=== PATIENT | female | born 1940 | race Caucasian/White ===

== ENCOUNTER 2019-11-18 10:41 | Outpatient (REF) | payer MEDICARE, OTHER, SELFPAY ==
[2019-11-18 11:53] LABS: Imm Gran Abs Auto 0.03 X10*3/uL (0.00-0.03); Imm Gran Pct Auto 0.4 % (0.0-0.4); MANUAL DIFF FLAG SCAN; PLT CLUMP 1; SCAN SMEAR FLAG 1
[2019-11-18 11:55] LABS: Basophils Percent Auto 0.5 % (0-2); Eosinophils Absolute Auto 0.1 X10*3/uL (0.0-0.4); Eosinophils Percent Auto 1.8 % (0-4); Hematocrit 43.6 % (37-47); Hemoglobin 14.7 g/dl (12.0-16.0); Lymphocytes Absolute Auto 1.2 X10*3/uL (1.2-4.9); Lymphocytes Percent Auto 14.8 % (20-40); Mean Corpuscular HGB Conc 33.7 g/dl (31.0-35.0); Mean Corpuscular Hemoglobin 31.8 pg (27.0-33.0); Mean Corpuscular Volume 94.4 fL (80-98); Mean Platelet Volume 11.5 fL (9.4-12.3); Monocytes Absolute Auto 0.5 X10*3/uL (0.1-1.2); Monocytes Percent Auto 6.5 % (2-11); Red Blood Count 4.62 X10*6/uL (4.20-5.50); Red Cell Distribution Width 12.3 % (11.0-16.0); White Blood Count 7.9 X10*3/uL (4.8-10.8)
[2019-11-18 12:03] LABS: INTERNATIONAL NORM RATIO 1.1 (0.9-1.1); Prothrombin Time 12.5 SEC (10.8-13.0)
[2019-11-18 12:26] LABS: SLIDE REVIEW VERIFIED
[2019-11-18 12:28] LABS: Alanine Aminotransferase 34 U/L (0-31); Albumin Level 4.1 g/dL (3.5-5.0); Alkaline Phosphatase 101 U/L (39-117); Anion Gap 10 (12-20); Aspartate Amino Transferase 23 U/L (5-31); Bilirubin Total 0.7 mg/dL (0.0-1.0); Blood Urea Nitrogen 16 mg/dL (9-16); Calcium 9.2 mg/dL (8.4-10.2); Carbon Dioxide 31 mmol/L (22-29); Chloride 100 mmol/L (96-108); Estimated Glomerular Filt Rate > 60; Glucose Random 113 mg/dL (60-115); Potassium 3.9 mmol/l (3.3-5.1); Sodium 137 mmol/L (135-145); Total Protein 6.5 g/dL (6.5-8.0)
[2019-11-18 12:37] LABS: Vitamin D 25-OH Total 27.3 ng/mL (>30)
== END 2019-11-18 10:42 | disposition home or self-care (01) ==
LOC: HO.LAB 10:41
PROVIDERS: PCP Internal Medicine; Visit Provider Internal Medicine Gastroenterology
DX: K74.60 Unspecified cirrhosis of liver (principal)
CPT/HCPCS: 36415; 80053; 82306; 85025; 85610

== ENCOUNTER 2019-11-19 08:10 | Outpatient (REF) | payer MEDICARE, OTHER, SELFPAY ==
--- NOTE | 2019-11-19 08:17 | CT_ITS ---
EXAMINATION: CT ABDOMEN WITHOUT AND WITH CONTRAST CLINICAL INFORMATION: Abdominal pain. Clinical history of cirrhosis. COMPARISON: Ultrasound 10/25/2018. CT abdomen on 09/01/2016. TECHNIQUE: Contiguous axial thin section helical images of the abdomen were performed before and after the administration of 100 mL of Omnipaque 350 intravenous contrast. The data set was reformatted in the coronal and sagittal planes and reviewed on an independent workstation. This CT examination was performed using dose optimization techniques as appropriate, variously including the following: *Automated exposure control *Adjustment of mA and/or kV according to patient size (this includes techniques or standardized protocols for targeted exams where dose is matched to indication/reason for exam; i.e. extremities or head) *Use of iterative reconstruction technique DLP: 666 mGy-cm. FINDINGS: LUNG BASES: Linear subpleural reticular opacities from chronic interstitial disease. Calcification of the mitral valve annulus. LIVER, GALLBLADDER, AND BILIARY TREE: Imaging was obtained in the noncontrast, arterial and portal venous phases. Right lobe of the liver spans 16.9 cm craniocaudal. There is nodular contour. No focal lesion is identified. No intrahepatic biliary duct dilatation. Gallbladder appears unremarkable. No gallstones. The CBD is of normal caliber. PANCREAS: Homogeneous enhancement. Pancreatic duct measures 4-5 mm, similar to previous. No focal mass. No acute inflammatory changes seen. SPLEEN: Measures 8.5 cm craniocaudal. No focal lesions. ADRENAL GLANDS AND KIDNEYS: Adrenal glands unremarkable. Stable 1 cm cyst in the lower pole of the left kidney. No suspicious renal lesions identified. No hydronephrosis. BOWEL LOOPS: Normal caliber of the visualized bowel loops without acute findings. The stomach is nondistended. LYMPH NODES: No pathologically enlarged lymph nodes are seen. VASCULAR: Normal caliber aorta. Moderate atherosclerotic vascular disease. BONES: Scoliotic curvature to the spine, with multilevel degenerative changes. IMPRESSION: 1. Hepatic cirrhosis. No liver lesions identified. 2. Chronic interstitial lung disease in the lung bases. 3. Stable 1 cm cyst in the lower pole left kidney.
== END 2019-11-19 08:11 | disposition home or self-care (01) ==
LOC: HO.CT 08:10
PROVIDERS: Visit Provider Internal Medicine Gastroenterology
DX: K74.60 Unspecified cirrhosis of liver (principal)
CPT/HCPCS: 74170

== ENCOUNTER → 2019-11-27 10:31 | Outpatient (BNVA) | payer MEDICARE, OTHER, SELFPAY | PROVIDERS: PCP Internal Medicine; Referring Provider Internal Medicine; Visit Provider Internal Medicine Gastroenterology | DX: K59.01 Slow transit constipation (principal); K74.60 Unspecified cirrhosis of liver; E55.9 Vitamin D deficiency, unspecified; F41.9 Anxiety disorder, unspecified; Z85.038 Personal history of other malignant neoplasm of large intestine | CPT/HCPCS: 99214; Q3014 ==

== ENCOUNTER 2019-12-23 08:13 | Outpatient (REF) | payer MEDICARE, OTHER, SELFPAY ==
--- NOTE | 2019-12-23 08:16 | MM_ITS ---
EXAMINATION: MM SCREENING DIGITAL BREAST TOMOSYNTHESIS, BILATERAL CLINICAL INFORMATION: Screening. Asymptomatic. Prior right lumpectomy for breast cancer 1992. Prior reduction mammoplasty. Due for yearly. COMPARISON: Mammography: 10/09/2018, 07/13/2017, 06/01/2016 TECHNIQUE: Digital breast tomosynthesis is performed in both the craniocaudal and mediolateral oblique views along with computer-aided detection (CAD). Synthesized 2D images are generated from the tomosynthesis. Additional left MLO view is provided. FINDINGS: There are scattered areas of fibroglandular density (ACR BI-RADS breast composition Category b). There are no significant masses, abnormal calcifications, or other abnormalities. There is some minor scarring similar to prior studies. Scattered round and vascular calcifications are again noted. A group of punctate round calcifications possibly vascular mid upper outer right breast are stable from prior studies. No significant changes. MM/MM tomosynthesis screening BI IMPRESSION: No significant changes from prior exams. ASSESSMENT: BI-RADS 2: Benign RECOMMENDATION: Routine annual mammography screening. This patient's information was entered into a reminder system with a target due date for their next mammogram.
== END 2019-12-23 08:14 | disposition home or self-care (01) ==
LOC: HO.MAMMO 08:13
PROVIDERS: PCP Internal Medicine; Visit Provider Internal Medicine
DX: Z12.31 Encounter for screening mammogram for malignant neoplasm of breast (principal)
CPT/HCPCS: 77063; 77067

== ENCOUNTER 2020-04-28 | Outpatient (REF) | payer MEDICARE, OTHER, SELFPAY ==
[2020-05-01 11:34] LABS: FIT Int Ctl YES; FIT1 NEGATIVE (NEGATIVE); FIT2 NEGATIVE (NEGATIVE)
== END 2020-04-28 00:01 | disposition home or self-care (01) ==
LOC: HO.LNP
PROVIDERS: Visit Provider Internal Medicine Gastroenterology
DX: Z12.11 Encounter for screening for malignant neoplasm of colon (principal); K59.01 Slow transit constipation
CPT/HCPCS: 82274

== ENCOUNTER 2020-05-06 11:22 | Outpatient (REF) | payer MEDICARE, OTHER, SELFPAY ==
[2020-05-06 12:14] LABS: Basophils Percent Auto 0.4 % (0-2); Eosinophils Absolute Auto 0.1 X10*3/uL (0.0-0.4); Hematocrit 43.5 % (37-47); Hemoglobin 14.6 g/dl (12.0-16.0); Imm Gran Abs Auto 0.03 X10*3/uL (0.00-0.03); Imm Gran Pct Auto 0.4 % (0.0-0.4); Lymphocytes Absolute Auto 1.4 X10*3/uL (1.2-4.9); Lymphocytes Percent Auto 19.7 % (20-40); MANUAL DIFF FLAG SCAN; Mean Corpuscular HGB Conc 33.6 g/dl (31.0-35.0); Mean Corpuscular Hemoglobin 31.9 pg (27.0-33.0); Monocytes Absolute Auto 0.4 X10*3/uL (0.1-1.2); Monocytes Percent Auto 5.8 % (2-11); Neutrophils Absolute Auto 4.9 X10*3/uL (2.0-8.3); Neutrophils Percent Auto 71.7 % (45-73); PLT CLUMP 1; Red Blood Count 4.58 X10*6/uL (4.20-5.50); Red Cell Distribution Width 12.7 % (11.0-16.0); SCAN SMEAR FLAG 1
[2020-05-06 12:18] LABS: INTERNATIONAL NORM RATIO 1.1 (0.9-1.1); Prothrombin Time 12.6 SEC (10.8-13.0)
[2020-05-06 12:35] LABS: SLIDE REVIEW VERIFIED; White Blood Count 6.9 X10*3/uL (4.8-10.8)
[2020-05-06 12:42] LABS: Alanine Aminotransferase 38 U/L (0-31); Albumin Level 4.1 g/dL (3.5-5.0); Alkaline Phosphatase 102 U/L (39-117); Anion Gap 14 (12-20); Aspartate Amino Transferase 40 U/L (5-31); Bilirubin Total 1.1 mg/dL (0.0-1.0); Blood Urea Nitrogen 24 mg/dL (9-16); C Reactive Protein 0.32 mg/dL (< or = 0.50); Carbon Dioxide 28 mmol/L (22-29); Chloride 102 mmol/L (96-108); Estimated Glomerular Filt Rate > 60; Gamma Glutamyl Transpeptidase 191 U/L (7-33); Glucose Random 106 mg/dL (60-115); Sodium 140 mmol/L (135-145); Total Protein 6.9 g/dL (6.5-8.0)
[2020-05-06 12:58] LABS: Ferritin 273 ng/mL (10-250)
[2020-05-07 11:47] LABS: Alpha Fetoprotein 4.1 ng/mL
[2020-05-10 22:47] LABS: Chenodeoxycholic Acid 2.2 umol/L (< OR = 3.1); Cholic Acid 0.8 umol/L (< OR = 1.8); Deoxycholic Acid 0.6 umol/L (< OR = 2.4); Total Bile Acids 3.6 umol/L (< OR = 6.8)
== END 2020-05-06 11:23 | disposition home or self-care (01) ==
LOC: HO.LAB 11:22
PROVIDERS: Absent Provider Internal Medicine Medical Oncology; PCP Internal Medicine; Visit Provider Internal Medicine Gastroenterology
DX: K74.60 Unspecified cirrhosis of liver (principal)
CPT/HCPCS: 36415; 80053; 82105; 82542; 82728; 82977; 85025; 85610; 86140

== ENCOUNTER → 2020-05-19 15:02 | Outpatient (BNVA) | payer MEDICARE, OTHER, SELFPAY | PROVIDERS: PCP Internal Medicine; Visit Provider Internal Medicine Gastroenterology | DX: R79.89 Other specified abnormal findings of blood chemistry (principal); K74.60 Unspecified cirrhosis of liver; D12.6 Benign neoplasm of colon, unspecified; L29.8 Other pruritus | CPT/HCPCS: 99212 ==

== ENCOUNTER 2020-10-20 10:50 | Outpatient (REF) | payer MEDICARE, OTHER, SELFPAY ==
[2020-10-20 12:09] LABS: Basophils Percent Auto 0.3 % (0-2); Eosinophils Percent Auto 0.5 % (0-4); Hematocrit 45.2 % (37-47); Hemoglobin 15.2 g/dl (12.0-16.0); Imm Gran Abs Auto 0.04 X10*3/uL (0.00-0.03); Imm Gran Pct Auto 0.5 % (0.0-0.4); Lymphocytes Absolute Auto 1.4 X10*3/uL (1.2-4.9); Lymphocytes Percent Auto 15.9 % (20-40); MANUAL DIFF FLAG SCAN; Mean Corpuscular HGB Conc 33.6 g/dl (31.0-35.0); Mean Corpuscular Hemoglobin 32.5 pg (27.0-33.0); Mean Corpuscular Volume 96.6 fL (80-98); Monocytes Absolute Auto 0.6 X10*3/uL (0.1-1.2); Monocytes Percent Auto 7.1 % (2-11); Neutrophils Absolute Auto 6.6 X10*3/uL (2.0-8.3); Neutrophils Percent Auto 75.7 % (45-73); PLT CLUMP 1; Red Blood Count 4.68 X10*6/uL (4.20-5.50); Red Cell Distribution Width 12.4 % (11.0-16.0); SCAN SMEAR FLAG 1
[2020-10-20 12:10] LABS: White Blood Count 8.6 X10*3/uL (4.8-10.8)
[2020-10-20 12:16] LABS: Prothrombin Time 11.9 SEC (9.9-13.0)
[2020-10-20 12:48] LABS: TSH reflex Free T4 1.32 uIU/mL (0.32-4.0)
[2020-10-20 13:09] LABS: Alanine Aminotransferase 21 U/L (0-31); Albumin Level 4.1 g/dL (3.5-5.0); Alkaline Phosphatase 75 U/L (39-117); Anion Gap 14 (12-20); Aspartate Amino Transferase 19 U/L (5-31); Bilirubin Total 0.7 mg/dL (0.0-1.0); Blood Urea Nitrogen 16 mg/dL (9-16); Calcium 9.7 mg/dL (8.4-10.2); Carbon Dioxide 26 mmol/L (22-29); Chloride 103 mmol/L (96-108); Estimated Glomerular Filt Rate > 60; Glucose Random 89 mg/dL (60-115); Potassium 4.6 mmol/L (3.3-5.1); Sodium 138 mmol/L (135-145); Total Protein 6.5 g/dL (6.5-8.0)
[2020-10-20 13:35] LABS: Gamma Glutamyl Transpeptidase 144 U/L (7-33)
[2020-10-20 13:36] LABS: Platelet Count 133 X10*3/uL (160-400)
[2020-10-20 13:37] LABS: SLIDE REVIEW VERIFIED
== END 2020-10-20 10:51 | disposition home or self-care (01) ==
LOC: HO.LAB 10:50
PROVIDERS: PCP Internal Medicine; Visit Provider Internal Medicine Gastroenterology
DX: K74.60 Unspecified cirrhosis of liver (principal); L29.8 Other pruritus; R79.89 Other specified abnormal findings of blood chemistry
CPT/HCPCS: 36415; 80053; 82306; 82977; 84443; 85025; 85610

== ENCOUNTER 2020-10-26 12:04 | Outpatient (REF) | payer MEDICARE, OTHER, SELFPAY ==
--- NOTE | ~2020-10-26 | CT_ITS ---
EXAMINATION: CT ABDOMEN AND PELVIS WITHOUT AND WITH CONTRAST CLINICAL INFORMATION: Cirrhosis COMPARISON: Previous CT of the abdomen and pelvis November 2019 and abdominal ultrasound October 2018. TECHNIQUE: Multidetector volumetric imaging was performed of the abdomen and pelvis before and after the IV administration of 85 mL of Omnipaque 350 intravenous contrast. Sagittal and coronal reformatted images were obtained on the technologist's workstation. This CT examination was performed using dose optimization techniques as appropriate, variously including the following: *Automated exposure control *Adjustment of mA and/or kV according to patient size (this includes techniques or standardized protocols for targeted exams where dose is matched to indication/reason for exam; i.e. extremities or head) *Use of iterative reconstruction technique DLP: 766 mGy-cm FINDINGS: LUNG BASES: There are increased peripheral interstitial markings questionable for mild interstitial lung disease. There is a small left posterior diaphragmatic hernia containing fat. There is mitral annular calcification. LIVER, GALLBLADDER, AND BILIARY TREE: The liver is cirrhotic. On early arterial phase imaging, there is a small area of early arterial phase enhancement high in the dome of the right lobe of the liver. This area measures approximately 4 mm axial image 21 series 4. This is not appreciated precontrast or on portal phase images. There is a small low-attenuation lesion in the lateral segment of the left lobe of the liver measuring 3 x 10 mm. This does not demonstrate enhancement and is suggestive of a cyst. This is best appreciated axial image 32 series 5. No other focal liver lesion is seen. There is increased attenuation in the gallbladder questionable for a sludge or polyp. No definite gallstone is seen. The gallbladder is otherwise normal. There is no intrahepatic biliary duct dilatation. The hepatic veins and portal veins are patent. There is no ascites. PANCREAS: There is mild dilatation of the main pancreatic duct measuring 5 mm. No focal lesion is seen. SPLEEN: Unremarkable. ADRENAL GLANDS: Unremarkable. KIDNEYS AND URETERS: There are small bilateral renal cysts. The kidneys are otherwise unremarkable. BLADDER: Unremarkable. GASTROINTESTINAL TRACT: There is severe diverticulosis of the colon. There are postsurgical changes to the right colon. The appendix is not seen. The stomach is not optimally distended. ABDOMINAL WALL: There is a small umbilical hernia containing fat. LYMPH NODES: Normal. VASCULAR: There is evidence of atherosclerotic disease. There is mild ectasia of the lower abdominal aorta. No aneurysm is seen. PELVIC VISCERA: There is low-attenuation seen centrally in the uterus suggestive of fluid or thickening of the endometrial cavity. This measures 5 mm in AP dimension. This does not appear appreciably changed from prior exams. Adnexa are unremarkable. OSSEOUS STRUCTURES: There is scoliosis and degenerative changes of the spine. There are degenerative changes at the hip joints. CT/CT abdomen pelvis wo/w con IMPRESSION: Cirrhotic-appearing liver. New 4 mm area of early arterial phase enhancement high in the dome of the right lobe of the liver. Probable small cyst in the left lobe of the liver. Stable mild dilatation of the main pancreatic duct. Bilateral renal cysts. Severe diverticulosis of the colon.
[2020-10-26] MEDS: iohexoL 350 MG/ML 100 ML INFUS..BTL IV (14:29)
== END 2020-10-26 12:05 | disposition home or self-care (01) ==
LOC: HO.CT 12:04
PROVIDERS: PCP Internal Medicine; Visit Provider Internal Medicine Gastroenterology
DX: K74.60 Unspecified cirrhosis of liver (principal)
CPT/HCPCS: 74178; Q9967

== ENCOUNTER → 2020-12-03 09:26 | Outpatient (BNVA) | payer MEDICARE, OTHER, SELFPAY | PROVIDERS: PCP Internal Medicine; Referring Provider Internal Medicine; Visit Provider Internal Medicine Gastroenterology | DX: D12.6 Benign neoplasm of colon, unspecified (principal); K74.60 Unspecified cirrhosis of liver | CPT/HCPCS: 99212 ==

== ENCOUNTER 2020-12-31 10:39 | Outpatient (REF) | payer MEDICARE, OTHER, SELFPAY ==
--- NOTE | ~2020-12-31 | MM_ITS ---
EXAMINATION: MM SCREENING DIGITAL BREAST TOMOSYNTHESIS, BILATERAL CLINICAL INFORMATION: Screening. Asymptomatic. Right lumpectomy for breast cancer, 1993. Prior reduction mammoplasty. COMPARISON: Mammography: 12/23/2019, 10/09/2018, 07/13/2017 TECHNIQUE: Digital breast tomosynthesis is performed in both the craniocaudal and mediolateral oblique views along with computer-aided detection (CAD). Synthesized 2D images are generated from the tomosynthesis. FINDINGS: There are scattered areas of fibroglandular density (ACR BI-RADS breast composition Category b). There are no significant masses, abnormal calcifications, or other abnormalities. Parenchymal pattern is similar to prior exams. No developing density. No significant changes. MM/MM tomosynthesis screening BI IMPRESSION: No mammographic evidence of malignancy. ASSESSMENT: BI-RADS 1: Negative RECOMMENDATION: Routine annual mammography screening. This patient's information was entered into a reminder system with a target due date for their next mammogram.
--- NOTE | ~2020-12-31 | MM_ITS ---
EXAMINATION: BONE DENSITOMETRY CLINICAL INDICATION: Encounter for other screening for malignant neoplasm. COMPARISON: Previous BD dated 10/28/2010 and baseline BD dated 10/10/2006. TECHNIQUE: Using a [employer] DXA System (software version: 13.1) manufactured by [employer], dual-energy x-ray absorptiometry was performed of the lumbar spine and left hip. The images are of good technical quality. Summary results are attached. FINDINGS: AP SPINE L1-L2 (excluding L3 and L4): The data of L1-L4 has been changed to exclude the L3 and L4 vertebral bodies, because degenerative changes at these levels may cause overestimation of lumbar spine density. Current: BMD 1.238 g/cm2, Z-score 2.3, T-score 0.6, normal, 9.4% decrease from previous, 6.4% decrease from baseline (<5% change is not significant). Prior: BMD 1.366 g/cm2. Baseline: BMD 1.322 g/cm2. LEFT FEMUR, NECK: Current: BMD 0.839 g/cm2, Z-score 0.6, T-score -1.4, osteopenia. Prior: BMD 0.830 g/cm2. Baseline: BMD 0.815 g/cm2. LEFT FEMUR, TOTAL: Current: BMD 0.852 g/cm2, Z-score 0.6, T-score -1.2, osteopenia, 7.1% decrease from previous, 4.7% decrease from baseline (<5% change is not significant). Prior: BMD 0.917 g/cm2. Baseline: BMD 0.894 g/cm2. IDENTIFIED RISK FACTORS: Secondary osteoporosis, menopause. HISTORY OF FRACTURE: None listed. MEDICATIONS: Calcium supplements or multivitamin, vitamin D. MM/XR DEXA axial skeleton IMPRESSION: 1. DIAGNOSIS: Osteopenia based on the lowest T-score value of -1.4 in the femoral neck applying World Health Organization criteria. 2. 10-YEAR FRACTURE RISK PREDICTION, FRAX: Major osteoporotic fracture (clinical spine, forearm, hip or shoulder) 13.0%. Hip fracture 3.0%. 3. Treatment Recommendations: NOF guidelines recommend consideration for treatment in postmenopausal women and men age 50 and older presenting with the following: -A hip or vertebral (clinical or morphometric) fracture. -T-score less than or equal to -2.5 at the femoral neck or spine after appropriate evaluation to exclude secondary causes. -Low bone mass at the hip or spine and a 10-year fracture probability by FRAX of greater than or equal to 3% for hip fracture or greater than or equal to 20% for major osteoporotic fracture based on the [place] adapted WHO algorithm. 4. Other Recommendations: All treatment decisions require clinical judgment and consideration of individual patient factors, including patient preferences, comorbidities, previous drug use, risk factors not captured in the FRAX model (e.g. frailty, falls, vitamin D deficiency, increased bone turnover, interval significant decline in bone density) and possible under or overestimation of fracture risk by FRAX. Additional medical evaluation for secondary cause of low bone mineral density may be appropriate. FUTURE SCAN RECOMMENDATION: People with diagnosed cases of osteoporosis or at high risk for fracture should have regular bone mineral density tests. For patients eligible for Medicare, routine testing is allowed once every 2 years. The testing frequency can be increased to one year for patients who have rapidly progressing disease, those who are receiving or discontinuing medical therapy to restore bone mass, or have additional risk factors.
== END 2020-12-31 10:40 | disposition home or self-care (01) ==
LOC: HO.MAMMO 10:39
PROVIDERS: PCP Internal Medicine; Visit Provider Internal Medicine
DX: Z12.31 Encounter for screening mammogram for malignant neoplasm of breast (principal); Z13.820 Encounter for screening for osteoporosis; M85.80 Other specified disorders of bone density and structure, unspecified site; Z78.0 Asymptomatic menopausal state; Z79.899 Other long term (current) drug therapy
CPT/HCPCS: 77063; 77067; 77080

== ENCOUNTER 2021-01-20 12:35 | Outpatient (REF) | payer MEDICARE, OTHER, SELFPAY ==
--- NOTE | ~2021-01-20 | MR_ITS ---
EXAMINATION: MR ABDOMEN WITHOUT AND WITH CONTRAST CLINICAL INFORMATION: Cirrhosis of the liver COMPARISON: CT 10/26/2020 TECHNIQUE: MR abdomen was performed without and with use of 7 mL intravenous Gadavist gadolinium contrast. Postcontrast images are performed in multiphase dynamic sequences. Imaging was performed in 3 planes. FINDINGS: LUNG BASES: The visualized lung bases are unremarkable. LIVER, GALLBLADDER, AND BILIARY TREE: Liver has a nodular contour consistent with history of cirrhosis. No abnormal arterial phase enhancement or portal venous phase washout to suggest hepatocellular carcinoma. There is T2 bright lesion enhancing fibrosis superiorly in the right lobe of the liver with associated retraction and fibrotic changes. A few dependent gallstones are likely present, for example series 3 image . The hepatic and portal veins enhance normally. PANCREAS: Unremarkable. SPLEEN: Normal. ADRENAL GLANDS: Normal. KIDNEYS AND URETERS: Symmetric bilateral renal enhancement. 1 1 cm simple nonenhancing cyst in the lower pole the left kidney; no imaging follow-up recommended. No hydronephrosis or solid mass. GASTROINTESTINAL TRACT: Visualized stomach, small bowel, and colon are unremarkable. ABDOMINAL WALL: No significant hernia is appreciated. LYMPH NODES: No lymphadenopathy. VASCULAR: Unremarkable. OSSEOUS STRUCTURES: Marrow signal normal. MR/MR abdomen wo/w con IMPRESSION: Morphologic appearance of hepatic cirrhosis but no abnormal arterial phase enhancement to suggest hepatocellular carcinoma. Specifically, no correlate to the 3-4 mm focus of hyper enhancement in segment 7 at the dome. Recommend continued attention on follow-up.
[2021-01-20 12:05] LABS: Blood Urea Nitrogen 18 mg/dL (9-16); Estimated Glomerular Filt Rate > 60
== END 2021-01-20 12:36 | disposition home or self-care (01) ==
LOC: HO.MRI 12:35
PROVIDERS: PCP Internal Medicine; Visit Provider Internal Medicine Gastroenterology
DX: K57.90 Diverticulosis of intestine, part unspecified, without perforation or abscess without bleeding (principal); K74.60 Unspecified cirrhosis of liver; R93.2 Abnormal findings on diagnostic imaging of liver and biliary tract
CPT/HCPCS: 36415; 74183; 82565; 84520; A9585

== ENCOUNTER → 2021-04-08 11:23 | Outpatient (BNVA) | payer MEDICARE, OTHER, SELFPAY | PROVIDERS: PCP Internal Medicine; Referring Provider Internal Medicine; Visit Provider Internal Medicine Gastroenterology | DX: K74.60 Unspecified cirrhosis of liver (principal); K59.01 Slow transit constipation; K57.90 Diverticulosis of intestine, part unspecified, without perforation or abscess without bleeding; R93.2 Abnormal findings on diagnostic imaging of liver and biliary tract; Z86.010 Personal history of colon polyps | CPT/HCPCS: 99212 ==

== ENCOUNTER 2021-04-14 09:01 | Outpatient (REF) | payer MEDICARE, OTHER, SELFPAY ==
--- NOTE | ~2021-04-14 | MR_ITS ---
EXAMINATION: MR ABDOMEN WITHOUT AND WITH CONTRAST CLINICAL INFORMATION: Cirrhosis. COMPARISON: 01/20/2021 and 10/26/2020 TECHNIQUE: MR abdomen was performed without and with use of 7 mL intravenous Gadavist gadolinium contrast. Postcontrast images are performed in multiphase dynamic sequences. Imaging was performed in 3 planes. FINDINGS: LUNG BASES: The visualized lung bases are unremarkable. LIVER, GALLBLADDER, AND BILIARY TREE: Nodular surface contour of the liver consistent with history of cirrhosis. Tiny 4 mm focus of arterial phase enhancement in the posterior right lobe on image 29 of series 100 does not demonstrate washout on the portal venous phase. A nonspecific finding however attention should be paid on follow-up imaging. There is T2 bright lesion enhancing fibrosis superiorly in the right lobe of the liver with associated retraction and fibrotic changes. A few dependent gallstones are likely present. The hepatic and portal veins enhance normally. PANCREAS: No ductal dilatation. SPLEEN: Not enlarged. ADRENAL GLANDS: No adrenal masses. KIDNEYS AND URETERS: Symmetric in size and enhancement. No hydronephrosis or perinephric stranding. There is a stable 1.2 cm lower pole left renal cyst. GASTROINTESTINAL TRACT: Imaged loops of small and large bowel are not obstructed. No ascites. ABDOMINAL WALL: No significant hernia is appreciated. LYMPH NODES: No bulky abdominal lymphadenopathy. VASCULAR: Normal caliber abdominal aorta. MR/MR abdomen wo/w con IMPRESSION: Morphologic appearance of hepatic cirrhosis. Tiny 4 mm focus of arterial phase enhancement without washout characteristics is nonspecific. This corresponds to the CT performed on 10/26/2020. Continued attention on follow-up imaging is advised.
[2021-04-14 09:13] LABS: MANUAL DIFF FLAG NO
[2021-04-14 09:17] LABS: Basophils Percent Auto 0.6 % (0-2); Eosinophils Absolute Auto 0.1 X10*3/uL (0.0-0.4); Eosinophils Percent Auto 1.7 % (0-4); Hematocrit 43.3 % (37.0-47.0); Hemoglobin 14.6 g/dl (12.0-16.0); Imm Gran Abs Auto 0.03 X10*3/uL (0.00-0.03); Imm Gran Pct Auto 0.5 % (0.0-0.4); Lymphocytes Absolute Auto 1.4 X10*3/uL (1.2-4.9); Lymphocytes Percent Auto 21.4 % (20-40); Mean Corpuscular HGB Conc 33.7 g/dl (31.0-35.0); Mean Corpuscular Hemoglobin 31.8 pg (27.0-33.0); Mean Corpuscular Volume 94.3 fL (80.0-98.0); Mean Platelet Volume 10.8 fL (9.4-12.3); Monocytes Absolute Auto 0.4 X10*3/uL (0.1-1.2); Monocytes Percent Auto 6.4 % (2-11); Neutrophils Absolute Auto 4.5 x10*3/uL (2.0-8.3); Neutrophils Percent Auto 69.4 % (45-73); Platelet Count 146 X10*3/uL (160-400); Red Blood Count 4.59 X10*6/uL (4.20-5.50); Red Cell Distribution Width 12.5 % (11.0-16.0); White Blood Count 6.5 X10*3/uL (4.8-10.8)
[2021-04-14 09:36] LABS: Alanine Aminotransferase 20 U/L (0-31); Albumin Level 4.1 g/dL (3.5-5.0); Alkaline Phosphatase 87 U/L (39-117); Anion Gap 11 (12-20); Aspartate Amino Transferase 21 U/L (5-31); Bilirubin Total 0.7 mg/dL (0.0-1.0); Blood Urea Nitrogen 23 mg/dL (9-16); Calcium 9.5 mg/dL (8.4-10.2); Carbon Dioxide 30 mmol/L (22-29); Chloride 103 mmol/L (96-108); Estimated Glomerular Filt Rate > 60; Glucose Random 159 mg/dL (60-115); Potassium 4.2 mmol/L (3.3-5.1); Sodium 140 mmol/L (135-145); Total Protein 6.9 g/dL (6.5-8.0)
[2021-04-14 09:40] LABS: INTERNATIONAL NORM RATIO 1.1 (0.9-1.1); Prothrombin Time 12.5 SEC (9.9-13.0)
== END 2021-04-14 09:02 | disposition home or self-care (01) ==
LOC: HO.MRI 09:01
PROVIDERS: PCP Internal Medicine; Visit Provider Internal Medicine Gastroenterology
DX: K74.60 Unspecified cirrhosis of liver (principal); R93.2 Abnormal findings on diagnostic imaging of liver and biliary tract
CPT/HCPCS: 36415; 74183; 80053; 85025; 85610; A9585

== ENCOUNTER 2021-08-06 10:48 | Day surgery (SDC) | payer MEDICARE, OTHER, SELFPAY ==
[2021-07-30 11:28] VITALS: BMI 28.5
--- NOTE | 2021-08-05 13:44 | P.CONAN_ITS ---
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 (Acute) Breast screening (Acute) Osteopenia (Acute) Medicare annual wellness visit, initial (Acute) Diverticulosis (Acute) Abnormal CT of liver (Acute) Difficulty hearing (Acute) Rhinitis due to pollen (Acute) Travel advice encounter (Acute) Difficulty sleeping (Acute) Past Medical History Medical History (Updated 07/30/21 @ 11:31 by Irene Shah RN) Colon cancer COVID-19 vaccine series completed Diverticulosis HX: breast cancer Osteopenia Post-operative nausea and vomiting Pulmonary fibrosis Family History Family History Father Non-Hodgkin lymphoma HTN (hypertension) Mother Breast cancer Pancreatic cancer Surgical History Surgical History (Updated 07/30/21 @ 11:14 by Irene Shah RN) H/O colonoscopy H/O lumpectomy History of right hemicolectomy Hx of cataract extraction Social History Social History Household Members: Spouse Housing: House Are you a primary cardiac care unit nurse to a significant other at home: No Do you presently have visiting nurse or other home services: No Alcohol intake: current Patient Tobacco Use Status: Former Tobacco user Quit Date: age 69 Tobacco use type: Cigarette Use of substances other than those prescribed or required for medical reasons: No Have you been hit, kicked, punched, or otherwise hurt by someone within the past year? If so, by whom?: No Are you DNR?: No Advance Directives: Yes Advance Directives Information Provided: Yes Advance Directives on File: Yes Advance Directives Date on File: 02/24/15 Recently lost weight without trying: Yes How much weight loss: 2-13 pounds Eating poorly because of decreased appetite: Yes Nutrition screen score: 4 Nutrition Risks: Surgical patient >75years Poor oral hygiene: No service: No Current occupational status: retired Cognitive needs: No Hearing needs: No Vision needs: Yes Meds Allergies Allergy/AdvReac Type Severity Reaction Status Date / Time azithromycin [AZITHROMYCIN] Allergy Unknown JAUNDICE Verified 07/16/21 12:25 Home Medications Medication Instructions Recorded Confirmed Last Taken Type dupilumab 300 mg/2 mL subcutaneous 300 mg subcut Q2W 12/03/20 07/30/21 Unknown History syringe (Dupixent) Exam Exam Date and Time: August 05, 2021 1344 Height,Weight and Vital Signs: Height 5 ft 2 in Weight 70.76 kg Pertinent Lab Results Pertinent Lab Results: Laboratory Tests 04/14/21 04/14/21 09:10 09:10 WBC 6.5 Hgb 14.6 Hct 43.3 Plt Count 146 L Sodium 140 Potassium 4.2 Chloride 103 Carbon Dioxide 30 H BUN 23 H Creatinine 0.79 Assessment and Plan Assessment Anesthesia Assessment: Chart Reviewed Documented by User: Laura Whitlock MD 08/06/21 11:16 [facility] Past Medical History Medical History (Updated 07/30/21 @ 11:31 by Irene Shah, [place]) Colon cancer COVID-19 vaccine series completed Diverticulosis HX: breast cancer Osteopenia Post-operative nausea and vomiting Pulmonary fibrosis Family History Family History Father Non-Hodgkin lymphoma HTN (hypertension) Mother Breast cancer Pancreatic cancer Family history of problems with anesthesia: No Surgical History Surgical History (Updated 07/30/21 @ 11:14 by Irene Shah RN) H/O colonoscopy H/O lumpectomy History of right hemicolectomy Hx of cataract extraction History of Problems with Anesthesia: No Social History Social History Household Members: Spouse Housing: House Are you a primary cardiac care unit nurse to a significant other at home: No Do you presently have visiting nurse or other home services: No Alcohol intake: current Patient Tobacco Use Status: Former Tobacco user Quit Date: age 69 Tobacco use type: Cigarette Use of substances other than those prescribed or required for medical reasons: No Have you been hit, kicked, punched, or otherwise hurt by someone within the past year? If so, by whom?: No Are you DNR?: No Advance Directives: Yes Advance Directives Information Provided: Yes Advance Directives on File: Yes Advance Directives Date on File: 02/24/15 Recently lost weight without trying: Yes How much weight loss: 2-13 pounds Eating poorly because of decreased appetite: Yes Nutrition screen score: 4 Nutrition Risks: Surgical patient >75years Poor oral hygiene: No service: No Current occupational status: retired Cognitive needs: No Hearing needs: No Vision needs: Yes Meds Allergies Allergy/AdvReac Type Severity Reaction Status Date / Time azithromycin [AZITHROMYCIN] Allergy Unknown JAUNDICE Verified 07/16/21 12:25 Home Medications Medication Instructions Recorded Confirmed Last Taken Type dupilumab 300 mg/2 mL subcutaneous 300 mg subcut Q2W 12/03/20 07/30/21 Unknown History syringe (Dupixent) Exam Airway Mallampati Class: II (Caps laterally) TM Dist: >3cm Neck ROM: Full Heart: rrr Lungs: cta Assessment and Plan Assessment Anesthesia Assessment: Anesthesia Plan Discussed and Chart Reviewed Final Anesthetic Review Family History of Problems with Anesthesia: No History of Problems with Anesthesia: No NPO: Yes ASA Class: II Final Preanesthetic Review: No Changes in Pt Med Stat, Meds/Allgs Chart Reviewed and Consent Obtained/Reviewed Patient Risk: Intermediate Procedure Risk: Intermediate Anesthetic Plan Anesthetic Plan: MAC: Disposition: Standard PACU
[2021-08-06 10:57] VITALS: BP 155/93; PULSE 84; RESP 18; TEMP 36.6; O2SAT 97
[2021-08-06] MEDS: Lactated Ringers 1,000 ML 100 ML IVCONT (11:29)
--- NOTE | 2021-08-06 11:32 | MHC.SHP ---
Pre-Procedural Eval Section A Date of Service: 08/09/21 The patient is an INPATIENT: No The History & Physical has been completed within 30 days and I have reviewed it.: No Section B Chief Complaint: screening, cirrhosis screen for varices Details of Present Illness: Colon cancer screening, status post right hemicolectomy for colon cancer, cirrhosis screen for varices Relevant Family History (Specify if Yes): Yes Relevant Social History: None Present Medications: see Short Stay Collaborative assessment Medical History: Significant History (Anxiety Chronic pruritic rash in adult Cirrhosis of liver Colon cancer Constipation by delayed colonic transit HX: breast cancer Low vitamin D level Pulmonary fibrosis Tubular adenoma of colon) History of Previous Operations: Relevant previous surgery/procedure and date(s) (H/O colonoscopy H/O lumpectomy History of right hemicolectomy) Allergies: Allergies Allergy/AdvReac Type Severity Reaction Status Date / Time azithromycin [AZITHROMYCIN] Allergy Unknown JAUNDICE Verified 07/16/21 12:25 Review of Systems Sugical H&P ROS: Negative: Constitution, Cardiovascular, Respiratory and Gastrointestinal Exam Surgical H&P Exam: Normal: Heart, Normal: Lungs, Normal: Extremities and Normal: Abdomen Plan Diagnosis/Plan: Unchanged I have reviewed the history and physical and performed a pertinent physical examination on my patient. No changes have occurred unless specified.
--- NOTE | 2021-08-06 12:39 | P.BOP_ITS ---
Brief Operative Note Date of Service: 08/06/21 Pre-op diagnosis: Colon cancer screening, status post right hemicolectomy for colon cancer, cirrhosis screen for varices Post-op diagnosis: other (Portal hypertensive gastropathy, colon polyp, diverticulosis, hemorrhoids) Procedure: FLEXIBLE TRANSORAL UPPER GASTROINTESTINAL ENDOSCOPY AND COLONOSCOPY TILL CECUM WITH SNARE POLYPECTOMY UPPER ENDOSCOPY Consent: Indications for the procedure and potential complications of bleeding, perforation, reaction to medications and missed diagnosis were discussed with the patient and informed consent was obtained. Instrument: Olympus GIF H 190 mid size upper endoscope Monitoring: Vital signs and clinical assessment, continuous EKG monitoring, Pulse oximetry, Carbon Dioxide monitoring and blood pressure monitoring were done throughout the procedure. Procedure: The patient was placed in the left lateral decubitis position and pre-procedure medications were administered and a bite block was placed. The endoscope was inserted into the mouth and advanced under direct vision to the third part of duodenum. A careful inspection was made as the upper endoscope was withdrawn including a retroflexed examination of the proximal stomach; Findings and interventions are described below. Findings: Larynx: Normal Esophagus: GE junction at 35 cms. No esophagitis or Stevenson's or esophageal varices noted. Stomach: Mild portal gastropathy. Grade 2 flap valve and no gastric varices on retroflexed examination of the cardia. Duodenum: Normal bulb and descending duodenum Intervention: None COLONOSCOPY PROCEDURE NOTE Consent: Indications for the procedure and potential complications of bleeding, perforation, reaction to medications and missed diagnosis were discussed with the patient and informed consent was obtained. Instrument: Olympus PCF H 190 L variable stiffness pediatric colonoscope Monitoring: Vital signs and clinical assessment, intermittent blood pressure monitoring, continuous EKG monitoring, Pulse oximetry and Carbon Dioxide monitoring were done throughout the procedure. Colon withdrawl time was 18 minutes. Procedure: The patient was placed in the left lateral decubitis position and pre-procedure medications were administered. After a digital rectal examination of the ano-rectum, the video colonoscope was inserted into the rectum and advanced through the colon to the cecum. The colonoscope was slowly withdrawn in a retrograde panoramic fashion and the colon mucosa was carefully examined including a retroflexed view of the rectum. Findings and interventions are described below. Procedure Difficulty: : There was narrowing with a sharp turn in the sigmoid colon at 25 cms which was navigated with some difficulty. Findings: Transverse Colon: Normal appearing Ileo-colic anastomosis. A 7-8 mm sessile polyp removed with a cold snare and polyp was not retrieved Descending Colon: Moderate diverticulosis throughout the colon. Sigmoid Colon: Severe diverticulosis with luminal narrowing Rectum: Normal Ano-rectum: Small internal hemorrhoids Colon preparation: Good Impression and Post Procedure Diagnosis: Endoscopy Findings: ESOPHAGUS: GE junction at 35 cms. No esophagitis or Stevenson's or esophageal varices noted STOMACH: Mild portal gastropathy Colonoscopy Findings: One small polyp removed - polyp was not retrieved Moderate to severe diverticulosis seen in the entire colon Small hemorrhoids on retroflexed exam. Plan: Await pathology results Patient has an appointment on 09/09/21 in the [facility] with Kylee Osei M.D.. Repeat Colonoscopy 5 years due to personal hx of colon cancer (If pt remains in stable health). Above findings were reviewed with the patient and colon polyps and diverticulosis handouts were given in the discharge area Surgeon: Kylee Osei MD Anesthesia: MAC (Dr Cerda) Was an Blending Tank Tender Helper used for this Procedure?: Yes Blending Tank Tender Helper: Maxime Souza Estimated blood loss (mL): 0 Pathology: none sent Condition: stable Disposition: PACU
[2021-08-06 13:07] VITALS: BP 120/68; PULSE 77; RESP 16; TEMP 36.1; O2SAT 98
[2021-08-06 13:22] VITALS: BP 142/79; PULSE 73; RESP 16; TEMP 36.1; O2SAT 98
--- NOTE | 2021-08-09 18:02 | P.OP_ITS ---
Operative Note Operative Note Date of Service: 08/06/21 Narrative: Pre-op diagnosis: Colon cancer screening, status post right hemicolectomy for colon cancer, cirrhosis screen for varices Post-op diagnosis:?other (Portal hypertensive gastropathy, colon polyp, diverticulosis, hemorrhoids) Procedure: FLEXIBLE TRANSORAL UPPER GASTROINTESTINAL ENDOSCOPY AND COLONOSCOPY TILL CECUM WITH SNARE POLYPECTOMY UPPER ENDOSCOPY Consent:?Indications for the procedure and potential complications of bleeding, perforation, reaction to medications and missed diagnosis were discussed with the patient and informed consent was obtained. Instrument:?Olympus GIF H 190 mid size upper endoscope Monitoring: Vital signs and clinical assessment, continuous EKG monitoring, Pulse oximetry, Carbon Dioxide monitoring and blood pressure monitoring were done throughout the procedure. Procedure:?The patient was placed in the left lateral decubitis position and pre-procedure medications were administered and a bite block was placed. The endoscope was inserted into the mouth and advanced under direct vision to the third part of duodenum. A careful inspection was made as the upper endoscope was withdrawn including a retroflexed examination of the proximal stomach; Findings and interventions are described below. Findings: Larynx:? Normal Esophagus:?GE junction at 35 cms. No esophagitis or Stevenson's or esophageal varices noted. Stomach:?Mild portal gastropathy. Grade 2 flap valve and no gastric varices on retroflexed examination of the cardia. Duodenum:?Normal bulb and descending duodenum Intervention:?None COLONOSCOPY PROCEDURE NOTE Consent:?Indications for the procedure and potential complications of bleeding, perforation, reaction to medications and missed diagnosis were discussed with the patient and informed consent was obtained. Instrument:?Olympus PCF H 190 L variable stiffness pediatric colonoscope Monitoring:?Vital signs and clinical assessment, intermittent blood pressure monitoring, continuous EKG monitoring, Pulse oximetry and Carbon Dioxide monitoring were done throughout the procedure. Colon withdrawl time was 18 minutes. Procedure:?The patient was placed in the left lateral decubitis position and pre-procedure medications were administered. After a digital rectal examination of the ano-rectum, the video colonoscope was inserted into the rectum and advanced through the colon to the cecum. The colonoscope was slowly withdrawn in a retrograde panoramic fashion and the colon mucosa was carefully examined including a retroflexed view of the rectum. Findings and interventions are described below. Procedure Difficulty:?: There was narrowing with a sharp turn in the sigmoid colon at 25 cms which was navigated with some difficulty. Findings: Transverse Colon:??Normal appearing Ileo-colic anastomosis. A 7-8 mm sessile polyp removed with a cold snare and polyp was not retrieved Descending Colon:? Moderate diverticulosis throughout the colon. Sigmoid Colon:?Severe diverticulosis with luminal narrowing Rectum:??Normal Ano-rectum:??Small internal hemorrhoids Colon preparation:? Good Impression and Post Procedure Diagnosis: Endoscopy Findings: ESOPHAGUS: GE junction at 35 cms. No esophagitis or Stevenson's or esophageal varices noted STOMACH:? Mild portal gastropathy Colonoscopy Findings: One small polyp removed - polyp was not retrieved Moderate to severe diverticulosis seen in the entire colon Small hemorrhoids on retroflexed exam. Plan: Await pathology results Patient has an appointment on 09/09/21 in the GI Clinic with Kylee Osei M.D.. Repeat Colonoscopy 5 years due to personal hx of colon cancer (If pt remains in stable health). Above findings were reviewed with the patient and colon polyps and diverticulosis handouts were given in the discharge area Surgeon: Kylee Osei MD Anesthesia:?MAC (Dr Cerda) Was an Field Operations Supervisor used for this Procedure?:?Yes Field Operations Supervisor:?Maxime Souza Estimated blood loss (mL):?0 Pathology:?none sent Condition:?stable Disposition:?PACU
== END 2021-08-06 13:40 | disposition home or self-care (01) ==
PROVIDERS: PCP Internal Medicine; Visit Provider Internal Medicine Gastroenterology
PROC: (CPT 45385; principal; 2021-08-06 12:00)
DX: Z12.11 Encounter for screening for malignant neoplasm of colon (principal); K63.5 Polyp of colon; Z85.038 Personal history of other malignant neoplasm of large intestine; Z90.49 Acquired absence of other specified parts of digestive tract; K57.30 Diverticulosis of large intestine without perforation or abscess without bleeding; K64.8 Other hemorrhoids; K59.01 Slow transit constipation; Z98.0 Intestinal bypass and anastomosis status; K74.60 Unspecified cirrhosis of liver; K76.6 Portal hypertension; K31.89 Other diseases of stomach and duodenum; Z79.899 Other long term (current) drug therapy; Z88.1 Allergy status to other antibiotic agents; Z85.3 Personal history of malignant neoplasm of breast
CPT/HCPCS: 45385; 43235

== ENCOUNTER → 2021-09-23 08:45 | Outpatient (BNVA) | payer MEDICARE, OTHER, SELFPAY | PROVIDERS: PCP Internal Medicine; Visit Provider Internal Medicine Gastroenterology | DX: K59.01 Slow transit constipation (principal); R93.2 Abnormal findings on diagnostic imaging of liver and biliary tract; K74.60 Unspecified cirrhosis of liver; K57.90 Diverticulosis of intestine, part unspecified, without perforation or abscess without bleeding; C18.9 Malignant neoplasm of colon, unspecified | CPT/HCPCS: 99212 ==

== ENCOUNTER 2021-11-25 09:22 | Outpatient (REF) | payer MEDICARE, OTHER, SELFPAY ==
--- NOTE | ~2021-11-25 | MR_ITS ---
EXAMINATION: MRI ABDOMEN WITH AND WITHOUT CONTRAST CLINICAL INFORMATION: Abnormal findings on diagnostic imaging of the liver and biliary tract COMPARISON: MRI 04/14/2021 and earlier TECHNIQUE: Multiple routine MRI sequences through the abdomen were obtained on a high-field 1.5 Lisa MRI before and after the uneventful administration of 7 mL of Gadavist gadolinium-based IV contrast. Dynamic post-contrast images were obtained. FINDINGS: LUNG BASES: Lung bases are clear. LIVER: No loss of signal on opposed phase gradient echo T1 weighted images to suggest hepatic steatosis. Liver is again noted to have a lobular contour suggesting underlying cirrhosis. There are a few punctate foci of arterial phase hyperenhancement. A 4 mm focus of arterial phase hyperenhancement along the posterior aspect of the right lobe of liver, image 33/96, was present previously and is unchanged. There is also 2-3 mm focus of arterial phase enhancement in the right lobe of liver at the dome, image 21/96 present in retrospect on the prior study. Neither demonstrates washout or peripherally enhancing pseudocapsule. T2 bright enhancing fibrosis centrally in the right lobe of the liver was more conspicuous on prior studies. No intrahepatic ductal dilatation. GALLBLADDER AND BILIARY TREE: Gallbladder normal. No intrahepatic or extrahepatic biliary ductal dilation. SPLEEN: Normal. Normal size. No focal lesion. PANCREAS: Normal. ADRENAL GLANDS: Normal. No adrenal mass. KIDNEYS AND URETERS: Normal symmetric renal enhancement. Tiny bilateral simple renal cysts, the largest measuring 1.1 cm in the lower pole the left kidney; no imaging follow-up recommended No hydronephrosis or solid mass. LYMPHOVASCULAR STRUCTURES: Normal caliber aorta. IVC patent. No pathologically enlarged abdominal or retroperitoneal lymphadenopathy by short axis size criteria. OSSEOUS STRUCTURES: No acute or suspicious osseous abnormalities. MR/MR abdomen wo/w con IMPRESSION: 2 tiny arterially enhancing observations in the right lobe of the liver, at most 4 mm. No washout or peripherally enhancing pseudocapsule. Given the background of cirrhosis, continued attention on follow-up is recommended.
== END 2021-11-25 09:23 | disposition home or self-care (01) ==
LOC: HO.MRI 09:22
PROVIDERS: Visit Provider Internal Medicine Gastroenterology
DX: K74.60 Unspecified cirrhosis of liver (principal); R93.2 Abnormal findings on diagnostic imaging of liver and biliary tract
CPT/HCPCS: 74183; A9585

== ENCOUNTER 2022-01-13 10:38 | Outpatient (REF) | payer MEDICARE, OTHER, SELFPAY ==
--- NOTE | ~2022-01-13 | MM_ITS ---
EXAMINATION: MM SCREENING DIGITAL BREAST TOMOSYNTHESIS, BILATERAL CLINICAL INFORMATION: Screening. Asymptomatic. History of right breast lumpectomy and left reduction mammoplasty COMPARISON: Mammography: December 31, 2020 and studies dating back to December 30, 2014 TECHNIQUE: Digital breast tomosynthesis is performed in both the craniocaudal and mediolateral oblique views along with computer-aided detection (CAD). Synthesized 2D images are generated from the tomosynthesis. FINDINGS: There are scattered areas of fibroglandular density (ACR BI-RADS breast composition Category b). There are no significant masses, abnormal calcifications, or other abnormalities. MM/MM tomosynthesis screening BI IMPRESSION: No significant changes from prior exam. ASSESSMENT: BI-RADS 1: Negative RECOMMENDATION: Routine annual mammography screening. This patient's information was entered into a reminder system with a target due date for their next mammogram.
== END 2022-01-13 10:39 | disposition home or self-care (01) ==
LOC: HO.MAMMO 10:38
PROVIDERS: PCP Internal Medicine; Visit Provider Internal Medicine
DX: Z12.31 Encounter for screening mammogram for malignant neoplasm of breast (principal)
CPT/HCPCS: 77063; 77067

== ENCOUNTER 2022-03-03 12:10 | Outpatient (REF) | payer MEDICARE, OTHER, SELFPAY ==
--- NOTE | ~2022-03-03 | XR_ITS ---
EXAMINATION: XR CHEST CLINICAL INFORMATION: Acute bronchitis COMPARISON: 03/20/2019 TECHNIQUE: 2 views of the chest were obtained. FINDINGS: Heart size normal with no evidence of CHF. Peribronchial thickening is present. Some upper lobe changes on the right may represent bronchiectasis. No infiltrates, effusions or lung masses are seen. Biconvex thoracolumbar scoliosis again seen. XR/XR chest 2V IMPRESSION: No acute intrathoracic disease.
[2022-03-03 14:53] LABS: Influenza A PCR NEGATIVE (Negative); Influenza B PCR NEGATIVE (Negative); Resp Syncy Virus RNA Qual PCR NEGATIVE (Negative); SARS COV2 PCR INHOUSE NEGATIVE (Negative)
== END 2022-03-03 12:11 | disposition home or self-care (01) ==
LOC: HO.HMGCX 12:10
PROVIDERS: PCP Internal Medicine; Visit Provider Internal Medicine
DX: J20.9 Acute bronchitis, unspecified (principal); Z20.822 Contact with and (suspected) exposure to COVID-19
CPT/HCPCS: 0241U; 71046; U0003; U0005

== ENCOUNTER → 2022-04-07 11:34 | Outpatient (BNVA) | payer MEDICARE, OTHER, SELFPAY | PROVIDERS: PCP Internal Medicine; Visit Provider Internal Medicine Gastroenterology | DX: K74.60 Unspecified cirrhosis of liver (principal); K59.01 Slow transit constipation; R93.2 Abnormal findings on diagnostic imaging of liver and biliary tract; Z85.038 Personal history of other malignant neoplasm of large intestine | CPT/HCPCS: 99212 ==

== ENCOUNTER 2022-05-11 10:20 | Outpatient (REF) | payer MEDICARE, OTHER, SELFPAY ==
--- NOTE | ~2022-05-11 | MR_ITS ---
EXAMINATION: MR ABDOMEN WITHOUT AND WITH CONTRAST CLINICAL INFORMATION: Cirrhosis. Follow-up liver findings. COMPARISON: Previous MRI of the abdomen most recent November [address] of the abdomen and pelvis October 2020 and abdominal ultrasound most recent October 2018 TECHNIQUE: MR abdomen was performed without and with use of 7 mL intravenous Gadavist gadolinium contrast. Postcontrast images are performed in multiphase dynamic sequences. Imaging was performed in 3 planes. FINDINGS: LUNG BASES: The visualized lung bases are unremarkable. LIVER, GALLBLADDER, AND BILIARY TREE: The liver is cirrhotic. There is a small 3 to 4 mm area of early arterial phase enhancement in the posterior high right lobe of the liver axial image 40 series 100 that is stable. The second 2 to 3 mm area of early arterial phase enhancement in the dome of the right lobe of the liver is not definitely appreciated, possibly identified axial image 27 series 100. No suspicious liver lesion. No signal loss on out of phase sequences/evidence of fatty infiltration. Normal gallbladder. No biliary duct dilatation. PANCREAS: Unremarkable. SPLEEN: Normal. ADRENAL GLANDS: Normal. KIDNEYS AND URETERS: The kidneys are normal in size, shape, and enhance symmetrically. No hydronephrosis. No perinephric stranding. Small bilateral renal cysts. No imaging follow-up. GASTROINTESTINAL TRACT: Diverticulosis of the colon. Probable constipation. No bowel obstruction. No ascites or fluid collection. ABDOMINAL WALL: No significant hernia is appreciated. LYMPH NODES: No lymphadenopathy. VASCULAR: Unremarkable. Portal and hepatic veins are patent. OSSEOUS STRUCTURES: Scoliosis and degenerative changes. Dural ectasia or Tarlov cysts in the sacrum. MR/MR abdomen wo/w con IMPRESSION: Cirrhotic-appearing liver. No suspicious liver lesion. Stable 3 to 4 mm focus of early arterial phase enhancement in the posterior right lobe of the liver. A second smaller 2 to 3 mm area of early arterial phase enhancement high in the dome not definitely appreciated.
== END 2022-05-11 10:21 | disposition home or self-care (01) ==
LOC: HO.MRI 10:20
PROVIDERS: PCP Internal Medicine; Visit Provider Internal Medicine Gastroenterology
DX: K74.60 Unspecified cirrhosis of liver (principal)
CPT/HCPCS: 74183; A9585

== ENCOUNTER 2022-05-18 13:18 | Outpatient (REF) | payer MEDICARE, OTHER, SELFPAY ==
--- NOTE | ~2022-05-18 | XR_ITS ---
EXAMINATION: XR cervical spine 2V CLINICAL INFORMATION: Pain COMPARISON: None TECHNIQUE: 3 views of the cervical spine were obtained. FINDINGS: The cervical spine is visualized to the level of C7-T1 on the lateral view. Minimal anterolisthesis of C7 on T1. Vertebral body heights are maintained. Moderate degenerative disc disease at multiple levels, manifested by loss of disc space height, facet arthropathy and anterior disc osteophyte complexes. Lateral masses of C1 are well aligned on C2. Visualized portion of the dens is intact. No prevertebral soft tissue swelling. Calcifications in the soft tissue of the right neck may reflect carotid calcifications. XR/XR cervical spine 2V IMPRESSION: * Moderate spondylosis of the cervical spine, as above detailed. Spondylolisthesis, as above detailed.
== END 2022-05-18 13:19 | disposition home or self-care (01) ==
LOC: HO.HMGCX 13:18
PROVIDERS: PCP Internal Medicine; Visit Provider Internal Medicine
DX: M54.2 Cervicalgia (principal)
CPT/HCPCS: 72040

== ENCOUNTER → 2022-08-17 09:45 | Outpatient (BNVA) | payer MEDICARE, OTHER, SELFPAY | PROVIDERS: PCP Internal Medicine; Visit Provider Nurse Practitioner Family | DX: M54.2 Cervicalgia (principal); R51.9 Headache, unspecified; G47.9 Sleep disorder, unspecified | CPT/HCPCS: 99202 ==

== ENCOUNTER 2022-10-06 11:11 | Outpatient (AMB) | payer MEDICARE, OTHER, SELFPAY ==
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
[2022-10-06 11:33] VITALS: BP 163/96; PULSE 75; BMI 28.3
== END 2022-10-06 13:09 | disposition home or self-care (01) ==
PROVIDERS: PCP Internal Medicine; Visit Provider Internal Medicine Gastroenterology
DX: C18.9 Malignant neoplasm of colon, unspecified (principal); K74.60 Unspecified cirrhosis of liver; K59.01 Slow transit constipation; K57.90 Diverticulosis of intestine, part unspecified, without perforation or abscess without bleeding; R93.2 Abnormal findings on diagnostic imaging of liver and biliary tract
CPT/HCPCS: 99214

== ENCOUNTER → 2022-10-06 11:11 | Outpatient (BNVA) | payer MEDICARE, OTHER, SELFPAY | PROVIDERS: PCP Internal Medicine; Visit Provider Internal Medicine Gastroenterology | DX: R93.2 Abnormal findings on diagnostic imaging of liver and biliary tract (principal); K74.60 Unspecified cirrhosis of liver; K59.01 Slow transit constipation; K57.90 Diverticulosis of intestine, part unspecified, without perforation or abscess without bleeding; C18.9 Malignant neoplasm of colon, unspecified | CPT/HCPCS: 99212 ==

== ENCOUNTER 2022-12-07 11:02 | Outpatient (REF) | payer MEDICARE, OTHER, SELFPAY ==
--- NOTE | ~2022-12-07 | MR_ITS ---
EXAMINATION: MR ABDOMEN WITHOUT AND WITH CONTRAST CLINICAL INFORMATION: Cirrhosis. Follow-up prior abnormal imaging. COMPARISON: 05/11/2022 and 11/25/2021 TECHNIQUE: MR abdomen was performed without and with use of 7 mL intravenous Gadavist gadolinium contrast. Postcontrast images are performed in multiphase dynamic sequences. Imaging was performed in 3 planes. FINDINGS: LUNG BASES: The visualized lung bases are unremarkable. LIVER, GALLBLADDER, AND BILIARY TREE: Cirrhotic morphology. There are stable punctate foci of arterial phase hyperenhancement compared with 11/25/2021. A 3 mm focus of arterial phase hyperenhancement along the posterior aspect of the right lobe of liver, image 30/104, was present previously and is unchanged. A 3 mm focus of arterial phase hyperenhancement in the right lobe of liver at the dome, image 17/104, was present previously and is unchanged. Neither demonstrates washout or peripherally enhancing pseudocapsule. No suspicious liver lesion. No signal loss on out of phase sequences to suggest hepatic steatosis. The gallbladder is unremarkable. No biliary duct dilatation. PANCREAS: Unremarkable. SPLEEN: Not enlarged. ADRENAL GLANDS: No adrenal mass. KIDNEYS AND URETERS: The kidneys are normal in size, shape, and enhance symmetrically. No hydronephrosis. No perinephric stranding. 1.1 cm left renal cyst. No imaging follow-up is required. GASTROINTESTINAL TRACT: Diverticulosis of the colon. No bowel obstruction. No significant ascites or fluid collection. ABDOMINAL WALL: No significant hernia is appreciated. LYMPH NODES: No bulky abdominal lymphadenopathy. VASCULAR: Hepatic vasculature is patent. Normal caliber abdominal aorta. MR/MR abdomen wo/w con IMPRESSION: Cirrhotic-appearing liver. No suspicious liver lesion. Stable 3 mm arterially enhancing observations in the right hepatic lobe. Given the background of cirrhosis, continued imaging follow-up is recommended.
[2022-12-07] MEDS: gadobutroL 7.5 ML VIAL IVPUSH (12:13)
== END 2022-12-07 11:03 | disposition home or self-care (01) ==
LOC: HO.MRI 11:02
PROVIDERS: PCP Internal Medicine; Visit Provider Internal Medicine Gastroenterology
DX: R93.2 Abnormal findings on diagnostic imaging of liver and biliary tract (principal)
CPT/HCPCS: 74183; A9585

== ENCOUNTER 2023-01-16 10:36 | Outpatient (REF) | payer MEDICARE, OTHER, SELFPAY ==
--- NOTE | ~2023-01-16 | MM_ITS ---
EXAMINATION: MM SCREENING DIGITAL BREAST TOMOSYNTHESIS, BILATERAL CLINICAL INFORMATION: Screening. Asymptomatic. The patient has a history of left breast cancer from 1993. Patient also has a history of bilateral breast reduction. COMPARISON: Mammography: This study is compared with prior exams dating back to 2017. TECHNIQUE: Digital breast tomosynthesis is performed in both the craniocaudal and mediolateral oblique views along with computer-aided detection (CAD). Synthesized 2D images are generated from the tomosynthesis. FINDINGS: There are scattered areas of fibroglandular density (ACR BI-RADS breast composition Category b). There are no significant masses, abnormal calcifications, or other abnormalities. Post reduction changes are present in each breast. Postsurgical changes in the deep third of the superior aspect of the right breast present from prior cancer surgery. MM/MM tomosynthesis screening BI IMPRESSION: No mammographic evidence of malignancy. ASSESSMENT: BI-RADS BI-RADS 2 - Benign Findings RECOMMENDATION: Routine annual mammography screening. 1 year F/U This examination should not preclude the clinical evaluation of a suspicious palpable abnormality. This patient's information was entered into a reminder system with a target due date for their next mammogram.
== END 2023-01-16 10:37 | disposition home or self-care (01) ==
LOC: HO.MAMMO 10:36
PROVIDERS: PCP Internal Medicine; Visit Provider Internal Medicine
DX: Z12.31 Encounter for screening mammogram for malignant neoplasm of breast (principal)
CPT/HCPCS: 77063; 77067

== ENCOUNTER → 2023-01-16 10:45 | Outpatient (BNV) | payer MEDICARE, OTHER, SELFPAY | PROVIDERS: PCP Internal Medicine; Visit Provider Radiology Diagnostic Radiology | DX: Z12.31 Encounter for screening mammogram for malignant neoplasm of breast (principal) | CPT/HCPCS: 77063; 77067 ==

== ENCOUNTER 2023-01-31 10:55 | Outpatient (AMB) | payer MEDICARE, OTHER, SELFPAY ==
[2023-01-31 11:05] VITALS: BP 142/76; PULSE 73; O2SAT 97; BMI 29.3
--- NOTE | 2023-01-31 11:05 | A.OFFVIS_ITS ---
Intake Vital Signs 01/31/23 11:05 Height 5 ft 2 in Weight 160 lb 2 oz BMI 29.3 BP 142/76 H Blood Pressure Location Lt brachial Position Sitting Pulse 73 Pulse Source Pulse Oximeter Pulse Oximetry (%) 97 Oxygen Delivery Method Room Air Intake Visit Reasons: AWV Allergies azithromycin [AZITHROMYCIN] Allergy (Unknown, Verified 01/31/23 11:06) JAUNDICE pollen Allergy (Unknown, Uncoded 08/17/22 10:13) Unknown Medication List - Last Reconciled 01/31/23 by Rose Mary Collins MD baclofen 5 - 10 mg (1 - 2 x 5 mg) PO BEDTIME PRN 30 days dupilumab (Dupixent) mg subcut Q2W [Liver Supplment PO DAILY] mirtazapine 15 mg PO BEDTIME sennosides-docusate sodium 8.6-50 mg (Senexon-S) 1 tab PO BEDTIME [Vitamin D PO DAILY] vitamins A,C,J-tlih-zwolqw 4,296 mcg-226 mg-90 mg (ICaps AREDS) 2 caps PO DAILY HPI AWV HPI Details Patient is 82-year-old female came in today for Medicare wellness visit and follow-up Patient had difficulty sleeping, she is doing very well with mirtazapine 15 mg and is requesting refill She also need a referral for hearing aid, referral placed. I see that she has not had any labs done in a while She has appointment with gastroenterology coming up in February, patient says that she will have labs done through them. Blood pressure is slightly 142/76 which is fine for and elderly. HPI Comments History of Present Illness Details AWV Medical/social history reviewed Past medical history reviewed [place] of care / care team list updated Surgical/ hospitalization history reviewed Current medications including OTC and supplements reviewed Family history reviewed Tobacco controlled form updated Alcohol use form updated Illicit drug use in social history reviewed Current diagnosis of depression ?screening updated Appropriate PHQ 2/PHQ-9 completed . Vital signs reviewed Alcohol tobacco drug use reviewed and discussed . MMSE completed . ? Fall risk: ?Assessed Fall history: ?None Have you had any falls with injury in the past year?? No Have you had 2 or more falls in the past year?? No Fall risk assessment completed Home safety discussed with the patient Functional ability assessed and discussed and documented Activities of daily living reviewed and appropriate actions taken . HRA filled out by the patient and reviewed by provider and scanned . Appropriate written screening schedule established . Any health advise needed provided . Advance care planning discussed with the patient , necessary paperwork filled Examination IPPE/AWE: Balance intact Romberg intact Tandem walk intact walk-in turn intact rise from sit to stand intact . ?Hearing ?whisper test pass . Medication list reviewed, patient is stable on medications All other providers patient is seeing discussed and noted . PFSH Medical History Post-operative nausea and vomiting COVID-19 vaccine series completed Diverticulosis Osteopenia HX: breast cancer Chronic pruritic rash in adult Tubular adenoma of colon Low vitamin D level Constipation by delayed colonic transit Anxiety Pulmonary fibrosis Colon cancer Cirrhosis of liver Surgical History Hx of endoscopy Hx of cataract extraction History of right hemicolectomy H/O colonoscopy H/O lumpectomy Family History Father Non-Hodgkin lymphoma HTN (hypertension) Mother Breast cancer Pancreatic cancer Social History Household Members: Spouse Housing: House Are you a primary healthcare management consultant to a significant other at home: No Do you presently have visiting nurse or other home services: No Alcohol intake: current Alcohol type: wine Patient Tobacco Use Status: Former Tobacco user Quit Date: age 69 Tobacco use type: Cigarette Advance Directives Date on File: 02/24/15 service: No Current occupational status: retired Cognitive needs: No Hearing needs: No Vision needs: Yes Questionnaire Medicare Wellness Checkup What is your age?: 80 or older What gender do you identify with?: female During the past 4 weeks, how much have you been bothered by emotional problems such as feeling anxious, depressed, irritable, sad or downhearted, and blue?: not at all During the past 4 weeks, has your physical & emotional health limited your social activities with family, friends, neighbors, or groups?: not at all During the past 4 weeks, how much bodily pain have you generally had?: very mild pain During the past 4 weeks, was someone available to help you if you needed & wanted help?: yes, as much as I wanted During the past 4 weeks, what was the hardest physical activity you could do for at least 2 minutes?: heavy Can you get to places out of walking distance without help? (For eg., can you travel alone on buses, taxis or drive your car?): Yes Can you go shopping for groceries or clothes without someone's help?: Yes Can you prepare your own meals?: Yes Can you do your housework without help?: Yes Because of any health problems, do you need the help of another person with your personal care needs such as eating, bathing, dressing or getting around the house?: No Can you handle your own money without help?: Yes During the past 4 weeks, how would you rate your health in general?: very good During the past 4 weeks how have things been going for you?: very well; could hardly better Are you having difficulties driving your car?: no Do you always fasten your seat belt when you are in a car?: yes, usually During past 4 weeks, have you been bothered by the following: never: Sexual problems?, Trouble eating well?, Teeth or denture problems? and Problems using the telephone? and seldom: Falling or dizzy when standing up and Tiredness or fatigue? Have you fallen 2 or more times in the past year?: No Are you afraid of falling?: Yes Are you a smoker?: no During the past 4 weeks, how many drinks of wine, beer, or other alcoholic beverages did you have?: 2-5 drinks per week Do you exercise for about 20 minutes 3 or more times a week?: yes, most of the time Have you been given information to help with the following?: yes: Hazards in your house that might hurt you? and no: Keeping track of your medications? How often do you have trouble taking medicines the way you have been told to take them?: I always take medicine as prescribed How confident are you that you can control & manage most of your health problems?: very confident What is your race?: White Mini Mental State Exam (MMSE) Orientation What is the (year) (season) (date) (day) (month)?: year, season, date, day and month Where are we (state) (county) (town or city) (hospital) (floor)?: state, county, town or city, hospital/clinic and floor Score Score: 10 Activity of Daily Living Bathing - sponge bath, tub bath or shower: receives no assistance (gets in/out by self, if usual bathing means Dressing - getting clothes from closets & drawers, including inner/outer ga rments & fasteners.: gets clothes & gets completely dressed without help Toileting - going to the 'toilet room' for urine/bowel elimination & cleaning self/arranging clothes: goes to toilet room, cleans self, arranges clothes without help Transfer: moves in & out of bed and chair without help (may use support object) Continence: controls urination/bowel movements completely by self Feeding: feeds self without help Total Score: 0 Information obtained from: patient Using telephone: independent Traveling: independent Shopping: independent Preparing meals: independent Housework: independent Taking medicine: independent Managing money: independent PHQ-9 Over the last 2 weeks, how often have you been bothered by any of the following problems? 1. Little interest or pleasure in doing things: not at all 2. Feeling down, depressed, or hopeless: not at all 3. Trouble falling or staying asleep, or sleeping too much: several days 4. Feeling tired or having little energy: not at all 5. Poor appetite or overeating: not at all 6. Feeling bad about yourself - or that you are a failure or have let yourself or your family down: not at all 7. Trouble concentrating on things, such as reading the newspaper or watching television: not at all 8. Moving or speaking so slowly that other people could have noticed. Or the opposite - being so fidgety or restless that you have been moving around a lot more than usual: not at all 9. Thoughts that you would be better off or of hurting yourself in some way: not at all Total score: 1 Depression Screening Interpretation: Negative Depression Screening Done: Yes 52342 - PHQ-9 Billing: Yes Source: Developed by Drs. Herminio Berman, Arelis Ralph, Philip George and colleagues, with an educational davida from [employer]. Review of Systems Const All systems reviewed & are unremarkable except as noted in HPI and below Physical Exam Vital Signs: Last Vital Signs Pulse 73 01/31/23 11:05 BP 142/76 H 01/31/23 11:05 Pulse Ox 97 01/31/23 11:05 Oxygen Delivery Method Room Air 01/31/23 11:05 BMI result Body Mass Index 29.3 Const General: no acute distress Orientation/consciousness: patient oriented x3 Eyes General: appearance normal, both eyes and all related structures Resp Effort & Inspection: normal respiratory effort and able to speak in complete sentences Auscultation: clear to auscultation bilaterally Neuro General: patient oriented x3 Psych Mental Status: mental status grossly normal Assessment & Plan Assessment & Plan (1) Medicare annual wellness visit, subsequent: Code(s): Z00.00 - Encounter for general adult medical examination without abnormal findin gs (2) Difficulty hearing: Code(s): H91.90 - Unspecified hearing loss, unspecified ear Qualifiers: Laterality: bilateral Qualified Code(s): H91.93 - Unspecified hearing loss, bilateral (3) Difficulty sleeping: Code(s): G47.9 - Sleep disorder, unspecified Plan Patient is 82-year-old female came in today for Medicare wellness visit and follow-up Patient had difficulty sleeping, she is doing very well with mirtazapine 15 mg and is requesting refill She also need a referral for hearing aid, referral placed. I see that she has not had any labs done in a while She has appointment with gastroenterology coming up in February, patient says that she will have labs done through them. Blood pressure is slightly 142/76 which is fine for and elderly. Orders: Referrals Audiology Referral H91.90 - Unspecified hearing loss, unspecified ear Medications: New mirtazapine 15 mg PO BEDTIME 90 tabs 1RF Quality Reporting (2019) Depression/Bipolar (159/160/161/177) PHQ-9: Total score: 1 Coding Level of Care Code Medicare Subsequent (G0439) Est Pt Level 3 (61265) Diagnoses Medicare annual wellness visit, subsequent Z00.00 Hearing difficulty of both ears H91.93 Laterality: bilateral Difficulty sleeping G47.9 CPT Codes Advance Care Planning - Advance Care Planning discussion: On file, no changes ([id number]) Advance Care Planning Advance Care Planning discussion: On file, no changes
== END 2023-01-31 12:08 | disposition home or self-care (01) ==
PROVIDERS: Visit Provider Internal Medicine
DX: Z00.00 Encounter for general adult medical examination without abnormal findings (principal); H91.93 Unspecified hearing loss, bilateral; G47.9 Sleep disorder, unspecified
CPT/HCPCS: 1123F; G0439

== ENCOUNTER 2023-04-13 11:05 | Outpatient (AMB) | payer MEDICARE, OTHER, SELFPAY ==
--- NOTE | 2023-04-13 11:11 | A.OFFVIS_ITS ---
Intake Vital Signs 04/13/23 11:17 Height 5 ft 2 in Weight 157 lb 2 oz BMI 28.7 BP 184/88 H Blood Pressure Location Lt brachial Position Sitting Pulse 77 Intake Visit Reasons: 6 months follow up Intake Note: Patien 6 month follow up for constipation. Patient cc: RLQ pain due her constipation on and off. 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 Patient has been followed by Dr. Whitehead since 2014 when she presented with jaundice after a 5 day course of azithromycin in april,. She was never a big drinker even when she was young. She would have some wine? from time to time IMAGING STUDIES:? 12/07/22 ABD MRI SHOWED: Cirrhotic-appearing liver. No suspicious liver lesion. Stable 3 mm arterially enhancing observations in the right hepatic lobe. Given the background of cirrhosis, continued imaging follow-up is recommended. 05/11/22 HEPATIC MRI SHOWED: Cirrhotic-appearing liver. No suspicious liver lesion. Stable 3 to 4 mm focus of early arterial phase enhancement in the posterior right lobe of the liver. A second smaller 2 to 3 mm area of early arterial phase enhancement high in the dome not definitely appreciated.? 11/2021 HEPATIC MRI SHOWED: 2 tiny arterially enhancing observations in the right lobe of the liver, at most 4 mm. No washout or peripherally enhancing pseudocapsule. Given the background of cirrhosis, continued attention on follow- up is recommended. 04/2020 HEPATIC MRI SHOWED: Tiny 4 mm focus of arterial phase enhancement without washout characteristics is nonspecific. This corresponds to the CT performed on 10/26/2020. Continued attention on follo w-up imaging is advised. 01/2021 HEPATIC MRI SHOWED: Morphologic appearance of hepatic cirrhosis but no abnormal arterial phase enhancement to suggest hepatocellular carcinoma. Specifically, no correlate to the 3-4 mm focus of hyper enhancement in segment 7 at the dome. Recommend continued attention on follow-up. 10/26/[address] SCAN SHOWED: Cirrhotic-appearing liver. New 4 mm area of early arterial phase enhancement high in the dome of the right lobe of the liver. Probable small cyst in the left lobe of the liver. Stable mild dilatation of the main pancreatic duct. Bilateral renal cysts. Severe diverticulosis of the colon. ENDOSCOPIC STUDIES:?08/06/21 EGD AND COLON SHOWED: Endoscopy Findings: ESOPHAGUS: GE junction at 35 cms. No esophagitis or Stevenson's or esophageal varices noted STOMACH:? Mild portal gastropathy Colonoscopy Findings: One small polyp removed - polyp was not retrieved Moderate to severe diverticulosis seen in the entire colon Small hemorrhoids on retroflexed exam. Plan:? Repeat Colonoscopy 5 years due to personal hx of colon cancer (If pt remains in stable health). 05/2018 Colonoscopy was performed by Dr Loulou plascencia and multiple hyperplastic polyps and a TA? was removed. 2015 colonoscopy showed a polyp/mass wit h umbilication - adenocarcinoma on biopsy. Patient had laparoscopic converted to open right hemicolectomy. TODAY'S VISIT: Patient cc: RLQ pain due her constipation on and off. Has been doing well Notes RLQ when she is constipated - resolves after she has a BM. BMs are always hard. Tried senokot which does not work. Planning to take a stool softener at night. Advised to take Miralax 2-3 times. Has to work on constipation all the time. Notes abdominal discomfort when she is backed up Takes 1 tab of dulcolax once a week with good response. Does not like taking Miralax PAST VISITS: Doing well as long as she is not constipated Takes senakot every night. Went on a 12 day [employer] cruise last Oct 17 and tested positive for COVID Had medication. Planning a trip to [place] on 04/16/22 with her daughter for a week. Continues to have constipation - never has a soft BM Can have several small BMs throughout the day. Sometimes takes Miralax in the morning. No response to Magnesium. Takes a dulcolax every week to clean her out. Has a BM daily which are small and not too hard. Has been eating less. Needs to drink more water PAST VISITS: Complains of constipation - multiple hard stools throughout the day with incomplete evacuation - no blood in the stool. Has been taking a probiotic since her surgery. Advised to take magnesium by Dr Whitehead. Occasionally takes 2 tab of Dulcolax with good results. Has tried Miralax in the past and does not like to take liquid medications. Patient denies symptoms of heartburn, dysphagia, nausea, vomiting, change in appetite or weight.? Notes some gas, no burping. Appetite has decreased to 1/4 of what she ate before. Walks every day and works in the garden. Has pulmonary fibrosis ? due to XRT for breast cancer. Past smoker Patient denies major cardiac problems, Snores at night and denies sleep apnea. Takes a sleep aid (advil pm) at night. Denies problems with anesthesia in the past - vomiting with past anesthesia. Denies being on chronic anticoagulation or NSAIDS. Patient denies known family history of liver disease, colon polyps, colon cancer or other GI malignancies. Mom had breast cancer of panreatic cancer at age 85 yrs. 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 PAST GI HISTORY BY REVIEW OF MEDICAL RECORDS: Patient was seen by Dr. Whitehead in May 2020: 79 yo female here for followup of known cirrhosis of the liver.? This is believed to have progressed in 2014 due to a subfulminant hepatitis drug induced from Azithromycin--She has stable cirrhosis.? Liver function is normal. GGT up due to 1 glass nightly of wine with dinner. Bile acids were checked due to the pruritis--the values were She has been vaccinated against Covid-19([employer]) since February. She has not been sick @ all.? She has had ongoing problems with itchy skin rash which is now responding to Triamcinalone cream [facility] Medical History Post-operative nausea and vomiting COVID-19 vaccine series completed Diverticulosis Osteopenia HX: breast cancer Chronic pruritic rash in adult Tubular adenoma of colon Low vitamin D level Constipation by delayed colonic transit Anxiety Pulmonary fibrosis Colon cancer Cirrhosis of liver Surgical History Hx of endoscopy Hx of cataract extraction History of right hemicolectomy H/O colonoscopy H/O lumpectomy Family History Father Non-Hodgkin lymphoma HTN (hypertension) Mother Breast cancer Pancreatic cancer Social History Household Members: Spouse Housing: House Are you a primary healthcare science specialist to a significant other at home: No Do you presently have visiting nurse or other home services: No Alcohol intake: current Alcohol type: wine Patient Tobacco Use Status: Former Tobacco user Quit Date: age 69 Tobacco use type: Cigarette Advance Directives Date on File: 02/24/15 service: No Current occupational status: retired Cognitive needs: No Hearing needs: No Vision needs: Yes Review of Systems Const All systems reviewed & are unremarkable except as noted in HPI and below Physical Exam Vital Signs: Last Vital Signs Pulse 77 04/13/23 11:17 BP 184/88 H 04/13/23 11:17 BMI result Body Mass Index 28.7 Const General: healthy appearing and no acute distress Nutritional Appearance: overweight Orientation/consciousness: patient oriented x3 Limitations: no limitations HEENT Head: Yes normal to inspection Ears: hearing grossly normal bilaterally Eyes Sclerae: sclerae normal Pupils: Equal, round and reactive pupils present Neck Neck: Yes normal visual inspection Chest Chest palpation & inspection: normal inspection of the chest Resp Effort & Inspection: normal respiratory effort Auscultation: clear to auscultation bilaterally Cardio Palpation: normal PMI Rate: regular rate Rhythm: regular rhythm Heart sounds: S1 normal heart sound present, S2 normal heart sound present and no murmurs GI Palpation (GI): Soft to palpation, nontender and No hepatosplenomegaly present Auscultation: normal bowel sounds Rectal Exam - Female: deferred Skin General skin exam: no rashes or lesions noted Neuro General: patient oriented x3, gait normal and moves all extremities Cranial nerves: Yes Equal, round and reactive pupils present Psych Appearance: grossly normal Mental Status: mental status grossly normal Assessment & Plan Assessment & Plan (1) Colon cancer: Comment: DX 2015--colo-adenocarcinoma:cecal 05/2018 Colonoscopy was performed by Dr Hogan and multiple hyperplastic polyps and a 6-7 mm TA? was removed from the transverse colon Repeat Colon in 3 yrs (due 05/2021) 07/2021 Colonoscopy showed: One small polyp removed - polyp was not retrieved Moderate to severe diverticulosis seen in the entire colon Small hemorrhoids on retroflexed exam. Plan: Repeat Colonoscopy 5 years due to personal hx of colon cancer (If pt remains in stable health). Code(s): C18.9 - Malignant neoplasm of colon, unspecified (2) Cirrhosis of liver: Comment: stable Code(s): K74.60 - Unspecified cirrhosis of liver (3) Constipation by delayed colonic transit: Comment: new Code(s): K59.01 - Slow transit constipation (4) Tubular adenoma of colon: Comment: 05/2018 Colonoscopy was performed by Dr Hogan and multiple hyperplastic polyps and a 6-7 mm TA? was removed from the transverse colon Repeat Colon in 3 yrs (due 05/2021) Code(s): D12.6 - Benign neoplasm of colon, unspecified (5) Low vitamin D level: Code(s): R79.89 - Other specified abnormal findings of blood chemistry (6) Diverticulosis: Code(s): K57.90 - Diverticulosis of intestine, part unspecified, without perforation or abscess without bleeding (7) Abnormal CT of liver: Code(s): R93.2 - Abnormal findings on diagnostic imaging of liver and biliary tract Plan 82 YF with pulmonary fibrosis, chronic constipation and anxiety followed in GI for compensated cirrhosis with thrombocytopenia. 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 patient was advised to completely avoid use of alcohol - she drinks a glass of wine in the evening HCC SURVEILLANCE:?? the patient is at risk of developing hepatocellular carcinoma given the presence of cirrhosis and need 6 monthly imaging surveillance with either abdominal ultrasound (US) or multiphase cross-sectional imaging (CT or MRI). ? 10/[address] scan showed?cirrhotic-appearing liver. New 4 mm area of early arterial phase enhancement high in the dome of the right lobe of the liver. 04/2020 MRI showed no abnormal arterial phase enhancement or portal venous phase washout to suggest hepatocellular carcinoma. There is T2 bright lesion enhancing fibrosis superiorly in the right lobe of the liver with associated retraction and fibrotic changes. Pt advised FU labs and will be scheduled for FU MRI in July, VACCINATIONS:??Received Hep A vac for travel in 1999 and 2000. SURVEILLANCE FOR GASTROESOPHAGEAL VARICES:?07/2021 No varices noted on EGD. QUESTION OF LIVER TRANSPLANTATION:?? Due to advanced age, and as pt has never had any hepatic decompensation and continues to have good hepatic synthetic function with meld score of 6, liver transplantation does not need to be considered at this time. She will be scheduled for an MRI for follow-up of?4 mm area of early arterial phase enhancement high in the dome of the right lobe of the liver on past CT Prescribed Linzess 145 mcg daily for constipation. 04/13/23 Notes RLQ when she is constipated - resolves after she has a BM. BMs are always hard. Tried senokot which does not work. Planning to take a stool softener at night. Advised to take Miralax 2-3 times. Hepatic MRI in July, to FU on liver abnormality seen on past liver imaging FU in 6 months Orders: Orders Complete Blood Count Auto Diff 06/17/23 K74.60 - Unspecified cirrhosis of liver Vitamin D 25-OH Total 06/17/23 K74.60 - Unspecified cirrhosis of liver Prothrombin Time INR 06/17/23 K74.60 - Unspecified cirrhosis of liver Vitamin B12 and Folate Today K74.60 - Unspecified cirrhosis of liver MR abdomen wo/w con Today K76.9 - Liver disease, unspecified Comprehensive Met. Panel 06/17/23 K74.60 - Unspecified cirrhosis of liver Coding Level of Care Code Est Pt Level 4 (04048) Diagnoses Colon cancer C18.9 Cirrhosis of liver K74.60 Constipation by delayed colonic transit K59.01 Tubular adenoma of colon D12.6 Low vitamin D level R79.[address] of liver R93.2 Time Spent (min) 23
[2023-04-13 11:17] VITALS: BP 184/88; PULSE 77; BMI 28.7
== END 2023-04-13 11:46 | disposition home or self-care (01) ==
PROVIDERS: PCP Internal Medicine; Visit Provider Internal Medicine Gastroenterology
DX: C18.9 Malignant neoplasm of colon, unspecified (principal); K74.60 Unspecified cirrhosis of liver; K59.01 Slow transit constipation; D12.6 Benign neoplasm of colon, unspecified; R79.89 Other specified abnormal findings of blood chemistry; K57.90 Diverticulosis of intestine, part unspecified, without perforation or abscess without bleeding; R93.2 Abnormal findings on diagnostic imaging of liver and biliary tract
CPT/HCPCS: 99214

== ENCOUNTER → 2023-04-13 11:05 | Outpatient (BNVA) | payer MEDICARE, OTHER, SELFPAY | PROVIDERS: PCP Internal Medicine; Visit Provider Internal Medicine Gastroenterology | DX: K74.60 Unspecified cirrhosis of liver (principal); K59.01 Slow transit constipation; K57.90 Diverticulosis of intestine, part unspecified, without perforation or abscess without bleeding; C18.9 Malignant neoplasm of colon, unspecified; D12.6 Benign neoplasm of colon, unspecified; R79.89 Other specified abnormal findings of blood chemistry; R93.2 Abnormal findings on diagnostic imaging of liver and biliary tract | CPT/HCPCS: 99212 ==

== ENCOUNTER 2023-08-01 10:47 | Outpatient (REF) | payer MEDICARE, OTHER, SELFPAY ==
--- NOTE | ~2023-08-01 | MR_ITS ---
EXAMINATION: MR ABDOMEN WITHOUT AND WITH CONTRAST CLINICAL INFORMATION: Follow-up liver lesions. COMPARISON: 12/07/2022 TECHNIQUE: MR abdomen was performed without and with use of 7 mL intravenous Gadavist gadolinium contrast. Postcontrast images are performed in multiphase dynamic sequences. Imaging was performed in 3 planes. FINDINGS: LUNG BASES: No pleural or pericardial effusion. Chronic interstitial lung disease. Left Bochdalek hernia containing fat. LIVER, GALLBLADDER, AND BILIARY TREE: Nodular surface contour of the liver. Previously demonstrated punctate foci of arterial phase hyperenhancement are unchanged. No washout characteristics. No new lesions. No biliary ductal dilatation. The gallbladder is unremarkable with no evidence of gallbladder wall thickening, or obvious pericholecystic inflammatory changes. PANCREAS: No ductal dilatation. SPLEEN: Not enlarged. ADRENAL GLANDS: No adrenal mass. KIDNEYS AND URETERS: The kidneys are normal in size, shape, and enhance symmetrically. Stable 1.2 cm lower pole left renal cyst. No further routine imaging follow-up is needed. No hydronephrosis. No perinephric stranding. GASTROINTESTINAL TRACT: No bowel obstruction. No ascites or fluid collection. ABDOMINAL WALL: No significant hernia is appreciated. LYMPH NODES: No bulky lymphadenopathy. VASCULAR: Normal caliber abdominal aorta. MR/MR abdomen wo/w con IMPRESSION: Cirrhotic-appearing liver. Stable small arterially enhancing observations in the right hepatic lobe. No suspicious liver lesion. Given the background of cirrhosis, continued imaging follow-up is recommended.
[2023-08-01] MEDS: gadobutroL 7.5 ML VIAL IVPUSH (12:08)
== END 2023-08-01 10:48 | disposition home or self-care (01) ==
LOC: HO.MRI 10:47
PROVIDERS: PCP Internal Medicine; Visit Provider Internal Medicine Gastroenterology
DX: K76.9 Liver disease, unspecified (principal)
CPT/HCPCS: 74183; A9585

== ENCOUNTER 2023-09-21 12:20 | Outpatient (REF) | payer MEDICARE, OTHER, SELFPAY ==
[2023-09-21 12:46] LABS: Basophils Percent Auto 0.6 % (0-2); Eosinophils Absolute Auto 0.1 X10*3/uL (0.0-0.4); Eosinophils Percent Auto 0.8 % (0-4); Hematocrit 43.8 % (37.0-47.0); Hemoglobin 14.9 g/dl (12.0-16.0); Imm Gran Abs Auto 0.02 X10*3/uL (0.00-0.03); Imm Gran Pct Auto 0.3 % (0.0-0.4); Lymphocytes Absolute Auto 1.2 X10*3/uL (1.2-4.9); MANUAL DIFF FLAG SCAN; Mean Corpuscular Hemoglobin 31.8 pg (27.0-33.0); Mean Corpuscular Volume 93.6 fL (80.0-98.0); Monocytes Absolute Auto 0.6 X10*3/uL (0.1-1.2); Monocytes Percent Auto 8.3 % (2-11); Neutrophils Absolute Auto 5.3 x10*3/uL (2.0-8.3); PLT CLUMP 1; Red Blood Count 4.68 X10*6/uL (4.20-5.50); Red Cell Distribution Width 12.8 % (11.0-16.0); SCAN SMEAR FLAG 1
[2023-09-21 12:47] LABS: Prothrombin Time 12.1 SEC (11.1-13.3)
[2023-09-21 12:50] LABS: White Blood Count 7.3 X10*3/uL (4.8-10.8)
[2023-09-21 13:05] LABS: SLIDE REVIEW VERIFIED
[2023-09-21 13:53] LABS: Alanine Aminotransferase 20 U/L (0-31); Albumin Level 4.2 g/dL (3.5-5.0); Alkaline Phosphatase 88 U/L (39-117); Anion Gap 10 (12-20); Aspartate Amino Transferase 23 U/L (5-31); Bilirubin Total 0.6 mg/dL (0.0-1.0); Blood Urea Nitrogen 15 mg/dL (9-16); Calcium 9.5 mg/dL (8.4-10.2); Carbon Dioxide 31 mmol/L (22-29); Chloride 99 mmol/L (96-108); Estimated Glomerular Filt Rate > 60; Glucose Random 89 mg/dL (60-115); Potassium 4.1 mmol/L (3.3-5.1); Sodium 136 mmol/L (135-145)
[2023-09-21 14:09] LABS: Folate 15.9 ng/mL (> or = 4.0); Vitamin B12 631 pg/mL (200-900)
[2023-09-21 14:12] LABS: Gamma Glutamyl Transpeptidase 104 U/L (7-33)
[2023-09-21 14:15] LABS: Ferritin 300 ng/mL (10-250); Vitamin D 25-OH Total 31.5 ng/mL (>30)
[2023-09-22 12:55] LABS: Alpha Fetoprotein 3.6 ng/mL
[2023-09-24 12:58] LABS: Zinc 64 mcg/dL (60-130)
== END 2023-09-21 12:21 | disposition home or self-care (01) ==
LOC: HO.LAB 12:20
PROVIDERS: PCP Internal Medicine; Visit Provider Internal Medicine Gastroenterology
DX: K74.60 Unspecified cirrhosis of liver (principal)
CPT/HCPCS: 36415; 80053; 82105; 82306; 82607; 82728; 82746; 82977; 84630; 85025; 85610

== ENCOUNTER 2023-10-12 10:59 | Outpatient (AMB) | payer MEDICARE, OTHER, SELFPAY ==
--- NOTE | 2023-10-12 11:01 | MHC.OFFVIS ---
Vital Signs 10/12/23 11:09 Height 5 ft 2 in Weight 162 lb BMI 29.6 BP 135/96 H Blood Pressure Location Lt brachial Position Sitting Pulse 84 Intake Visit Reasons: 6 month follow up Intake Note: Patient follow up for abnormal CT of liver and MRI/lab results Patient denies any GI issues. [employer] Administrator Required: No Accompanied by: Self / Same As Patient Allergies azithromycin [AZITHROMYCIN] Allergy (Unknown, Verified 10/20/23 13:06) JAUNDICE pollen Allergy (Unknown, Uncoded 08/17/22 10:13) Unknown Medication List - Last Reconciled 10/12/23 by Kylee Osei MD baclofen 5 - 10 mg (1 - 2 x 5 mg) PO BEDTIME PRN 30 days dupilumab (Dupixent) mg subcut Q2W [Liver Supplment PO DAILY] [Vitamin D PO DAILY] vitamins A,C,E-swol-asnzig 4,296 mcg-226 mg-90 mg (ICaps AREDS) 2 caps PO DAILY HPI HPI 6 month follow up: Details: FU GI clinic visit for this 83 YF for FU of cirrhosis and abnormal hepatic MRI scan. Patient has been followed by Dr. Whitehead since 2014 when she presented with jaundice after a 5 day course of azithromycin in april,. She was never a big drinker even when she was young. She would have some wine?from time to time IMAGING STUDIES:? 08/01/23 ABD MRI SHOWED: Cirrhotic-appearing liver. Stable small arterially enhancing observations in the right hepatic lobe. No suspicious liver lesion. Given the background of cirrhosis, continued imaging follow-up is recommended. 12/07/22 ABD MRI SHOWED: Cirrhotic-appearing liver. No suspicious liver lesion. Stable 3 mm arterially enhancing observations in the right hepatic lobe. Given the background of cirrhosis, continued imaging follow-up is recommended. 05/11/22 HEPATIC MRI SHOWED:Cirrhotic-appearing liver. No suspicious liver lesion. Stable 3 to 4 mm focus of early arterial phase enhancement in the posterior right lobe of the liver. A second smaller 2 to 3 mm area of early arterial phase enhancement high in the dome not definitely appreciated.? 11/2021 HEPATIC MRI SHOWED: 2 tiny arterially enhancing observations in the right lobe of theliver, at most 4 mm. No washout or peripherally enhancing pseudocapsule. Given the background of cirrhosis, continued attention on follow-up is recommended. 04/2020 HEPATIC MRI SHOWED:Tiny 4 mm focus of arterial phase enhancement without washout characteristics is nonspecific. This corresponds to the CT performed on 10/26/2020. Continued attention on follow-up imaging is advised. 01/2021 HEPATIC MRI SHOWED:Morphologic appearance of hepatic cirrhosis but no abnormal arterial phase enhancement to suggest hepatocellular carcinoma. Specifically, no correlate to the 3-4 mm focus of hyper enhancement in segment 7 at the dome. Recommend continued attention on follow-up. 10/26/[address] SCAN SHOWED:Cirrhotic-appearing liver. New 4 mm area of early arterial phase enhancement high in the dome of the right lobe of the liver. Probable small cyst in the left lobe of the liver. Stable mild dilatation of the main pancreatic duct. Bilateral renal cysts. Severe diverticulosis of the colon. ENDOSCOPIC STUDIES:?08/06/21 EGD AND COLON SHOWED: Endoscopy Findings: ESOPHAGUS: GE junction at 35 cms. No esophagitis or Stevenson's or esophageal varices noted STOMACH:? Mild portal gastropathy Colonoscopy Findings: One small polyp removed - polyp was not retrieved Moderate to severe diverticulosis seen in the entire colon Small hemorrhoids on retroflexed exam. Plan:? Repeat Colonoscopy 5 years due to personal hx of colon cancer (If pt remains in stable health). 05/2018 Colonoscopy was performed by Dr Hogan and multiple hyperplastic polyps and a TA? was removed. 2015 colonoscopy showed a polyp/mass with umbilication - adenocarcinoma on biopsy.Patient had laparoscopic converted to open right hemicolectomy. TODAY'S VISIT: Had a bleed in the right eye which is blurred - unable to drive or read Has to take something on a regular basis to clean out Takes Miralax every morning Prefers to take the Senna and Miralax appears to work faster Takes Senna at bedtime if she can remember PAST VISITS: Has been doing well Notes RLQ when she is constipated - resolves after she has a BM. BMs are always hard. Tried senokot which does not work. Planning to take a stool softener at night. Advised to take Miralax 2-3 times. Has to work on constipation all the time. Notes abdominal discomfort when she is backed up Takes 1 tab of dulcolax once a week with good response. Does not like taking Miralax PAST VISITS: Doing well as long as she is not constipated Takes senakot every night. Went on a 12 day [place] cruise last Oct 17 and tested positive for COVID Had medication. Planning a trip to [place] on 04/16/22 with her daughter for a week. Continues to have constipation - never has a soft BM Can have several small BMs throughout the day. Sometimes takes Miralax in the morning. No response to Magnesium. Takes a dulcolax every week to clean her out. Has a BM daily which are small and not too hard. Has been eating less. Needs to drink more water PAST VISITS: Complains of constipation - multiple hard stools throughout the day with incomplete evacuation - no blood in the stool. Has been taking a probiotic since her surgery. Advised to take magnesium by Dr Whitehead. Occasionally takes 2 tab of Dulcolax with good results. Has tried Miralax in the past and does not like to take liquid medications. Patient denies symptoms of heartburn, dysphagia, nausea, vomiting, change in appetite or weight.? Notes some gas, no burping. Appetite has decreased to 1/4 of what she ate before. Walks every day and works in the garden. Has pulmonary fibrosis ? due to XRT for breast cancer. Past smoker Patient denies major cardiac problems, Snores at night and denies sleep apnea. Takes a sleep aid (advil pm) at night. Denies problems with anesthesia in the past - vomiting with past anesthesia. Denies being on chronic anticoagulation or NSAIDS. Patient denies known family history of liver disease, colon polyps, colon cancer or other GI malignancies. Mom had breast cancer of panreatic cancer at age 85 yrs. 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 PAST GI HISTORY BY REVIEW OF MEDICAL RECORDS: Patient was seen by Dr. Whitehead in May 2020: 79 yo female here for followup of known cirrhosis of the liver.?This is believed to have progressed in 2014 due to a subfulminant hepatitis drug induced from Azithromycin--She has stable cirrhosis.? Liver function is normal. GGT up due to 1 glass nightly of wine with dinner. Bile acids were checked due to the pruritis--the values were She has been vaccinated against Covid-19([employer]) since February. She has not been sick @ all.? She has had ongoing problems with itchy skin rash which is now responding to Triamcinalone cream [facility] Medical History Post-operative nausea and vomiting COVID-19 vaccine series completed Diverticulosis Osteopenia HX: breast cancer Chronic pruritic rash in adult Tubular adenoma of colon Low vitamin D level Constipation by delayed colonic transit Anxiety Pulmonary fibrosis Colon cancer Cirrhosis of liver Surgical History Hx of endoscopy Hx of cataract extraction History of right hemicolectomy H/O colonoscopy H/O lumpectomy Family History Father Non-Hodgkin lymphoma HTN (hypertension) Mother Breast cancer Pancreatic cancer Social History Household Members: Spouse Housing: House Are you a primary school childcare attendant to a significant other at home: No Do you presently have visiting nurse or other home services: No Alcohol intake: current Alcohol type: wine Patient Tobacco Use Status: Former Tobacco user Tobacco use type: Cigarette e-Cigarette/Vaping Use: Never Used Advance Directives Date on File: 02/24/15 service: No Current occupational status: retired Cognitive needs: No Hearing needs: No Vision needs: Yes Review of Systems Const All systems reviewed & are unremarkable except as noted in HPI and below Physical Exam Vital Signs: Last Vital Signs Pulse 84 10/12/23 11:09 BP 135/96 H 10/12/23 11:09 BMI result Body Mass Index 29.6 Const General: healthy appearing and no acute distress Nutritional Appearance: overweight Orientation/consciousness: patient oriented x3 Limitations: no limitations HEENT Head: Yes normal to inspection Ears: hearing grossly normal bilaterally Eyes Sclerae: sclerae normal Pupils: Equal, round and reactive pupils present Neck Neck: Yes normal visual inspection Chest Chest palpation & inspection: normal inspection of the chest Resp Effort & Inspection: normal respiratory effort Auscultation: clear to auscultation bilaterally Cardio Palpation: normal PMI Rate: regular rate Rhythm: regular rhythm Heart sounds: S1 normal heart sound present, S2 normal heart sound present and no murmurs GI Palpation (GI): Soft to palpation, nontender and No hepatosplenomegaly present Auscultation: normal bowel sounds Rectal Exam - Female: deferred Skin General skin exam: no rashes or lesions noted Neuro General: patient oriented x3, gait normal and moves all extremities Cranial nerves: Yes Equal, round and reactive pupils present Psych Appearance: grossly normal Mental Status: mental status grossly normal Assessment & Plan Assessment & Plan (1) Cirrhosis of liver: Comment: stable Code(s): K74.60 - Unspecified cirrhosis of liver Category: Medical (2) Colon cancer: Comment: DX 2015--colo-adenocarcinoma:cecal 05/2018 Colonoscopy was performed by Dr Hogan and multiple hyperplastic polyps and a 6-7 mm TA? was removed from the transverse colon Repeat Colon in 3 yrs (due 05/2021) 07/2021 Colonoscopy showed: One small polyp removed - polyp was not retrieved Moderate to severe diverticulosis seen in the entire colon Small hemorrhoids on retroflexed exam. Plan: Repeat Colonoscopy 5 years due to personal hx of colon cancer (If pt remains in stable health). Code(s): C18.9 - Malignant neoplasm of colon, unspecified Category: Medical (3) Tubular adenoma of colon: Comment: 05/2018 Colonoscopy was performed by Dr Hogan and multiple hyperplastic polyps and a 6-7 mm TA? was removed from the transverse colon Repeat Colon in 3 yrs (due 05/2021) Code(s): D12.6 - Benign neoplasm of colon, unspecified Category: Medical (4) Abnormal CT of liver: Code(s): R93.2 - Abnormal findings on diagnostic imaging of liver and biliary tract Category: Medical Plan 83 YF with pulmonary fibrosis, chronic constipation and anxiety followed in GI for compensated cirrhosis with thrombocytopenia. This is believed to have progressed in 2014 due to a sub-fulminant hepatitis drug induced from Azithromycin LFTs are normal (except for an elevated GGT) 04/2014 Hepatitis A, B and C serologies were negative, AMA, ASMA, LKM ab were negative and protein electrophoresis was normal 2015 Liver fibrosis score of 0.98, liver fibrosis stage of F4 2017 iron studies showed iron of 213, TIBC of < 230, Ferritin of 1154 Pt is status post right hemicolectomy on 01/29/[address] Small for Cecal cancer - node neg ( 22cm colon out, 4 cm small bowel.) REDUCING THE RISK OF LIVER PROGRESSION:? patient was advised to completely avoid use of alcohol - she drinks a glass of wine in the evening HCC SURVEILLANCE:?? the patient is at risk of developing hepatocellular carcinoma given the presence of cirrhosis and need 6 monthly imaging surveillance with either abdominal ultrasound (US) or multiphase cross-sectional imaging (CT or MRI). ? 10/[address] scan showed?cirrhotic-appearing liver. New 4 mm area of early arterial phase enhancement high in the dome of the right lobe of the liver. 04/2020 MRI showed no abnormal arterial phase enhancement or portal venous phase washout to suggest hepatocellular carcinoma. There is T2 bright lesion enhancing fibrosis superiorly in the right lobe of the liver with associated retraction and fibrotic changes. Pt advised FU labs and will be scheduled for FU MRI in 2024 VACCINATIONS:??Received Hep A vac for travel in 1999 and 2000. SURVEILLANCE FOR GASTROESOPHAGEAL VARICES:?07/2021 No varices noted on EGD. QUESTION OF LIVER TRANSPLANTATION:?? Due to advanced age, and as pt has never had any hepatic decompensation and continues to have good hepatic synthetic function with meld score of 6, liver transplantation does not need to be considered at this time. She will be scheduled for an MRI for follow-up of?4 mm area of early arterial phase enhancement high in the dome of the right lobe of the liver on past CT Prescribed Linzess 145 mcg daily for constipation. 04/13/23 Notes RLQ when she is constipated - resolves after she has a BM. BMs are always hard. Tried senokot which does not work. Planning to take a stool softener at night. Advised to take Miralax 2-3 times. July, - Hepatic MRI was performed and findings as noted above FU in 8 months Coding Level of Care Code Est Pt Level 4 (27712) Diagnoses Cirrhosis of liver K74.60 Colon cancer C18.9 Tubular adenoma of colon D12.[address] of liver R93.2 Time Spent (min) 20
[2023-10-12 11:09] VITALS: BP 135/96; PULSE 84; BMI 29.6
== END 2023-10-12 11:38 | disposition home or self-care (01) ==
PROVIDERS: PCP Internal Medicine; Visit Provider Internal Medicine Gastroenterology
DX: K74.60 Unspecified cirrhosis of liver (principal); C18.9 Malignant neoplasm of colon, unspecified; D12.6 Benign neoplasm of colon, unspecified; R93.2 Abnormal findings on diagnostic imaging of liver and biliary tract
CPT/HCPCS: 99214

== ENCOUNTER → 2023-10-12 10:59 | Outpatient (BNVA) | payer MEDICARE, OTHER, SELFPAY | PROVIDERS: PCP Internal Medicine; Visit Provider Internal Medicine Gastroenterology | DX: K74.60 Unspecified cirrhosis of liver (principal); C18.9 Malignant neoplasm of colon, unspecified; D12.6 Benign neoplasm of colon, unspecified; R93.2 Abnormal findings on diagnostic imaging of liver and biliary tract | CPT/HCPCS: 99212 ==

== ENCOUNTER 2023-10-20 13:04 | Outpatient (AMB) | payer MEDICARE, OTHER, SELFPAY ==
[2023-10-20 13:05] VITALS: BP 140/90; PULSE 81; O2SAT 97; BMI 29.3
--- NOTE | 2023-10-20 13:05 | A.OFFPC_ITS ---
Vital Signs 10/20/23 13:05 Height 5 ft 2 in Weight 160 lb BMI 29.3 BP 140/90 H Blood Pressure Location Rt brachial Position Sitting Pulse 81 Pulse Source Pulse Oximeter Pulse Oximetry (%) 97 Intake Visit Reasons: Referral Req~ Coloring Room Man Required: No Accompanied by: Self / Same As Patient Allergies azithromycin [AZITHROMYCIN] Allergy (Unknown, Verified 10/20/23 13:06) JAUNDICE pollen Allergy (Unknown, Uncoded 08/17/22 10:13) Unknown Medication List - Last Reconciled 10/20/23 by Rose Mary Collins MD baclofen 5 - 10 mg (1 - 2 x 5 mg) PO BEDTIME PRN 30 days dupilumab (Dupixent) mg subcut Q2W [Liver Supplment PO DAILY] [Vitamin D PO DAILY] vitamins A,C,U-mtpx-vwzwrd 4,296 mcg-226 mg-90 mg (ICaps AREDS) 2 caps PO DAILY Tobacco use date assessed: 10/20/23 Fall risk assessment: No Falls in past year Last assessed Fall Risk: 10/20/23 Dental Screening Dental Screen Date: 10/20/23 Did you have a dental visit in the last 12 months?: Yes Did you have a dental problem in the last 6 months where you did not have access to dental care?: No Was dental information given to patient?: Patient has dentist HPI Referral Req~ HPI Details Patient is 83-year-old female, came in today to talk about her ongoing congested cough Patient says that her symptoms has gotten worse after she had COVID few weeks ago Continues to have congested cough especially at night She says that she has been taking Mucinex DM which does help just a little bit She also hear herself wheeze at time Her lungs are clear at this time She has no fever no chills no chest pain There is no swelling of ankles I am adding Breo inhaler patient was instructed to rinse her mouth after And take inhaler once a day Proper inhalation technique was also demonstrated to patient I am booking her appointment with the job service specialist for further management. [facility] Medical History Post-operative nausea and vomiting COVID-19 vaccine series completed Diverticulosis Osteopenia HX: breast cancer Chronic pruritic rash in adult Tubular adenoma of colon Low vitamin D level Constipation by delayed colonic transit Anxiety Pulmonary fibrosis Colon cancer Cirrhosis of liver Surgical History Hx of endoscopy Hx of cataract extraction History of right hemicolectomy H/O colonoscopy H/O lumpectomy Family History Father Non-Hodgkin lymphoma HTN (hypertension) Mother Breast cancer Pancreatic cancer Social History Household Members: Spouse Housing: House Are you a primary hospice care consultant to a significant other at home: No Do you presently have visiting nurse or other home services: No Alcohol intake: current Alcohol type: wine Patient Tobacco Use Status: Former Tobacco user Tobacco use type: Cigarette e-Cigarette/Vaping Use: Never Used Advance Directives Date on File: 02/24/15 service: No Current occupational status: retired Cognitive needs: No Hearing needs: No Vision needs: Yes Questionnaire PHQ-9 Over the last 2 weeks, how often have you been bothered by any of the following problems? 1. Little interest or pleasure in doing things: not at all 2. Feeling down, depressed, or hopeless: not at all 3. Trouble falling or staying asleep, or sleeping too much: several days 4. Feeling tired or having little energy: not at all 5. Poor appetite or overeating: not at all 6. Feeling bad about yourself - or that you are a failure or have let yourself or your family down: not at all 7. Trouble concentrating on things, such as reading the newspaper or watching television: not at all 8. Moving or speaking so slowly that other people could have noticed. Or the opposite - being so fidgety or restless that you have been moving around a lot more than usual: not at all 9. Thoughts that you would be better off or of hurting yourself in some way: not at all Total score: 1 Depression Screening Interpretation: Negative Depression Screening Done: Yes [id number] - PHQ-9 Billing: Yes Source: Developed by Drs. Herminio Berman, Arelis Ralph, Philip George and colleagues, with an educational davida from [employer]. Thrive Questionnaire Date Thrive assessed: 10/20/23 I am a: Patient What is your living situation today?: I have a steady place to live Within the past 12 months, did the food you bought not last and you didn't have the money to get more?: Never true Within the past 12 months, did you worry whether your food would run out before you got money to buy more?: Never true Do you have trouble paying for medicines?: No Do you have trouble getting transportation to medical appointments?: No Do you have trouble paying your heating and electricity bill?: No Do you have trouble taking care of your child, family member or friend?: No Do you have trouble with day-to-day activities such as bathing, preparing meals, shopping, managing finances, etc.?: No Are you currently unemployed and looking for a job?: No Are you interested in more education?: No Please select the resources that you would like help with: None Currently or been in a relationship where the following occur: No concerns reported THRIVE Score: 0 AUDIT C Alcohol Use Questionnaire (AUDIT-C) 1. How often do you have a drink containing alcohol?: 4 or more times a week 2. How many drinks containing alcohol do you have on a typical day when you are drinking?: 1 or 2 3. How often do you have six or more drinks on one occasion?: Never Total Score: 4 Score Reviewed/Action Taken: Yes SANDRA-7 AMB Questionnaire SANDRA-7 Date SANDRA - 7 assessed: 10/20/23 Feeling nervous, anxious, or on edge: 1 = Several days Not being able to stop or control worryin = Several days Worrying too much about different things: 1 = Several days Trouble relaxin = Several days Being so restless that it is hard to sit still: 1 = Several days Becoming easily annoyed or irritable: 0 = Not at all Feeling afraid as if something awful might happen: 0 = Not at all Total SANDRA-7 score (0-4 normal; 5-9 mild; 10-14 moderate; 15-21 severe): 5 Source: Developed by Drs. Herminio Berman, Arelis Ralph, Philip George and colleagues, with an educational davida from [employer] SANDRA-7 Assessment Billing SANDRA-7 Assessment Tool: SANDRA-7 Assessment 53670 Review of Systems Const Denies chills and Denies fever(s) ENT Denies epistaxis and Denies nasal discharge Card Denies chest pain Resp Denies hemoptysis GI Denies diarrhea and Denies nausea Skin/Breast Denies rash Neuro Reports no additional complaints Psych Reports no additional complaints Endo Reports no additional complaints Physical exam (Primary Care) Vital Signs: Last Vital Signs Pulse 81 10/20/23 13:05 BP 140/90 H 10/20/23 13:05 Pulse Ox 97 10/20/23 13:05 BMI result Body Mass Index 29.3 Tobacco/Smoking Status: Tobacco use Status Tobacco use date assessed 10/20/23 10/20/23 13:07 Patient Tobacco Use Status Former Tobacco user 10/20/23 13:07 Tobacco use type Cigarette 10/20/23 13:07 e-Cigarette/Vaping Use Never Used 10/20/23 13:07 PHQ-9: PHQ-9 Score PHQ-9: Total score 1 10/20/23 13:40 Depression Screening Interpretation: Negative Thrive Assessment: Date of Thrive Assessment Date Thrive assessed 10/20/23 10/20/23 13:07 Currently or been in a relationship where the following occur: No concerns reported Const General: cooperative, comfortable and no acute distress Orientation/consciousness: patient oriented x3 HENMT Head: Yes normocephalic Eyes General: appearance normal, both eyes and all related structures Neck Neck: Yes supple Resp Other: Clear to auscultation bilateral posteriorly Effort & Inspection: normal respiratory effort, no cough and no stridor Cardio Heart sounds: S1 normal heart sound present and S2 normal heart sound present Skin General skin exam: turgor normal Neuro General: patient oriented x3, tone normal and moves all extremities Extrem Right lower extremity: no edema Left lower extremity: no edema Assessment and Plan Assessment & Plan (1) Chest congestion: Code(s): R09.89 - Other specified symptoms and signs involving the circulatory and respiratory systems (2) Cough: Code(s): R05.9 - Cough, unspecified (3) Wheezing: Code(s): R06.2 - Wheezing (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 - Post COVID-19 condition, unspecified Plan Patient is 83 year old female, came in today to talk about her ongoing congested cough Patient says that her symptoms has gotten worse after she had COVID few weeks ago Continues to have congested cough especially at night She says that she has been taking Mucinex DM which does help just a little bit She also hear herself wheeze at time Her lungs are clear at this time She has no fever no chills no chest pain There is no swelling of ankles I am adding Breo inhaler patient was instructed to rinse her mouth after And take inhaler once a day Proper inhalation technique was also demonstrated to patient I am booking her appointment with the job service specialist for further management. Orders: Referrals Pulmonology Referral R05.9 - Cough, unspecified, R06.2 - Wheezing, R09.89 - Other specified symptoms and signs involving the circulatory and respiratory systems, U09.9 - Post COVID-19 condition, unspecified Medications: New fluticasone furoate-vilanterol 100-25 mcg/dose (Breo Ellipta) 1 inh inhalation DAILY 60 ea 0RF Coding Level of Care Code Est Pt Level 4 (81173) Diagnoses Chest congestion R09.89 Cough R05.9 Wheezing R06.2 Post-COVID syndrome U09.9 Additional Codes SANDRA-7 Assessment Billing - SANDRA-7 Assessment Tool: SANDRA-7 Assessment 21735 ([id number])
== END 2023-10-20 13:44 | disposition home or self-care (01) ==
PROVIDERS: PCP Internal Medicine; Visit Provider Internal Medicine
DX: R09.89 Other specified symptoms and signs involving the circulatory and respiratory systems (principal); R05.9 Cough, unspecified; R06.2 Wheezing; U09.9 Post COVID-19 condition, unspecified
CPT/HCPCS: 99214

== ENCOUNTER 2023-11-01 13:08 | Outpatient (AMB) | payer MEDICARE, OTHER, SELFPAY ==
--- NOTE | 2023-11-01 13:07 | MHC.OFFVIS ---
Vital Signs 11/01/23 13:11 Height 5 ft 2 in Weight 157 lb 2 oz BMI 28.7 BP 140/84 H Blood Pressure Location Lt brachial Position Sitting Pulse 81 Pulse Source Pulse Oximeter Pulse Oximetry (%) 96 Oxygen Delivery Method Room Air Intake Visit Reasons: Cough/ wheezing Allergies azithromycin [AZITHROMYCIN] Allergy (Unknown, Verified 11/01/23 13:13) JAUNDICE pollen Allergy (Unknown, Uncoded 11/01/23 13:13) Unknown HPI HPI Cough/ wheezing: Details: Bonny is a pleasant 83 year old female, former smoker, 20 pack year history, quit 30 years ago with underlying h/o adenocarcinoma of colon 2016 s/p surgical resection, h/o right breast cancer s/p lumpectomy and radiation, HTN, osteopenia and liver cirrhosis. She was referred by PCP for pulmonary evaluation. She reports gaurang COVID about two years ago and since continues with productive cough with clear to white sputum, chest/nasal congestion, dyspnea and wheezing. She has trialed Mucinex and Robitussin with suboptimal effect. She was placed on Breo by PCP but only recently started. She denies any h/o asthma. She developed eczema 2-3 years ago and placed on Dupixent. She denies h/o recurrent URI. She reports mild seasonal allergies, controlled with Flonase and Loratidine. She denies any occupational exposures. She denies any pertinent family history. [facility] Medical History Post-operative nausea and vomiting COVID-19 vaccine series completed Diverticulosis Osteopenia HX: breast cancer Chronic pruritic rash in adult Tubular adenoma of colon Low vitamin D level Constipation by delayed colonic transit Anxiety Pulmonary fibrosis Colon cancer Cirrhosis of liver Surgical History Hx of endoscopy Hx of cataract extraction History of right hemicolectomy H/O colonoscopy H/O lumpectomy Family History Father Non-Hodgkin lymphoma HTN (hypertension) Mother Breast cancer Pancreatic cancer Social History Household Members: Spouse Housing: House Are you a primary adult care manager to a significant other at home: No Do you presently have visiting nurse or other home services: No Alcohol intake: current Alcohol type: wine Patient Tobacco Use Status: Former Tobacco user Tobacco use type: Cigarette e-Cigarette/Vaping Use: Never Used Advance Directives Date on File: 02/24/15 service: No Current occupational status: retired Cognitive needs: No Hearing needs: No Vision needs: Yes Review of Systems Const Denies chills, Denies excessive sweating, Denies fever(s), Denies headache(s) and Denies night sweats Eyes Details: macular degeneration ENT Denies Normal hearing present (hearing aids present), Denies headache(s), Reports nasal congestion, Reports nasal discharge, Reports post nasal drip and Denies sore throat Card Denies chest pain, Denies chest pain at rest, Denies chest pain with activity, Denies claudication, Denies leg edema, Reports dyspnea on exertion, Denies orthopnea and Denies paroxysmal nocturnal dyspnea Resp Reports chest congestion, Reports cough, Denies excessive phlegm production, Denies pain on inspiration, Denies pain with cough, Reports dyspnea on exertion, Denies stridor and Reports wheezing Musc Denies myalgias Neuro Denies Normal hearing present (hearing aids present) and Denies headache(s) Endo Denies excessive sweating Conrad/Lymph Denies lymphadenopathy Aller/Immun Reports seasonal rhinorrhea and Reports wheezing Physical Exam Vital Signs: Last Vital Signs Pulse 81 11/01/23 13:11 BP 140/84 H 11/01/23 13:11 Pulse Ox 96 11/01/23 13:11 Oxygen Delivery Method Room Air 11/01/23 13:11 BMI result Body Mass Index 28.7 Const General: cooperative, healthy appearing, comfortable, no acute distress, well developed and alert Orientation/consciousness: patient oriented x3 Limitations: no limitations HEENT Head: Yes normal to inspection, Yes normocephalic and Yes atraumatic Ears: hearing grossly normal bilaterally and external ears normal Eyes General: appearance normal, both eyes and all related structures Eyelids: Yes eyelids normal Sclerae: sclerae normal EOM: EOMs intact bilaterally Neck Neck: Yes normal visual inspection and Yes no lymphadenopathy Lymphatic: no lymphadenopathy noted Chest Chest palpation & inspection: normal inspection of the chest Resp Other: bibasilar inspiratory crackles Effort & Inspection: normal respiratory effort, able to speak in complete sentences, no audible wheezes, no cough, no stridor, not tachypneic, no tripod positioning and no use of accessory muscles Auscultation: clear to auscultation bilaterally Cardio Jugular venous distension: no JVD Rate: regular rate Rhythm: regular rhythm Skin Other: warm, dry General skin exam: no rashes or lesions noted Neuro General: patient oriented x3 Cranial nerves: No Normal hearing present (hearing aids present) Cognition (Neuro): normal cognition Gait exam (Neuro): Normal gait present Extrem General: Yes normal to inspection, Yes capillary refill normal, Yes no clubbing, cyanosis or edema and Yes no pedal edema Psych Appearance: grossly normal and well kempt Speech and movement: Normal speech and movement present and Clear speech present Affect: normal affect Attitude: cooperative Thought process: Normal thought process present Thought content: Normal thought content present Insight: Good insight present (Psych) Judgement: Good judgement present (Psych) Assessment & Plan Assessment & Plan (1) Cough: Code(s): R05.9 - Cough, unspecified Category: Medical (2) Environmental allergies: Code(s): Z91.09 - Other allergy status, other than to drugs and biological substances Category: Medical Plan Bonny's symptoms are likely related to an underlying pulmonary etiology with a possible allergic component. Patient also with bibasilar inspiratory crackles with prior abdominal MRI reporting chronic interstitial markings, with no prior chest CT. Will send for chest CT to evaluate for possible ILD. All questions were answered and patient is in agreement of plan. Will follow up to review results or sooner if needed. Orders: Orders PFT pulmonary function test Today R05.9 - Cough, unspecified CT chest wo IV con Today R05.9 - Cough, unspecified Coding Level of Care Code New Pt Level 4 (79225) Diagnoses Cough R05.9 Environmental allergies Z91.09
[2023-11-01 13:11] VITALS: BP 140/84; PULSE 81; O2SAT 96; BMI 28.7
== END 2023-11-01 13:48 | disposition home or self-care (01) ==
PROVIDERS: PCP Internal Medicine; Visit Provider Nurse Practitioner Family
DX: R05.9 Cough, unspecified (principal); Z91.09 Other allergy status, other than to drugs and biological substances
CPT/HCPCS: 99204; 99214

== ENCOUNTER → 2023-11-01 13:08 | Outpatient (BNVA) | payer MEDICARE, OTHER, SELFPAY | PROVIDERS: PCP Internal Medicine; Visit Provider Nurse Practitioner Family | DX: R05.9 Cough, unspecified (principal); Z91.09 Other allergy status, other than to drugs and biological substances | CPT/HCPCS: 99202 ==

== ENCOUNTER 2023-11-28 07:09 | Outpatient (REF) | payer MEDICARE, OTHER, SELFPAY ==
--- NOTE | ~2023-11-28 | CT_ITS ---
EXAMINATION: CT CHEST WITHOUT CONTRAST CLINICAL INFORMATION: Cough. COMPARISON: None available. TECHNIQUE: Multidetector volumetric CT imaging of the chest was done. Axial MIP volume rendering provided. Sagittal and coronal reformatted images were obtained. This CT examination was performed using dose optimization techniques as appropriate, variously including the following: *Automated exposure control *Adjustment of mA and/or kV according to patient size (this includes techniques or standardized protocols for targeted exams where dose is matched to indication/reason for exam; i.e. extremities or head) *Use of iterative reconstruction technique DLP: 162 mGy-cm FINDINGS: Submitted for interpretation on December 18, 2023. LUNGS: There is a 14 mm noncalcified pulmonary nodule, left upper lobe likely apical posterior segment. There is honeycombing in the periphery of the lungs, bilaterally. There is a focal area of peribronchial septal thickening, bronchiectasis and cystic abnormalities involving the right upper lobe. MEDIASTINUM: Nonspecific prominent lymph nodes, mediastinum and perihilar. No pericardial effusion. Calcified plaques in the thoracic aorta and its main branches. Calcified plaque, mitral valve. CORONARY ARTERY CALCIFICATION: Calcified plaques in the coronary arteries. PLEURA: No pleural effusion. No pneumothorax. AXILLA: No lymphadenopathy. UPPER ABDOMEN: Calcified plaques in the abdominal aorta wall the origin of the main renal arteries and the splenic artery. OSSEOUS STRUCTURES: A S-shaped curvature of the thoracolumbar spine dextroconvex at T6 and levoconvex at T12-L1 level. Multilevel thoracolumbar spondylosis. No acute fracture or gross listhesis. No lytic or blastic lesions. CT/CT chest wo IV con IMPRESSION: 14 mm noncalcified pulmonary nodule, left upper lobe. Malignancy cannot be excluded. Chronic interstitial lung disease with questionable superimposed acute airspace disease, right upper lobe. Calcified mitral valve. Atherosclerosis disease and coronary artery disease. Multilevel thoracolumbar spondylosis and scoliosis . Discussed with the ordering physician Dr. Sharmaine Mariscal on December 18, 2023 at 1:35 PM Fleischner guidelines were followed. Electronically signed by: Bradley Pollard MD 12/18/2023 01:42 PM [facility]
== END 2023-11-28 07:10 | disposition home or self-care (01) ==
LOC: HO.CT 07:09
PROVIDERS: PCP Internal Medicine; Visit Provider Nurse Practitioner Family
DX: R05.9 Cough, unspecified (principal)
CPT/HCPCS: 71250

== ENCOUNTER → 2023-11-28 07:11 | Outpatient (BNV) | payer MEDICARE, OTHER, SELFPAY | PROVIDERS: PCP Internal Medicine; Visit Provider Radiology Diagnostic Radiology | DX: R05.9 Cough, unspecified (principal) | CPT/HCPCS: 71250 ==

== ENCOUNTER 2023-12-05 14:53 | Outpatient (REF) | payer MEDICARE, OTHER, SELFPAY ==
[2023-12-05 11:25] VITALS: PULSE 76; RESP 16; O2SAT 96
--- NOTE | 2023-12-05 15:57 | PFT_ITS ---
Flows: FEV1: 101 % of predicted at 1.76 L FVC: 95 % of predicted at 2.18 L FEV1/FVC: 81 % Bronchodilator response: Present in small to medium airways only Volumes: Total lung capacity: 77 % of predicted at 3.47 L Residual volume: 60 % of predicted at 1.21 L Slow vital capacity: 93 % of predicted at 2.25 L Expiratory reserve volume: 181 % of predicted at 1.05 L Diffusion capacity: Mildly decreased, corrects to normal after adjustment for alveolar ventilation. Impression: Mild restrictive ventilatory defect with bronchodilator response in small to medium airways only. Combination of decreased diffusion capacity with restrictive ventilatory defect suggests underlying pulmonary parenchymal disease. Clinical correlation is advised. MTDD
== END 2023-12-05 14:54 | disposition home or self-care (01) ==
LOC: HO.RESP 14:53
PROVIDERS: Visit Provider Nurse Practitioner Family
DX: R05.9 Cough, unspecified (principal)
CPT/HCPCS: 94010; 94640; 94727; 94729

== ENCOUNTER 2024-01-18 10:24 | Outpatient (REF) | payer MEDICARE, OTHER, SELFPAY ==
--- NOTE | ~2024-01-18 | MM_ITS ---
EXAMINATION: MM SCREENING DIGITAL BREAST TOMOSYNTHESIS, BILATERAL CLINICAL INFORMATION: Screening. Asymptomatic. COMPARISON: Mammography: Comparison is made with available priors TECHNIQUE: Digital breast mammography with tomosynthesis is performed in both the craniocaudal and mediolateral oblique views along with computer-aided detection (CAD). FINDINGS: There are scattered areas of fibroglandular density (ACR BI-RADS breast composition Category b). Right: Right lumpectomy changes. Asymmetry with questioned distortion lateral right breast middle to posterior depth on CC view. No suspicious calcifications or other abnormal findings. Left: Left reduction mammoplasty. There are no significant masses, abnormal calcifications, or other abnormalities. MM/MM tomosynthesis screening BI IMPRESSION: Additional imaging is recommended ASSESSMENT: BI-RADS BI-RADS 0 - Incomplete: Needs additional Imaging. RECOMMENDATION: 1. Additional views of the right breast 2. Targeted ultrasound if warranted after review of the additional views. 3. Radiology department staff will contact the patient for additional imaging. Additional Imaging required This examination should not preclude the clinical evaluation of a suspicious palpable abnormality. This patient's information was entered into a reminder system with a target due date for their next mammogram. Electronically signed by: Iliana Noel DO 01/18/2024 12:18 PM [facility]
== END 2024-01-18 10:25 | disposition home or self-care (01) ==
LOC: HO.MAMMO 10:24
PROVIDERS: PCP Internal Medicine; Visit Provider Internal Medicine
DX: Z12.31 Encounter for screening mammogram for malignant neoplasm of breast (principal)
CPT/HCPCS: 77063; 77067

== ENCOUNTER → 2024-01-18 10:45 | Outpatient (BNV) | payer MEDICARE, OTHER, SELFPAY | PROVIDERS: PCP Internal Medicine; Visit Provider Internal Medicine | DX: Z12.31 Encounter for screening mammogram for malignant neoplasm of breast (principal) | CPT/HCPCS: 77063; 77067 ==

== ENCOUNTER 2024-02-02 12:53 | Outpatient (AMB) | payer MEDICARE, OTHER, SELFPAY ==
--- NOTE | 2024-02-02 12:56 | A.OFFVIS_ITS ---
Intake Vital Signs 02/02/24 13:00 Height 5 ft 2 in Weight 158 lb BMI 28.9 BP 134/80 Blood Pressure Location Lt brachial Position Sitting Intake Visit Reasons: SWV G0439 Allergies azithromycin [AZITHROMYCIN] Allergy (Unknown, Verified 02/02/24 13:00) JAUNDICE pollen Allergy (Unknown, Uncoded 02/02/24 13:00) Unknown Medication List - Last Reconciled 02/02/24 by Rose Mary Collins MD dupilumab (Dupixent) mg subcut Q2W fluticasone furoate-vilanterol 100-25 mcg/dose (Breo Ellipta) 1 ea inhalation DAILY 30 days [Liver Supplment PO DAILY] loratadine (Allergy Relief (loratadine)) 10 mg PO DAILY [Vitamin D PO DAILY] vitamins A,C,R-fhyw-mtbzqy 4,296 mcg-226 mg-90 mg (ICaps AREDS) 2 caps PO DAILY HPI SWV G0439 HPI Details Health Maintenance - Mammogram up-to-date - 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 - Discussion on chronic sinusitis manage ment including saline nasal irrigation and antibiotic therapy. - Monitoring and evaluation for potentia l hemochromatosis due to elevated iron levels. Assessment and Plan 83-year-old female with a history of col on and breast cancer presenting with elevated iron levels potentially indicative of hemochromatosis, and ongoing chronic sinusitis symptoms. There is suspicion of lung cancer based on PET scan findings requiring further diagnostic evaluation. The patient reports visual impairment secondary to legal blindness and expresses concern regarding management and communication lapses in her care plan related to her pulmonary findings. 1. Chronic Sinusitis Addressed ongoing symptoms with patient, including nasal congestion and headaches. Management with saline nasal irrigation recommended. Amoxicillin prescribed to treat any bacterial component. 2. Other general symptoms and signs R68.89 Findings of nodules in the upper pulmonary lobes as seen in PET scan necessitate a CT-guided biopsy to confirm diagnosis. Communication with pulmonary care providers to expedite biopsy scheduling. 3. History Of Breast Cancer Referral made to oncologist Dr. Cantor for follow-up consultations. Continued surveillance with mammograms to monitor breast health. 4. Elevated Iron Levels Elevated iron levels noted with a current reading of 300 order was placed through Gastroenterology and monitoring is through Gastroenterology. 5. Legal Blindness Patient acknowledged as legally blind. Continued daily assistance by caregiver [facility] of Care - internal control specialist consultation for biopsy arrangement. - Referral to oncologist Dr. Cantor for cancer history follow-up. - Continuous support from caregiver , d aily activities and transportation due to visual impairment. Follow-up 1 year Medicare wellness visit HPI Comments History of Present Illness Details AWV Medical/social history reviewed Past medical history reviewed [facility] of care / care team list updated Surgical/ hospitalization history reviewed Current medications including OTC and supplements reviewed Family history reviewed Tobacco controlled form updated Alcohol use form updated Illicit drug use in social history reviewed Current diagnosis of depression ?screening updated Appropriate PHQ 2/PHQ-9 completed . Vital signs reviewed Alcohol tobacco drug use reviewed and discussed . MMSE completed . ? Fall risk: ?Assessed Fall history: ?None Have you had any falls with injury in the past year?? No Have you had 2 or more falls in the past year?? No Fall risk assessment completed Home safety discussed with the patient Functional ability assessed and discussed and documented Activities of daily living reviewed and appropriate actions taken . HRA filled out by the patient and reviewed by provider and scanned . Appropriate written screening schedule established . Any health advise needed provided . Advance care planning discussed with the patient , necessary paperwork filled Examination IPPE/AWE: Balance not checked due to blind this Romberg not checked Tandem walk not checked walk-in turn unable to check patient is blind rise from sit to stand intact . ?Hearing ?whisper test pass . Medication list reviewed, patient is stable on medications All other providers patient is seeing discussed and noted . PFSH Medical History Post-operative nausea and vomiting COVID-19 vaccine series completed Diverticulosis Osteopenia HX: breast cancer Chronic pruritic rash in adult Tubular adenoma of colon Low vitamin D level Constipation by delayed colonic transit Anxiety Pulmonary fibrosis Colon cancer Cirrhosis of liver Surgical History Hx of endoscopy Hx of cataract extraction History of right hemicolectomy H/O colonoscopy H/O lumpectomy Family History Father Non-Hodgkin lymphoma HTN (hypertension) Mother Breast cancer Pancreatic cancer Social History Household Members: Spouse Housing: House Are you a primary adult caregiver to a significant other at home: No Do you presently have visiting nurse or other home services: No Alcohol intake: current Alcohol type: wine Patient Tobacco Use Status: Former Tobacco user Tobacco use type: Cigarette e-Cigarette/Vaping Use: Never Used Advance Directives Date on File: 02/24/15 service: No Current occupational status: retired Cognitive needs: No Hearing needs: No Vision needs: Yes Questionnaire Medicare Wellness Checkup What is your age?: 80 or older What gender do you identify with?: female During the past 4 weeks, how much have you been bothered by emotional problems such as feeling anxious, depressed, irritable, sad or downhearted, and blue?: slightly During the past 4 weeks, has your physical & emotional health limited your social activities with family, friends, neighbors, or groups?: slightly During the past 4 weeks, how much bodily pain have you generally had?: mild pain During the past 4 weeks, was someone available to help you if you needed & wanted help?: yes, quite a bit During the past 4 weeks, what was the hardest physical activity you could do for at least 2 minutes?: light Can you get to places out of walking distance without help? (For eg., can you travel alone on buses, taxis or drive your car?): No Can you go shopping for groceries or clothes without someone's help?: No Can you prepare your own meals?: No Can you do your housework without help?: No Because of any health problems, do you need the help of another person with your personal care needs such as eating, bathing, dressing or getting around the house?: No Can you handle your own money without help?: No During the past 4 weeks, how would you rate your health in general?: fair During the past 4 weeks how have things been going for you?: good & bad parts about equal Are you having difficulties driving your car?: not applicable, I don't use a car Do you always fasten your seat belt when you are in a car?: yes, usually During past 4 weeks, have you been bothered by the following: never: Sexual problems?, Trouble eating well?, Teeth or denture problems? and Problems using the telephone? and seldom: Falling or dizzy when standing up and Tiredness or fatigue? Have you fallen 2 or more times in the past year?: No Are you afraid of falling?: Yes Are you a smoker?: no During the past 4 weeks, how many drinks of wine, beer, or other alcoholic beverages did you have?: 2-5 drinks per week Do you exercise for about 20 minutes 3 or more times a week?: yes, most of the time Have you been given information to help with the following?: yes: Hazards in your house that might hurt you? and no: Keeping track of your medications? How often do you have trouble taking medicines the way you have been told to take them?: I always take medicine as prescribed How confident are you that you can control & manage most of your health problems?: very confident What is your race?: White Mini Mental State Exam (MMSE) Orientation What is the (year) (season) (date) (day) (month)?: year, season, date, day and month Where are we (state) (county) (town or city) (hospital) (floor)?: state, county, town or city, hospital/clinic and floor Score Score: 10 Activity of Daily Living Bathing - sponge bath, tub bath or shower: receives help in bathing only one body part (such as back or leg) Dressing - getting clothes from closets & drawers, including inner/outer garments & fasteners.: gets clothes & gets completely dressed without help Toileting - going to the 'toilet room' for urine/bowel elimination & cleaning self/arranging clothes: receives help going to toilet room, cleaning self or arranging clothes Transfer: moves in & out of bed and chair without help (may use support object) Continence: controls urination/bowel movements completely by self Feeding: feeds self without help Total Score: 0 Information obtained from: patient Using telephone: independent Traveling: needs assistance Shopping: needs assistance Preparing meals: needs assistance Housework: needs assistance Taking medicine: needs assistance Managing money: needs assistance PHQ-9 Over the last 2 weeks, how often have you been bothered by any of the following problems? 1. Little interest or pleasure in doing things: not at all 2. Feeling down, depressed, or hopeless: not at all 3. Trouble falling or staying asleep, or sleeping too much: several days 4. Feeling tired or having little energy: not at all 5. Poor appetite or overeating: not at all 6. Feeling bad about yourself - or that you are a failure or have let yourself or your family down: not at all 7. Trouble concentrating on things, such as reading the newspaper or watching television: not at all 8. Moving or speaking so slowly that other people could have noticed. Or the opposite - being so fidgety or restless that you have been moving around a lot more than usual: not at all 9. Thoughts that you would be better off or of hurting yourself in some way: not at all Total score: 1 Depression Screening Interpretation: Negative Depression Screening Done: Yes 02138 - PHQ-9 Billing: Yes Source: Developed by Drs. Herminio Berman, Arelis Ralph, Philip George and colleagues, with an educational davida from [employer]. Review of Systems Const Denies chills and Denies fever(s) ENT Denies epistaxis and Denies nasal discharge Card Denies chest pain Resp Denies chest congestion GI Denies diarrhea and Denies nausea Skin/Breast Denies rash Neuro Reports no additional complaints Psych Reports no additional complaints Endo Reports no additional complaints Physical Exam Vital Signs: Last Vital Signs BP 134/80 02/02/24 13:00 BMI result Body Mass Index 28.9 Const General: cooperative, comfortable and no acute distress Orientation/consciousness: patient oriented x3 HEENT Head: Yes normocephalic Eyes General: appearance normal, both eyes and all related structures Neck Other: Supple Neck: Yes supple Resp Effort & Inspection: normal respiratory effort, no cough and no stridor Cardio Heart sounds: S1 normal heart sound present and S2 normal heart sound present Skin General skin exam: turgor normal Neuro Other: Motor sensory intact General: patient oriented x3, tone normal and moves all extremities Extrem Other: No lower extremity swelling. Right lower extremity: no edema Left lower extremity: no edema Psych Other: Normal effect, speech clear Assessment & Plan Assessment & Plan (1) Medicare annual wellness visit, subsequent: Code(s): Z00.00 - Encounter for general adult medical examination without abnormal findings (2) HX: breast cancer: Comment: Right breast --Lumpectomy with radiation--1992--prev followed by [facility]. 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 - Discussion on chronic sinusitis management including saline nasal irrigation and antibiotic therapy. - Monitoring and evaluation for potential hemochromatosis due to elevated iron levels. Assessment and Plan 83-year-old female with a history of colon and breast cancer presenting with elevated iron levels potentially indicative of hemochromatosis, and ongoing chronic sinusitis symptoms. There is suspicion of lung cancer based on PET scan findings requiring further diagnostic evaluation. The patient reports visual impairment secondary to legal blindness and expresses concern regarding management and communication lapses in her care plan related to her pulmonary findings. 1. Chronic Sinusitis Addressed ongoing symptoms with patient, including nasal congestion and headaches. Management with saline nasal irrigation recommended. Amoxicillin prescribed to treat any bacterial component. 2. Other general symptoms and signs R68.89 Findings of nodules in the upper pulmonary lobes as seen in PET scan necessitate a CT-guided biopsy to confirm diagnosis. Communication with pulmonary care providers to expedite biopsy scheduling. 3. History Of Breast Cancer Referral made to oncologist Dr. Cantor for follow-up consultations. Continued surveillance with mammograms to monitor breast health. 4. Elevated Iron Levels Elevated iron levels noted with a current reading of 300 order was placed through Gastroenterology and monitoring is through Gastroenterology. 5. Legal Blindness Patient acknowledged as legally blind. Continued daily assistance by caregiver [facility] of Care - internal control specialist consultation for biopsy arrangement. - Referral to oncologist Dr. Cantor for cancer history follow-up. - Continuous support from caregiver , daily activities and transportation due to visual impairment. Follow-up 1 year Medicare wellness visit . Orders: Referrals Hematology & Oncology Referral Z85.3 - Personal history of malignant neoplasm of breast Medications: New amoxicillin 875 mg PO BID 14 tabs 0RF 7 days Quality Reporting (2019) Depression/Bipolar (159/160/161/177) PHQ-9: Total score: 1 Coding Level of Care Code Medicare Subsequent (G0439) Est Pt Level 3 (08919) Diagnoses Medicare annual wellness visit, subsequent Z00.00 HX: breast cancer Z85.3 Multiple pulmonary nodules R91.8 Anxiety about health R45.89 Legally blind H54.8 Additional Codes PHQ-9 - 07323 - PHQ-9 Billing: Yes ([id number])
[2024-02-02 13:00] VITALS: BP 134/80; BMI 28.9
== END 2024-02-02 14:04 | disposition home or self-care (01) ==
PROVIDERS: PCP Internal Medicine; Visit Provider Internal Medicine
DX: Z00.00 Encounter for general adult medical examination without abnormal findings (principal); R91.8 Other nonspecific abnormal finding of lung field; R45.89 Other symptoms and signs involving emotional state; Z85.3 Personal history of malignant neoplasm of breast; H54.8 Legal blindness, as defined in USA

== ENCOUNTER → 2024-02-02 12:53 | Outpatient (BNVA) | payer MEDICARE, OTHER, SELFPAY | PROVIDERS: PCP Internal Medicine; Visit Provider Internal Medicine | DX: Z00.00 Encounter for general adult medical examination without abnormal findings (principal); H54.8 Legal blindness, as defined in USA; J32.9 Chronic sinusitis, unspecified; R45.89 Other symptoms and signs involving emotional state; R68.89 Other general symptoms and signs; R91.8 Other nonspecific abnormal finding of lung field; Z85.3 Personal history of malignant neoplasm of breast | CPT/HCPCS: 96127; 99212 ==

== ENCOUNTER 2024-02-12 07:27 | Day surgery (SDC) | payer MEDICARE, OTHER, SELFPAY ==
[2024-02-12] VITALS (19 sets, daily range): BP systolic 124–173; BP diastolic 70–101; PULSE 66–92; RESP 12–29; TEMP 36.3–36.8; O2SAT 95–100; BMI 28.5
--- NOTE | ~2024-02-12 | XR_ITS ---
EXAMINATION: XR CHEST at 12:54 PM CLINICAL INFORMATION: 3 hr s/p left steven bx, assess left tiny apical PTX. COMPARISON: XR Chest 02/12/2024 11:56 AM TECHNIQUE: Frontal view of the chest was obtained. FINDINGS: There are small left apical pneumothorax, stable during the exam. Patchy opacity likely known mass left upper lobe is stable. There is a right upper lobe scarring. Elevated right hemidiaphragm is stable. Heart size and pulmonary vascularity is normal. There is moderate dextroscoliosis mid to lower dorsal spine. XR/XR chest 1V IMPRESSION: Stable small left apical pneumothorax postbiopsy. Left upper lobe opacity/lesion is stable. Right upper lobe scarring and prominent interstitial markings in both lungs are stable. Electronically signed by: Jigar Evangelista MD 02/15/2024 07:14 AM [facility]
--- NOTE | ~2024-02-12 | XR_ITS ---
EXAMINATION: XR CHEST at 11:56 AM CLINICAL INFORMATION: S/p left lung biopsy, evaluate small left pneumoth. COMPARISON: XR Chest 02/12/2024 at 10:57 AM TECHNIQUE: Frontal view of the chest was obtained. FINDINGS: There is a very small left apical pneumothorax unchanged to earlier exam from 10:57 AM. There is patchy opacity seen left upper lobe likely known mass. There is right upper lobe scarring. There is elevated right hemidiaphragm. Heart size and pulmonary vascularity is normal. No gross bony abnormality. XR/XR chest 1V IMPRESSION: Small left apical pneumothorax, stable to earlier exam at 10:57 AM Electronically signed by: Jigar Evangelista MD 02/15/2024 07:12 AM [facility] [place]
--- NOTE | ~2024-02-12 | XR_ITS ---
EXAMINATION: XR CHEST CLINICAL INFORMATION: S/p left lung biopsy, 1 hr. COMPARISON: XR Chest 03/03/2022 TECHNIQUE: Frontal view of the chest was obtained. FINDINGS: There is a very small left apical pneumothorax postbiopsy. Left apical mass or nodule is stable. Scarring in the right upper lobe is noted. Prominent interstitial markings seen throughout both lungs with an elevated right hemidiaphragm. Heart size and pulmonary vascularity is normal. There is moderate dextroscoliosis dorsal spine.. XR/XR chest 1V IMPRESSION: Small left apical pneumothorax post biopsy is noted. Left apical nodule/mass is stable. There is scarring in the right upper lobe. Prominent interstitial markings seen throughout both lungs with an elevated right hemidiaphragm is stable. Electronically signed by: Jigar Evangelista MD 02/15/2024 07:29 AM [facility]
[2024-02-12 07:59] LABS: MANUAL DIFF FLAG NO
[2024-02-12 08:03] LABS: Basophils Percent Auto 0.5 % (0-2); Eosinophils Absolute Auto 0.1 X10*3/uL (0.0-0.4); Eosinophils Percent Auto 1.6 % (0-4); Hematocrit 42.5 % (37.0-47.0); Hemoglobin 14.5 g/dl (12.0-16.0); Imm Gran Abs Auto 0.01 X10*3/uL (0.00-0.03); Imm Gran Pct Auto 0.2 % (0.0-0.4); Lymphocytes Absolute Auto 1.9 X10*3/uL (1.2-4.9); Lymphocytes Percent Auto 29.2 % (20-40); Mean Corpuscular HGB Conc 34.1 g/dl (31.0-35.0); Mean Corpuscular Hemoglobin 31.9 pg (27.0-33.0); Mean Corpuscular Volume 93.6 fL (80.0-98.0); Mean Platelet Volume 10.8 fL (9.4-12.3); Monocytes Absolute Auto 0.5 X10*3/uL (0.1-1.2); Monocytes Percent Auto 7.9 % (2-11); Neutrophils Absolute Auto 3.8 x10*3/uL (2.0-8.3); Neutrophils Percent Auto 60.6 % (45-73); Platelet Count 143 X10*3/uL (160-400); Red Blood Count 4.54 X10*6/uL (4.20-5.50); Red Cell Distribution Width 12.4 % (11.0-16.0); White Blood Count 6.3 X10*3/uL (4.8-10.8)
[2024-02-12 08:07] LABS: Prothrombin Time 11.6 SEC (10.9-12.4)
[2024-02-12 08:09] LABS: Partial Thromboplastin Time 30.3 SEC (26.0-36.8)
--- NOTE | 2024-02-12 09:21 | MHC.SHP ---
Pre-Procedural Eval Section A - 24 Hr Update-Section A only Date of Service: 02/12/24 Section B - Complete if H&P > 30 days Chief Complaint: LT & RT Lung - multiple pulmonary nodules Details of Present Illness: 83 y/o female with bilateral lung masses. Pulmonary service requests a biopsy. Relevant Family History (Specify if Yes): No Relevant Social History: Tobacco Use (quit >25 yrs) Present Medications: see Short Stay Collaborative assessment Medical History: Significant History History of Previous Operations: Relevant previous surgery/procedure and date(s) Allergies: Allergies Allergy/AdvReac Type Severity Reaction Status Date / Time azithromycin [AZITHROMYCIN] Allergy Unknown JAUNDICE Verified 02/12/24 07:42 pollen Allergy Unknown Unknown Uncoded 02/02/24 13:00 Review of Systems Sugical H&P ROS: Negative: Constitution, Cardiovascular and Respiratory Exam Surgical H&P Exam: Normal: Heart, Normal: Lungs, Normal: Skin and Normal: Neurological Plan Diagnosis/Plan: Unchanged 83 y/o female with bilateral lung masses -CT lung biopsy. Laterality to be determined after preprocedural CT Time Spent With Patient Time: Total time managing care of this patient today ____ minutes.
[2024-02-12] MEDS: fentaNYL citrate/PF 100 MCG/2 ML VIAL 50 MCG IVPUSH (09:35)
[2024-02-12] MEDS: Midazolam HCl/PF 2 MG/2 ML VIAL 1 MG IVPUSH ×2 (09:36→09:44)
[2024-02-12] MEDS: fentaNYL citrate/PF 100 MCG/2 ML VIAL 25 MCG IVPUSH (09:43)
[2024-02-12] MEDS: Ibuprofen 200 MG TABLET 600 MG PO (11:46)
--- NOTE | 2024-02-12 13:11 | PM.EVENT ---
Event Note Date of Service: 02/12/24 Event Note: Patient seen in [facility] throughout her recovery after her left lung biopsy. CXR after 1 hr demonstrated a very small apical pneumothorax. Subsequent CXR done at 2 hr and 3 hrs post biopsy show not progression of the pneumothorax. Patient reports not discomfort and has been ambulatory during the last hour. She will be discharged home. She and her were educated on signs and sx of worsening pneumothorax and told to call 911/report to the ED should they occur. Time Spent With Patient Time: Total time managing care of this patient today ____ minutes.
== END 2024-02-12 13:24 | disposition home or self-care (01) ==
PROVIDERS: Physician Assistant Surgical; PCP Internal Medicine; Visit Provider Nurse Practitioner Family
DX: C34.12 Malignant neoplasm of upper lobe, left bronchus or lung (principal); J95.811 Postprocedural pneumothorax; J84.9 Interstitial pulmonary disease, unspecified; J98.6 Disorders of diaphragm; J30.2 Other seasonal allergic rhinitis; Z91.09 Other allergy status, other than to drugs and biological substances; Z85.038 Personal history of other malignant neoplasm of large intestine; Z85.3 Personal history of malignant neoplasm of breast; Z92.3 Personal history of irradiation; I10 Essential (primary) hypertension; R05.9 Cough, unspecified; K74.60 Unspecified cirrhosis of liver; L30.9 Dermatitis, unspecified; L29.89 Other pruritus; M85.80 Other specified disorders of bone density and structure, unspecified site; Z90.49 Acquired absence of other specified parts of digestive tract; Z79.620 Long term (current) use of immunosuppressive biologic; Z79.899 Other long term (current) drug therapy; Z88.1 Allergy status to other antibiotic agents; Z87.891 Personal history of nicotine dependence
CPT/HCPCS: 32408; 36415; 71045; 85025; 85610; 85730; 88305; 88341; 88342; 99152; 99153; J2003; J2250; J2310; J3010

== ENCOUNTER → 2024-02-12 07:27 | Outpatient (BNV) | payer MEDICARE, OTHER, SELFPAY | PROVIDERS: PCP Internal Medicine; Visit Provider Physician Assistant Surgical | DX: J93.9 Pneumothorax, unspecified (principal); R91.8 Other nonspecific abnormal finding of lung field | CPT/HCPCS: 71045; 99499 ==

== ENCOUNTER 2024-02-15 11:46 | Outpatient (REF) | payer MEDICARE, OTHER, SELFPAY ==
--- NOTE | ~2024-02-15 | MM_ITS ---
EXAMINATION: MM DIAGNOSTIC DIGITAL BREAST TOMOSYNTHESIS, RIGHT Limited right breast ultrasound. CLINICAL INFORMATION: Call back from screening for asymmetry in the lateral right breast with questioned distortion on CC view. History of right lumpectomy. COMPARISON: Mammography: Comparison is made with available prior examinations. TECHNIQUE: Digital breast tomosynthesis is performed in both the craniocaudal and mediolateral oblique views along with computer-aided detection (CAD). Synthesized 2D images are generated from the tomosynthesis. Limited right breast ultrasound. FINDINGS: There are scattered areas of fibroglandular density (ACR BI-RADS breast composition Category b). Post lumpectomy changes. The previously seen asymmetry in the lateral right breast posterior depth on CC view with questioned distortion partially effaces on additional imaging projections but persists. No suspicious calcifications or other abnormal findings. Targeted color Doppler ultrasound scanning in the lateral breast from 7-12 o'clock demonstrates normal fibroglandular breast tissue. There is no sonographic abnormality. MM/MM tomosynthesis added views R IMPRESSION: Asymmetry lateral right breast posterior depth on CC view which partially effaces and without sonographic correlate. Patient has a history of right breast cancer status post lumpectomy. Recommend breast MRI at this time for further evaluation. Breast MRI needs to be ordered by the patient's providing clinician. Recommend 6 month follow-up right breast mammogram for further evaluation of stability. ASSESSMENT: BI-RADS BI-RADS 3 - Probably benign finding(s) - 6 month follow-up suggested RECOMMENDATION: 6 Month F/U Results were discussed with the patient at time of visit. This patient's information was entered into a reminder system with a target due date for their next mammogram. Electronically signed by: Iliana Noel DO 02/15/2024 12:35 PM [facility] [place]
== END 2024-02-15 11:47 | disposition home or self-care (01) ==
LOC: HO.MAMMO 11:46
PROVIDERS: PCP Internal Medicine; Visit Provider Internal Medicine
DX: N63.11 Unspecified lump in the right breast, upper outer quadrant (principal); N64.89 Other specified disorders of breast; R92.321 Mammographic fibroglandular density, right breast
CPT/HCPCS: 76642; 77061; 77065

== ENCOUNTER → 2024-02-15 12:00 | Outpatient (BNV) | payer MEDICARE, OTHER, SELFPAY | PROVIDERS: PCP Internal Medicine; Visit Provider Internal Medicine | DX: N63.11 Unspecified lump in the right breast, upper outer quadrant (principal) | CPT/HCPCS: 76642; 77065; G0279 ==

== ENCOUNTER → 2024-02-16 13:00 | Outpatient (BNV) | payer MEDICARE, OTHER, SELFPAY | PROVIDERS: PCP Internal Medicine; Referring Provider Internal Medicine; Visit Provider Internal Medicine Medical Oncology | DX: C34.12 Malignant neoplasm of upper lobe, left bronchus or lung (principal); N63.15 Unspecified lump in the right breast, overlapping quadrants | CPT/HCPCS: 99204 ==

== ENCOUNTER 2024-02-21 15:43 | Outpatient (REF) | payer MEDICARE, OTHER, SELFPAY ==
--- NOTE | ~2024-02-21 | MR_ITS ---
EXAMINATION: MR BREAST WITHOUT AND WITH CONTRAST, BILATERAL CLINICAL INFORMATION: History of right breast cancer post lumpectomy. Focal asymmetry seen on prior mammogram in the upper outer right breast without sonographic correlate. COMPARISON: Comparison is made with prior examinations available February 15, 2024 January 18, 2024. TECHNIQUE: MR imaging of the breast was performed using T1, T2 and fat saturated techniques. Dynamic multiphase imaging was also performed after administration of intravenous gadolinium contrast agent. Computer generated 3-D reconstruction was generated. FINDINGS: There is scattered fibroglandular breast tissue with minimal background enhancement. LEFT BREAST: No suspicious enhancing masses or areas of nonmass enhancement. No architectural distortion. No internal mammary or axillary adenopathy. RIGHT BREAST: There is a 5 x 5 x 5 mm enhancing mass in the upper outer right breast posterior depth 7 to 8 cm from the nipple series 1037 image 74/128. No other suspicious enhancing masses or areas of nonmass enhancement. Post lumpectomy changes. No internal mammary or axillary adenopathy. Limited views of the chest and abdomen are unremarkable. MR/MR breast BI wo/w con IMPRESSION: Left: Negative. Right: 5 mm enhancing mass in the upper outer breast posterior depth this is a probable correlate for the focal asymmetry seen on mammography. Recommend stereotactic core needle biopsy of the right breast focal asymmetry at this time. Pending pathology MRI clinical correlation is recommended for confirmation, if the clip does not correlate MRI guided core needle biopsy is recommended at this time. ASSESSMENT: LEFT BREAST: BI-RADS 1-Negative RIGHT BREAST: BI-RADS 4 suspicious. Recommend stereotactic core needle biopsy at this time. Pending pathology MRI clip correlation will be recommended for further confirmation. RECOMMENDATIONS: Recommend stereotactic right breast biopsy at this time. And follow-up MRI clip correlation. If the clip does not correlate MRI guided core needle biopsy is recommended at this time. Electronically signed by: Iliana Noel DO 02/22/2024 09:51 AM EST
[2024-02-21] MEDS: gadobutroL 10 ML VIAL IVPUSH (16:48)
== END 2024-02-21 15:44 | disposition home or self-care (01) ==
LOC: HO.MRI 15:43
PROVIDERS: PCP Internal Medicine; Visit Provider Internal Medicine Medical Oncology
DX: R06.2 Wheezing (principal); C50.911 Malignant neoplasm of unspecified site of right female breast
CPT/HCPCS: 77049; A9585

== ENCOUNTER → 2024-02-21 15:47 | Outpatient (BNV) | payer MEDICARE, OTHER, SELFPAY | PROVIDERS: PCP Internal Medicine; Visit Provider Internal Medicine | DX: N63.11 Unspecified lump in the right breast, upper outer quadrant (principal); R92.323 Mammographic fibroglandular density, bilateral breasts | CPT/HCPCS: 77049 ==

== ENCOUNTER → 2024-02-23 11:04 | Outpatient (BNV) | payer MEDICARE, OTHER, SELFPAY | PROVIDERS: PCP Internal Medicine; Visit Provider Radiology Diagnostic Radiology | DX: G96.89 Other specified disorders of central nervous system (principal) | CPT/HCPCS: 70553 ==

== ENCOUNTER 2024-02-23 11:07 | Outpatient (REF) | payer MEDICARE, OTHER, SELFPAY ==
--- NOTE | ~2024-02-23 | MR_ITS ---
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 TECHNIQUE: Sagittal T1, and axial T1, FLAIR, T2, gradient echo, and diffusion weighted MR images of the brain were obtained. Subsequently, sagittal, axial, and coronal T1-weighted images were obtained after the administration of intravenous gadolinium. 10 mL Gadavist was administered. COMPARISON: None FINDINGS: Scattered periventricular and subcortical white matter hyperintensities noted on the FLAIR and T2-weighted images. These are nonspecific, can be seen in the setting of small vessel ischemic disease. There is no mass effect or midline shift. The ventricular system is normal in size and configuration. No intra or extra-axial fluid collections are identified. There is a punctate focus of hemosiderin in the left cerebellum. There are no foci of restricted diffusion. There is thin diffuse pachymeningeal enhancement. No leptomeningeal or parenchymal enhancement is identified. Normal vascular flow voids are noted in the basilar and carotid arteries. The visualized paranasal sinuses are clear. MR/MR head/brain wo/w con IMPRESSION: No evidence of brain parenchymal metastatic disease. However, there is diffuse thin pachymeningeal enhancement which is nonspecific. Differential diagnostic considerations include intracranial hypotension, infection, and neoplasm. CSF sampling may be helpful. Electronically signed by: Herminio Avalos MD 02/23/2024 03:05 PM [facility]
[2024-02-23] MEDS: gadobutroL 7.5 ML VIAL IVPUSH (11:56)
== END 2024-02-23 11:08 | disposition home or self-care (01) ==
LOC: HO.MRI 11:07
PROVIDERS: PCP Internal Medicine; Visit Provider Internal Medicine Medical Oncology
DX: C34.90 Malignant neoplasm of unspecified part of unspecified bronchus or lung (principal)
CPT/HCPCS: 70553; A9585

== ENCOUNTER 2024-04-24 08:44 | Emergency (ER) | payer OTHER, MEDICARE, SELFPAY ==
[2024-04-24] VITALS (19 sets, daily range): BP systolic 132–178; BP diastolic 70–103; PULSE 89–110; RESP 20–35; TEMP 36.3–37.9; O2SAT 91–98; BMI 31.4
--- NOTE | ~2024-04-24 | XR_ITS ---
EXAMINATION: XR CHEST 1 VIEW HISTORY: sob COMPARISON: Comparison is made with the prior examination dated 02/12/2024. FINDINGS: Two AP portable views of the chest performed at 9:24 AM are submitted. Again seen are fibrotic changes. There is a new opacity at the right lung apex which could represent pneumonia. There are sutures in the left upper lobe. There is no pleural effusion, pneumothorax, or pulmonary vascular congestion. The heart is normal in size. There is degenerative disc disease of the spine. XR/XR chest 1V IMPRESSION: Pulmonary fibrosis. New opacity at the right lung apex which may represent pneumonia. Follow-up is recommended. Electronically signed by: Herminio Avalos MD 04/24/2024 09:42 AM EDT
--- NOTE | ~2024-04-24 | CT_ITS ---
EXAMINATION: CT ANGIOGRAM CHEST CLINICAL INFORMATION: Shortness of breath. COMPARISON: November 28, 2023. Prior CT-guided biopsy of a left lung mass. TECHNIQUE: Multiple axial images were obtained through the chest after the administration of 65 mL of Omnipaque 350 intravenous contrast. Extensive vascular post-processing including two-dimensional and three-dimensional reformatted images were created and reviewed on an independent workstation. This CT examination was performed using dose optimization techniques as appropriate, variously including the following: *Automated exposure control *Adjustment of mA and/or kV according to patient size (this includes techniques or standardized protocols for targeted exams where dose is matched to indication/reason for exam; i.e. extremities or head) *Use of iterative reconstruction technique. DLP: 360 mGy centimeter. FINDINGS: No intraluminal filling defects within the main pulmonary artery or its main branches. No aneurysm or dissection, thoracic aorta. There is a 2 cm lobulated irregular thick wall cavitary lesion in the right lung apex/right upper lobe. Sutures in the left lung. Multifocal, areas of honeycombing and associated pulmonary groundglass both lungs. Bilateral pleural effusions versus pleural thickening, moderate volume on the right and small volume on the left. No pneumothorax. Soft tissue fullness in the mediastinum and right to a lesser extent left pulmonary hilum. No pericardial effusion. Calcified plaques in the coronary arteries. Calcified plaques in the mitral valve. There is a nodular surface of the liver involving mostly the left hepatic lobe. Calcified plaques in the abdominal aorta wall and its main branches and the splenic artery. Multilevel spondylosis in the axial skeleton without acute fracture or gross listhesis. S-shaped curvature of the thoracolumbar spine with a rotatory component. No lytic or blastic lesions. CT/CT angio chest PE protocol IMPRESSION: No acute pulmonary artery emboli. 2 cm lobulated irregular thick wall cavitary lesion right upper lung lobe. Inflammatory versus infectious versus neoplasm should be considered. Acute on chronic airspace disease. Bilateral pleural effusions versus thickening, right greater than the left side. Fleischner guidelines were followed. Electronically signed by: Bradley Pollard MD 04/24/2024 11:11 AM EDT
--- NOTE | 2024-04-24 08:58 | ECG_ITS ---
Test Reason : SOB Blood Pressure : */* mmHG Vent. Rate : 104 BPM Atrial Rate : 104 BPM P-R Int : 134 ms QRS Dur : 96 ms QT Int : 332 ms P-R-T Axes : 28 45 7 degrees QTcB Int : 436 ms Sinus tachycardia with Premature atrial complexes Incomplete right bundle branch block Cannot rule out Anterior infarct , age undetermined Abnormal ECG When compared with ECG of 31-Jan-2003 10:24, Premature atrial complexes are now Present Vent. rate has increased by 34 bpm Incomplete right bundle branch block is now Present T wave inversion now evident in Inferior leads Nonspecific T wave abnormality now evident in Anterior leads Referred By: Sania Kendall Electronically Signed By: DERIC PICKARD
--- NOTE | 2024-04-24 09:18 | ED.SOB ---
HPI - SOB/Dyspnea General Chief Complaint: Dyspnea Stated Complaint: SOB 50% RA @SNF,84% 15/NRB,LUNG CA,NO CPAP/MOLST Time Seen by Provider: 04/24/24 08:46 History of Present Illness HPI Narrative: 83 year old female, former smoker, 20 pack year history, quit 30 years ago with underlying h/o adenocarcinoma of colon 2016 s/p surgical resection, h/o right breast cancer s/p lumpectomy and radiation, HTN, osteopenia and liver cirrhosis. Patient recently diagnosed with lung cancer. Was seen at [facility]. Question chest tube was placed previously. Presented today with having increasing shortness of breath. [facility] No vomiting no diaphoresis. No pain. Related Data Home Medications ?Medication ?Instructions ?Recorded ?Confirmed Vitamin D 1,000 mcg PO DAILY 08/17/22 03/01/24 dupilumab 300 mg/2 mL subcutaneous 300 mg subcut Q2W 08/17/22 03/01/24 pen injector ([employer]) vitamins A,C,L-ijkq-ivxjeg 4,296 2 cap PO DAILY 08/17/22 03/01/24 mcg-226 mg-90 mg capsule (ICaps AREDS) loratadine 10 mg tablet (Allergy 10 mg PO DAILY 11/01/23 03/01/24 Relief (loratadine)) Allergies Allergy/AdvReac Type Severity Reaction Status Date / Time azithromycin [AZITHROMYCIN] Allergy Unknown JAUNDICE Verified 04/24/24 09:00 pollen Allergy Unknown Unknown Uncoded 04/24/24 09:00 Review of Systems Review of Systems: Positive shortness of breath unable to obtain full review of systems secondary to patient's condition [facility] Past Medical History [facility] Narrative: history of colon cancer. History of breast cancer. History of lung cancer to the left upper lobe. Status post chest tube on the right side. Source: unable to obtain Medical History Post-operative nausea and vomiting COVID-19 vaccine series completed Diverticulosis Osteopenia HX: breast cancer Chronic pruritic rash in adult Tubular adenoma of colon Low vitamin D level Constipation by delayed colonic transit Anxiety Pulmonary fibrosis Colon cancer Cirrhosis of liver Surgical History History of reduction surgery of left breast Hx of endoscopy Hx of cataract extraction History of right hemicolectomy H/O colonoscopy H/O lumpectomy Family History Family History Father Non-Hodgkin lymphoma HTN (hypertension) Mother Breast cancer Pancreatic cancer Social History Social History Household Members: Spouse Housing: House Are you a primary clinical care leader to a significant other at home: No Do you presently have visiting nurse or other home services: No Unable to assess alcohol history related to: Unknown Alcohol intake: current Alcohol type: wine Patient Tobacco Use Status: Former Tobacco user Tobacco use type: Cigarette Smoked in Last 30 Days: No e-Cigarette/Vaping Use: Never Used Use of substances other than those prescribed or required for medical reasons: Unknown Advance Directives: Yes Advance Directives on File: Yes Advance Directives Date on File: 02/24/15 service: No Current occupational status: retired Cognitive needs: No Hearing needs: No Vision needs: Yes Physical Exam Vital Signs: Vital Signs: Last Vital Signs Temp 98.4 F 04/24/24 14:06 Pulse 90 04/24/24 16:28 Resp 20 04/24/24 16:28 BP 159/71 H 04/24/24 16:28 Pulse Ox 95 04/24/24 16:28 O2 Del Method High Flow Nasal C annula 04/24/24 16:28 O2 Flow Rate 50 04/24/24 14:06 Oxygen Flow Rate 15 04/24/24 08:50 BMI result Body Mass Index 31.4 Appearance: Alert. Oriented X3. No acute distress. Eyes: Pupils equal, round and reactive to light. ENT: Pharynx normal. Neck: Normal inspection. Neck supple. No lymph nodes noted. No crepitus CVS: Normal heart rate and rhythm. Pulses normal. Normal S1 and S2 Respiratory: No respiratory distress. Diminished breath sounds bilaterally crackles up the entire lung field on the right side. Bilateral crackles at the bases. Abdomen: Soft and nontender. No rigidity. No distention. good BS x4 Skin: Skin warm and dry. Normal skin color. Normal skin turgor. Extremities: No lower extremity edema. Neurovascular intact to all extremities. No Lacerations. No Rash Neuro: Oriented X 3. No motor deficit. No sensory deficit. Moving all extermities. No slurred speech Medications Administered Discontinued Medications Generic Name Dose Route Start Last Admin Trade Name Freq PRN Reason Stop Dose Admin Cefepime HCl 1 gm/ Sodium 50 mls @ 100 mls/hr 04/24/24 09:32 04/24/24 10:15 Chloride IV 04/24/24 10:01 Infused ONCE ONE Infusion Vancomycin HCl 2,000 mg in 500 mls @ 250 mls/hr 04/24/24 10:45 04/24/24 12:50 Vancomycin/Ns IV 04/24/24 12:44 Infused ONCE ONE Infusion Sodium Chloride 500 mls @ 999 mls/hr 04/24/24 11:00 04/24/24 11:59 Ns IV 04/24/24 11:30 Infused .Q31M CARLENE Infusion Sodium Chloride 500 mls @ 999 mls/hr 04/24/24 11:00 04/24/24 13:06 Ns IV 04/24/24 11:30 Infused .Q31M CARLENE Infusion Sodium Chloride 1,000 mls @ 999 mls/hr 04/24/24 11:30 04/24/24 12:30 Ns IV 04/24/24 12:30 Infused .Q1H1M CARLENE Infusion Sodium Chloride 500 mls @ 999 mls/hr 04/24/24 11:30 04/24/24 13:06 Ns IV 04/24/24 12:00 Infused .Q31M CARLENE Infusion Iohexol 100 ml 04/24/24 09:59 04/24/24 09:59 Iohexol 350 Mg/Ml 100 Ml Infus..Btl IV 04/24/24 10:00 65 ml ONCE ONE Administration Medical Decision Making Medical Decision Making MDM Narrative: On patient's 's arrival and was able to get more information patient had a wedge resection for a squamous cell carcinoma from the left apical area. Had a chest tube on that side. Had a 2nd chest tube on the right side for a lobectomy done for a adenocarcinoma on the right. Both stage I. Both done by Dr. Holland about a week ago. The chest tube was taken out 3 days ago. Patient had sudden onset of shortness of breath. Also had a history of colon cancer previously. History of breast cancer previously. My interpretation of chest x-ray showed bilateral fullness. There is no pneumothorax noted. No large pleural effusion noted patient profoundly hypoxic. Satting approximately 90% on Non-rebreather. CT angio was ordered. Cultures obtained. Patient has had a low-grade temp of 100.3 degrees. Will start patient on cefepime as she recently got discharged from the hospital. Will hold back on a fluids given the fullness appearing chest x-ray. Concern for congestive heart failure still exists. There is no previous documented echocardiogram noted. Confirmed with patient's patient is a full code. Patient's BNP elevated. At over 300. Concerned about congestive heart failure. In the setting of patient having bilateral infiltrate question pulmonary fibrosis noted on the chest x-ray. A CTA of the chest was done as patient had sudden onset of hypoxia. Antibiotic was started. Patient's white count came back at over 20,000. started patient on cefepime initially. Will also start patient on vancomycin for empiric MRSA coverage. ABG is still pending. Patient's VBG showed no CO2 retention. Currently on non-rebreather. Patient is O2 sat is maintaining an approximately 90%. Patient's code status discussed with her and with her family. Patient is a full code for now. Held back on IV fluids because of profound hypoxia possibility of congestive heart failure. Will monitor patient very carefully. Lactate is still pending. Patient CTA results shows no evidence of PE. Multifocal honeycomb appearance of the lungs suggestive of inflammation. In the setting of elevated white count question secondary to infection. Will be more aggressive with IV fluids. Will repeat lactate. So far about a L of fluid of gone in. It is approximately 11:45. We did a blood gas on the patient. My interpretation on the blood gas showed a normal pH but significant hypoxia given patient was on non-rebreather at that time. The PaO2 was 71 with an O2 sat of approximately 90. Placed on high-flow O2 at that point. Will repeat the lactate as soon as we got some fluid on board. Because of the significant elevation in white count. In addition to the cefepime we elected to give patient a dose of vancomycin approximately 20 milligram/kilogram dose. The social work instructor was contacted. Patient's urine actually did not look infected. Flu COVID RSV were all negative. patient given the IV fluids. The social work instructor felt that there is no bed [facility] at [facility]. I got in touch with patient's thoracic team at [facility]. Spoke with the PA on-call for Dr. Holland. Agreeable to have patient transfer. Patient's case discussed with social work instructor at [facility] . although there is no bed available currently. At 19:00 there will be a bed that is available. They will cause at that time to give us a bed assignment. Tentatively accepted patient to the intensive care unit at [facility]. Finding explained to patient's family. Will arrange for a ride at about 20:00. Differential Diagnosis Differential Diagnoses: The differential diagnosis associated with the presentation includes Pneumonia, CHF, urosepsis, PE, pleural effusion, complication from surgery Admission/Observation Consideration of admission/observation: Escalation of care including admission/observation considered Consult Healthcare Provider Management of the patient was discussed with: Human Development Professor ( social work instructor) Lab Data MDM Lab Attestation statement: I reviewed the patient's lab results. 04/24/24 09:17 04/24/24 09:16 Labs: Lab Results 04/24/24 04/24/24 04/24/24 Range/Units 09:14 09:15 09:16 WBC (4.8-10.8) X10*3/uL RBC (4.20-5.50) X10*6/uL Hgb (12.0-16.0) g/dl Hct (37.0-47.0) % MCV (80.0-98.0) fL MCH (27.0-33.0) pg MCHC (31.0-35.0) g/dl RDW (11.0-16.0) % Plt Count MPV Immature Gran % (Auto) (0.0-0.4) % Neut % (Auto) (45-73) % Lymph % (Auto) (20-40) % [place] % (Auto) (2-11) % Eos % (Auto) (0-4) % Baso % (Auto) (0-2) % Lymph # (Auto) (1.2-4.9) X10*3/uL [place] # (Auto) (0.1-1.2) X10*3/uL Eos # (Auto) (0.0-0.4) X10*3/uL Baso # (Auto) (0.0-0.2) X10*3/uL Abs Immat Gran (auto) (0.00-0.03) X10*3/uL Absolute Neuts (auto) (2.0-8.3) x10*3/uL Absolute Nucleated RBC (0.0-0.012) X10*3/uL Nucleated RBC % (auto) (0.0-0.2) /100WBC Smear Tech's Comments PT 14.2 H D (10.9-12.4) SEC INR 1.2 H (0.9-1.1) O2 Saturation % ABG pH at Pt Temp (7.35-7.45) ABG pCO2 at Pt Temp (32-45) mmHg ABG pO2 at Pt Temp (83-108) mmHg ABG HCO3 (22-26) mmol/L ABG Base Excess (Actual) mmol/L VBG pH (7.32-7.43) VBG pCO2 mmHg VBG pO2 mmHg VBG HCO3 (22-26) mmol/L VBG O2 Saturation % VBG Base Excess mmol/L Sodium 140 (135-145) mmol/L Potassium 4.7 (3.3-5.1) mmol/L Chloride 105 (96-108) mmol/L Carbon Dioxide 25 (22-29) mmol/L Anion Gap 15 (12-20) BUN 30 H (9-16) mg/dL Creatinine 0.65 (0.5-1.4) mg/dL Estim Creat Clear Calc 64.5 Estimated GFR > 60 Random Glucose 124 H (60-115) mg/dL Lactic Acid (0.5-2.0) mmol/L Lactic Acid F/U @ 2Hr (0.5-2.0) mmol/L Calcium 9.1 D (8.4-10.2) mg/dL Total Bilirubin 1.8 H (0.0-1.0) mg/dL Direct Bilirubin 0.7 H (0.0-0.5) mg/dL AST 49 H (5-31) U/L ALT 48 H (0-31) U/L Alkaline Phosphatase 151 H (39-117) U/L Troponin I High Sens 183.1 H* (<3.5-17.0) ng/L B-Natriuretic Peptide 343 H (<100) pg/mL Total Protein 6.6 (6.5-8.0) g/dL Albumin 3.1 L (3.5-5.0) g/dL Urine Color Urine Appearance Urine pH (5.0-9.0) Ur Specific Ada (1.005-1.025) Urine Protein (Neg-Trace) mg/dL Urine Glucose (UA) (Negative) mg/dL Urine Ketones (Negative) mg/dL Urine Blood (Negative) Urine Nitrite (Negative) Ur Leukocyte Esterase (Negative) Urine RBC (0-2) /HPF Urine WBC (0-5) /HPF Ur Squamous Epith Cells (0-2) /HPF Urine Bacteria (None Seen) Hyaline Casts (0-2) /LPF Influenza Type A (PCR) NEGATIVE (Negative) Influenza Type B (PCR) NEGATIVE (Negative) RSV RNA Qual (PCR) NEGATIVE (Negative) SARS-CoV-2 RNA (RT-PCR) NEGATIVE (Negative) 04/24/24 04/24/24 04/24/24 Range/Units 09:17 09:26 10:16 WBC 27.2 H (4.8-10.8) X10*3/uL RBC 4.21 (4.20-5.50) X10*6/uL Hgb 13.6 (12.0-16.0) g/dl Hct 38.6 (37.0-47.0) % MCV 91.7 (80.0-98.0) fL MCH 32.3 (27.0-33.0) pg MCHC 35.2 H (31.0-35.0) g/dl RDW 12.8 (11.0-16.0) % Plt Count TNP MPV TNP Immature Gran % (Auto) 1.3 H (0.0-0.4) % Neut % (Auto) 86.4 H (45-73) % Lymph % (Auto) 4.2 L (20-40) % [place] % (Auto) 7.7 (2-11) % Eos % (Auto) 0.2 (0-4) % Baso % (Auto) 0.2 (0-2) % Lymph # (Auto) 1.2 (1.2-4.9) X10*3/uL [place] # (Auto) 2.1 H (0.1-1.2) X10*3/uL Eos # (Auto) 0.1 (0.0-0.4) X10*3/uL Baso # (Auto) 0.1 (0.0-0.2) X10*3/uL Abs Immat Gran (auto) 0.35 H (0.00-0.03) X10*3/uL Absolute Neuts (auto) 23.5 H (2.0-8.3) x10*3/uL Absolute Nucleated RBC 0.000 (0.0-0.012) X10*3/uL Nucleated RBC % (auto) 0.0 (0.0-0.2) /100WBC Smear Tech's Comments VERIFIED PT (10.9-12.4) SEC INR (0.9-1.1) O2 Saturation % ABG pH at Pt Temp (7.35-7.45) ABG pCO2 at Pt Temp (32-45) mmHg ABG pO2 at Pt Temp (83-108) mmHg ABG HCO3 (22-26) mmol/L ABG Base Excess (Actual) mmol/L VBG pH 7.43 (7.32-7.43) VBG pCO2 44 mmHg VBG pO2 31 mmHg VBG HCO3 29 H (22-26) mmol/L VBG O2 Saturation 45.0 % VBG Base Excess 4.9 mmol/L Sodium (135-145) mmol/L Potassium (3.3-5.1) mmol/L Chloride (96-108) mmol/L Carbon Dioxide (22-29) mmol/L Anion Gap (12-20) BUN (9-16) mg/dL Creatinine (0.5-1.4) mg/dL Estim Creat Clear Calc Estimated GFR Random Glucose (60-115) mg/dL Lactic Acid 2.9 H* (0.5-2.0) mmol/L Lactic Acid F/U @ 2Hr (0.5-2.0) mmol/L Calcium (8.4-10.2) mg/dL Total Bilirubin (0.0-1.0) mg/dL Direct Bilirubin (0.0-0.5) mg/dL AST (5-31) U/L ALT (0-31) U/L Alkaline Phosphatase (39-117) U/L Troponin I High Sens (<3.5-17.0) ng/L B-Natriuretic Peptide (<100) pg/mL Total Protein (6.5-8.0) g/dL Albumin (3.5-5.0) g/dL Urine Color Urine Appearance Urine pH (5.0-9.0) Ur Specific [place] (1.005-1.025) Urine Protein (Neg-Trace) mg/dL Urine Glucose (UA) (Negative) mg/dL Urine Ketones (Negative) mg/dL Urine Blood (Negative) Urine Nitrite (Negative) Ur Leukocyte Esterase (Negative) Urine RBC (0-2) /HPF Urine WBC (0-5) /HPF Ur Squamous Epith Cells (0-2) /HPF Urine Bacteria (None Seen) Hyaline Casts (0-2) /LPF Influenza Type A (PCR) (Negative) Influenza Type B (PCR) (Negative) RSV RNA Qual (PCR) (Negative) SARS-CoV-2 RNA (RT-PCR) (Negative) 04/24/24 04/24/24 04/24/24 Range/Units 10:38 11:05 14:05 WBC (4.8-10.8) X10*3/uL RBC (4.20-5.50) X10*6/uL Hgb (12.0-16.0) g/dl Hct (37.0-47.0) % MCV (80.0-98.0) fL MCH (27.0-33.0) pg MCHC (31.0-35.0) g/dl RDW (11.0-16.0) % Plt Count MPV Immature Gran % (Auto) (0.0-0.4) % Neut % (Auto) (45-73) % Lymph % (Auto) (20-40) % [place] % (Auto) (2-11) % Eos % (Auto) (0-4) % Baso % (Auto) (0-2) % Lymph # (Auto) (1.2-4.9) X10*3/uL [place] # (Auto) (0.1-1.2) X10*3/uL Eos # (Auto) (0.0-0.4) X10*3/uL Baso # (Auto) (0.0-0.2) X10*3/uL Abs Immat Gran (auto) (0.00-0.03) X10*3/uL Absolute Neuts (auto) (2.0-8.3) x10*3/uL Absolute Nucleated RBC (0.0-0.012) X10*3/uL Nucleated RBC % (auto) (0.0-0.2) /100WBC Smear Tech's Comments PT (10.9-12.4) SEC INR (0.9-1.1) O2 Saturation 95.0 % ABG pH at Pt Temp 7.48 H (7.35-7.45) ABG pCO2 at Pt Temp 35 (32-45) mmHg ABG pO2 at Pt Temp 71 L (83-108) mmHg ABG HCO3 27 H (22-26) mmol/L ABG Base Excess (Actual) 4.0 mmol/L VBG pH (7.32-7.43) VBG pCO2 mmHg VBG pO2 mmHg VBG HCO3 (22-26) mmol/L VBG O2 Saturation % VBG Base Excess mmol/L Sodium (135-145) mmol/L Potassium (3.3-5.1) mmol/L Chloride (96-108) mmol/L Carbon Dioxide (22-29) mmol/L Anion Gap (12-20) BUN (9-16) mg/dL Creatinine (0.5-1.4) mg/dL Estim Creat Clear Calc Estimated GFR Random Glucose (60-115) mg/dL Lactic Acid (0.5-2.0) mmol/L Lactic Acid F/U @ 2Hr 2.3 H* (0.5-2.0) mmol/L Calcium (8.4-10.2) mg/dL Total Bilirubin (0.0-1.0) mg/dL Direct Bilirubin (0.0-0.5) mg/dL AST (5-31) U/L ALT (0-31) U/L Alkaline Phosphatase (39-117) U/L Troponin I High Sens (<3.5-17.0) ng/L B-Natriuretic Peptide (<100) pg/mL Total Protein (6.5-8.0) g/dL Albumin (3.5-5.0) g/dL Urine Color Dark Yellow Urine Appearance Clear Urine pH 6.0 (5.0-9.0) Ur Specific Ada >= 1.030 H (1.005-1.025) Urine Protein 30 (1+) H (Neg-Trace) mg/dL Urine Glucose (UA) Negative (Negative) mg/dL Urine Ketones Trace (Negative) mg/dL Urine Blood Negative (Negative) Urine Nitrite Negative (Negative) Ur Leukocyte Esterase Trace H (Negative) Urine RBC 0-2 (0-2) /HPF Urine WBC 0-5 (0-5) /HPF Ur Squamous Epith Cells 3-5 (0-2) /HPF Urine Bacteria None Seen (None Seen) Hyaline Casts 0-2 (0-2) /LPF Influenza Type A (PCR) (Negative) Influenza Type B (PCR) (Negative) RSV RNA Qual (PCR) (Negative) SARS-CoV-2 RNA (RT-PCR) (Negative) Independent Interpretation I performed an independent interpretation of an: EKG ( my interpretation of patient's EKG showed a sinus rhythm heart rate is 100 there is an incomplete right bundle branch block noted. When compared to a previous EKG is approximately the same.) and CT Scan ( CTA showed diffuse ground-glass appearance. No overt PE observed.) Radiology Impression Discussion of test interpretation with radiology: I have reviewed the radiologist's reading. Independent Historian Clinical information obtained from an independent historian. History obtained from or confirmed by: Spouse External Record Review External record reviewed: Inpatient record Prescription Management History of cancer lung cancer to both the right and the left side. Chronic Conditions Patient?s care impacted by: Hypertension History of colon cancer. History of breast cancer. Social Determinants Patient?s care significantly limited by Social Determinants of Health including: Problems related to primary support group Critical Care Time Critical Care Time Critical Care Time: Yes Total Critical Care Time: 90 Attestation: I have personally provided 90 minutes of critical care time exclusive of time spent on separately billable procedures. Time includes review of lab data, radiology results, discussion with consultants, and monitoring for potential decompensation. Interventions were performed as documented above Discharge Plan Discharge Clinical Impression: Respiratory failure Patient Disposition: Admitted As Inpatient Print Language: Turkmen
[2024-04-24 09:29] LABS: Venous Blood Gas Refer to POC result
[2024-04-24 09:29] LABS: VBG Base Excess 4.9 mmol/L; VBG HCO3 29 mmol/L (22-26); VBG pCO2 44 mmHg; VBG pH 7.43 (7.32-7.43); VBG pO2 31 mmHg
--- NOTE | 2024-04-24 09:30 | MHC.EDTECH ---
EKG was taken and read by the ED provider, blood work was drawn, ED round and vitas completed. Patient resting quietly in her room within call al in her reach.
[2024-04-24 09:39] LABS: Basophils Absolute Auto 0.1 X10*3/uL (0.0-0.2); Basophils Percent Auto 0.2 % (0-2); Eosinophils Absolute Auto 0.1 X10*3/uL (0.0-0.4); Eosinophils Percent Auto 0.2 % (0-4); Hematocrit 38.6 % (37.0-47.0); Hemoglobin 13.6 g/dl (12.0-16.0); Imm Gran Abs Auto 0.35 X10*3/uL (0.00-0.03); Imm Gran Pct Auto 1.3 % (0.0-0.4); Lymphocytes Absolute Auto 1.2 X10*3/uL (1.2-4.9); Lymphocytes Percent Auto 4.2 % (20-40); MANUAL DIFF FLAG SCAN; Mean Corpuscular HGB Conc 35.2 g/dl (31.0-35.0); Mean Corpuscular Hemoglobin 32.3 pg (27.0-33.0); Mean Corpuscular Volume 91.7 fL (80.0-98.0); Monocytes Absolute Auto 2.1 X10*3/uL (0.1-1.2); Monocytes Percent Auto 7.7 % (2-11); Neutrophils Absolute Auto 23.5 x10*3/uL (2.0-8.3); Neutrophils Percent Auto 86.4 % (45-73); PLT CLUMP 1; Red Blood Count 4.21 X10*6/uL (4.20-5.50); Red Cell Distribution Width 12.8 % (11.0-16.0); SCAN SMEAR FLAG 1
[2024-04-24 09:41] LABS: White Blood Count 27.2 X10*3/uL (4.8-10.8)
[2024-04-24] MEDS: cefEPime HCl 1 GM in 0.9 % Sodium Chloride 50 ML IV (09:41)
[2024-04-24 09:43] LABS: Alanine Aminotransferase 48 U/L (0-31); Albumin Level 3.1 g/dL (3.5-5.0); Alkaline Phosphatase 151 U/L (39-117); Anion Gap 15 (12-20); Aspartate Amino Transferase 49 U/L (5-31); Bilirubin Direct 0.7 mg/dL (0.0-0.5); Bilirubin Total 1.8 mg/dL (0.0-1.0); Blood Urea Nitrogen 30 mg/dL (9-16); Calcium 9.1 mg/dL (8.4-10.2); Carbon Dioxide 25 mmol/L (22-29); Chloride 105 mmol/L (96-108); Creatinine Clr Calc Pharmacy 64.5; Estimated Glomerular Filt Rate > 60; Glucose Random 124 mg/dL (60-115); Potassium 4.7 mmol/L (3.3-5.1); Sodium 140 mmol/L (135-145); Total Protein 6.6 g/dL (6.5-8.0)
[2024-04-24 09:46] LABS: INTERNATIONAL NORM RATIO 1.2 (0.9-1.1); Prothrombin Time 14.2 SEC (10.9-12.4)
[2024-04-24 09:49] LABS: B Type Natriuretic Peptide 343 pg/mL (<100)
[2024-04-24 09:59] LABS: Troponin-I High Sensitivity 183.1 ng/L (<3.5-17.0)
[2024-04-24] MEDS: iohexoL 350 MG/ML 100 ML INFUS..BTL IV (09:59)
[2024-04-24 10:00] LABS: SLIDE REVIEW VERIFIED
--- OUTSIDE RECORDS SUMMARY | 2024-04-24 10:02 | XMS_ITS | Encounter Summary ---
Author Organization [facility] Address [address] [place] [address] Care Team Providers Care Adhesive Sprayer Name Role Phone Rose Mary Collins MD Primary Care Provider [phone] Reason for Visit * Reason Onset Date Comments Procedure 04/02/2024 OSMAR DELACRUZ , Encounter Details Date Type Department Care Team (Late st Contact Info) Description 04/02/2024 Telephone Thoracic Surgery - [place] [address] [facility] [address] [place] [phone] Rhona Michel MD [address] [facility] [place] [address] [place] [id number] Procedure (OSMAR DELACRUZ , ) Social History Tobacco Use Types Packs/Day Years Used Date Smoking Tobacco: Former Cigarettes S tarted: 2000 Smokeless Tobacco: Never Comments:Patient used to smo ke 1 ppd Alcohol Use Standard Drinks/Week Comments Yes 7 (1 standard drink = 0.6 oz pur e alcohol) Comments Unknown Sex and Gender Information Value Date Recorded Sex Assigned at Female 03/22/2024 11:55 AM EST Legal Sex Female 2:17 PM EST Gender Identity Female 03/22/2024 11:55 AM EST Sexual Orientation Straight 03/22/2024 11 :55 AM EST Occupation Industry Job Start Date Job End Date Retired Not on file Not on file Not on file documented as of this encounter Progress Notes * Dolores Wilburn - 04/09/2024 1:44 PM EST Spoke with patient and reviewed her medications with her, all are UTD. I did advise she not take any vitamins or minerals the am of her procedure. She is to be NPO after midnight the night before herprocedure. She is to arrive at 6 am to the 3 rd floor. If she has any questions or concerns she will call back. * Gila Dinero - 04/03/2024 8:25 AM EST Patient is aware of surgery 04/17/24 ta 7:30 am arrival time 6:00 am PAT 04/10/24 AT 10:30 AM POST - OP 05/01/24 AT 11:15 AM W/ SHAHANA CARDIO - 04/05/24 AT 2:30 PM Prior auth pending fax 04/02 Patient and spouse are aware. 04/02 documented in this encounter Plan of Treatment Upcoming Encounters Date Type Department Care Team (Late st Contact Info) Description 05/01/2024 11:15 AM EDT Office Visit Thoracic Surgery - [place] [address] [facility] [address] [place] [phone] Maximo Carias PA [address] [facility] [address] [place] [address] [place] [id number] documented as of this encounter Visit Diagnoses Not on filedocumented in this encounter Additional Health Concerns Infection Onset Date Last Indicated Resolved Time Tuberculosis Rule-Out 03/22/2024 03/22/20242024 7:04 PM EST documented as of this encounter Care Teams Adhesive Sprayer Relationship Specialty Start Date End Date Rose Mary Collins MD [address] [place] [phone] PCP - General Internal Medicine 02/27/24 documented as of this encounter
--- OUTSIDE RECORDS SUMMARY | 2024-04-24 10:02 | XMS_ITS | Encounter Summary ---
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) Pulmonary fibrosis ([facility]/HCC) Rhona Michel MD [address] [facility] [address] [place] [address] Phone: tel: fax: [facility] - [address] [place] [phone] Phone: tel: fax: Referral ID Status Reason Start Date Expiration Date V isits Requested Visits Authorized [id number] Closed Specialty Services Required 04/01/2024 04/01/2025 1 1 Reason for Visit * Reason Comments Post-op Follow-up Encounter Details Date Type Department Care Team ([facility] st Contact Info) Description 04/01/2024 11:30 AM EST Office Visit Thoracic Surgery - [place] [address] [facility] [address] [place] [phone] Rhona Michel MD [address] [place] [phone] 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) (Primary Dx); Primary cancer of right upper lobe of lung (CMS/HCC); Pulmonary fibrosis (CMS/HCC); Neoplasm Social History Tobacco Use Types Packs/Day Years Used Date Smoking Tobacco: Former Cigarettes S tarted: 1999 Smokeless Tobacco: Never Comments:Patient used to smo [...] on file documented as of this encounter Last Filed Vital Signs Vital Sign Reading Time Taken Comments Blood Pressure 170/97 04/01/2024 11:18 AM EST Pulse 84 04/01/2024 11:18 AM EST Temperature 36.2 ??C (97.2 ??F) 04/01/2024 11:[address] Respiratory Rate 20 04/01/2024 11:18 AM EST Oxygen Saturation 98% 04/01/2024 11:18 AM EST Inhaled Oxygen Concentration - - Weight 71.7 kg (158 lb) 04/01/2024 11:18 AM EST Height 157.5 cm (5' 2 ) 04/01/2024 11:18 AM EST Body Mass Index 28.9 04/01/2024 11:18 AM EST documented in this encounter Progress Notes * Rhona Michel MD - 04/01/2024 1:20 PM ESTAssociated Problem(s): 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) 83-year-old woman former smoker now diagnosed with 2 separate lung cancers. 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 Fortunately, mediastinal lymph nodes were good sampling and negative for malignancy. Clinically at this point these are 2 separate lung nodules in the setting of probable pulmonary fibrosis and relatively good pulmonary function testing. She recovered quite well from her biopsy without difficulties. I discussed this pathology and again discussed the diagnosis, staging, and treatment of lung cancer in her case to separate stage I lung cancers. I will plan to discuss her multidisciplinary thoracic oncology conference but I do think there will be relative concerned about radiation for either 1 of these. At any rate, Idiscussed multiple options including radiation for both, surgery for above, and a combination of radiation and surgery. I will plan on getting her on the schedule for da Gabe left upper lobectomy right upper lobe segmentectomy or wedge resection same sitting by her preference. Will need her to seecardiology prior to the operation. This should be booked as the only operation on that day if she we indeed do move forward with this plan. * Rhona Michel MD - 04/01/2024 11:30 AM EST Thoracic Pathology Review Patient name Bonny SWARTZ 1940 Date of Visit: 04/01/2024 Care Team .Rose Mary Collins MD Reason for Visit: Chief Complaint Patient presents with Post-op Follow-up Date of procedure: 03/22/2024 Type of procedure performed: [facility] bronch/ebus [facility] procedure was performed: [facility] HPI Ms. Pinto is a 83 y.o. female who presents to our office to review their pathology results following navigational bronchoscopy/EBUS. 83-year-old woman otherwise relatively healthy former smoker smoked a pack per day starting at age 18 up until age 61 who initially had a CT scan of the chest done at [facility] in November 2023 which showed a distinct nodule 16 x 17 mm in the left upper lobe that is spiculated and a rather not distinct nodule amidst some bronchiectasis measuring 15 mm in the right upper lobe. There isno lymphadenopathy and no pleural fluid on this imaging. A PET scan was then done on 01/03/2024 also reviewed and interpreted by me directly which shows again these 2 nodules both of which to be PET avid SUV max of 10.6 in the left upper lobe and 8.5 in the right upper lobe. There is no other increased uptake elsewhere in the chest or outside of the chest. She did have pulmonary function testing on 11/17/2023 which showed an FEV1 of 100% of predicted and a DLCO VA of 90% of predicted. She did have a core biopsy done at [facility] which showed squamous cell carcinoma on the left. She also had a brain MRI done which was negative for metastatic disease. In order to get a diagnosis and a stage for the right side, we did a navigational bronchoscopy/EBUS on 03/22/2024. She tolerated that quite well and said she only had mild blood-tinged sputum for few days. She did have a sore throat for few days but that has now. Pathology from a biopsy of the right upper lobe nodule on cryo showed adenocarcinoma of the lung FNA showed atypical cells and brushings also showed adenocarcinoma. On linear EBUS right paratracheal, left paratracheal, and subcarinal lymph nodes were all negative for malignancy with good sampling in each. She reports feeling generally good health denies unintentional weight loss decreased appetite fevers chills or soaking sweats. She denies chest pain shortness of breath or hemoptysis. She does have achronic cough. She denies any new neurologic symptoms although she does occasionally get lightheaded or dizzy. Past Medical History: Diagnosis Date Anxiety situational Arthritis Blindness mac degeneration, b Breast cancer (CMS/HCC) Colon cancer (CMS/HCC) History of transfusion Joint pain Allergies Allergen Reactions Azithromycin Jaundice Current Outpatient Medications Medication Sig Dispense Refill Dupixent Pen 300 mg/2 mL pen 2 mL (300 mg total) every 14 (fourteen) days. loratadine (CLARITIN) 10 mg tablet Take 1 tablet (10 mg total) by mouth at bedtime. meclizine (ANTIVERT) 25 mg tablet Take 1 tablet (25 mg total) by mouth 3 times daily as needed. MILK THISTLE ORAL Take by mouth. mv-min/FA/vit K/lutein/zeaxant (PRESERVISION AREDS 2 PLUS MV ORAL) Take 2 tablets by mouth 1 (one) time each day. No current facility-administered medications for this visit. Social History Tobacco Use Smoking status: Former Types: Cigarettes Start date: 1999 Smokeless tobacco: Never Tobacco comments: Patient used to smoke 1 ppd Substance Use Topics Alcohol use: Yes Alcohol/week: 7.0 standard drinks of alcohol Types: 7 Glasses of wine per week Drug use: Never Social History Social History Narrative Not on file Family History Problem Relation Name Age of Onset Breast cancer Mother Pancreatic cancer Mother Other (non-hodgkin lymphoma) Father Hypertension Father ROS General - Negative for: weight loss/gain, fatigue, fever, chills, weakness, difficulty sleeping Head - Negative for: headache, trauma Eyes - Negative for: acute vision change, blurred vision, double vision, eye pain, conjunctival erythema, eyelid pain/swelling/erythema Ears - Negative for: acute change in hearing, tinnitus, ear pain, ear drainage Nose - Negative for: nasal discharge, nosebleed, itching, sinus pain Mouth/Throat - Negative for: sore throat, swollen throat, dry mouth, hoarseness, dysphagia, odynophagia, oral lesions Neck - Negative for: pain, stiffness, swelling, mass/lumps, swollen glands Cardiovascular - Negative for: chest pain/pressure, exertional chest pain, palpitations, lightheadedness, dizziness, orthopnea, extremity edema Respiratory -as above Gastrointestinal - Negative for: abdominal pain, abdominal distention, bloating, nausea, vomiting, early satiety, diarrhea, constipation, BRBPR, melena, poor appetite Genitourinary - Negative for: dysuria, hematura, urinary frequency, urinary urgency, incontinence Musculoskeletal - Negative for: muscle or joint pain, stiffness, back pain, joint swelling or erythema Neurologic - Negative for: dizziness, seizures, weakness, numbness, tingling, tremor, dysarthria, facial droop Hematologic - Negative for: easy bruising, easy bleeding, ecchymosis, petechiae Endocrine - Negative for: polyuriua, polydipsia, heat or cold intolerance Lymphatic - Negative for: swollen nodes, unexplained lumps/bumps in neck/axillae/groin Skin - Negative for: rashes, lumps, itching, dryness, color change, hair/nail changes Psychiatric - Negative for: depression, anxiety, nervousness, stress, memory change, SI/HI Physical Exam Vitals: 04/01/24 1118 BP: (!) 170/97 Pulse: 84 Resp: 20 Temp: 36.2 ??C (97.2 ??F) TempSrc: Oral SpO2: 98% Weight: 71.7 kg (158 lb) Height: 1.575 m (62 ) General: Patient is sitting comfortably in no acute distress, well developed, well nourished Head: Normocephalic, atraumatic, symmetric Eyes: Sclera anicteric, eyelids without edema or erythema, +EOMS intact ENT: Oral mucosa and tongue are moist without lesions or exudates Neck: Soft, supple, symmetric, trachea midline, no crepitus, no mass visualized or palpated Cardiovascular: Regular rate and rhythm, no murmur/rubs/gallops, BUE and BLE without edema, no calftenderness bilaterally Respiratory: Lungs CTA B, breathing nonlabored, speaking in full sentences, on room air. No use of accessory muscles. No obvious chest wall abnormality or deformity. Gastrointestinal: Soft, non-tender, non-distended, +normoactive bowel sounds. Lymphatic: no cervical, supraclavicular, infraclavicular, or other lymphadenopathy noted Neurological: Alert and oriented x 3, neurologic exam is grossly normal Psychiatric: No agitation, appropriate affect Pathology: Viewed in detail with the patient as above Micro / Labs: Reviewed Radiology reviewed and interpreted by me directly as above I personally viewed the following imaging studies, in addition to reviewing the dictated report from the reading radiologist Assessment/Plan: Problem List Items Addressed This Visit Respiratory Pulmonary fibrosis (CMS/HCC) Relevant Orders Ambulatory referral to Cardiology 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 Fortunately, mediastinal lymph nodes were good sampling and negative for malignancy. Clinically at this point these are 2 separate lung nodules in the setting of probable pulmonary fibrosis and relatively good pulmonary function testing. She recovered quite well from her biopsy without difficulties. I discussed this pathology and again discussed the diagnosis, staging, and treatment of lung cancer in her case to separate stage I lung cancers. I will plan to discuss her multidisciplinary thoracic oncology conference but I do think there will be relative concerned about radiation for either 1 of these. At any rate, Idiscussed multiple options including radiation for both, surgery for above, and a combination of radiation and surgery. I will plan on getting her on the schedule for da Gabe left upper lobectomy right upper lobe segmentectomy or wedge resection same sitting by her preference. Will need her to seecardiology prior to the operation. This should be booked as the only operation on that day if she we indeed do move forward with this plan. Relevant Orders Ambulatory referral to Cardiology Case Request Operating Room: Da Gabe left upper lobectomy and right upper lobe wedge versus segmentectomy (Completed) NPO Instructions Prior to Day of Procedure Basic metabolic panel CBC and differential Prothrombin time with INR Activated partial thromboplastin time Type and screen ECG 12 lead - Procedural (No Charge) Primary cancer of right upper lobe of lung (CMS/HCC) Relevant Orders Ambulatory referral to Cardiology Case Request Operating Room: Da Gabe left upper lobectomy and right upper lobe wedge versus segmentectomy (Completed) NPO Instructions Prior to Day of Procedure Basic metabolic panel CBC and differential Prothrombin time with INR Activated partial thromboplastin time Type and screen ECG 12 lead - Procedural (No Charge) Other Visit Diagnoses Neoplasm Relevant Orders Prothrombin time with INR Activated partial thromboplastin time Total time spent on date of this encounter: 55 minutes Reviewing patient's chart, Independently reviewing current/past imaging, Visit with the patient, Counseling and educating patient/family on diagnosis, Discussion of ongoing management, Documenting clinical information in the patient's medical record, Coordinating care with other health daycare director, and Discussion of surgical intervention and/or biopsy Rhona Michel MD on 04/01/2024 at 1:28 PM EST CC: Lul Cantor MD Asma Kareem, MD documented in this encounter Plan of Treatment Upcoming Encounters Date Type Department Care Team (Late st Contact Info) Description 05/01/2024 11:15 AM EDT Office Visit Thoracic Surgery - [place] [address] [facility] [address] [place] [phone] Maximo Carias PA [address] [facility] [address] [place] [address] Scheduled Referrals Name Type Priority Associated Diagnoses Order Schedule Ambulatory referral to Cardiology Outpatient Referral Routine 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) Pulmonary fibrosis (CMS/HCC) 1 Occurrences starting 04/01/2024 until 04/01/2025 documented as of this encounter Results * Type and screen (04/10/2024 10:29 AM EST) ABO Group A 04/10/2024 12:00 PM EST [facility] Rh Type Positive 04/10/2024 12:00 PM EST [facility] Antibody Screen Negative 04/10/2024 12:00 PM EST [facility] Blood Venous blood specimen / Unknown Venipuncture / Unknown 04/10/2024 10:29 AM EST 04/10/2024 10:47 AM EST us Rhona Michel MD LAB BLOOD BANK TEST ORDERABLES F inal Result Performing Organization Address [facility]/ZIP Co de Phone Number [facility] [address] [place] [address], [place] [phone] * Activated partial thromboplastin time (04/10/2024 10:29 AM EST) aPTT 30.8 24.1 - 39.3 sec LAB COAGULATION METHOD 04/10/2024 10:59 AM EST [facility] Blood Venous blood specimen / Unknown Venipuncture / Unknown 04/10/2024 10:29 AM EST 04/10/2024 10:48 AM EST us Rhona Michel MD LAB BLOOD ORDERABLES Final Resul t [facility] [address] [place] [address], [place] [phone] * Prothrombin time with INR (04/10/2024 10:29 AM EST) Protime 12.3 10.6 - 13.9 sec LAB COAGULATION METHOD 04/10/2024 10:59 AM EST [facility] INR 1.0 LAB COAGULATION METHOD 04/10/2024 10:59 AM EST [facility] Blood Venous blood specimen / Unknown Venipuncture / Unknown 04/10/2024 10:29 AM EST 04/10/2024 10:48 AM EST us Rhona Michel MD LAB BLOOD ORDERABLES Final Resul t [facility] [address] [place] [address], * (ABNORMAL) Basic metabolic panel (04/10/2024 10:29 AM EST) Sodium 138 133 - 145 mmol/L LAB CHEMISTRY METHOD 04/10/2024 12:[address] [facility] Potassium 4.0 3.5 - 5.5 mmol/L LAB CHEMISTRY METHOD 04/10/2024 12:[address] [facility] Chloride 103 96 - 110 mmol/L LAB CHEMISTRY METHOD 04/10/2024 12:[address] [facility] CO2 32 21 - 32 mmol/L LAB CHEMISTRY METHOD 04/10/2024 12:[address] [facility] Anion Gap 3 3 - 11 LAB CHEMISTRY METHOD 04/10/2024 12:[address] [facility] Glucose 66(L) 70 - 100 mg/dL LAB CHEMISTRY METHOD 04/10/2024 12:[address] [facility] BUN 18 5 - 25 mg/dL LAB CHEMISTRY METHOD 04/10/2024 12:[address] [facility] Creatinine 0.66 0.50 - 1.10 mg/dL LAB CHEMISTRY METHOD 04/10/2024 12:[address] [facility] eGFR 88 >=60 mL/min/1. 73m2 LAB CHEMISTRY METHOD 04/10/2024 12:[address] [facility] Comment:Calculation based on the??Chronic Kidney Disease Epidemiology Collaboration (CKD-EPI) equation refit??without adjustment for race. 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)- Primary Primary cancer of right upper lobe of lung (CMS/HCC) Pulmonary fibrosis (CMS/HCC) Postinflammatory pulmonary fibrosis Neoplasm Neoplasm of unspecified nature, site unspecified documented in this encounter Orders Nursing Count Last Ordered Date First Orde red Date DIET INSTRUCTIONS TO NURSING 1 04/01/2024 Case Request Count Last Ordered Date First Orde red Date CASE REQUEST OPERATING ROOM 1 04/01/2024 documented in this encounter Additional Health Concerns Infection Onset Date Last Indicated Resolved Time Tuberculosis Rule-Out 03/22/2024 03/22/20242024 7:04 PM EST documented as of this encounter Care Teams Calender Worker Helper Relationship Specialty Start Date End Date Rose Mary Collins MD [address] [place] [phone] PCP - General Internal Medicine 02/27/24 documented as of this encounter
--- OUTSIDE RECORDS SUMMARY | 2024-04-24 10:02 | XMS_ITS | Encounter Summary ---
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); Primary cancer of right upper lobe of lung (CMS/HCC); Pulmonary fibrosis (CMS/HCC) Social History Tobacco Use Types Packs/Day Years [...] Sign Reading Time Taken Comments Blood Pressure 138/90 04/05/2024 2:02 PM EST Pulse 74 04/05/2024 2:02 PM EST Temperature - - Respiratory Rate - - Oxygen Saturation 98% 04/05/2024 2:02 PM EST Inhaled Oxygen Concentration - - Weight 71.7 kg (158 lb) 04/05/2024 2:02 PM EST Height 157.5 cm (5' 2 ) 04/05/2024 2:02 PM EST Body Mass Index 28.9 04/05/2024 2:02 PM EST documented in this encounter Progress Notes * Rhona Michel MD - 04/05/2024 2:30 PM EST Called patient and discussed all the options again after having multidisciplinary thoracic oncologyconference today. The options I discussed with her and her were surgery for both sides, surgery for one-sided radiation for the other, radiation for both sides, and potential PD-L1 assessmentfurther at [facility] and here to determine if a medical option would be viable. After lengthy discussion now opted for the surgical option and they would like to proceed with both done at the same time. They are understanding of the risks and have had their appointment with cardiology already. All questions were answered. 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) Pulmonary fibrosis (CMS/HCC) Postinflammatory pulmonary fibrosis documented in this encounter Orders Outpatient Referral Count Last Ordered Date Fir st Ordered Date AMB REFERRAL TO CARDIOLOGY 1 04/05/2024 documented in this encounter Additional Health Concerns Infection Onset Date Last Indicated Resolved Time Tuberculosis Rule-Out 03/22/2024 03/22/20242024 7:04 PM EST documented as of this encounter Care Teams Campaign Director Relationship Specialty Start Date End Date Rose Mary Collins MD [address] [place] [address] PCP - General Internal Medicine 02/27/24 documented as of this encounter
--- OUTSIDE RECORDS SUMMARY | 2024-04-24 10:03 | XMS_ITS | Encounter Summary ---
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) CANCER RIGHT & LEFT LOBE LUNG Procedures OR THORACOSCOPY SURGICAL WITH LOBECTOMY OR THORACOSCOPY W DX WEDGE RESECTION F/B ANATOMIC LUNG RESECTION OR THORACOSCOPY SURGICAL W MEDIASTINAL & REGIONAL LYMPHADENECTOMY OR THORACOSCOPY SURGICAL WITH REMOVAL OF A SINGLE LUNG SEGMENT OR REMOVAL OF LUNG OTHER THAN PNEUMONECTOMY SINGLE LOBE OR THORACOSCOPY WITH THERAPEUTIC WEDGE RESECTION INITIAL UNILATERAL Da Gabe left upper lobectomy & right upper lobe wedge versus segmentectomy Da Gabe left upper lobectomy & right upper lobe wedge versus segmentectomy Da Gabe left upper lobectomy & right upper lobe wedge versus segmentectomy Da Gabe left upper lobectomy & right upper lobe wedge versus segmentectomy Da Gabe left upper lobectomy & right upper lobe wedge versus segmentectomy Da Gabe left upper lobectomy & right upper lobe wedge versus segmentectomy Rhona Michel MD [address] [address] Phone: tel: fax: [facility] Main OR [address] [place] [address] Phone: tel: Referral ID Status Reason Start Date Expiration Date Visits Re quested Visits Authorized [id number] 1 1 Encounter Details Date Type Department Care Team (Late st Contact Info) Description 04/17/2024 8:18 AM EST Anesthesia Event [facility] Main OR [address] [place] [address] Asael Peters DO [address] [place] [address] Avelino Dhaliwal SRNA Anesthesia Record Procedure Summary Procedure Name Responsible Anesthesiologist Anesthesia Start Time Anesthesia Stop Time Da Gabe left upper posterior apical segmentectomy & right upper lobe anterior segmentectomy with completion right upper lobectomy (Bilateral: Chest) Asael Peters DO 04/17/24 0818 04/17/24 1458 Events Date Time Event Comment 04/17/2024 0753 0818 An Start 0818 An Start Data The patient wa s reevaluated immediately before moderate or deep sedation use and before anesthesia induction. 0818 In Room 0826 An Induction 0828 An Intubation 0834 An one lung vent 0906 Anesthesia Ready 0914 Leandro [place] transduce r on floor 0927 Proc Start 0930 Leandro Blood pressure transiently decreased during initial insufflation of throax; treated with phenylephrine with effect. Back to Baseline. 1106 An Two-Lung Vent 1134 An one lung vent 1203 Leandro Manual recruitm ent breaths given. 1427 An Two-Lung Vent 1441 An Extubation 1446 Proc Fin 1446 an stop data 1446 Transport to PACU/ICU Patien t reassessed and ready for transfer, airway stable. Patient transport to designated recovery area. {Transport to PACU/ICU:[id number]} 1450 Out of Room 1455 Handoff to RN I completed my handoff to the receiving nurse during which we: 1. Identified the patient 2. Identified the responsible provider 3. Reviewed the pertinent medical history 4. Discussed the surgical course 5. Reviewed intra-op anesthesia management and issues during anesthesia 6. Set expectations for post-procedure period 7. Allowed opportunity for questions and acknowledgement of understanding. 1458 An Stop Meds Name Total ceFAZolin (ANCEF) IV syringe 2 g/20 mL 4 g lidocaine PF (XYLOCAINE-MPF) local injec tion 2% 60 mg midazolam 1 mg/mL 1 mg HYDROmorphone (DILAUDID) injection 2 mg/ mL 1 mg fentaNYL (SUBLIMAZE) injection 100 mcg propofol (DIPRIVAN) injection 10 mg/mL 1 50 mg rocuronium 150 mg ondansetron 2 mg/mL 4 mg dexamethasone (DECADRON) injection 4 mg/ mL 4 mg ePHEDrine injection 10 mg phenylephrine (AVTAR-SYNEPHRINE) 10 mg/1 m L injection 1,160 mcg glycopyrrolate 0.2 mg/mL 0.1 mg phenylephrine (AVTAR-SYNEPHRIN E) 20,000 mcg in sodium chloride 0.9 % 250 mL infusion 9.42 mg sugammadex (BRIDION) injection 100 mg/mL 200 mg lactated Ringer's infusion 1,200 mL * Agents Name O2 N2O Air Sevoflurane Inspired Sevoflurane * Blood No blood administrations on file. Lines, Drains, and Airways Type Details Placement Removal Wound Incision; 04/17/24; 0932; Flank; Left, Upper 04/17/24 0932 by Michelle Babb RN Wound Incision; 04/17/24; 0932; Flank; Left, Upper 04/17/24 0932 by Michelle Babb RN Wound Incision; 04/17/24; 0932; Flank; Left, Upper 04/17/24 0932 by Michelle Babb RN Wound Incision; 04/17/24; 0932; Back; Lateral, Left 04/17/24 0932 by Michelle Babb RN Wound Incision; 04/17/24; 0932; Back; Lateral, Left 04/17/24 0932 by Michelle Babb RN Wound Incision; 04/17/24; 1152; Flank; Right, Upper 04/17/24 1152 by Michelle Babb RN Wound Incision; 04/17/24; 1152; Flank; Right, Upper 04/17/24 1152 by Michelle Babb RN Wound Incision; 04/17/24; 1152; Flank; Right, Upper 04/17/24 1152 by Michelle Babb RN Wound Incision; 04/17/24; 1152; Back; Lateral, Right 04/17/24 1152 by Michelle Babb RN Wound Incision; 04/17/24; 1153; Back; Lateral, Right 04/17/24 1153 by Michelle Babb RN Peripheral IV Placement Date: 04/17/24; Placement Time: 0738; Catheter Size: 20 G; Orientation: Left, Posterior; Location: Hand; Site Prep: Chlorhexidine; Inserted by: Kayla WHITAKER RN; Insertion Attempts: 1; Patient Tolerance: Tolerated well; Removal Date: 04/20/24; Removal Time: 0024 04/17/24 0738 by Angelika Whitaker RN 04/20/24 0024 by Regina Garcias RN Peripheral IV Placement Date: 04/17/24; Placement Time: 0831; Catheter Size: 18 G; Orientation: Left; Location: Hand; Insertion Attempts: 1; Removal Date: 04/20/24; Removal Time: 0023 04/17/24 0831 by Avelino Dhaliwal, SRNA 04/20/24 0023 by Regina Garcias RN Urethral Catheter Placement Date: 04/17/24; Placement Time: 0845; Inserted by: López FOWLER; Type: Non-latex; Size: 16 Fr.; Balloon Size: 10 mL; Urine Returned: Yes; Removal Date: 04/18/24; Removal Time: 1011 04/17/24 0845 by Michelle Babb RN 04/18/24 1011 by Nidhi Thompson RN ETT Placement Date: 04/17/24; Placement Time: 0943 (created via procedure documentation); Mask Ventilation: 1; Technique: Direct laryngoscopy; Type: ETT - double lumen left; Cuffed: Yes; Blade Size: 3; Location: Oral; Insertion Attempts: 1; Placement Verification: Capnometry; Removal Date: 04/17/24; Removal Time: 1442 04/17/24 0943 by Avelino Dhaliwal, SRNA 04/17/24 1442 by NOEL Benson Arterial Line Placement Date: 04/17/24; Placement Time: 1009 (created via procedure documentation); Removal Date: 04/17/24; Removal Time: 1615; Removal Reason: Per order 04/17/24 1009 by Avelino Dhaliwal, SRNA 04/17/24 1615 by Asuncion Noriega RN Chest Tube Placement Date: 04/17/24; Placement Time: 1115; Inserted by: Sherry DIXON; Tube Number: 1; Orientation: Left; Location: Midaxillary; Size: 28 Fr; Drainage System: [place]/nonsuction water seal drainage; Removal Date: 04/18/24; Removal Time: 1400 04/17/24 1115 by Michelle Babb RN 04/18/24 1400 by Regina Garcias RN Chest Tube Placement Date: 04/17/24; Placement Time: 1423; Inserted by: Sherry DIXON; Tube Number: 1; Orientation: Right; Location: Midaxillary; Size: 28 Fr; Drainage System: [place]/nonsuction water seal drainage; Removal Date: 04/20/24; Removal Time: 1200 04/17/24 1423 by Michelle Babb RN 04/20/24 1200 by Regina Garcias RN documented in this encounter Social History Tobacco Use Types Packs/Day Years Used Date Smoking Tobacco: Former Cigarettes S tarted: 2000 Smokeless Tobacco: Never Comments:Patient used to smo ke 1 ppd Alcohol Use Standard Drinks/Week Comments Yes 7 (1 standard drink = 0.6 oz pur e alcohol) Housing Instability Answer Date Recorde d Are you worried that in the next 2 months you may not have stable housing? Patient declined 04/17/2024 Food Access & Nutrition Answer Date Rec orded Do you have access to a vari ety of food including fruits and vegetables? Patient declined 04/17/2024 Health Literacy Answer Date Recorded How often do you need to hav e someone help you when you read instructions, pamphlets, or other written material from your doctor or pharmacy? Patient declined 04/17/2024 Caregiver: How often do you need to have someone help you when you read instructions, pamphlets, or other written material from your doctor or pharmacy? Not on file 025 Financial Risk Answer Date Recorded How hard is it for you to pa y for the very basics like food, housing, medical care, and air conditioning / heating? Patient declined 04/17/2024 Transportation Answer Date Recorded Has the lack of transportati on kept you from meetings, work, or from getting things needed for daily living? Patient declined 04/17/2024 Has the lack of transportati on kept you from medical appointments or from getting medications? Patient declined 04/17/2024 Social Isolation Answer Date Recorded How often do you feel lonely or isolated from those around you? Patient declined 04/17/2024 Food Risk Answer Date Recorded Within the past 12 months we worried whether our food would run out before we got money to buy more. Patient declined 025 Within the past 12 months th e food we bought just didn't last and we didn't have money to get more. Patient declined 06/2024 Dependent Care Answer Date Recorded Do you need help finding or paying for care for your loved ones. For example, children's choir director or elderly care for an older adult? Patient declined 04/17/2024 Education Answer Date Recorded Do you think completing more education or training, like finishing a GED, going to college, or learning a trade, would be helpful for you? Patient declined 04/17/2024 Employment and Income Answer Date Recor ded During the last four weeks, have you been actively looking for work? Patient declined 04/17/2024 Living Situation Answer Date Recorded What is your living situation? 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) (CANCER RIGHT & LEFT LOBE LUNG) Surgeons: Rhona Michel MD Responsible Provider: Asael Peters DO Anesthesia Type: general ASA Status: 3 Anesthesia Plan: general Last Vitals: Vitals Value Taken Time BP 1198/63 04/17/24 1459 Temp 96.1 04/17/24 1459 Pulse 84 04/17/24 1459 Resp 18 04/17/24 1459 SpO2 99 04/17/24 1459 No data recorded Anesthesia Post Evaluation Patient location during evaluation: PACU Patient participation: complete - patient participated Level of consciousness: awake and alert Pain score: 0 Pain management: adequate Airway patency: patent Anesthetic complications: no Cardiovascular status: acceptable and hemodynamically stable Respiratory status: acceptable and face mask Hydration status: acceptable Nausea: No Vomiting: No There were no known notable events for this encounter. * NOEL Benson - 04/17/2024 10:06 AM ESTAssociated Order(s): Arterial Line Arterial Line Performed by: NOEL Benson Authorized by: Feliciano Florez MD Consent: Verbal consent obtained. Written consent obtained. Risks and benefits: risks, benefits and alternatives were discussed Consent given by: patient Patient understanding: patient states understanding of the procedure being performed Patient consent: the patient's understanding of the procedure matches consent given Procedure consent: procedure consent matches procedure scheduled Relevant documents: relevant documents present and verified Test results: test results available and properly labeled Site marked: the operative site was marked Imaging studies: imaging studies available Patient identity confirmed: verbally with patient, arm band, provided demographic data and hospital-assigned identification number Time out: Immediately prior to procedure a time out was called to verify the correct patient, procedure, equipment, customer support associate and site/side marked as required. Preparation: Patient was prepped and draped in the usual sterile fashion. Indications: hemodynamic monitoring Location: right radial Sedation: Patient sedated: yes Sedatives: see MAR for details Analgesia: see MAR for details Eriberto's test normal: yes Needle gauge: 20 Number of attempts: 4 Post-procedure: dressing applied Post-procedure CMS: normal Staffing Anesthesiologist: Feliciano Florez MD * NOEL Benson - 04/17/2024 9:40 AM ESTAssociated Order(s): Intubation General Information and Staff Patient location during procedure: OR Resident/PARKS AND RECREATION WORKER: NOEL Benson Performed by: NOEL Benson Authorized by: Feliciano Florez MD Intubation Airway not difficult Urgency: elective Final Airway Details Successful airway: ETT - double lumen left Cuffed: yes Successful intubation technique: direct laryngoscopy Endotracheal tube insertion site: oral Blade: Shant Blade size: #3 ETT DL size (fr): 35 Cormack-Lehane Classification: grade I - full view of glottis Placement verified by: capnometry Measured from: lips (Placement confirmed via bronchosocpe) ETT to lips (cm): 30 Number of attempts at approach: 1Final airway type: endotracheal airway Indications and Patient Condition Indications for airway management: anesthesia Spontaneous ventilation: present Sedation level: Yes Preoxygenated: yes Soft Tissue Damage: No Dentition Unchanged: Yes Patient position: sniffing Mask difficulty assessment: 1 - vent by mask * Feliciano Florez MD - 04/17/2024 7:52 AM EST 83 y.o. female scheduled for 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); Primary cancer of rig* [Da Gabe left upper lobectomy & right upper lobe wedge versus segmentectomy (Bilateral: Chest)] Ht Readings from Last 1 Encounters: 04/05/24 1.575 m (62 ) Wt Readings from Last 1 Encounters: 04/05/24 71.7 kg (158 lb) There is no height or weight on file to calculate BMI. Past Medical History: Diagnosis Date Anxiety situational Arthritis Blindness mac degeneration, b Breast cancer (CMS/HCC) Cirrhosis (CMS/HCC) Colon cancer (CMS/HCC) History of transfusion WITH COLON SURGERY Joint pain Past Surgical History: Procedure Laterality Date BREAST LUMPECTOMY 10/14/1992 NO BP OR IV R ARM BREAST REDUCTION Left COLON SURGERY ECTOPIC SURGERY Anesthesia complications Denies Allergies Allergen Reactions Azithromycin Jaundice Prior to Admission medications Medication Sig Start Date End Date Taking? Authorizing Provider Dupixent Pen 300 mg/2 mL pen 2 mL (300 mg total) every 14 (fourteen) days. 12/18/23 Yes Historical Provider, loratadine (CLARITIN) 10 mg tablet Take 1 tablet (10 mg total) by mouth at bedtime. Yes Historical Provider, meclizine (ANTIVERT) 25 mg tablet Take 1 tablet (25 mg total) by mouth 3 times daily as needed. YesHistorical Provider, MILK THISTLE ORAL Take by mouth. Yes Historical Provider, mv-min/FA/vit K/lutein/zeaxant (PRESERVISION AREDS 2 PLUS MV ORAL) Take 2 tablets by mouth 1 (one) time each day. Historical Provider, MD Mclean have personally reviewed all the patient's medications with them prior to anesthesia. Current In-hospital Medications acetaminophen, 1,000 mg, oral, Once ceFAZolin, 2 g, intravenous, Once sodium chloride, 10 mL, intravenous, BID PRN medications: Insert peripheral IV AND Maintain IV access AND Saline lock IV AND sodium chloride AND sodium chloride Social History Tobacco Use Smoking status: Former Types: Cigarettes Start date: 1999 Smokeless tobacco: Never Tobacco comments: Patient used to smoke 1 ppd Substance Use Topics Alcohol use: Yes Alcohol/week: 7.0 standard drinks of alcohol Types: 7 Glasses of wine per week Drug use: Never Is the patient a current smoker (e.g. cigarette, cigar, pip, e-cigarette, or mariajuana)? Yes [] No[x] Patient previously instructed to abstain from smoking on the day of procedure? Yes [] No[] Patient smoked on the day of procedure? Yes [] No[] ASPIRE smoking VBR: [] Not interested in quitting [] Interested in quitting- referred to treatment [] Interested in quitting - treatment provided Visit Vitals BP (!) 176/88 Pulse 78 Temp 36.2 ??C (97.2 ??F) Resp 16 SpO2 97% Smoking Status Former LABS: Lab Results Component Value Date WBC 6.6 04/10/2024 HGB 14.4 04/10/2024 HCT 43.9 04/10/2024 MCV 95.0 04/10/2024 PLT 04/10/2024 Comment: Not measured. PLATELETS CLUMPED. 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 Anesthetic plan and risks discussed with patient. Use of blood products discussed with patient who. Anesthesia Plan discussed with PARKS AND RECREATION WORKER. Anesthesia Evaluation Airway Mallampati: II Thyromental distance: >3 FB Neck ROM: fullnot intubatedno noted risk Dental Pulmonary breath sounds clear to auscultation ROS comment: Lung cancer Cardiovascular Rhythm: regular Rate: normal Neuro/Psych Mental Status: alert and oriented GI/Hepatic/Renal (+) liver disease Endo/Other Abdominal Abdomen: soft. Bowel sounds: normal. PONV RISK SCORE: 2 Vitals: 04/17/24 0709 BP: (!) 176/88 Pulse: 78 Resp: 16 Temp: 36.2 ??C (97.2 ??F) SpO2: 97% SpO2 Readings from Last 1 Encounters: 04/17/24 97% WBC Date Value Ref Range Status 04/10/2024 6.6 4.8 - 10.8 K/mcL Final RBC Date Value Ref Range Status 04/10/2024 4.60 3.80 - 4.80 M/mcL Final Hemoglobin Date Value Ref Range Status 04/10/2024 14.4 11.5 - 16.0 g/dL Final Hematocrit Date Value Ref Range Status 04/10/2024 43.9 35.0 - 47.0 % Final Platelets Date Value Ref Range Status 04/10/2024 Corrected Comment: Not measured. PLATELETS CLUMPED. MCV Date Value Ref Range Status 04/10/2024 95.0 79.0 - 98.0 FL Final Allergies Allergen Reactions Azithromycin Jaundice STOP BANG: No data recorded NPO Status: Time of Last Liquid: 2100 Time of Last Solid: 2100 documented in this encounter Plan of Treatment Upcoming Encounters Date Type Department Care Team (Late st Contact Info) Description 05/01/2024 11:15 AM EDT Office Visit Thoracic Surgery - [place] [address] [place] [address] Maximo Carais PA [address] [place] [address] [place] [id number] documented as of this encounter Procedures Procedure Name Priority Date/Time Associated Diagnosis Comments TH AN ARTERIAL LINE (CHARGE) Routine 04/17/2024 10:06 AM EST TH AN ENDOTRACHEAL(NO CHARGE) Routine 04/17/2024 9:40 AM EST documented in this encounter Results * TH AN ARTERIAL LINE (CHARGE) (04/17/2024 10:06 AM EST) Narrative Avelino Dhaliwal SRNA - 04/17/2024 10:06 AM EST NOEL Benson ? 04/17/2024 10:09 AM Arterial Line Performed by: NOEL Benson Authorized by: Feliciano Florez MD ??Consent: Verbal consent obtained. Written consent obtained. Risks and benefits: risks, benefits and alternatives were discussed Consent given by: patient Patient understanding: patient states understanding of the procedure being performed Patient consent: the patient's understanding of the procedure matches consent given Procedure consent: procedure consent matches procedure scheduled Relevant documents: relevant documents present and verified Test results: test results available and properly labeled Site marked: the operative site was marked Imaging studies: imaging studies available Patient identity confirmed: verbally with patient, arm band, provided demographic data and hospital-assigned identification number Time out: Immediately prior to procedure a time out was called to verify the correct patient, procedure, equipment, customer support associate and site/side marked as required. Preparation: Patient was prepped and draped in the usual sterile fashion. Indications: hemodynamic monitoring Location: right radial Sedation: Patient sedated: yes Sedatives: see MAR for details Analgesia: see MAR for details Eriberto's test normal: yes Needle gauge: 20 Number of attempts: 4 Post-procedure: dressing applied Post-procedure CMS: normal Staffing Anesthesiologist: Feliciano Florez MD Feliciano Florez MD ANESTHESIA ORDERABLES Final Re sult * TH AN ENDOTRACHEAL(NO CHARGE) (04/17/2024 9:40 AM EST) Avelino Beltran SRNA - 04/17/2024 9:40 AM EST NOEL Benson ? 04/17/2024 10:05 AM General Information and Staff Patient location during procedure: OR Resident/PARKS AND RECREATION WORKER: NOEL Benson Performed by: NOEL Benson Authorized by: Feliciano Florez MD ?? Intubation Airway not difficult Urgency: elective Final Airway Details Successful airway: ETT - double lumen left Cuffed: yes Successful intubation technique: direct laryngoscopy Endotracheal tube insertion site: oral Blade: Shant Blade size: #3 ETT DL size (fr): 35 Cormack-Lehane Classification: grade I - full view of glottis Placement verified by: capnometry Measured from: lips (Placement confirmed via bronchosocpe) ETT to lips (cm): 30 Number of attempts at approach: 1Final airway type: endotracheal airway Indications and Patient Condition Indications for airway management: anesthesia Spontaneous ventilation: present Sedation level: Yes Preoxygenated: yes Soft Tissue Damage: No Dentition Unchanged: Yes Patient position: sniffing Mask difficulty assessment: 1 - vent by mask us Feliciano Florez MD ANESTHESIA ORDERABLES Edited R esult - Final documented in this encounter Visit Diagnoses Not on filedocumented in this encounter Administered Medications Inactive Administered Medications - up to 3 most recent administrations Medication Order MAR Action Action Date Dose Rate Site ceFAZolin (ANCEF) 2 gram/20 mL IV syringe intravenous, Administer over 3 Minutes, As needed, Starting on Mon04/17/24 at 0920, Anesthesia Intraprocedure Given 04/17/2024 1:16 PM EST 2 g Given 04/17/2024 9:20 AM EST 2 g dexAMETHasone (DECADRON) injection intravenous, As needed, Starting on Mon04/17/24 at 0839, Anesthesia Intraprocedure Given 04/17/2024 8:39 AM EST 4 mg ePHEDrine (AKOVAZ) 50 mg/mL injection intravenous, As needed, Starting on Mon04/17/24 at 1004, Anesthesia Intraprocedure Given 04/17/2024 11:52 AM EST 2 .5 mg Given 04/17/2024 10:49 AM EST 2.5 mg Given 04/17/2024 10:04 AM EST 5 mg fentaNYL (PF) (SUBLIMAZE) injection intravenous, As needed, Starting on Mon04/17/24 at 0822, Anesthesia Intraprocedure Given 04/17/2024 8:26 AM EST 50 mcg Given 04/17/2024 8:22 AM EST 50 mcg glycopyrrolate (ROBINUL) injection intravenous, As needed, Starting on Mon04/17/24 at 0930, Anesthesia Intraprocedure Given 04/17/2024 9:30 AM EST 0. 1 mg HYDROmorphone (DILAUDID) injection intravenous, As needed, Starting on Mon04/17/24 at 1056, Anesthesia Intraprocedure Given 04/17/2024 2:56 PM EST 0. 4 mg Given 04/17/2024 2:38 PM EST 0.2 mg Given 04/17/2024 2:35 PM EST 0.2 mg lactated Ringer's infusion 75 mL/hr, intravenous, Continuous, Starting on Mon04/17/24 at 0830, Preprocedure New Bag 04/18/2024 1:07 AM EST 75 mL/hr 75 mL/hr New Bag 04/17/2024 1:08 PM EST New Bag 04/17/2024 8:20 AM EST lidocaine (PF) (XYLOCAINE-MPF) 2 % injection injection, As needed, Starting on Mon04/17/24 at 0826, Anesthesia Intraprocedure Given 04/17/2024 8:26 AM EST 60 mg midazolam (VERSED) injection intravenous, As needed, Starting on Mon04/17/24 at 0818, Anesthesia Intraprocedure Given 04/17/2024 8:18 AM EST 1 mg ondansetron (PF) (ZOFRAN) injection intravenous, As needed, Starting on Mon04/17/24 at 0949, Anesthesia Intraprocedure Given 04/17/2024 9:49 AM EST 4 mg phenylephrine (AVTAR-SYNEPHRINE) 20,000 mcg in sodium chloride 0.9 % 250 mL infusion intravenous, Continuous PRN, Starting on Mon04/17/24 at 0946, Anesthesia Intraprocedure Restarted 04/17/2024 10:10 AM EST 0.418 mcg/kg/min 22.5 mL/hr Rate/Dose Change 04/17/2024 9:58 AM EST 0.697 mcg/kg/min 3 7.5 mL/hr Rate/Dose Change 04/17/2024 9:49 AM EST 0.558 mcg/kg/min 3 0 mL/hr phenylephrine (AVTAR-SYNEPHRINE) injection intravenous, As needed, Starting on Mon04/17/24 at 0946, Anesthesia Intraprocedure Given 04/17/2024 10:48 AM ES T 160 mcg Given 04/17/2024 9:59 AM EST 200 mcg Given 04/17/2024 9:49 AM EST 100 mcg propofoL (DIPRIVAN) injection intravenous, As needed, Starting on Mon04/17/24 at 0826, Anesthesia Intraprocedure Given 04/17/2024 8:26 AM EST 15 0 mg rocuronium (ZEMURON) injection intravenous, As needed, Starting on Mon04/17/24 at 0930, Anesthesia Intraprocedure Given 04/17/2024 1:48 PM EST 20 mg Given 04/17/2024 1:13 PM EST 10 mg Given 04/17/2024 12:28 PM EST 20 mg sugammadex (BRIDION) 100 mg/mL injection intravenous, As needed, Starting on Mon04/17/24 at 1431, Anesthesia Intraprocedure Given 04/17/2024 2:31 PM EST 20 0 mg documented in this encounter Additional Health Concerns Infection Onset Date Last Indicated Resolved Time Tuberculosis Rule-Out Comment:Routine testing 04/17/2024 04/17/2024 04/18/2024 8:43 AM EST documented as of this encounter Care Teams Bedspread Folder Relationship Specialty Start Date End Date Rose Mary Collins MD [address] [place] [address] [place] [id number] PCP - General Internal Medicine 02/27/24 documented as of this encounter
--- OUTSIDE RECORDS SUMMARY | 2024-04-24 10:03 | XMS_ITS | Encounter Summary ---
Author Organization [facility] Address [address] [place] [address] Care Team Providers Care Auto Rebuilder Name Role Phone Rose Mary Collins MD Primary Care Provider [phone] Reason for Visit * Auth/Cert (Routine) Specialty Diagnoses / Procedures Referred By Wilbert t Referred To Contact Diagnoses 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) CANCER RIGHT & LEFT LOBE LUNG Procedures CT THORACOSCOPY SURGICAL WITH LOBECTOMY CT THORACOSCOPY W DX WEDGE RESECTION F/B ANATOMIC LUNG RESECTION CT THORACOSCOPY SURGICAL W MEDIASTINAL & REGIONAL LYMPHADENECTOMY CT THORACOSCOPY SURGICAL WITH REMOVAL OF A SINGLE LUNG SEGMENT CT REMOVAL OF LUNG OTHER THAN PNEUMONECTOMY SINGLE LOBE CT THORACOSCOPY WITH THERAPEUTIC WEDGE RESECTION INITIAL UNILATERAL [...] wedge versus segmentectomy Rhona Michel MD [address] [address] Phone: tel: fax: [facility] Main OR [address] [place] [address] Phone: tel: Referral ID Status Reason Start Date Expiration Date Visits Re quested Visits Authorized [id number] 1 1 Encounter Details Date Type Department Care Team (Late st Contact Info) Description 04/17/2024 8:30 AM EST - 04/17/2024 3:30 PM EST Surgery [facility] Main OR [address] [place] [address] Rhona Michel MD [address] [address] [place] left upper posterior apical segmentectomy & right upper lobe anterior segmentectomy with completion right upper lobectomy [61228 (CPT??) +5 more] Surgery Details Date/Time Status Location OR Service Patient Class Case Class Case Type Trauma Case? 04/17/2024 8:30 AM Posted [facility] OR ROBOTIC OR 02 Thoracic Surgery Surgery to the Floor F - Elective Panel 1 Procedure LRB Anes Op Region Wound Class Comments [place] left upper posterior apical segmentectomy & right upper lobe anterior segmentectomy with completion right upper lobectomy Bilateral general Chest Class I/ Clean This should be the only case that day. Surgeon Surgeon Role Service Panel Rhona Michel MD Primary Thoracic Surgery 1 Case Notes ON-Q Special Needs ON-Q documented in this encounter Social History Tobacco [...] got money to buy more. Patient declined Within the past 12 months th e food we bought just didn't last and we didn't have money to get more. Patient declined 06/2024 Dependent Care Answer Date Recorded Do you need help finding or paying for care for your loved ones. For example, children teacher or elderly care for an older adult? [...] Sign Reading Time Taken Comments Blood Pressure 119/57 04/17/2024 3:30 PM EST Pulse 85 04/17/2024 3:30 PM EST Temperature 35.6 ??C (96.1 ??F) 04/17/2024 2:55 PM ES T Respiratory Rate 26 04/17/2024 3:30 PM EST Oxygen Saturation 98% 04/17/2024 3:30 PM EST Inhaled Oxygen Concentration - - Weight - - Height - - Body Mass Index - - documented in this encounter Discharge Summaries * Pastora Bryan, YOUNG - 04/22/2024 2:21 PM EDT Images from the original note were not included. Thoracic Surgery Discharge Summary Name: Bonny Pinto : 1940 Date of Admission: 04/17/2024 Date of Discharge: 04/22/24 Discharge Condition: Stable Discharge Disposition: Rehab Discharge Diagnoses 1. Paroxysmal atrial fibrillation (CMS/HCC) 2. 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) 3. Primary cancer of right upper lobe of lung (CMS/HCC) Consulting Services Respiratory Physical Rehab Cardiology Procedures Right upper lobe wedge with completion right upper lobectomy and left upper lobe posterior apical segmentectomy. 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 Mediastinal nodes on staging were negative and PET scan showed no distant. She was discussed options of stereotactic radiation for both, surgery for both, a combination of the 2, or immunotherapy even. After a long discussion with her and her they decided to move forward with surgery for both. The patient understood the risks benefits and alternatives of the proposed operation and agreed to proceed. On 04/17/24 the patient underwent right upper lobe wedge with completion right upper lobectomy, left upper lobe posterior apical segmentectomy, mediastinal lymphadenectomy, bronchoscopy with aspiration, and intercostal paravertebral nerve blocks. The patient tolerated the procedure well. The patient was extubated in the operating room brought to the PACU in stable condition. From PACU she was transferred to [facility] for further care on telemetry. On POD #2 chest xray revealed no significant pneumothorax or pleural effusion. Herleft chest tube output was 160cc serosanguinous fluid and right chest tube output was 220cc serosanguinous fluid over 24 hour period with no detectable air leak with talking, forceful exhalation, or deep cough. The decision was made to remove the left chest tube at this time. Following the removal of the left chest tube, that night patient did have a one time occurrence of A-fib for which she wasgiven IV metoprolol and returned back to sinus rhythm. On POD #3 chest xray revealed minimal extrapleural gas on the left and stable findings on the right with no significant pneumothorax or pleural e fffusion. Her right chest tube output was 160cc serosanguinous over 24 hour period with no detectable air leak with talking, forceful exhalation, or deep cough. The decision was made to remove the right chest tube at this time. On POD #5 the patient continued to have steady gait with no complaints of dizziness and pain remained well-controlled with no concerning signs or symptoms such as new or worsening shortness of breath, hemoptysis, fever, or chills. She was evaluated by respiratory and qualified for Home O2-2L continuous at rest and 6L with ambulation. Discharged to [facility] for short term rehab and follow up appointment in two weeks in the office. [place] [employer]SEMBLER was checked prior to discharging patient with opioids. Physical exam on discharge Visit Vitals BP 121/65 (BP Location: Left arm, Patient Position: Lying) Pulse 82 Temp 36.6 ??C (97.9 ??F) (Oral) Resp 15 Ht 1.575 m (62.01 ) Comment: from previous admission Wt 71.7 kg (158 lb 1.1 oz) SpO2 93% BMI 28.90 kg/m?? Smoking Status Former BSA 1.73 m?? Physical Exam Constitutional: Appearance: Normal appearance. HENT: Head: Normocephalic and atraumatic. Mouth/Throat: Mouth: Mucous membranes are moist. Eyes: General: No scleral icterus. Cardiovascular: Rate and Rhythm: Normal rate and regular rhythm. Pulmonary: Effort: Pulmonary effort is normal. No respiratory distress. Chest: Comments: Bilateral chest incision C/D/I with no erythema or drainage. Bilateral chest tube insertion sites remains covered w/ dry occlusive bandages intact with minimal drainage noted. Abdominal: General: Bowel sounds are normal. Palpations: Abdomen is soft. Musculoskeletal: General: Normal range of motion. Cervical back: Normal range of motion. Skin: General: Skin is warm. Neurological: General: No focal deficit present. Mental Status: She is alert and oriented to person, place, and time. Psychiatric: Mood and Affect: Mood normal. Behavior: Behavior normal. Labs Lab Results Component Value Date WBC 17.5 (H) 04/19/2024 HGB 12.8 04/19/2024 HCT 38.3 04/19/2024 PLT 156 04/19/2024 Lab Results Component Value Date NA 138 04/19/2024 K 4.0 04/19/2024 CL 102 04/19/2024 CO2 30 04/19/2024 ANIONGAP 6 04/19/2024 BUN 16 04/19/2024 CREATININE 0.48 (L) 04/19/2024 GLUCOSE 114 (H) 04/19/2024 EGFR 95 04/19/2024 CALCIUM 9.3 04/19/2024 Lab Results Component Value Date PT 12.3 04/10/2024 INR 1.0 04/10/2024 APTT 30.8 04/10/2024 Microbiology No results found for this or any previous visit (from the past week). No results found for: CULTURE Radiology 04/22/24 XR Chest 1 View Narrative: HISTORY: The patient is an 83-year-old female for follow-up of right upper lobe wedge resection and completion lobectomy, as well as left upper lobe posterior apical segmentectomy, for lung carcinoma. FINDINGS: Sitting AP portable radiograph of the chest again demonstrates surgical sutures in the right and left mid and upper lung, as also seen on the prior study performed 04/21/2024. There are degenerative changes and moderate dextroscoliosis of the thoracic spine, stable. Again seen is rightward deviation of the trachea, new since the CT scan performed 03/13/2024 and likely consequent to right upper lobectomy. Scattered areas of atelectasis and/or infiltrates bilaterally are unchanged. Impression: Postsurgical changes as above. Scattered areas of atelectasis and/or infiltrates bilaterally. No change since 04/21/2024. Code 63390 -------- FINAL REPORT -------- Dictated By: Kalpesh Brody Dictated Date: 04/22/2024 07:53 ET Assigned Physician: Kalpesh Brody Reviewed and Electronically Signed By: Kalpesh Brody Signed Date: 04/22/2024 07:57 ET Workstation ID: [id number] Transcribed By: Self Edit Transcribed Date: 04/22/2024 07:53 ET Test Results Pending on Discharge Pending Labs Order Current Status Tissue exam In process Discharge Medication List Your medication list ASK your doctor about these medications Instructions Last Dose Given Next Dose Due Dupixent Pen 300 mg/2 mL pen Generic drug: dupilumab 2 mL (300 mg total) every 14 (fourteen) days. loratadine 10 mg tablet Commonly known as: CLARITIN Take 1 tablet (10 mg total) by mouth at bedtime. meclizine 25 mg tablet Commonly known as: ANTIVERT Take 1 tablet (25 mg total) by mouth 3 times daily as needed. MILK THISTLE ORAL Take by mouth. PRESERVISION AREDS 2 PLUS MV ORAL Take 2 tablets by mouth 1 (one) time each day. Upcoming Outpatient Appointments Future Appointments Date Time Provider Department Center 05/01/2024 11:15 AM ZACK Barrientos [facility] [address] [facility] [place] Discharge Instructions Patient should contact a provider if they experience ACTIVITY You should be out of bed and walking at least 3x per day. The more the better! No lifting anything heavier than 10lb x 2 weeks (ie, gallon of milk). INCISION CARE Leave the dressing where the chest tube was removed ON AND UNTOUCHED for 2 days. Both dressings canbe removed completely on 04/22/24. DO NOT REMOVE this dressing before this date. If there is any drainage, simply place additional gauze OVER the dressing that is already in place. Once the dressing is removed you may leave this area open to air and you may shower. Sponge bathe only until dressing is removed. Keep all incisions clean and dry. Gently wash incisions with soap and water. No scrubbing the areas. No submerging your incisions under water (tub baths, swimming, etc.) for the next 2-3 weeks. MEDICATION Home medications You may resume all home medications. Pain management Tylenol 1000mg every 8 hours, plus Ibuprofen or Aleve (as directed on medication box) Recommend you alternate these medications every 3-4 hours to keep a continuous steady state of paincontrol You can use OTC lidocaine patches (such as Salon Pas) for pain also. Just be sure to not place themover any incisions. You can also apply heat and/or cool compresses to the painful areas. If you need additional medication for pain you can take the Oxycodone that was prescribed on discharge. Stool softeners If you are taking narcotic pain medication be sure to take stool softeners/laxatives to prevent severe constipation. Suggestions: Colace 100mg twice a day Senna once a day Miralax once a day RESPIRATORY CARE You should continue to use your incentive spirometer and flutter valve at home. WHAT TO CALL US FOR: Incisions have increased redness, swelling, open areas, or drainage. Fever >101, chills, significant shortness of breath, chest pain, severe abdominal pain, worsening abdominal distention, severe nausea, vomiting, severe changes in bowel or bladder habits. SMOKING CESSATION: Smoking is hazardous to your health and those around you. Continuing to smoke or use tobacco products can increase your chance of postoperative complications, including delayed wound healing, wound infection, stroke, and heart attack. If you currently use tobacco products (cigarettes, dip, cigars, electronic/vapor cigarettes, etc) talk with your provider about options that are available to help you quit. You can call the [facility] Smokers' Helpline at 9-147-Viadeo NOW ( ). For Iranian, call 3-618-0-ODILIAThe MuseTOM ( ). You can also visit the website at [email or web address].Dana Translation. FOLLOW UP APPOINTMENTS: You have an appointment with Jose Carias PA-C at the Thoracic Surgery office on 05/01/24 @ 11:15am for a postop follow up. Please Arrive 30 minutes prior to your appointment to have a chest xray done at [facility] Radiology (1st floor, [facility]). Go to Patient Registration to check in for the xray. [facility] Thoracic Surgery office [address] [place] [address], [address] [address] Call your PCP to make sure you have a post-hospital follow up visit scheduled in the next 1-2 weeks. A consult request was requested for you to be evaluated by Cardiology. [facility] Thoracic Surgery [address] [place] [address], [address] [facility] [phone] Pastora Adams NP [facility] Thoracic Surgery [address] [facility], [address] [facility] [address] * Pastora Adams NP - 04/22/2024 2:20 PM EDT ACTIVITY You should be out of bed and walking at least 3x per day. The more the better! No lifting anything heavier than 10lb x 2 weeks (ie, gallon of milk). INCISION CARE Leave the dressing where the chest tube was removed ON AND UNTOUCHED for 2 days. Both dressings canbe removed completely on 04/22/24. DO NOT REMOVE this dressing before this date. If there is any drainage, simply place additional gauze OVER the dressing that is already in place. Once the dressing is removed you may leave this area open to air and you may shower. Sponge bathe only until dressing is removed. Keep all incisions clean and dry. Gently wash incisions with soap and water. No scrubbing the areas. No submerging your incisions under water (tub baths, swimming, etc.) for the next 2-3 weeks. MEDICATION Home medications You may resume all home medications. Pain management Tylenol 1000mg every 8 hours, plus Ibuprofen or Aleve (as directed on medication box) Recommend you alternate these medications every 3-4 hours to keep a continuous steady state of paincontrol You can use OTC lidocaine patches (such as Salon Pas) for pain also. Just be sure to not place themover any incisions. You can also apply heat and/or cool compresses to the painful areas. If you need additional medication for pain you can take the Oxycodone that was prescribed on discharge. Stool softeners If you are taking narcotic pain medication be sure to take stool softeners/laxatives to prevent severe constipation. Suggestions: Colace 100mg twice a day Senna once a day Miralax once a day RESPIRATORY CARE You should continue to use your incentive spirometer and flutter valve at home. WHAT TO CALL US FOR: Incisions have increased redness, swelling, open areas, or drainage. Fever >101, chills, significant shortness of breath, chest pain, severe abdominal pain, worsening abdominal distention, severe nausea, vomiting, severe changes in bowel or bladder habits. SMOKING CESSATION: Smoking is hazardous to your health and those around you. Continuing to smoke or use tobacco products can increase your chance of postoperative complications, including delayed wound healing, wound infection, stroke, and heart attack. If you currently use tobacco products (cigarettes, dip, cigars, electronic/vapor cigarettes, etc) talk with your provider about options that are available to help you quit. You can call the [facility] Smokers' Helpline at 7-204-IOHP NOW ( ). For Iranian, call 2-222-3-KENTOM ( ). You can also visit the website at www.Ondax.Dana Translation. FOLLOW UP APPOINTMENTS: You have an appointment with Jose Carias PA-C at the Thoracic Surgery office on 05/01/24 @ 11:15am for a postop follow up. Please Arrive 30 minutes prior to your appointment to have a chest xray done at [facility] (1st floor, [facility]). Go to Patient Registration to check in for the xray. [facility] Thoracic Surgery office [address] [place] [address], [address] [address] Call your PCP to make sure you have a post-hospital follow up visit scheduled in the next 1-2 weeks. A consult request was requested for you to be evaluated by Cardiology. [facility] Thoracic Surgery [address] [place] [phone] documented in this encounter Medications at Time of Discharge bisacodyL (DULCOLAX) 5 mg EC tablet Take 2 tablets (10 mg total) by mouth 1 (one) time each day if needed for constipation. Do not crush, chew, or split. 5 05/23/19 25 celecoxib (CeleBREX) 100 mg capsule Take 1 capsule (100 mg total) by mouth 2 (two) times a day. 5 05/23/19 25 docusate sodium (COLACE) 100 mg capsule Take 1 capsule (100 mg total) by mouth 2 (two) times a day for 10 days. 5 05/03/19 25 Dupixent Pen 300 mg/2 mL pen 2 mL (300 mg total) every 14 (fourteen) days. 4 ipratropium-albuter oL (DUONEB) 0.5-2.5 mg/3 mL nebulizer solutionIndications :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) Take 3 mL by nebulization 4 (four) times a day. 5 04/23/19 26 lidocaine 4 % patch Apply 2 patches topically 1 (one) time each day. 5 loratadine (CLARITIN) 10 mg tablet Take 1 tablet (10 mg total) by mouth at bedtime. meclizine (ANTIVERT) 25 mg tablet Take 1 tablet (25 mg total) by mouth 3 times daily as needed. metoclopramide (REGLAN) 10 mg tablet Take 1 tablet (10 mg total) by mouth every 6 (six) hours if needed (nausea/vomiting) for up to 10 days. 5 05/03/19 25 metoprolol tartrate (LOPRESSOR) 25 mg tablet Take 1 tablet (25 mg total) by mouth 2 (two) times a day. 5 04/23/19 26 MILK THISTLE ORAL Take by mouth. ondansetron ODT (ZOFRAN-ODT) 4 mg disintegrating tabletIndications:P rimary cancer of left upper lobe of lung (CMS/HCC) Take 1 tablet (4 mg total) by mouth every 8 (eight) hours if needed for vomiting or nausea for up to 7 days. 5 04/30/19 25 oxyCODONE (ROXICODONE) 5 mg immediate release tabletIndications:P rimary cancer of left upper lobe of lung (CMS/HCC) Take 1 tablet (5 mg total) by mouth every 4 (four) hours if needed for moderate pain. Max Daily Amount: 30 mg 5 mv-min/FA/vit K/lutein/zeaxant (PRESERVISION AREDS 2 PLUS MV ORAL) Take 2 tablets by mouth 1 (one) time each day. documented as of this encounter Ordered Prescriptions Prescription Sig Dispense Quantity Refills Last Filled Start Date End Date celecoxib (CeleBREX) 100 mg capsule Take 1 capsule (100 mg total) by mouth 2 (two) times a day. 5 05/23/19 25 oxyCODONE (ROXICODONE) 5 mg immediate release tabletIndications:P rimary cancer of left upper lobe of lung (CMS/HCC) Take 1 tablet (5 mg total) by mouth every 4 (four) hours if needed for moderate pain. Max Daily Amount: 30 mg 5 ondansetron ODT (ZOFRAN-ODT) 4 mg disintegrating tabletIndications:P rimary cancer of left upper lobe of lung (CMS/HCC) Take 1 tablet (4 mg total) by mouth every 8 (eight) hours if needed for vomiting or nausea for up to 7 days. 5 04/30/19 25 metoprolol tartrate (LOPRESSOR) 25 mg tablet Take 1 tablet (25 mg total) by mouth 2 (two) times a day. 5 04/23/19 26 metoclopramide (REGLAN) 10 mg tablet Take 1 tablet (10 mg total) by mouth every 6 (six) hours if needed (nausea/vomiting) for up to 10 days. 5 05/03/19 25 lidocaine 4 % patch Apply 2 patches topically 1 (one) time each day. 5 ipratropium-albuter oL (DUONEB) 0.5-2.5 mg/3 mL nebulizer solutionIndications :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) Take 3 mL by nebulization 4 (four) times a day. 5 04/23/19 26 docusate sodium (COLACE) 100 mg capsule Take 1 capsule (100 mg total) by mouth 2 (two) times a day for 10 days. 5 05/03/19 25 bisacodyL (DULCOLAX) 5 mg EC tablet Take 2 tablets (10 mg total) by mouth 1 (one) time each day if needed for constipation. Do not crush, chew, or split. 5 05/23/19 25 documented in this encounter Discharge Disposition Disposition Code Departure Means Destination Comment s Group Home Facility Ambulance [facility] Nursing, Intermediate Care, or Assisted Living Facility documented in this encounter Progress Notes * Gris Mohani, MD - 04/22/2024 3:42 PM EDT Images from the original note were not included. [place] PROGRESS NOTE Date: 04/22/2024 Author: Gris Mackay MD Patient ID: Bonny Pinto is a 83 y.o. female : 1940 MR#: [id number] 04/17/2024 SUBJECTIVE Patient seen and examined today. No overnight events. Still a little short of breath on walking. Likely will need rehab. Scheduled Medications PRN Medications IV Medications celecoxib, 100 mg, BID docusate sodium, 100 mg, BID ipratropium-albuteroL, 3 mL, 4x daily lidocaine, 2 patch, Daily loratadine, 10 mg, Nightly metoprolol tartrate, 25 mg, BID polyetheylene glycol, 17 g, Daily senna, 2 tablet, Nightly sodium chloride, 10 mL, BID bisacodyL, 10 mg, Daily PRN bisacodyL, 10 mg, Daily PRN meclizine, 25 mg, TID PRN metoclopramide, 10 mg, q6h PRN Or metoclopramide, 10 mg, q6h PRN ondansetron (ZOFRAN-ODT) disintegrating tablet, 4 mg, q8h PRN Or ondansetron, 4 mg, q8h PRN oxyCODONE, 10 mg, q4h PRN oxyCODONE, 5 mg, q4h PRN sodium chloride, 10 mL, PRN sodium chloride, 42 mL/hr, PRN OBJECTIVE Vitals: 04/21/24 2325 04/22/24 0320 04/22/24 0936 04/22/24 1259 BP: 139/78 (!) 153/80 (!) 141/79 121/65 BP Location: Left arm Patient Position: Lying Pulse: 76 78 84 82 Resp: 18 18 18 15 Temp: 36.3 ??C (97.3 ??F) 36.4 ??C (97.5 ??F) 36.3 ??C (97.3 ??F) 36.6 ??C (97.9 ??F) TempSrc: Oral SpO2: 97% 96% 94% 93% Weight: Height: No intake or output data in the 24 hours ending 04/22/24 1542 Wt Readings from Last 1 Encounters: 04/18/24 1417 71.7 kg (158 lb 1.1 oz) PHYSICAL EXAM: Gen: Alert oriented x 3., NAD CV -RRR no MGR Lungs -bilateral chest incision clean and dry with no erythema or drainage. Chest tube insertion sites remain covered with dry occlusive bandages. Abd - Soft, non-tender, non-distended Extremities - No LE edema Neuro - AO x3 RESULTS: CBC BMP Results from last 7 days Lab Units 04/19/24232304/18/2461004/17/24 1550 WBC AUTO K/mcL 17.5* 16.3* 14.1* HEMOGLOBIN g/dL 12.8 11.2* 12.5 HEMATOCRIT % 38.3 33.3* 37.7 PLATELETS K/mcL 156 140 136 Results from last 7 days Lab Units 04/19/24232304/18/2461004/17/24 1550 SODIUM mmol/L 138 137 139 POTASSIUM mmol/L 4.0 4.3 3.7 CHLORIDE mmol/L 102 101 108 CO2 mmol/L 30 28 24 ANION GAP 6 8 7 BUN mg/dL 16 15 17 CREATININE mg/dL 0.48* 0.52 0.62 CALCIUM mg/dL 9.3 8.6 8.3* MAGNESIUM mg/dL 1.9 1.9 1.8* PHOSPHORUS mg/dL -- 2.7 3.5 Results from last 7 days Lab Units 04/19/24232304/18/2461004/17/24 1550 GLUCOSE mg/dL 114* 115* 217* No lab exists for component: TBIL , BILID No results found for this or any previous visit (from the past week). Imaging: XR Chest 1 View Narrative: HISTORY: The patient is an 83-year-old female for follow-up of right upper lobe wedge resection and completion lobectomy, as well as left upper lobe posterior apical segmentectomy, for lung carcinoma. FINDINGS: Sitting AP portable radiograph of the chest again demonstrates surgical sutures in the right and left mid and upper lung, as also seen on the prior study performed 04/21/2024. There are degenerative changes and moderate dextroscoliosis of the thoracic spine, stable. Again seen is rightward deviation of the trachea, new since the CT scan performed 03/13/2024 and likely consequent to right upper lobectomy. Scattered areas of atelectasis and/or infiltrates bilaterally are unchanged. Impression: Postsurgical changes as above. Scattered areas of atelectasis and/or infiltrates bilaterally. No change since 04/21/2024. Code 96254 -------- FINAL REPORT -------- Dictated By: Kalpesh Brody Dictated Date: 04/22/2024 07:53 ET Assigned Physician: Kalpesh Brody Reviewed and Electronically Signed By: Kalpesh Brody Signed Date: 04/22/2024 07:57 ET Workstation ID: [id number] Transcribed By: Self Edit Transcribed Date: 04/22/2024 07:53 ET ASSESSMENT & PLAN 83 year-old female with history of right breast cancer status post partial mastectomy and lymph node dissection, tobacco dependence in remission, left upper lobe squamous cell carcinoma, and right upper lobe adenocarcinoma POD #2 from robot assisted right upper lobectomy + left upper lobe posteriorapical segmentectomy + mediastinal lymphadenectomy [place] [facility] [place] procedure was complicated as patient developed rapid atrial fibrillation. [place] was consulted. Atrial fibrillation rapid ventricular response Most likely due to acute illness and due to extensive surgery. Currently she is in normal sinus rhythm on metoprolol 25 mg twice daily in Rate is well controlled tobi score is more than 3 she should be on anticoagulation however due to ongoing surgery underlying malignancy this needs to be further clarified with thoracic surgery. Currently holding on starting any anticoagulation till thoracic surgery further clarify the plan ofcare. Thoracic to decide when the patient can be started on Eliquis. Left upper lobe squamous cell carcinoma, and right upper lobe adenocarcinoma- POD #5 from robot-assisted right upper lobectomy, left upper lobe posterior apical segmentectomy, mediastinal lymphadenectomy. Being followed by thoracic. Patient doing well. Chest tubes were discontinued. Rest of her medications will be resumed on discharge. Patient seen by PT and recommending rehab. Patient stable and will be discharged to rehab today. DVT Prophylaxis SCD at this time. Eliquis to be started per thoracic Full Code - Default Disposition to rehab Disclaimer: Speech recognition software was utilized to dictate portions of this document. Errors in sign artist may be present. Please call / cortext me if any questions. Portions of this note such ROS, Exam, Assessment and Plan were copy pasted from previous notes. Information was reviewed and changes were made accordingly. I agree with above mentioned information * Karolina Wilhelm RN - 04/22/2024 2:04 PM EDT 04/22/24 1401 Medication Coverage Has Med Coverage Under Insurance Plan Yes Medication Affordability No concerns related to payment for meds Anticipated Discharge Needs Discipline following for SNF placement [employer] Informed Choice Informed Choice Given? Yes Transportation Transportation at discharge [facility] providing transportation [place] What day is the transport expected? 04/22/24 What time is the transport expected? 1730 Final Discharge Disposition Group Home Facility ([facility] per patient choice) * Pastora Adams NP - 04/22/2024 1:17 PM EDT Images from the original note were not included. Thoracic Surgery Progress Note Patient Name: Bonny Pinto : 1940 Date of Visit: 04/22/24 Subjective This is a late entry from this morning. Patient seen and examined this am. Laying in bed. She continues to have shortness at breath, worse with ambulation. She states she was just up and walking and becomes fatigued earlier, requesting short term rehab placement. Allergies Allergen Reactions Azithromycin Jaundice Tylenol [Acetaminophen] PT WAS TOLD NOT TO TAKE TYLENOL WITH CIRRHOSIS Current Facility-Administered Medications Medication Dose Route Frequency Provider Last Rate Last Admin bisacodyL (DULCOLAX) EC tablet 10 mg 10 mg oral Daily PRN Pastora Adams NP bisacodyL (DULCOLAX) suppository 10 mg 10 mg rectal Daily PRN Pastora Adams NP celecoxib (CeleBREX) capsule 100 mg 100 mg oral BID Pastora Adams NP 100 mg at 04/22/24 0931 docusate sodium (COLACE) capsule 100 mg 100 mg oral BID Pastora Adams NP 100 mg at 04/22/24 0931 ipratropium-albuteroL (DUONEB) 0.5-2.5 mg/3 mL nebulizer solution 3 mL 3 mL nebulization 4x daily Pastora Adams NP 3 mL at 04/22/24 1134 lidocaine 4 % patch 2 patch 2 patch Topical Daily Pastora Adams NP 2 patch at 04/22/24 0932 loratadine (CLARITIN) tablet 10 mg 10 mg oral Nightly Pastora Adams NP 10 mg at 04/21/24 204 meclizine (ANTIVERT) tablet 25 mg 25 mg oral TID PRN Pastora Adams NP metoclopramide (REGLAN) tablet 10 mg 10 mg oral q6h PRN Pastora Adams NP Or metoclopramide (REGLAN) injection 10 mg 10 mg intravenous q6h PRN Pastora Adams NP metoprolol tartrate (LOPRESSOR) tablet 25 mg 25 mg oral BID Maximo Valdovinos MD 25 mg at 931 ondansetron ODT (ZOFRAN-ODT) disintegrating tablet 4 mg 4 mg oral q8h PRN Pastora Adams NP Or ondansetron (PF) (ZOFRAN) injection 4 mg 4 mg intravenous q8h PRN Pastora Adams NP oxyCODONE (ROXICODONE) immediate release tablet 10 mg 10 mg oral q4h PRN Pastora Adams NP 10 mg at 04/19/24 0846 oxyCODONE (ROXICODONE) immediate release tablet 5 mg 5 mg oral q4h PRN Pastora Adams NP 5 mg at 04/21/24 0924 polyethylene glycol (MIRALAX) packet 17 g 17 g oral Daily Pastora Adams NP 17 g at 04/20/24 0812 senna (SENOKOT) tablet 17.2 mg 2 tablet oral Nightly Pastora Adams NP 17.2 mg at 04/20/24 204 sodium chloride 0.9 % flush 10 mL 10 mL intravenous BID Pastora Adams NP 10 mL at 04/22/24 0932 And sodium chloride 0.9 % flush 10 mL 10 mL intravenous PRN Pastora Adams NP sodium chloride 0.9 % infusion 42 mL/hr intravenous PRN Rhona Michel MD Review of Systems Review of Systems Constitutional: Negative for chills and fever. Cardiovascular: Negative for chest pain and palpitations. Respiratory: Positive for shortness of breath. Negative for cough and hemoptysis. Musculoskeletal: Positive for muscle weakness. Gastrointestinal: Negative for abdominal pain, nausea and vomiting. Physical Exam Vitals: 04/21/24 2325 04/22/24 0320 04/22/24 0936 04/22/24 1259 BP: 139/78 (!) 153/80 (!) 141/79 121/65 BP Location: Left arm Patient Position: Lying Pulse: 76 78 84 82 Resp: 18 18 18 15 Temp: 36.3 ??C (97.3 ??F) 36.4 ??C (97.5 ??F) 36.3 ??C (97.3 ??F) 36.6 ??C (97.9 ??F) TempSrc: Oral SpO2: 97% 96% 94% 93% Weight: Height: Physical Exam Constitutional: Appearance: Normal appearance. HENT: Head: Normocephalic and atraumatic. Mouth/Throat: Mouth: Mucous membranes are moist. Eyes: General: No scleral icterus. Cardiovascular: Rate and Rhythm: Normal rate and regular rhythm. Pulmonary: Effort: Pulmonary effort is normal. No respiratory distress. Chest: Comments: Bilateral chest incision C/D/I with no erythema or drainage. Bilateral chest tube insertion sites remains covered w/ dry occlusive bandages intact with minimal drainage noted. Abdominal: General: Bowel sounds are normal. Palpations: Abdomen is soft. Musculoskeletal: General: Normal range of motion. Cervical back: Normal range of motion. Skin: General: Skin is warm. Neurological: General: No focal deficit present. Mental Status: She is alert and oriented to person, place, and time. Psychiatric: Mood and Affect: Mood normal. Behavior: Behavior normal. Diagnostics Lab Results Component Value Date WBC 17.5 (H) 04/19/2024 HGB 12.8 04/19/2024 HCT 38.3 04/19/2024 PLT 156 04/19/2024 Lab Results Component Value Date NA 138 04/19/2024 K 4.0 04/19/2024 CL 102 04/19/2024 CO2 30 04/19/2024 ANIONGAP 6 04/19/2024 BUN 16 04/19/2024 CREATININE 0.48 (L) 04/19/2024 GLUCOSE 114 (H) 04/19/2024 EGFR 95 04/19/2024 CALCIUM 9.3 04/19/2024 Lab Results Component Value Date PT 12.3 04/10/2024 INR 1.0 04/10/2024 APTT 30.8 04/10/2024 Microbiology No results found for this or any previous visit (from the past week). Radiology 04/22/24 XR Chest 1 View Narrative: HISTORY: The patient is an 83-year-old female for follow-up of right upper lobe wedge resection and completion lobectomy, as well as left upper lobe posterior apical segmentectomy, for lung carcinoma. FINDINGS: Sitting AP portable radiograph of the chest again demonstrates surgical sutures in the right and left mid and upper lung, as also seen on the prior study performed 04/21/2024. There are degenerative changes and moderate dextroscoliosis of the thoracic spine, stable. Again seen is rightward deviation of the trachea, new since the CT scan performed 03/13/2024 and likely consequent to right upper lobectomy. Scattered areas of atelectasis and/or infiltrates bilaterally are unchanged. Impression: Postsurgical changes as above. Scattered areas of atelectasis and/or infiltrates bilaterally. No change since 04/21/2024. Code 84047 -------- FINAL REPORT -------- Dictated By: Kalpesh Brody Dictated Date: 04/22/2024 07:53 ET Assigned Physician: Kalpesh Brody Reviewed and Electronically Signed By: Kalpesh Brody Signed Date: 04/22/2024 07:57 ET Workstation ID: [id number] Transcribed By: Self Edit Transcribed Date: 04/22/2024 07:53 ET Assessment and Plan 5 Days Post-Op s/p Procedure(s): Da Gabe left upper posterior apical segmentectomy & right upper lobe anterior segmentectomy with completion right upper lobectomy A-fib One time occurrence- most likely in response to lung surgery and chest tubes. Has since converted to sinus rhythm. Continue to monitor for abnormal heart rhythm Continue Metoprolol 25mg twice daily Recommend Cardiology follow-up as outpatient for continued medication use and determine need for anticoagulation as patient has a Tobi score greater than 3 Respiratory CXR this morning unchanged. Repeat chest xray in the am. Continue nebulizer Home O2 evaluation determined patient requires 2L O2 via nasal cannula at rest and 6L O2 with ambulation Physical therapy consult placed to determine need for short term rehab following discharge. Pain management Patient well-controlled Celebrex 100 mg BID scheduled Apply lidocaine patches bilateral chest daily. Oxycodone PO as needed based on pain scale IV Dilaudid as needed for severe breakthrough pain only Pulmonary toilet IS Flutter valve Ambulation Activity Patient should be OOB ambulating in the hallways at least 3-4 times daily. Patient should be OOB to chair for all meals. Patient should be OOB to the chair for the majority of the day as tolerated. Bowel regimen Colace, Senna, Miralax Dulcolax suppository prn Ambulation DVT prophylaxis: SCDs Patient and plan of care discussed with Dr. Brad Adams NP [facility] Thoracic Surgery [address] [place] [address], [address] [facility] [id number] * Karolina Wilhelm RN - 04/22/2024 11:42 AM EDT CM Progress Note RASHID: 04/23 Barriers: PT evaluation, O2 Need, accepting facility Plan: SNF-ICC met with patient at bedside, agreeable to wide SNF search, will choose from offering facility's. * Kathleen Dunham, PT - 04/22/2024 11:40 AM EDT [facility] ACUTE CARE PT EVALUATION Bonny Pinto 1940 Ambulation: Walking Assistance: Contact guard Device: Rolling walker Distance Ambulated (ft): (15 + 25+ 25 with rest breaks) PLOF: Level of Tracy: Independent with mobility and functional transfers Lives With: Spouse Receives Help From: Family Home Adaptive Equipment: (walking sticks) Home Living Comments: 2 level home, she stays on first floor with walk in shower full bath on firstfloor, 2 steps to enter without rail DME Needs: walker PT Discharge Recommendation: [facility] Diagnosis: ICD-10-CM ICD-9-CM 1. 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) C34.12 162.3 Tissue exam Tissue exam ipratropium-albuteroL (DUONEB) 0.5-2.5 mg/3 mL nebulizer solution ondansetron ODT (ZOFRAN-ODT) 4 mg disintegrating tablet oxyCODONE (ROXICODONE) 5 mg immediate release tablet 2. Primary cancer of right upper lobe of lung (CMS/HCC) C34.11 162.3 Tissue exam Tissue exam 3. Paroxysmal atrial fibrillation (CMS/HCC) I48.0 427.31 Transthoracic echocardiogram (TTE) complete with PRN contrast, bubble, strain, and 3D order panel Transthoracic echocardiogram (TTE) complete with PRN contrast, bubble, strain, and 3D order panel Past Medical History: Diagnosis Date Anxiety situational Arthritis Blindness mac degeneration, b Breast cancer (CMS/HCC) right breast Cirrhosis (CMS/HCC) Colon cancer (CMS/HCC) History of transfusion WITH COLON SURGERY Joint pain Macular degeneration Past Surgical History: Procedure Laterality Date BREAST LUMPECTOMY 10/14/1992 NO BP OR IV R ARM BREAST REDUCTION Left COLON SURGERY ECTOPIC SURGERY PT Received On: 04/22/2024 SUBJECTIVE I am very tired after that short walk. I think I need rehab PT Time Calculation: PT Time Calculation PT Start Time: 1140 PT Stop Time: 1220 PT Time Calculation (min): 40 min OBJECTIVE Precautions: Precautions Safety Interventions: Call al within reach Cognition: Cognition Overall Cognitive Status: Within Functional Limits Arousal/Alertness: Appropriate responses to stimuli Orientation Level: Oriented X4 Following Commands: Follows all commands and directions without difficulty Safety Judgment: Good awareness of safety precautions Vital Signs: Oxygen Therapy SpO2: (90 to 91 after gait, up to 93% with rest) Oxygen Therapy: Supplemental oxygen O2 Delivery Method: Nasal cannula O2 Flow Rate (L/min): 3 L/min SpO2: (90 to 91 after gait, up to 93% with rest) Pain Assessment: Pain Assessment: 0-10 Pain Score: 3 Pain Location: Incision Pain Orientation: Right, Left Home Living: Home Living Lives With: Spouse Home Adaptive Equipment: (walking sticks) Home Living Comments: 2 level home, she stays on first floor with walk in shower full bath on firstfloor, 2 steps to enter without rail Prior Function: Prior Function Level of Tracy: Independent with mobility and functional transfers Ambulation Status: Household ambulator Receives Help From: Family Indoor Mobility Assistance: Independent Prior Device Use: No prior device use Functional Assessments: Static Sitting Balance Static Sitting-Level of Assistance: Close supervision Static Sitting-Comment/Number of Minutes: good sitting @ EOB Dynamic Standing Balance Dynamic Standing-Level of Assistance: Contact guard Dynamic Standing-Balance: Ambulation Dynamic Standing-Comments: fair + to good with RW Bed Mobility Rolling Left and Right Assistance: Minimum assistance Lying to Sitting Assistance: Minimum assistance Bed Mobility Comments: pt sat @ EOB for few minutes Transfers Sit to Stand Assistance: Minimum assistance, Contact guard Sit to Stand Deficit: Assist for lift off, Steadying, Verbal cueing Toilet Transfer Assistance: Contact guard, Close supervision Transfer Comments: pt was steady wtih walker in the bathroom Ambulation Walking Assistance: Contact guard Device: Rolling walker Distance Ambulated (ft): (15 + 25+ 25 with rest breaks) Comments: pt c/o fatigue and SOB Extremity Assessments: RLE Assessment RLE Assessment: Within Functional Limits LLE Assessment LLE Assessment: Within Functional Limits Education: Education Documentation Mobility Training, taught by Kathleen Dunham, PT at 04/22/2024 11:40 AM. Learner: Patient Readiness: Acceptance Method: Explanation, Demonstration Response: Verbalizes Understanding Comment: safe sit to stand , rehab Education Comments No comments found. ASSESSMENT Pt presents with decreased activity tolerance on 3L O2, decreased overall strength and mobility. Recommend rehab to work on strength, balance and mobility. PT Assessment: PT Assessment PT Assessment Results: Decreased strength, Decreased endurance, Impaired balance, Impaired gait, Decreased mobility Prognosis: Good Evaluation/Treatment Tolerance: Patient tolerated treatment well Medical Staff Made Aware: Yes PLAN PT Plan: During acute care stay: PT Plan: Skilled PT PT Frequency: 2-5 days per week PT Discharge Recommendations: [facility] facility placement Equipment Recommendations: rolling walker Goals: Goals: Encounter Problems Encounter Problems (Active) Template: Physical Therapy Problem: PT Short Term Goals Dates: Start: 04/22/24 Goal: PT STG 1 Patient will ambulate with RW 50 ft Supervision Dates: Start: 04/22/24 Expected End: 05/13/24 Goal: PT STG 2 Patient will transfer sit<>stand safely independently Dates: Start: 04/22/24 Expected End: 05/13/24 Encounter Problems (Resolved) There are no resolved problems. PT Evaluation Time Entry G RHB Paola PT Evaluation Time Entry PT Evaluation (Moderate) Time Entry: 40 * Griselda Montague RRT - 04/22/2024 9:24 AM EDT 04/22/24 0800 Qualify for Home O2 On at rest Room air SpO2 at rest 86 % On with exertion Oxygen O2 flow with exertion 6 L/min SpO2 w/ exertion 90 % Amount of exertion time walked 6 Minutes Pt qualifies for home O2. Script needs to be for O2 2 LPM NC continous. At rest and 6 LPM NC with ambulation. Pt's O2 at 2 LPMNC at rest was 90%. Pt's SPO2=86% on O2 at 2 LPM NC ambulatiing. O2 increased to 3 LPM NC= SPO2=87% ambulating O2 increased to 4 LPM NC= SPO2=88% ambulating O2 increased to 5 LPM NC SPO2=89% ambulating O2 increased to 6 LPM NC SPO2=90% ambulating * Pastora Adams, YOUNG - 04/22/2024 8:08 AM EDT 83-year-old woman found ultimately to have 2 separate lung cancers 1 in the right upper lobe adenocarcinoma and 1 in the left upper lobe squamous cell carcinoma. Mediastinal nodes on staging were negative and PET scan showed no distant. She was discussed options of stereotactic radiation for both, surgery for both, a combination of the 2, or immunotherapy even. After a long discussion with her and her they decided to move forward with surgery for both. The patient understood the risks benefits and alternatives of the proposed operation and agreed to proceed. On 04/17/24 the patient underwent right upper lobe wedge with completion right upper lobectomy, left upper lobe posterior apicalsegmentectomy, mediastinal lymphadenectomy, bronchoscopy with aspiration, and intercostal paravertebral nerve blocks. The patient tolerated the procedure well. The patient was extubated in the operating room brought to the PACU in stable condition. From PACU she was transferred to [facility] for further care on telemetry. On POD #2 chest xray revealed no significant pneumothorax or pleural effusion. Herleft chest tube output was 160cc serosanguinous fluid and right chest tube output was 220cc serosanguinous fluid over 24 hour period with no detectable air leak with talking, forceful exhalation, or deep cough. The decision was made to remove the left chest tube at this time. Following the removal of the left chest tube, that night patient did have a one time occurrence of A-fib for which she wasgiven IV metoprolol and returned back to sinus rhythm. On POD #3 chest xray revealed minimal extrapleural gas on the left and stable findings on the right with no significant pneumothorax or pleural e fffusion. Her right chest tube output was 160cc serosanguinous over 24 hour period with no detectable air leak with talking, forceful exhalation, or deep cough. The decision was made to remove the right chest tube at this time. On POD #5 the patient continued to have steady gait with no complaints of dizziness and pain remained well-controlled with no concerning signs or symptoms such as new or worsening shortness of breath, hemoptysis, fever, or chills. She was evaluated by respiratory and qualified for Home O2-2L continuous at rest and 6L with ambulation. Discharged to [facility] for short term rehab and follow up appointment in two weeks in the office. * Aiyana Graciauma - 04/21/2024 2:51 PM EDT SPIRITUAL CARE Date/Time:04/21/24 at 2:51 PM EDT Type of Visit: Initial Visit and Scooter Mechanic Rounding Reason for Visit: Spiritual/Emotional Support and Spiritual Assessment Time Spent: 30 Minutes Location: Sacramental Encounters: Communion Given Indicator: Yes Sacrament of Sick-Anointing: Anointed Spiritual Distress Assessment: Spiritual Distress Assessment at beginning of visit Meaning - Overall Life Balance: No evidence of unmet spiritual need Transcendence: No evidence of unmet spiritual need Values - Acknowledgement: No evidence of unmet spiritual need Values - Control: No evidence of unmet spiritual need Psycho-Social Identity: No evidence of unmet spiritual need SDAT Beginning of Visit Average Score: 0 Spiritual Distress Assessment at end of visit Meaning - Overall Life Balance: No evidence of unmet spiritual need Transcendence: No evidence of unmet spiritual need Values - Acknowledgement: No evidence of unmet spiritual need Values - Control: No evidence of unmet spiritual need Psycho-Social Identity: No evidence of unmet spiritual need SDAT End of Visit Average Score: 0 Spiritual Assessment/Distress Spiritual Care Assessment: Assessment: Bonny, was awake, alert, sitting and resting in chair at the time of visit. Shared health condition prior to admission, diagnosis, care plan and treatment. Happy for the progress and improvement. Thankful for family support, shared some of her 's support. Got into discussion about the need and importance of motivation . Shared elroy related issues. Expressed desire to receive anointing of the sick. Voiced appreciation for the visit and sharing. Intervention: NE Spiritual Care Interventions : provided education on role , provided support, listened empathically, and provided prayer Outcomes: expressed gratitude and expressed peace Plan of Care: Visit as needed *Reference: Spiritual Distress Assessment Tool: The SDAT is a clinical tool used by chaplains to identify unmet spiritual and emotional needs that can impact Goals of Care in the following categories: Spiritual Distress Assessment Legend Spiritual Needs Related Questions Meaning Are you having difficulties coping with what is happening to your now? Does your hospitalization have any repercussions on the way you live usually? Transcendence Do you have a particular caodaism, elroy, or spirituality? Is your caodaism/spirituality/elroy challenged by what is happening to you now? Values Do you think that the health professionals caring for you know you well enough? Do you feel that you are participating in the decisions made about your care? Psycho-Social Identity Do you have any worries or difficulties regarding your family or other persons close to you? Do you feel lonely? Do you have links to your elroy community? SCALE 0= no evidence of unmet spiritual needs 1= some evidence of unmet spiritual needs 2= substantial evidence of unmet spiritual needs 3= evidence of severe unmet spiritual needs * Pastora Adams NP - 04/21/2024 9:46 AM EDT Images from the original note were not included. Thoracic Surgery Progress Note Patient Name: Bonny Pinto : 1940 Date of Visit: 04/21/24 Subjective Patient seen and examined this am sitting up in bedside chair eating breakfast. States she does nothave much of an appetite at this time because she gets tired easily. She denies any increased shortness of breath, chest pain, or palpitations. She has been urinating and moving her bowels without difficulty. Allergies Allergen Reactions Azithromycin Jaundice Tylenol [Acetaminophen] PT WAS TOLD NOT TO TAKE TYLENOL WITH CIRRHOSIS Current Facility-Administered Medications Medication Dose Route Frequency Provider Last Rate Last Admin bisacodyL (DULCOLAX) EC tablet 10 mg 10 mg oral Daily PRN Pastora Adams NP bisacodyL (DULCOLAX) suppository 10 mg 10 mg rectal Daily PRN Pastora Adams NP celecoxib (CeleBREX) capsule 100 mg 100 mg oral BID Pastora Adams NP 100 mg at 04/21/24923 docusate sodium (COLACE) capsule 100 mg 100 mg oral BID Pastora Adams NP 100 mg at 04/20/242043 ipratropium-albuteroL (DUONEB) 0.5-2.5 mg/3 mL nebulizer solution 3 mL 3 mL nebulization 4x daily Pastora Adams NP 3 mL at 04/21/24724 lidocaine 4 % patch 2 patch 2 patch Topical Daily Pastora Adams NP 2 patch at 04/21/24924 loratadine (CLARITIN) tablet 10 mg 10 mg oral Nightly Pastora Adams NP 10 mg at 04/20/242043 meclizine (ANTIVERT) tablet 25 mg 25 mg oral TID PRN Pastora Adams NP metoclopramide (REGLAN) tablet 10 mg 10 mg oral q6h PRN Pastora Adams NP Or metoclopramide (REGLAN) injection 10 mg 10 mg intravenous q6h PRN Pastora Adams NP metoprolol tartrate (LOPRESSOR) tablet 25 mg 25 mg oral BID Maximo Valdovinos MD 25 mg at 923 ondansetron ODT (ZOFRAN-ODT) disintegrating tablet 4 mg 4 mg oral q8h PRN Pastora Adams NP Or ondansetron (PF) (ZOFRAN) injection 4 mg 4 mg intravenous q8h PRN Pastora Adams NP oxyCODONE (ROXICODONE) immediate release tablet 10 mg 10 mg oral q4h PRN Pastora Adams NP 10 mg at 04/19/24 0846 oxyCODONE (ROXICODONE) immediate release tablet 5 mg 5 mg oral q4h PRN Pastora Adams NP 5 mg at 04/21/24 0924 polyethylene glycol (MIRALAX) packet 17 g 17 g oral Daily Pastora Adams NP 17 g at 04/20/24 0812 senna (SENOKOT) tablet 17.2 mg 2 tablet oral Nightly Pastora Adams NP 17.2 mg at 04/20/242043 sodium chloride 0.9 % flush 10 mL 10 mL intravenous BID Pastora Adams NP 10 mL at 04/21/24 0925 And sodium chloride 0.9 % flush 10 mL 10 mL intravenous PRN Pastora Adams NP sodium chloride 0.9 % infusion 42 mL/hr intravenous PRN Rhona Michel MD Review of Systems Review of Systems Constitutional: Negative for chills and fever. Cardiovascular: Positive for dyspnea on exertion. Negative for chest pain and palpitations. Respiratory: Negative for hemoptysis and shortness of breath. Gastrointestinal: Negative for bloating, nausea and vomiting. Physical Exam Vitals: 04/20/24 1940 04/20/24 2355 04/21/24 0441 04/21/24 0746 BP: (!) 140/65 (!) 143/79 (!) 145/84 (!) 149/74 BP Location: Left arm Patient Position: Lying Pulse: 85 89 83 90 Resp: 18 18 18 18 Temp: 36.3 ??C (97.4 ??F) 36.8 ??C (98.2 ??F) 36.5 ??C (97.7 ??F) 36.2 ??C (97.1 ??F) TempSrc: Temporal SpO2: 100% 98% 99% 100% Weight: Height: Physical Exam Constitutional: Appearance: Normal appearance. HENT: Head: Normocephalic and atraumatic. Mouth/Throat: Mouth: Mucous membranes are moist. Eyes: General: No scleral icterus. Cardiovascular: Rate and Rhythm: Normal rate and regular rhythm. Pulmonary: Effort: Pulmonary effort is normal. No respiratory distress. Chest: Comments: Bilateral chest incision C/D/I with no erythema or drainage. Bilateral chest tube insertion sites remains covered w/ dry occlusive bandages intact with minimal drainage noted. Abdominal: General: Bowel sounds are normal. Palpations: Abdomen is soft. Musculoskeletal: General: Normal range of motion. Cervical back: Normal range of motion. Skin: General: Skin is warm. Neurological: General: No focal deficit present. Mental Status: She is alert and oriented to person, place, and time. Psychiatric: Mood and Affect: Mood normal. Behavior: Behavior normal. Diagnostics Lab Results Component Value Date WBC 17.5 (H) 04/19/2024 HGB 12.8 04/19/2024 HCT 38.3 04/19/2024 PLT 156 04/19/2024 Lab Results Component Value Date NA 138 04/19/2024 K 4.0 04/19/2024 CL 102 04/19/2024 CO2 30 04/19/2024 ANIONGAP 6 04/19/2024 BUN 16 04/19/2024 CREATININE 0.48 (L) 04/19/2024 GLUCOSE 114 (H) 04/19/2024 EGFR 95 04/19/2024 CALCIUM 9.3 04/19/2024 Lab Results Component Value Date PT 12.3 04/10/2024 INR 1.0 04/10/2024 APTT 30.8 04/10/2024 Microbiology No results found for this or any previous visit (from the past week). Radiology 04/21/24 XR Chest 1 View Narrative: EXAMINATION: CHEST CLINICAL INFORMATION: Status post right wedge with completion lobectomy and left upper lobe segmentectomy COMPARISON: 04/20/2024 TECHNIQUE: Frontal upright portable view of the chest FINDINGS: Devices overlie the patient. The trachea is deviated to the right. No definite change in cardiac size. The tobias are not well evaluated. There are metallic sutures bilaterally. Scattered parenchymal opacities similar to previous. There is extrapleural gas. The amount of extrapleural gas on the left is unchanged. I suspect some right apical extrapleural gas although this is not definite. No suspicious interval change. Impression: Postsurgical changes bilaterally. Extensive lung disease. Probably stable extrapleural gas collections -------- FINAL REPORT -------- Dictated By: Kyle King Dictated Date: 04/21/2024 06:50 ET Assigned Physician: Kyle King Reviewed and Electronically Signed By: Kyle King Signed Date: 04/21/2024 06:52 ET Workstation ID: [id number] Transcribed By: Self Edit Transcribed Date: 04/21/2024 06:50 ET Assessment and Plan 4 Days Post-Op s/p Procedure(s): Da Gabe left upper posterior apical segmentectomy & right upper lobe anterior segmentectomy with completion right upper lobectomy A-fib One time occurrence- most likely in response to lung surgery and chest tubes. Has since converted to sinus rhythm. Continue to monitor for abnormal heart rhythm Continue Metoprolol 25mg twice daily Recommend Cardiology follow-up as outpatient for continued medication use and determine need for anticoagulation as patient has a Tobi score greater than 3 Respiratory CXR this morning unchanged. Repeat chest xray in the am. Attempt to wean patient from O2 for discharge tomorrow Continue nebulizer Pain management Patient well-controlled Celebrex 100 mg BID scheduled Apply lidocaine patches bilateral chest daily. Oxycodone PO as needed based on pain scale IV Dilaudid as needed for severe breakthrough pain only Pulmonary toilet IS Flutter valve Ambulation Activity Patient should be OOB ambulating in the hallways at least 3-4 times daily. Patient should be OOB to chair for all meals. Patient should be OOB to the chair for the majority of the day as tolerated. Bowel regimen Colace, Senna, Miralax Dulcolax suppository prn Ambulation DVT prophylaxis: SCDs Patient and plan of care discussed with Dr. Brad Adams, [facility] Thoracic Surgery [address], [address] [facility] [address] * Nik Feliciano MD - 04/21/2024 9:03 AM EDT Images from the original note were not included. FLORIDALMA PROGRESS NOTE Date: 04/21/2024 Author: Nik Feliciano MD Patient ID: Bonny Pinto is a 83 y.o. female : 1940 MR#: [id number] SUBJECTIVE Patient reports some mild shortness of breath while walking from the bathroom to her bed. She stillrequired 2 L of oxygen. She denies any chest pain or shortness of breath telemetry shows normal sinus rhythm. Chest x-ray today showed unchanged left pleural gas Current Medications: celecoxib, 100 mg, oral, BID docusate sodium, 100 mg, oral, BID ipratropium-albuteroL, 3 mL, nebulization, 4x daily lidocaine, 2 patch, Topical, Daily loratadine, 10 mg, oral, Nightly metoprolol tartrate, 25 mg, oral, BID polyetheylene glycol, 17 g, oral, Daily senna, 2 tablet, oral, Nightly sodium chloride, 10 mL, intravenous, BID PRN medications: bisacodyL, bisacodyL, meclizine, metoclopramide OR metoclopramide, ondansetron(ZOFRAN-ODT) disintegrating tablet OR ondansetron, oxyCODONE, oxyCODONE, Insert peripheral IV AND Maintain IV access AND Saline lock IV AND sodium chloride AND sodium chloride, sodium chloride OBJECTIVE Last Recorded Vitals: Vitals: 04/20/24 1940 04/20/24 2355 04/21/24 0441 04/21/24 0746 BP: (!) 140/65 (!) 143/79 (!) 145/84 (!) 149/74 BP Location: Left arm Patient Position: Lying Pulse: 85 89 83 90 Resp: 18 18 18 18 Temp: 36.3 ??C (97.4 ??F) 36.8 ??C (98.2 ??F) 36.5 ??C (97.7 ??F) 36.2 ??C (97.1 ??F) TempSrc: Temporal SpO2: 100% 98% 99% 100% Weight: Height: Physical Exam Constitutional: Appearance: Normal appearance. Comments: She is in no acute distress, she is on 2 L of oxygen denies any shortness of breath. HENT: Head: Normocephalic and atraumatic. Mouth/Throat: Mouth: Mucous membranes are moist. Eyes: Extraocular Movements: Extraocular movements intact. Pupils: Pupils are equal, round, and reactive to light. Cardiovascular: Rate and Rhythm: Normal rate and regular rhythm. Pulses: Normal pulses. Pulmonary: Breath sounds: Normal breath sounds. Comments: Decreased breath sounds bilaterally, chest tube on the right side has been removed there is some leakage from the site. Abdominal: General: Abdomen is flat. Bowel sounds are normal. Musculoskeletal: General: Normal range of motion. Cervical back: Normal range of motion and neck supple. Skin: General: Skin is warm. Findings: No erythema or rash. Neurological: General: No focal deficit present. Mental Status: She is alert and oriented to person, place, and time. Psychiatric: Mood and Affect: Mood normal. Lab Results: Imaging: XR Chest 1 View Narrative: EXAMINATION: CHEST CLINICAL INFORMATION: Status post right wedge with completion lobectomy and left upper lobe segmentectomy COMPARISON: 04/20/2024 TECHNIQUE: Frontal upright portable view of the chest FINDINGS: Devices overlie the patient. The trachea is deviated to the right. No definite change in cardiac size. The tobias are not well evaluated. There are metallic sutures bilaterally. Scattered parenchymal opacities similar to previous. There is extrapleural gas. The amount of extrapleural gas on the left is unchanged. I suspect some right apical extrapleural gas although this is not definite. No suspicious interval change. Impression: Postsurgical changes bilaterally. Extensive lung disease. Probably stable extrapleural gas collections -------- FINAL REPORT -------- Dictated By: Kyle King Dictated Date: 04/21/2024 06:50 ET Assigned Physician: Kyle King Reviewed and Electronically Signed By: Kyle King Signed Date: 04/21/2024 06:52 ET Workstation ID: [id number] Transcribed By: Self Edit Transcribed Date: 04/21/2024 06:50 ET ASSESSMENT & PLAN Principal Problem: 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) Active Problems: Primary cancer of right upper lobe of lung (CMS/HCC) 83 year-old female with history of right breast cancer status post partial mastectomy and lymph node dissection, tobacco dependence in remission, left upper lobe squamous cell carcinoma, and right upper lobe adenocarcinoma POD #2 from robot assisted right upper lobectomy + left upper lobe posteriorapical segmentectomy + mediastinal lymphadenectomy admitted to [facility] surgery for right upper lobectomy procedure was complicated as patient developed rapid atrial fibrillation. [facility] was consulted. Atrial fibrillation rapid ventricular response Most likely due to acute illness and due to extensive surgery. Currently she is in normal sinus rhythm on metoprolol 25 mg twice daily in Rate is well controlled tobi score is more than 3 she should be on anticoagulation however due to ongoing surgery underlying malignancy this needs to be further clarified with thoracic surgery. Currently holding on starting any anticoagulation till thoracic surgery further clarify the plan ofcare. Left upper lobe squamous cell carcinoma, and right upper lobe adenocarcinoma- POD #2 from robot-assisted right upper lobectomy, left upper lobe posterior apical segmentectomy, mediastinal lymphadenectomy. Imaging this morning showed right pneumothorax surgery is aware patient is not hypoxic and not in any respiratory compromise therefore they would repeat and follow-up we will defer management to thoracic surgery. Prophylaxis- SCDs for DVT prophylaxis. CODE STATUS- FULL CODE. The patient's , Baltazar Cintron Disposition/patient need hospital stay because : Per thoracic surgery, of oxygen, will need physical therapy, * Pastora Adams NP - 04/20/2024 11:23 AM EST Images from the original note were not included. Thoracic Surgery Progress Note Patient Name: Bonny Pinto : 1940 Date of Visit: 04/20/24 Subjective Patient seen and examined this am. She states she is doing better than last night, as she did go into A-fib. She denies SOB, palpitations, or chest pain. She has been urinating without difficulty andhas passed gas. Allergies Allergen Reactions Azithromycin Jaundice Tylenol [Acetaminophen] PT WAS TOLD NOT TO TAKE TYLENOL WITH CIRRHOSIS Current Facility-Administered Medications Medication Dose Route Frequency Provider Last Rate Last Admin bisacodyL (DULCOLAX) EC tablet 10 mg 10 mg oral Daily PRN Pastora Adams NP bisacodyL (DULCOLAX) suppository 10 mg 10 mg rectal Daily PRN Pastora Adams NP celecoxib (CeleBREX) capsule 100 mg 100 mg oral BID Pastora Adams NP 100 mg at 04/20/24 08 docusate sodium (COLACE) capsule 100 mg 100 mg oral BID Pastora Adams NP 100 mg at 04/20/24811 ipratropium-albuteroL (DUONEB) 0.5-2.5 mg/3 mL nebulizer solution 3 mL 3 mL nebulization 4x daily Pastora Adams NP 3 mL at 04/20/24733 lidocaine 4 % patch 2 patch 2 patch Topical Daily Pastora Adams NP 2 patch at 04/20/24811 loratadine (CLARITIN) tablet 10 mg 10 mg oral Nightly Pastora Adams NP 10 mg at 04/19/242008 meclizine (ANTIVERT) tablet 25 mg 25 mg oral TID PRN Pastora Adams NP metoclopramide (REGLAN) tablet 10 mg 10 mg oral q6h PRN Pastora Adams NP Or metoclopramide (REGLAN) injection 10 mg 10 mg intravenous q6h PRN Pastora Adams NP metoprolol tartrate (LOPRESSOR) tablet 25 mg 25 mg oral BID Maximo Valdovinos MD 25 mg at 812 ondansetron ODT (ZOFRAN-ODT) disintegrating tablet 4 mg 4 mg oral q8h PRN Pastora Adams NP Or ondansetron (PF) (ZOFRAN) injection 4 mg 4 mg intravenous q8h PRN Pastora Adams NP oxyCODONE (ROXICODONE) immediate release tablet 10 mg 10 mg oral q4h PRN Pastora Adams NP 10 mg at 04/19/2446 oxyCODONE (ROXICODONE) immediate release tablet 5 mg 5 mg oral q4h PRN Pastora Adams NP 5 mg at 04/19/242011 polyethylene glycol (MIRALAX) packet 17 g 17 g oral Daily Pastora Adams NP 17 g at 04/20/24 0812 senna (SENOKOT) tablet 17.2 mg 2 tablet oral Nightly Pastora Adams NP 17.2 mg at 04/19/242009 sodium chloride 0.9 % flush 10 mL 10 mL intravenous BID Pastora Adams NP 10 mL at 04/20/24 0813 And sodium chloride 0.9 % flush 10 mL 10 mL intravenous PRN Pastora Adams NP sodium chloride 0.9 % infusion 42 mL/hr intravenous PRN Rhona Michel MD Review of Systems Review of Systems Constitutional: Negative for chills and fever. Cardiovascular: Negative for chest pain and palpitations. Respiratory: Positive for cough. Negative for hemoptysis and shortness of breath. Gastrointestinal: Negative for bloating, nausea and vomiting. Physical Exam Vitals: 04/20/24 0110 04/20/24 0241 04/20/24 0758 04/20/24 0800 BP: 122/67 122/78 136/71 BP Location: Left arm Left arm Left arm Patient Position: Lying Lying Lying Pulse: 67 95 77 Resp: 18 19 18 Temp: 35.7 ??C (96.2 ??F) 36.2 ??C (97.2 ??F) 36.3 ??C (97.3 ??F) TempSrc: Temporal Temporal Temporal SpO2: 94% 94% 100% 96% Weight: Height: Physical Exam Constitutional: Appearance: Normal appearance. HENT: Head: Normocephalic and atraumatic. Mouth/Throat: Mouth: Mucous membranes are moist. Eyes: General: No scleral icterus. Cardiovascular: Rate and Rhythm: Normal rate and regular rhythm. Heart sounds: Normal heart sounds. Pulmonary: Effort: Pulmonary effort is normal. Breath sounds: Decreased air movement present. Examination of the right-lower field reveals decreased breath sounds. Examination of the left-lower field reveals decreased breath sounds. Decreased breath sounds present. Chest: Comments: Bilateral chest incision C/D/I with no erythema or drainage. Right chest tube insertion site intact with Mepilex dressing intact with minimal drainage noted. Right chest tube attached to atrium on waterseal with 160 cc serosang fluid output in 24 hours with nodetectable air leak. Left chest tube insertion remains w/ dry occlusive bandage C/D/I. Abdominal: General: Bowel sounds are normal. Palpations: Abdomen is soft. Musculoskeletal: Cervical back: Normal range of motion. Skin: General: Skin is warm. Neurological: General: No focal deficit present. Mental Status: She is alert and oriented to person, place, and time. Psychiatric: Mood and Affect: Mood normal. Behavior: Behavior normal. Diagnostics Lab Results Component Value Date WBC 17.5 (H) 04/19/2024 HGB 12.8 04/19/2024 HCT 38.3 04/19/2024 PLT 156 04/19/2024 Lab Results Component Value Date NA 138 04/19/2024 K 4.0 04/19/2024 CL 102 04/19/2024 CO2 30 04/19/2024 ANIONGAP 6 04/19/2024 BUN 16 04/19/2024 CREATININE 0.48 (L) 04/19/2024 GLUCOSE 114 (H) 04/19/2024 EGFR 95 04/19/2024 CALCIUM 9.3 04/19/2024 Lab Results Component Value Date PT 12.3 04/10/2024 INR 1.0 04/10/2024 APTT 30.8 04/10/2024 Microbiology No results found for this or any previous visit (from the past week). Radiology 04/20/24 XR Chest 1 View Addendum: This critical result was telephoned to the nurseRegina at approximately 0655 hours on 04/20/2024. -------- ADDENDUM -------- Dictated By: Kyle King Dictated Date: 04/20/2024 06:55 ET Assigned Physician: Kyle King Reviewed and Electronically Signed By: Kyle King Signed Date: 04/20/2024 06:55 ET Workstation ID: [id number] Transcribed By: Self Edit Transcribed Date: 04/20/2024 06:55 ET Narrative: EXAMINATION: CHEST CLINICAL INFORMATION: Post right wedge lung resection with completion lobectomy and left upper lobe post apical segmentectomy COMPARISON: Frontal view 04/18/2024 TECHNIQUE: Frontal portable upright view of the chest FINDINGS: Multiple devices overlie the patient. The left chest tube is no longer demonstrated. The right chest tube tip projects in the medial right apex. No definite change in cardiac size. The tobias are obscured. There are diffuse lung opacities. There are metallic sutures. No definite new parenchymal abnormality. There is extrapleural gas in the left apex. This represents interval change. The pleural reflectionon the left is between the posterior left third and fourth ribs. I suspect at least a small amount of extrapleural gas on the right. This is likely unchanged. Scoliosis with degenerative change. Chest wall gas on the right. Impression: Interval removal of left chest tube with some extrapleural gas on the left. Follow-up recommended to assure stability or resolution. Right chest tube in place. Extensive parenchymal opacities Bilateral postsurgical changes Secure chat sent [phone] -------- FINAL REPORT -------- Dictated By: Kyle King Dictated Date: 04/20/2024 06:42 ET Assigned Physician: Kyle King Reviewed and Electronically Signed By: Kyle King Signed Date: 04/20/2024 06:47 ET Workstation ID: [id number] Transcribed By: Self Edit Transcribed Date: 04/20/2024 06:42 ET Assessment and Plan 3 Days Post-Op s/p Procedure(s): Da Gabe left upper posterior apical segmentectomy & right upper lobe anterior segmentectomy with completion right upper lobectomy A-fib Most likely in response to lung surgery and chest tubes. Has since converted to sinus rhythm. Continue to monitor for abnormal heart rhythm Chest tube management CXR this morning showing some increase extrapleural gas on the left since removal of left chest tube yesterday. Scans reviewed personally and with Dr. Brad Branham, determined as expected. Decisionwas made to remove remaining right chest tube as well. Remaining right chest tube removed today. Patient tolerated the procedure well. Continue to monitor fluid outputs. Repeat chest xray in the am. Pain management Celebrex 100 mg BID scheduled Apply lidocaine patches bilateral chest daily. Oxycodone PO as needed based on pain scale IV Dilaudid as needed for severe breakthrough pain only Pulmonary toilet IS Flutter valve Ambulation Activity Patient should be OOB ambulating in the hallways at least 3-4 times daily. Patient should be OOB to chair for all meals. Patient should be OOB to the chair for the majority of the day as tolerated. Bowel regimen Colace, Senna, Miralax Dulcolax suppository prn Ambulation DVT prophylaxis: SCDs Patient and plan of care discussed with Dr. Brad Adams NP [facility] Thoracic Surgery [address] [place] [address], [address] [facility] [address] * Nik Feliciano MD - 04/20/2024 10:01 AM EST Images from the original note were not included. FLORIDALMA PROGRESS NOTE Date: 04/20/2024 Author: Nik Feliciano MD Patient ID: Bonny Pinto is a 83 y.o. female : 1940 MR#: [id number] SUBJECTIVE Overnight converted to normal sinus rhythm heart rate in the 80s, denies any shortness of breath x-ray reviewed revealed pneumothorax post patient is stable. Thoracic surgery is aware. Cardizem drip has been discontinued now on oral Cardizem Current Medications: celecoxib, 100 mg, oral, BID dilTIAZem, , , dilTIAZem, 30 mg, oral, q6h CARLENE docusate sodium, 100 mg, oral, BID ipratropium-albuteroL, 3 mL, nebulization, 4x daily lidocaine, 2 patch, Topical, Daily loratadine, 10 mg, oral, Nightly metoprolol tartrate, 25 mg, oral, BID polyetheylene glycol, 17 g, oral, Daily senna, 2 tablet, oral, Nightly sodium chloride (non-PVC), , , sodium chloride, 10 mL, intravenous, BID PRN medications: bisacodyL, bisacodyL, dilTIAZem, meclizine, metoclopramide OR metoclopramide, ondansetron (ZOFRAN-ODT) disintegrating tablet OR ondansetron, oxyCODONE, oxyCODONE, sodium chloride (non-PVC), Insert peripheral IV AND Maintain IV access AND Saline lock IV AND sodium chloride AND sodium chloride, sodium chloride OBJECTIVE Last Recorded Vitals: Vitals: 04/20/24 0110 04/20/24 0241 04/20/24 0758 04/20/24 0800 BP: 122/67 122/78 136/71 BP Location: Left arm Left arm Left arm Patient Position: Lying Lying Lying Pulse: 67 95 77 Resp: 18 19 18 Temp: 35.7 ??C (96.2 ??F) 36.2 ??C (97.2 ??F) 36.3 ??C (97.3 ??F) TempSrc: Temporal Temporal Temporal SpO2: 94% 94% 100% 96% Weight: Height: Physical Exam Constitutional: Appearance: Normal appearance. Comments: She is in no acute distress, she is on 2 L of oxygen denies any shortness of breath. HENT: Head: Normocephalic and atraumatic. Mouth/Throat: Mouth: Mucous membranes are moist. Eyes: Extraocular Movements: Extraocular movements intact. Pupils: Pupils are equal, round, and reactive to light. Cardiovascular: Rate and Rhythm: Normal rate and regular rhythm. Pulses: Normal pulses. Pulmonary: Breath sounds: Normal breath sounds. Comments: Decreased breath sounds bilaterally, chest tube on the right side, no pulmonary compromise Abdominal: General: Abdomen is flat. Bowel sounds are normal. Musculoskeletal: General: Normal range of motion. Cervical back: Normal range of motion and neck supple. Skin: General: Skin is warm. Findings: No erythema or rash. Neurological: General: No focal deficit present. Mental Status: She is alert and oriented to person, place, and time. Psychiatric: Mood and Affect: Mood normal. Lab Results: Imaging: XR Chest 1 View Addendum: This critical result was telephoned to the nurseRegina at approximately 0655 hours on 04/20/2024. -------- ADDENDUM -------- Dictated By: Kyle King Dictated Date: 04/20/2024 06:55 ET Assigned Physician: Kyle King Reviewed and Electronically Signed By: Kyle King Signed Date: 04/20/2024 06:55 ET Workstation ID: [id number] Transcribed By: Self Edit Transcribed Date: 04/20/2024 06:55 ET Narrative: EXAMINATION: CHEST CLINICAL INFORMATION: Post right wedge lung resection with completion lobectomy and left upper lobe post apical segmentectomy COMPARISON: Frontal view 04/18/2024 TECHNIQUE: Frontal portable upright view of the chest FINDINGS: Multiple devices overlie the patient. The left chest tube is no longer demonstrated. The right chest tube tip projects in the medial right apex. No definite change in cardiac size. The tobias are obscured. There are diffuse lung opacities. There are metallic sutures. No definite new parenchymal abnormality. There is extrapleural gas in the left apex. This represents interval change. The pleural reflectionon the left is between the posterior left third and fourth ribs. I suspect at least a small amount of extrapleural gas on the right. This is likely unchanged. Scoliosis with degenerative change. Chest wall gas on the right. Impression: Interval removal of left chest tube with some extrapleural gas on the left. Follow-up recommended to assure stability or resolution. Right chest tube in place. Extensive parenchymal opacities Bilateral postsurgical changes Secure chat sent [phone] -------- FINAL REPORT -------- Dictated By: Kyle King Dictated Date: 04/20/2024 06:42 ET Assigned Physician: Kyle King Reviewed and Electronically Signed By: Kyle King Signed Date: 04/20/2024 06:47 ET Workstation ID: [id number] Transcribed By: Self Edit Transcribed Date: 04/20/2024 06:42 ET ASSESSMENT & PLAN Principal Problem: 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) Active Problems: Primary cancer of right upper lobe of lung (CMS/HCC) 83 year-old female with history of right breast cancer status post partial mastectomy and lymph node dissection, tobacco dependence in remission, left upper lobe squamous cell carcinoma, and right upper lobe adenocarcinoma POD #2 from robot assisted right upper lobectomy + left upper lobe posteriorapical segmentectomy + mediastinal lymphadenectomy admitted to [facility] surgery for right upper lobectomy procedure was complicated as patient developed rapid atrial fibrillation. Randolph was consulted. Atrial fibrillation rapid ventricular response-Sera in the setting of surgery. Electrolytes are normal patient has no chest pain, she already converted back to normal sinus rhythm with Cardizem drip currently on oral Cardizem 30 every 6. Tobi score is more than 3 she should be on anticoagulation however due to ongoing surgery underlying malignancy this needs to be further clarified with thoracic surgery. I discussed with patient alsoshe would also like to discuss it further. We also explained about risk of stroke with atrial fibrillation however currently she is in normal sinus rhythm. Left upper lobe squamous cell carcinoma, and right upper lobe adenocarcinoma- POD #2 from robot-assisted right upper lobectomy, left upper lobe posterior apical segmentectomy, mediastinal lymphadenectomy. Imaging this morning showed right pneumothorax surgery is aware patient is not hypoxic and not in any respiratory compromise therefore they would repeat and follow-up we will defer management to thoracic surgery. Prophylaxis- SCDs for DVT prophylaxis. CODE STATUS- FULL CODE. The patient's , Baltazar Cintron Disposition/patient need hospital stay because : Per thoracic surgery, pneumothorax * Maximo Valdovinos MD - 04/20/2024 7:18 AM EST The patient converted back to normal sinus rhythm. We will start the patient on metoprolol 25 mg bymouth twice daily for rhythm control and discontinue the diltiazem infusion while awaiting echocardiography. was contacted concerning x-ray findings of a pneumothorax on the left. On review of her chest x-ray, the patient has a small apical pneumothorax. Her oxygen saturation is currently 94% on room air. Nursing staff has been instructed to apply supplemental oxygen with SpO2 goal 98-100% consistently denitrogenating the tissue space for more rapid absorption of the pneumothorax. We will check an x-ray in 6 hours to evaluate for expansion of the pneumothorax that would suggest an ongoing airleak. I have also asked nursing staff to reach out the thoracic surgery team with the findings. * Regina Garcias RN - 04/19/2024 10:35 PM EST Patient noted to have HR 150-170. BP 138/91. EKG obtained confirming A-fib with RVR. Pt denied any symptoms. Nurse logistics operations manager, thoracic non acoustic operator provider and EDWARD's made aware. Dr Valdovinos came to bedside toevaluate patient. Per orders, a total of 15mg IV metoprolol administered with minimal effect. Subsequently, 20 mg IV Cardizem given, followed by initiation of Cardizem infusion at 5 mg/hr. Pt remained hemodynamically stable throughout. Continues cardiac monitoring in place. No acute distress noted.Will continue to monitor for response to treatment and notify provider of any changes. Current HR 96-110s. * Sheree Mccloud RN - 04/19/2024 3:44 PM EST 04/19/24 1544 Initial Transition Plan Initial Transition Plan Home Health Care ([facility]) RASHID: 04/19- Barriers: s/p Cardio Thoracic bilat upper lobectomies, CT, Dispo: [facility], from home * Pastora Adams NP - 04/19/2024 10:11 AM EST Images from the original note were not included. Thoracic Surgery Progress Note Patient Name: Bonny Pinto : 1940 Date of Visit: 04/19/24 Subjective Patient seen and examined this am. She states she is having significant pain in both chest tube insertion sites with some shortness of breath. She has also not been able to pee on her own since the Soto catheter was removed yesterday am. She denies passing gas or having a bowel movement. Allergies Allergen Reactions Azithromycin Jaundice Tylenol [Acetaminophen] PT WAS TOLD NOT TO TAKE TYLENOL WITH CIRRHOSIS Current Facility-Administered Medications Medication Dose Route Frequency Provider Last Rate Last Admin bisacodyL (DULCOLAX) EC tablet 10 mg 10 mg oral Daily PRN Pastora Adams NP bisacodyL (DULCOLAX) suppository 10 mg 10 mg rectal Daily PRN Pastora Adams NP docusate sodium (COLACE) capsule 100 mg 100 mg oral BID Pastora Adams NP 100 mg at 04/19/24 0846 HYDROmorphone (DILAUDID) injection 0.5 mg 0.5 mg intravenous q3h PRN Pastora Adams NP 0.5 mg at 04/19/24 0314 ipratropium-albuteroL (DUONEB) 0.5-2.5 mg/3 mL nebulizer solution 3 mL 3 mL nebulization 4x daily Pastora Adams NP 3 mL at 04/19/24 0734 lidocaine 4 % patch 2 patch 2 patch Topical Daily Pastora Adams NP loratadine (CLARITIN) tablet 10 mg 10 mg oral Nightly Pastora Adams NP 10 mg at 04/18/242039 meclizine (ANTIVERT) tablet 25 mg 25 mg oral TID PRN Pastora Adams NP metoclopramide (REGLAN) tablet 10 mg 10 mg oral q6h PRN Pastora Adams NP Or metoclopramide (REGLAN) injection 10 mg 10 mg intravenous q6h PRN Pastora Adams NP ondansetron ODT (ZOFRAN-ODT) disintegrating tablet 4 mg 4 mg oral q8h PRN Pastora Adams NP Or ondansetron (PF) (ZOFRAN) injection 4 mg 4 mg intravenous q8h PRN Pastora Adams NP oxyCODONE (ROXICODONE) immediate release tablet 10 mg 10 mg oral q4h PRN Pastora Adams NP 10 mg at 04/19/24 0846 oxyCODONE (ROXICODONE) immediate release tablet 5 mg 5 mg oral q4h PRN Pastora Adams NP 5 mg at 04/17/24 1631 polyethylene glycol (MIRALAX) packet 17 g 17 g oral Daily Pastora Adams NP 17 g at 04/19/24 0846 senna (SENOKOT) tablet 17.2 mg 2 tablet oral Nightly Pastora Adams NP 17.2 mg at 04/18/242038 sodium chloride 0.9 % flush 10 mL 10 mL intravenous BID Pastora Adams NP 10 mL at 04/18/242039 And sodium chloride 0.9 % flush 10 mL 10 mL intravenous PRN Pastora Adams NP sodium chloride 0.9 % infusion 42 mL/hr intravenous PRN Rhona Michel MD Review of Systems Review of Systems Constitutional: Negative for chills and fever. Respiratory: Positive for cough and shortness of breath. Negative for hemoptysis. Gastrointestinal: Negative for abdominal pain, nausea and vomiting. Physical Exam Vitals: 04/18/24 1906 04/18/24 2331 04/19/24 0354 04/19/24 0832 BP: 139/74 (!) 168/87 (!) 156/85 (!) 143/81 BP Location: Left arm Left arm Left arm Left arm Patient Position: Lying Lying Lying Lying Pulse: 89 100 91 93 Resp: 16 16 16 16 Temp: 37.1 ??C (98.8 ??F) 36.6 ??C (97.8 ??F) 36.6 ??C (97.8 ??F) 36.6 ??C (97.9 ??F) TempSrc: Temporal Temporal Temporal Temporal SpO2: 99% 97% 100% 100% Weight: Height: Physical Exam Constitutional: Appearance: Normal appearance. HENT: Head: Normocephalic and atraumatic. Mouth/Throat: Mouth: Mucous membranes are moist. Eyes: General: No scleral icterus. Cardiovascular: Rate and Rhythm: Normal rate and regular rhythm. Heart sounds: Normal heart sounds. Pulmonary: Effort: Pulmonary effort is normal. Breath sounds: Decreased air movement present. Examination of the right-lower field reveals decreased breath sounds. Examination of the left-lower field reveals decreased breath sounds. Decreased breath sounds present. Chest: Comments: Bilateral chest incision C/D/I with no erythema or drainage. Bilateral chest tube insertion sites intact with Mepilex dressing intact with drainage noted. Left chest tube attached to atrium on waterseal with 210 cc serosang fluid output in 24 hours with no detectable air leak. Right chest tube attached to atrium on waterseal with 270 cc serosang fluid output in 24 hours with no detectable air leak. Abdominal: General: Bowel sounds are normal. Palpations: Abdomen is soft. Musculoskeletal: Cervical back: Normal range of motion. Skin: General: Skin is warm. Neurological: General: No focal deficit present. Mental Status: She is alert and oriented to person, place, and time. Psychiatric: Mood and Affect: Mood normal. Behavior: Behavior normal. Diagnostics Lab Results Component Value Date WBC 16.3 (H) 04/18/2024 HGB 11.2 (L) 04/18/2024 HCT 33.3 (L) 04/18/2024 PLT 140 04/18/2024 Lab Results Component Value Date NA 137 04/18/2024 K 4.3 04/18/2024 CL 101 04/18/2024 CO2 28 04/18/2024 ANIONGAP 8 04/18/2024 BUN 15 04/18/2024 CREATININE 0.52 04/18/2024 GLUCOSE 115 (H) 04/18/2024 EGFR 93 04/18/2024 CALCIUM 8.6 04/18/2024 Lab Results Component Value Date PT 12.3 04/10/2024 INR 1.0 04/10/2024 APTT 30.8 04/10/2024 Microbiology No results found for this or any previous visit (from the past week). Radiology 04/19/24 XR Chest 1 View Narrative: PROCEDURE: AP chest radiograph. HISTORY: s/p SARAH segmentectomy and RUL wedge with completion lobectomy. COMPARISON: 04/17/2024. FINDINGS: Unchanged biapical chest tubes. Staple lines project over the mid right lung and upper left lung. Patchy heterogeneous multifocal bilateral pulmonary opacities are unchanged. Stable cardiomediastinalcontours. Persistent small left apical pneumothorax. No definite right pneumothorax. No visible pleural effusion. Moderate S-shaped thoracolumbar scoliosis. Impression: Similar appearance to 04/17/2024. -------- FINAL REPORT -------- Dictated By: Derek Khan Dictated Date: 04/18/2024 08:32 ET Assigned Physician: Derek Khan Reviewed and Electronically Signed By: Derek Khan Signed Date: 04/18/2024 08:33 ET Workstation ID: [id number] Transcribed By: Self Edit Transcribed Date: 04/18/2024 08:32 ET Assessment and Plan 2 Days Post-Op s/p Procedure(s): Da Gabe left upper posterior apical segmentectomy & right upper lobe anterior segmentectomy with completion right upper lobectomy Chest tube management Right chest tube to remain on water seal Left chest tube removed today. Patient tolerated the procedure well. Continue to monitor fluid outputs. Repeat chest xray in the am. Pain management Celebrex 100 mg BID scheduled Apply lidocaine patches bilateral chest daily. Oxycodone PO as needed based on pain scale IV Dilaudid as needed for severe breakthrough pain only Pulmonary toilet IS Flutter valve Ambulation Activity Patient should be OOB ambulating in the hallways at least 3-4 times daily. Patient should be OOB to chair for all meals. Patient should be OOB to the chair for the majority of the day as tolerated. Urinary Retention Patient should be ambulating in the hallways at least 3-4 times daily. If retention continues, a soto catheter should be placed instead of performing straight caths. Bowel regimen Colace, Senna, Miralax Dulcolax suppository prn Ambulation DVT prophylaxis: SCDs Patient and plan of care discussed with Dr. Rhona Adams NP [facility] Thoracic Surgery [address] [place] [address], [address] [facility] [id number] * Sheree Mccloud RN - 04/18/2024 2:49 PM EST 04/18/24 2834 Initial Transition Plan Initial Transition Plan Home Health Care Discharge Planning Living Arrangements Spouse/significant other Type of Residence Private residence Assistive Devices Hearing aid - left;Hearing aid - right;Eyeglasses;Shower chair (legally blind) Support Systems Spouse/significant other;Immediate family Medication Coverage Has Med Coverage Under Insurance Plan Yes Medication Affordability No concerns related to payment for meds Anticipated Discharge Needs Home Health RN ICC met w Pt at bedside, confirmed demographics. RASHID: Barriers: s/p Cardio Thoracic bilat upper lobectomies, CT Dispo: [facility] referral initiated. From home * Venus Limon RD - 04/18/2024 2:25 PM EST 04/18/2024 @ 2:27 PM EST Nutrition Initial Assessment Reason for RD Intervention: Assessment Type: Nutrition Trigger Reason for Assessment: High MST Score Anthropometrics: Height: 157.5 cm (62.01 ) (from previous admission) Weight: 71.7 kg (158 lb 1.1 oz) Weight Method: Stated BMI (Calculated): 28.9 BMI Class: Overweight IBW (lbs): 110 % IBW: 143.7 Recent Weight Change: No ABW Needed: No Current Diet and Supplements: Dietary Orders (From admission, onward) Start Ordered 04/17/24 1519 Adult diet [facility]; General; Regular Diet effective now Question Answer Comment Location [facility] Diet Type (req) General General Diet Regular 04/17/24 1518 History of presenting illness: Patient is a 83 y.o. female with a history of Past Medical History: Diagnosis Date Anxiety situational Arthritis Blindness mac degeneration, b Breast cancer (CMS/HCC) right breast Cirrhosis (CMS/HCC) Colon cancer (CMS/HCC) History of transfusion WITH COLON SURGERY Joint pain Macular degeneration Past Surgical History: Procedure Laterality Date BREAST LUMPECTOMY 10/14/1992 NO BP OR IV R ARM BREAST REDUCTION Left COLON SURGERY ECTOPIC SURGERY admitted 04/17/2024 with 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). Food/Nutrition History: Previously prescribed diets: (pt denies food allergies, dificulty chewing/swallowing, or food insecurities. pt reports stable weight of 158 pounds) Self-selected diet(s) followed: none Appetite CORPORATE SALES REPRESENTATIVE: Good Intake CORPORATE SALES REPRESENTATIVE: Stable Weight History: Wt Readings from Last 10 Encounters: 04/18/24 71.7 kg (158 lb 1.1 oz) 04/05/24 71.7 kg (158 lb) 04/01/24 71.7 kg (158 lb) 03/12/24 71.7 kg (158 lb) 03/08/24 72.4 kg (159 lb 9.6 oz) 03/08/24 71.8 kg (158 lb 3.2 oz) Subjective Assessment: Pt admitted with lung cancer. Underwent wedge resection 04/17. Pt reports intake is less since admission than typical home intake. Nutrition-Related Lab Values: Results from last 7 days Lab Units 04/18/24 0611 SODIUM mmol/L 137 POTASSIUM mmol/L 4.3 PHOSPHORUS mg/dL 2.7 MAGNESIUM mg/dL 1.9 CHLORIDE mmol/L 101 CO2 mmol/L 28 BUN mg/dL 15 CREATININE mg/dL 0.52 EGFR mL/min/1.73m2 93 CALCIUM mg/dL 8.6 GLUCOSE mg/dL 115* WBC AUTO K/mcL 16.3* No results found for: LIPASE Medications: docusate sodium, 100 mg, oral, BID ipratropium-albuteroL, 3 mL, nebulization, 4x daily loratadine, 10 mg, oral, Nightly polyetheylene glycol, 17 g, oral, Daily senna, 2 tablet, oral, Nightly sodium chloride, 10 mL, intravenous, BID CONTINUOUS: PRN medications: bisacodyL, bisacodyL, HYDROmorphone, meclizine, metoclopramide OR metoclopramide, ondansetron (ZOFRAN-ODT) disintegrating tablet OR ondansetron, oxyCODONE, oxyCODONE, Insert peripheral IV AND Maintain IV access AND Saline lock IV AND sodium chloride AND sodium chloride, sodium chloride Food/Nutrition-Current Status: Intake Type: P.O. Current Diet Status: Appropriate Current Supplement Status: (not ordered) Appetite: Fair Intake Amount (%): 50-75% Intake Assessment: (assessing) Main IVF: None Propofol?: No Nutrition Focused Physical Findings: Overall Appearance: pt sitting in chair. muscle and fat losses not visable Digestive System (Mouth to Rectum): (no BM since admission) Nerves and Cognition: Alert, Oriented Skin: surgical incisions Nutrition Diagnosis: Code Type: None Identified Status: New Diagnosis: Altered Nutrition-Related Lab Values Etiology: Other (Comment) Symptoms: of unclear etiology at this time as evidenced by elevated glucose without history of diabetes Nutrition Interventions: Other (Comment) (monitor intake and will offer nutrition supplements if intake is less than 65% on follow up) Goals: Patient will consume greater than or equal to 75% meals., Monitor/control glucose levels, Electrolytes within normal range., Maintain weight., Stooling appropriately., and Wound healing progress. Coordination of Patient Care: Care plan discussed with patient/family. Monitoring/Evaluation: Fluid/Beverage Intake, Food Intake, Weight, Renal/Electrolyte Profile, Gastrointestinal Profile Follow Up: Nutrition Priority Level: Moderate Follow up Date: 04/23/24 Please consult nutrition if needed sooner. RD remains available and will continue to follow. Signature: Venus Limon RD * Brando Meza RN - 04/18/2024 4:44 AM EST Goals: Problem: Sensory:Periop Procedure - Major Goal: Demonstrates/reports adequate pain control Outcome: Progressing Problem: Coping:Periop Procedure - Major Goal: Verbalizations of alleviation of anxiety will increase Outcome: Progressing documented in this encounter H&P Notes * Rhona Michel MD - 04/17/2024 7:52 AM EST Discussed the risks benefits and alternatives of the proposed operation which she and her understood and agreed to proceed. Source Note - Rhona Michel MD - 04/01/2024 11:30 AM EST Thoracic Pathology Review Patient name Bonny Pinto 1940 Date of Visit: 04/01/2024 Care Team .Rose Mary Collins MD Reason for Visit: Chief Complaint Patient presents with Post-op Follow-up Date of procedure: 03/22/2024 Type of procedure performed: [facility] procedure was performed: [facility] HPI Ms. Pinto is a 83 y.o. female who presents to our office to review their pathology results following navigational bronchoscopy/EBUS. 83-year-old woman otherwise relatively healthy former smoker smoked a pack per day starting at age 18 up until age 61 who initially had a CT scan of the chest done at [facility] [place] in November 2023 which showed a distinct [...] did have a core biopsy done at [facility] which showed squamous cell carcinoma on the [...] medical record, Coordinating care with other health critical care rn, and Discussion of surgical intervention and/or biopsy Rhona Michel MD on 04/01/2024 at 1:28 PM EST CC: Lul Cantor MD Asma Kareem, MD documented in this encounter Procedure Notes * Asuncion Noriega RN - 04/17/2024 4:33 PM EST Alexander removed as ordered, pressure dressing applied. Chest tubes intact to minus 20 sution. Left chest tube draining serosang. With very small air leak. Right also draining serosang. Without air leak. VSS. 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 Surgeon:Rhona Michel MD Asst.: Nathalie Elliott PA-C Anesthesia: Gen. Specimens: Mediastinal and hilar lymph nodes to pathology, right upper lobe wedge, left upper lobe segment, and completion right upper lobe to pathology EBL: 35 cc Indications for the operation: 83-year-old woman found ultimately to have 2 separate lung cancers 1in the right upper lobe adenocarcinoma and 1 in the left upper lobe squamous cell carcinoma. Mediastinal nodes on staging were negative and PET scan showed no distant. I discussed options of stereotactic radiation for both, surgery for both, a combination of the 2, or immunotherapy even. After a long discussion with her and her they decided to move forward with surgery for both. The patient understood the risks benefits and alternatives of the proposed operation and agreed to proceed. Operative findings: The pediatric bronchoscope was used and confirmed placement of the double-lumenendotracheal tube. A bronchoscopy was done down to the segmental level and no endobronchial lesionswere noted. On VATS exploration there were no chest wall lesions or diaphragm lesions. Frozen section margin for the left upper lobe segment was negative for malignancy. Frozen section of the right upper lobe wedge was close to that margin. Lymph nodes were small and anthracotic. Patient tolerated the procedure well. Operation in detail: The patient was brought to the operating room, placed supine on the operating room table, anesthesia monitoring devices were placed, and the patient was intubated with a double-lumen endotracheal tube. The pediatric bronchoscope was used to confirm placement of the double-lumentube and once in position a bronchoscopy was done(findings above). The patient was then turned on their right side and the left chest was widely prepped and draped inthe standard sterile fashion. A timeout was performed confirming the correct patient and procedure. After injection of local anesthetic, an 8 mm incision was made over the seventh intercostal space anterior axillary line and the chest was entered without difficulty. A robotic camera port was inserted into the chest and the robotic camera was inserted and the chest was explored (C findings above).The bedside executive assistant controlled the camera and placed several of the ports during this portion of the operation. CO2 insufflation was established and the camera was directed posteriorly and inferiorly. With the camera directed posteriorly by the bedside executive assistant, an 8 mm incision was made 20 cm posterior to the camera port and at the level of the mid lower lobe of the lung an 8 mm robotic port wasplaced under direct vision after injection of local anesthetic. 10 cm posterior to the camera port a 1 cm incision was made and after local anesthetic was given a robotic stapling port was placed under direct vision without difficulty. With the camera now directed anteriorly, a 1 cm incision was made by the bedside executive assistant 10 cm from the camera port and a robotic stapling port was placed under direct vision after injection of local anesthetic. Finally, between the anterior port and the camera port a 1 cm incision was made and a 12 mm air seal port was placed into the chest under direct vision just above the diaphragm. With all ports now in place, the robot was then docked to to the trochars and I began the operation sitting down at the console. From this point forward all instrument transfers, suctioning, and gauze cigars were inserted and removed by the bedside executive assistant. All specimens were also removed by the bedside executive assistant. We began the operation by exploring the left chest. There were some minor adhesions which were taken down first. We then explored the left upper lobe were able to identify the nodule with some relatively compliant lung surprisingly. We started with a mediastinal lymph node dissection retracting thelung superiorly and dissecting the inferior pulmonary ligament removing some level 8 and level 9 lymph nodes in the process. We then dissected the posterior hilum removing a level 7 lymph node and multiple level 10 lymph nodes in the process. Retracting the lung inferiorly and posteriorly we removed a level 5 and a level 6 lymph node. We then determined the parenchymal borders of what likely is the posterior apical segment of the left upper lobe and with the posterior branch of the artery dissected out planned the parenchymal resection. Multiple firings of the green load 45 mm robotic staplerwere fired to complete the segmentectomy excising the nodule completely. This was placed in an EndoCatch bag and sent for frozen section. Hemostasis was achieved, Vistaseal was applied, and the robot was undocked preparing for the next side. A 28 Upper Sorbian straight chest tube was placed and directed to lie posteriorly and up towards the apex tunneled between 2 of the incisions. This was done under direct vision and the chest tube was secured in place. Lung was brought up under direct vision and under water, no air leaks were noted in the lung easily approximated the chest wall. All ports were then removed, and the remaining incisions were closed with a deep 0 Vicryl suture followed by running 3-0 Vicryl suture and Dermabond glue. The chest tube was dressing connected to a Pleur- evac. The patient was prepared for the other side. The patient was then turned on their left side and the right chest was widely prepped and draped inthe standard sterile fashion. A timeout was performed confirming the correct patient and procedure. After injection of local anesthetic, an 8 mm incision was made over the seventh intercostal space anterior axillary line and the chest was entered without difficulty. A robotic camera port was inserted into the chest and the robotic camera was inserted and the chest was explored (C findings above).The bedside executive assistant controlled the camera and placed several of the ports during this portion of the operation. CO2 insufflation was established and the camera was directed posteriorly and inferiorly. With the camera directed posteriorly by the bedside executive assistant, an 8 mm incision was made 20 cm posterior to the camera port and at the level of the mid lower lobe of the lung an 8 mm robotic port wasplaced under direct vision after injection of local anesthetic. 10 cm posterior to the camera port a 1 cm incision was made and after local anesthetic was given a robotic stapling port was placed under direct vision without difficulty. With the camera now directed anteriorly, a 1 cm incision was made by the bedside executive assistant 10 cm from the camera port and a robotic stapling port was placed under direct vision after injection of local anesthetic. Finally, between the anterior port and the camera port a 1 cm incision was made and a 12 mm air seal port was placed into the chest under direct vision just above the diaphragm. With all ports now in place, the robot was then docked to to the trochars and I began the operation sitting down at the console. We began the operation by exploring the side of the chest. The parenchyma of the lung on the right side especially in the upper lobe around the nodule was significantly diseased and that correlates with the CT scan. We were able to identify the nodule within the lung and with multiple firings of a green load and black load 45 mm robotic stapler as well as the hand-held [place] stapler we were able to wedge out the nodule completely. This was placed in an Endo Catch bag and sent for frozen section. Findings listed above. We continued on with our lymph node dissection retracting the lung superiorly taking down the inferior pulmonary ligament removing some additional level 8 and level 9 lymph nodes. Retracting the lung anteriorly we dissected in the subcarinal space removing a level 7 lymph node. We then retracted the lung inferiorly dissecting in the right paratracheal space removing a right paratracheal lymph node in the process. We retracted the lung anteriorly again and dissected in the crotch between the bronchus intermedius and the bronchus to the upper lobe removing a sump lymphnode in the process. We then placed a Surgicel underneath the bronchus to the upper lobe to be retrieved later. Retracting the lung inferiorly we then dissected over the top of the bronchus defining its superior border as well as the posterior border of the truncus branch of the pulmonary artery after removing some additional lymph nodes. We then retracted the lung posteriorly and dissected the anterior hilum removing some additional lymph nodes and identifying the superior pulmonary vein with a small middle lobe vein to be spared. Retracting the lung inferiorly again we were able to identifythe main pulmonary artery underneath the superior vein as well as the anterior border of the truncus branch of the pulmonary artery. We then with some difficulty were able to encircle the truncus branch of the pulmonary artery and fibrovascular across it without complication. We dissected around the superior pulmonary vein sparing the middle lobe vein and placed a Silastic around it and fired a v ascular load across it without difficulty. We then dissected on the main pulmonary artery releasingthe vein from the main pulmonary artery as well as approaching the bronchus intermedius/bronchus tothe right upper lobe crotch. With some further dissection we were able to identify the Surgicel previously placed and pulled it through. A Silastic was then placed around the bronchus and a 30 mm green load robotic stapler was fired across the bronchus without difficulty. Further exploration did not reveal a posterior branch of the pulmonary artery so we began with our parenchymal completion. Anterior posterior multiple firings of the green load 45 mL robotic stapler were fired across the anterior and posterior fissures taking care to stay underneath the hilar structures previously taken. This the specimen completely. Our new staple line was marked with a Vicryl stitch. Hemostasiswas achieved, pro gel/Vistaseal were applied, and the robot was undocked. Finally, the completion lobe was placed in Endo Catch bag and sent to pathology for permanent section. A 28 Upper Sor[place] straight chest tube was placed and directed to lie posteriorly and up towards the apex tunneled between 2 of the incisions. This was done under direct vision and the chest tube was secured in place. Lung was brought up under direct vision and under water, no air leaks were noted in the lung easily approximated the chest wall. All ports were then removed, and the remaining incisionswere closed with a deep 0 Vicryl suture followed by running 3-0 Vicryl suture and Dermabond glue. The chest tube was dressing connected to a Pleur-evac. The patient was prepared for the other side. documented in this encounter Consult Notes * Maximo Valdovinos MD - 04/19/2024 11:27 PM EST Images from the original note were not included. [facility] CONSULT NOTE Please contact author [Maximo Valdovinos MD] via [employer]. Patient: Bonny Pinto Admission Date/Time: 04/17/2024 6:52 AM : 1940 [83 y.o.] Patient's PCP: Rose Mary Collins MD Attending Provider: Rhona Michel MD REQUESTING PHYSICIAN Rhona Michel MD REASON FOR CONSULT Atrial fibrillation with rapid ventricular response HISTORY OF PRESENT ILLNESS Ms. Pinto is an 83 year-old female with history of right breast cancer status post partial mastectomy and lymph node dissection, tobacco dependence in remission, left upper lobe squamous cell carcinoma, and right upper lobe adenocarcinoma POD #2 from robot assisted right upper lobectomy + left upper lobe posterior apical segmentectomy + mediastinal lymphadenectomy who presents with atrial fibrillation with rapid ventricular response. The patient initially underwent resection of her 2 separate lung cancers on 04/17/2024. The patient was recovering as expected after her surgery until the evening of 04/19/2024 when she was noted to become tachycardic to 160 bpm with a narrow complex irregularrhythm on telemetry. An ECG was immediately performed and confirmed atrial fibrillation with rapid ventricular response. The Hospitalist service was contacted for consultation. On evaluation, the patient was tachycardic with a heart rate ranging between 150-170 bpm with a moderately elevated blood pressure. The patient was minimally symptomatic from the tachycardia, noting some palpitations but no new chest pain or dyspnea. Metoprolol 5 mg IV every 5 minutes x 3 doses were administered with improvement of the patient's heart rate to 110-130 bpm while still maintaining a normal blood pressure and resolution of the patient's sensation of palpitations. An additional diltiazem 10 mg IV x 2 was administered in the initiation of a diltiazem drip with reasonable control ofthe patient's heart rate between 90-110 bpm. The patient denies any prior history of atrial fibrillation and does not recall ever being told shehas had an irregular heartbeat. She is unsure if she has had a recent echocardiogram reporting she had a normal test done at [facility] but does not remember undergoing a procedure similar to an echocardiogram. Tonight, the only change in her symptoms have been an increase in her right sided pleuritic pain with radiation to the back, which has been controlled with oxycodone 5 mg. Her right chest tube remains in place on water seal without evident air leak. Her left chest tube was removed earlier today. She has been out of bed during the day and walking in her room with her atrium in hand. She has had a good appetite but not yet moved her bowels. Functional status prior to presentation: Independent Review of Systems Constitutional - Denies fevers or chills. Denies unintended weight loss or gain. HEENT - Denies headache, vision changes, tinnitus, hearing loss, vocal hoarseness Respiratory - Reports pleurisy on the right. Denies shortness of breath, cough, wheezing Cardiovascular - Reports palpitations. Denies chest pain, orthopnea, paroxysmal nocturnal dyspnea, lower extremity edema Gastrointestinal - Reports constipation. Denies nausea, vomiting, diarrhea, abdominal pain, melena,hematochezia - Denies dysuria, hematuria, incontinence Musculoskeletal - Denies myalgias, arthralgias, joint stiffness Skin - Denies rashes or lesions Neurological - Denies focal weakness, numbness, or paresthesias Endocrine - Denies polydipsia, polyuria, heat or cold intolerance Hematological - Denies easy bruising or history of bleeding diathesis MEDICAL HISTORY Past Medical History Past Medical History: Diagnosis Date Anxiety situational Arthritis Blindness mac degeneration, b Breast cancer (CMS/HCC) right breast Cirrhosis (CMS/HCC) Colon cancer (CMS/HCC) History of transfusion WITH COLON SURGERY Joint pain Macular degeneration Past Surgical History Past Surgical History: Procedure Laterality Date BREAST LUMPECTOMY 10/14/1992 NO BP OR IV R ARM BREAST REDUCTION Left COLON SURGERY ECTOPIC SURGERY Social History The patient reports that she has quit smoking. Her smoking use included cigarettes. She started smoking about 25 years ago. She has never used smokeless tobacco. She reports current alcohol use of about 7.0 standard drinks of alcohol per week. She reports that she does not use drugs. Family History The patient's family history includes Breast cancer in her mother; Hypertension in her father; Pancreatic cancer in her mother; non-hodgkin lymphoma in her father. Allergies The patient is allergic to azithromycin and tylenol [acetaminophen]. Home Medications No current facility-administered medications on file prior to encounter. Current Outpatient Medications on File Prior to Encounter Medication Sig Dispense Refill Dupixent Pen 300 [...] by mouth 1 (one) time each day. OBJECTIVE Vitals Visit Vitals BP (!) 165/90 (BP Location: Left arm, Patient Position: Lying) Pulse 102 Temp 35.6 ??C (96 ??F) (Temporal) Resp 17 Temp (24hrs), Av.4 ??C (97.5 ??F), Min:35.6 ??C (96 ??F), Max:36.8 ??C (98.3 ??F) Body mass index is 28.9 kg/m??. No results found for: PTWT , PTHT Physical Examination General: Non-toxic appearing, talking in complete sentences, in no acute distress HEENT: Normocephalic, atraumatic. Pupils equal, round, reactive to light. Extra- ocular muscles intact. Sclera anicteric without injection. Conjunctivae pink, moist. Oropharyngeal exam deferred Neck: Supple. No cervical and supraclavicular lymphadenopathy. No thyromegaly. Chest: Right chest tube draining serosanguinous material currently on water seal without evidence of air leak. Rales throughout right lung field and in left base. No wheezes. Normal excursion. Cardiovascular: Irregularly irregular, tachycardic. 2/6 systolic crescendo- decrescendo murmur rightbase. JVP is 8 cm. No bruits. 2+ distal pulses. Abdomen: Soft, non-tender, non-distended. Normoactive bowel sounds. No hepatosplenomegaly. No masses. Skin: No rashes or lesions. Extremities: Warm, well perfused. 1+ pretibial edema bilaterally. Neuro: Alert and oriented x3. Moves extremities x4 freely. Sensation grossly intact. LAB RESULTS (most recent) HEMATOLOGY Lab Results Component Value Date WBC 17.5 (H) 04/19/2024 HGB 12.8 04/19/2024 HCT 38.3 04/19/2024 MCV 94.8 04/19/2024 PLT 156 04/19/2024 CHEMISTRY Lab Results Component Value Date GLUCOSE 114 (H) 04/19/2024 NA 138 04/19/2024 K 4.0 04/19/2024 CO2 30 04/19/2024 CL 102 04/19/2024 BUN 16 04/19/2024 CREATININE 0.48 (L) 04/19/2024 EGFR 95 04/19/2024 CALCIUM 9.3 04/19/2024 MG 1.9 04/19/2024 PHOS 2.7 04/18/2024 ANIONGAP 6 04/19/2024 Radiology XR Chest 1 View Final Result Similar appearance to 04/17/2024. -------- FINAL REPORT -------- Dictated By: Derek Khan Dictated Date: 04/18/2024 08:32 ET Assigned Physician: Derek Khan Reviewed and Electronically Signed By: Derek Khan Signed Date: 04/18/2024 08:33 ET Workstation ID: [id number] Transcribed By: Self Edit Transcribed Date: 04/18/2024 08:32 ET XR Chest 1 View Final Result FINDINGS/IMPRESSION: Postoperative changes of both lungs with bilateral chest tubes in place and trace left greater than right pneumothoraces. Borderline heart size with bilateral left greater than right lung opacities throughout. Scoliosis and degenerative changes. -------- FINAL REPORT -------- Dictated By: Mary Kay Fernandez Dictated Date: 04/17/2024 16:20 ET Assigned Physician: Mary Kay Fernandez Reviewed and Electronically Signed By: Mary Kay Fernandez Signed Date: 04/17/2024 16:21 ET Workstation ID: [id number] Transcribed By: Self Edit Transcribed Date: 04/17/2024 16:20 ET XR Chest 1 View (Results Pending) ASSESSMENT & PLAN 83 year-old female with history of right breast cancer status post partial mastectomy and lymph node dissection, tobacco dependence in remission, left upper lobe squamous cell carcinoma, and right upper lobe adenocarcinoma POD #2 from robot assisted right upper lobectomy + left upper lobe posteriorapical segmentectomy + mediastinal lymphadenectomy presents with atrial fibrillation with rapid ventricular response. Atrial fibrillation rapid ventricular response- The patient has developed new onset atrial fibrillation with a rapid ventricular response this evening. She denies any prior history of atrial fibrillation. She is currently rate controlled on a diltiazem infusion. We will monitor her on telemetry overnight. Laboratories were reviewed. Troponin waswithin normal limits. She has no gross electrolyte abnormalities. We will maintain her potassium and magnesium above 4 mmol/L and 2 mg/dL, respectively. If she does not convert back to normal sinus rhythm by morning, we will discuss with her thoracic surgery team will when she might be a candidate for anticoagulation for primary prevention of stroke. We will check an echocardiogram in the morningto evaluate her for structural heart disease. Left upper lobe squamous cell carcinoma, and right upper lobe adenocarcinoma- POD #2 from robot-assisted right upper lobectomy, left upper lobe posterior apical segmentectomy, mediastinal lymphadenectomy. The patient is recovering from the surgery as expected. Chest tube maintenance per thoracic surgery. Continue ambulation of the patient and pulmonary toilet. The patient has not had a bowel movement in the last 3 days. If the patient does not have a bowel movement in the morning would recommend a more aggressive bowel regimen. Prophylaxis- SCDs for DVT prophylaxis. CODE STATUS- FULL CODE. The patient's , Baltazar Pinto [phone], is her medical decision-maker in the event she is unable to make decisions for herself. Over 60 minutes were spent in the initial evaluation and coordination of care for this patient. documented in this encounter Plan of Treatment Upcoming Encounters Date Type Department Care Team (Late st Contact Info) Description 05/01/2024 11:15 AM EDT Office Visit Thoracic Surgery - [place] [address] [facility] [address] [place] [phone] Maximo Carias PA [address] [facility] [address] [place] [address] [place] [phone] Pending Results Name Type Priority Associated Diagnoses Date /Time Tissue exam Pathology and Cytology Routine 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) 04/17/2024 9:52 AM EST Scheduled Orders Name Type Priority Associated Diagnoses Orde r Schedule Tissue exam Pathology and Cytology Timed 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) Release Upon Ordering for 1 Occurrences starting 04/17/2024, 1 completed documented as of this encounter Procedures Procedure Name Priority Date/Time Associated Diagnosis Comments HOME O2 EVAL (DESATURATION SCREEN) Routine 04/22/2024 8:09 AM EDT XR CHEST 1 VIEW Routine 04/22/2024 5:38 AM EDT HOME O2 EVAL (DESATURATION SCREEN) Routine 04/21/2024 5:09 PM EDT PEP THERAPY Routine 04/21/2024 4:00 PM EDT TRANSTHORACIC ECHOCARDIOGRAM (TTE) COMPLETE W/ CONTRAST Routine 04/21/2024 12:11 PM EDT Paroxysmal atrial fibrillation (CMS/HCC) PEP THERAPY Routine 04/21/2024 12:00 PM EDT PEP THERAPY Routine 04/21/2024 8:01 AM EDT XR CHEST 1 VIEW Routine 04/21/2024 5:30 AM EDT PEP THERAPY Routine 04/20/2024 8:01 PM EST PEP THERAPY Routine 04/20/2024 4:00 PM EST XR CHEST 1 VIEW Routine 04/20/2024 12:14 PM EST PEP THERAPY Routine 04/20/2024 12:00 PM EST PEP THERAPY Routine 04/20/2024 8:01 AM EST XR CHEST 1 VIEW Routine 04/20/2024 5:49 AM EST TROPONIN I HIGH SENSITIVITY STAT 04/19/2024 11:24 PM EST COMPLETE BLOOD COUNT Routine 04/19/2024 11:24 PM EST MAGNESIUM STAT 04/19/2024 11:24 PM EST BASIC METABOLIC PANEL STAT 04/19/2024 11:24 PM EST EXTRA TUBES Routine 04/19/2024 11:19 PM EST LT BLUE - NA CITRATE Routine 04/19/2024 11:19 PM EST ECG 12-LEAD Routine 04/19/2024 10:23 PM EST PEP THERAPY Routine 04/19/2024 8:01 PM EST PEP THERAPY Routine 04/19/2024 4:00 PM EST PEP THERAPY Routine 04/19/2024 12:01 PM EST PEP THERAPY Routine 04/19/2024 8:03 AM EST PEP THERAPY Routine 04/18/2024 8:01 PM EST PEP THERAPY Routine 04/18/2024 4:01 PM EST PEP THERAPY Routine 04/18/2024 12:02 PM EST PEP THERAPY Routine 04/18/2024 8:53 AM EST PEP THERAPY Routine 04/18/2024 8:53 AM EST PEP THERAPY Routine 04/18/2024 8:53 AM EST PEP THERAPY Routine 04/18/2024 8:53 AM EST XR CHEST 1 VIEW STAT 04/18/2024 6:18 AM EST COMPLETE BLOOD COUNT Routine 04/18/2024 6:11 AM EST PHOSPHORUS Routine 04/18/2024 6:11 AM EST MAGNESIUM Routine 04/18/2024 6:11 AM EST BASIC METABOLIC PANEL Routine 04/18/2024 6:11 AM EST COMPLETE BLOOD COUNT STAT 04/17/2024 3:50 PM EST PHOSPHORUS STAT 04/17/2024 3:50 PM EST MAGNESIUM STAT 04/17/2024 3:50 PM EST BASIC METABOLIC PANEL STAT 04/17/2024 3:50 PM EST XR CHEST 1 VIEW STAT 04/17/2024 3:[address] THORACOSCOPY WITH THERAPEUTIC WEDGE RESECTION INITIAL UNILATERAL 04/17/2024 8:18 AM EST 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) Case Notes ON-Q Special Needs ON-Q CT REMOVAL OF LUNG OTHER THAN PNEUMONECTOMY SINGLE LOBE 04/17/2024 8:18 AM EST 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) Case Notes ON-Q Special Needs ON-Q CT THORACOSCOPY SURGICAL WITH REMOVAL OF A SINGLE LUNG SEGMENT 04/17/2024 8:18 AM EST 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) Case Notes ON-Q Special Needs ON-Q CT THORACOSCOPY SURGICAL W MEDIASTINAL & REGIONAL LYMPHADENECTOMY 04/17/2024 8:18 AM EST 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) Case Notes ON-Q Special Needs ON-Q CT THORACOSCOPY W DX WEDGE RESECTION F/B ANATOMIC LUNG RESECTION 04/17/2024 8:18 AM EST 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) Case Notes ON-Q Special Needs ON-Q CT THORACOSCOPY SURGICAL WITH LOBECTOMY 04/17/2024 8:18 AM EST 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) Case Notes ON-Q Special Needs ON-Q PREPARE RBC Routine 04/17/2024 8:13 AM EST documented in this encounter Results * XR Chest 1 View (04/22/2024 5:38 AM EDT) Anatomical Region Laterality Modality Body Radiographic Kendra ging 04/22/2024 7:53 AM EDT Impressions 04/22/2024 7:57 AM EDT Postsurgical changes as above. Scattered areas of atelectasis and/or infiltrates bilaterally. No change since 04/21/2024. Code 89754 -------- FINAL REPORT -------- Dictated By: Kalpesh Brody Dictated Date: 04/22/2024 07:53 ET Assigned Physician: Kalpesh Brody Reviewed and Electronically Signed By: Kalpesh Brody Signed Date: 04/22/2024 07:57 ET Workstation ID: [id number] Transcribed By: Self Edit Transcribed Date: 04/22/2024 07:53 ET Narrative 04/22/2024 7:57 AM EDT HISTORY: The patient is an 83-year-old female for follow-up of right upper lobe wedge resection and completion lobectomy, as well as left upper lobe posterior apical segmentectomy, for lung carcinoma. FINDINGS: Sitting AP portable radiograph of the chest again demonstrates surgical sutures in the right and left mid and upper lung, as also seen on the prior study performed 04/21/2024. There are degenerative changes and moderate dextroscoliosis of the thoracic spine, stable. Again seen is rightward deviation of the trachea, new since the CT scan performed 03/13/2024 and likely consequent to right upper lobectomy. Scattered areas of atelectasis and/or infiltrates bilaterally are unchanged. Procedure Note Kalpesh Brody MD - 04/22/2024 HISTORY: The patient is an 83-year-old female for follow-up of right upperlobe wedge resection and completion lobectomy, as well as left upper lobeposterior apical segmentectomy, for lung carcinoma. FINDINGS: Sitting AP portable radiograph of the chest again demonstratessurgical sutures in the right and left mid and upper lung, as also seen onthe prior study performed 04/21/2024. There are degenerative changes andmoderate dextroscoliosis of the thoracic spine, stable. Again seen isrightward deviation of the trachea, new since the CT scan performed03/13/2024 and likely consequent to right upper lobectomy. Scattered areasof atelectasis and/or infiltrates bilaterally are unchanged. IMPRESSION: Postsurgical changes as above. Scattered areas of atelectasis and/orinfiltrates bilaterally. No change since 04/21/2024. Code 27265 -------- FINAL REPORT -------- Dictated By: Kalpesh Brody Dictated Date: 04/22/2024 07:53 ET Assigned Physician: Kalpesh Brody Reviewed and Electronically Signed By: Kalpesh Brody Signed Date: 04/22/2024 07:57 ET Workstation ID: [id number] Transcribed By: Self Edit Transcribed Date: 04/22/2024 07:53 ET us Pastora Adams GROUP PRESIDENT IMG XR PROCEDURES Final Res ult * (ABNORMAL) TRANSTHORACIC ECHOCARDIOGRAM (TTE) COMPLETE W/ CONTRAST (04/21/2024 12:11 PM EDT) Left Atrium Minor Opdyke 6.2 cm CV PACS Left Atrium Major Opdyke 6.5 cm CV PACS LA Area Sys (A2C) 21 cm2 CV PACS LA Area Sys (A4C) 26 cm2 CV PACS LA Volume (BP) 73 mL CV PACS RA Area 18.8 cm2 CV PACS RA 2D Volume 49 mL CV PACS AV Mean Gradient 3 mmHg CV PACS Ao VTI 22.2 cm CV PACS AV Peak Cole 1.1 m/s CV PACS AV Peak Gradient 5 mmHg CV PACS AV Area Continuity Equation 2.2 cm2 CV PACS AV Area Peak Velocity 2.2 cm2 CV PACS Aortic Sinus Valsalva 3.2 cm CV PACS Ascending Aorta 3.2 cm CV PACS IVC Proximal 1.1 cm CV PACS IVSD 1.1(A) 0.6 - 0.9 cm CV PACS LVIDD 4.1 3.8 - 5.2 cm CV PACS LVIDS 2.5 2.2 - 3.5 cm CV PACS LVOT Diameter 1.9 cm CV PACS LVOT Mean Cole 0.6 m/s CV PACS LVOT Mean Grad 2 mmHg CV PACS LVOT Peak VTI 17.2 cm CV PACS LVOT Peak Cole 0.9 m/s CV PACS LVOT Peak Gradient 3 mmHg CV PACS LVPWD 1.1(A) 0.6 - 0.9 cm CV PACS MV E' Tissue Velocity Lateral 11 cm/s CV PACS MV E' Tissue Velocity Septal 7 cm/s CV PACS LVOT Area 2.8 cm2 CV PACS LVOT Stroke Volume 49 mL CV PACS MV Deceleration [place] 6.5 m/s2 CV PACS E Wave Deceleration Time 156 119 - 242 ms CV PACS MV PHT 46 ms CV PACS MV Peak A Cole 1.05 m/s CV PACS MV Peak E Cole 1.02 m/s CV PACS MV Area PHT 4.8 cm2 CV PACS PV Acceleration Time 116 ms CV PACS RV S' 12 cm/s CV PACS TAPSE 17 mm CV PACS TR Peak Velocity 2.86 m/s CV PACS TR Peak Gradient 33 mmHg CV PACS E/E' Ratio Septal 15 CV PACS E/E' Ratio Averaged 12 CV PACS LVOT Stroke Index 28 mL/m2 CV PACS Relative Wall Thickness ratio 0.54 CV PACS LVOT:AV VTI Index 0.77 CV PACS FS 39 % CV PACS LV Mass 2D 151 g CV PACS Ascending Aorta Index 1.85 cm/m2 CV PACS LVOT flow 170 mL/s CV PACS RA 2D Volume Index 28 mL/m2 CV PACS VAUGHN Index (VTI) 1.27 cm2/m2 CV PACS VAUGHN Index (Pk Cole) 1.27 cm2/m2 CV PACS LVIDD Index 2.37 cm/m2 CV PACS LVIDS Index 1.45 cm/m2 CV PACS AV Velocity Ratio 0.82 CV PACS E/A Ratio 1.0 CV PACS E/E' Ratio Lateral 9 CV PACS LA Volume Index (BP) 42 mL/m2 CV PACS LV Mass Index 2D 87 g/m2 CV PACS BSA 1.77 m2 CV PACS Right Ventricular Peak Systolic Pressure 36 mmHg CV PACS Est. RA Pressure 3 mmHg CV PACS Anatomical Region Laterality Modality Ultrasound Narrative 04/21/2024 12:37 PM EDT Left ventricle cavity size is normal. There is mild concentric hypertrophy. Systolic function is normal with an ejection fraction of 55-60%. There are no regional LV wall motion abnormalities. Indeterminate diastolic function. Moderate tricuspid regurgitation, mild pulmonary hypertension There is no prior study available for comparison Left Ventricle Left ventricle cavity size is normal. There is mild concentric hypertrophy. Systolic function is normal with an ejection fraction of 55-60%. There are no regional LV wall motion abnormalities. Indeterminate diastolic function. Right Ventricle Right ventricle not well visualized for assessment of size but appears enlarged. Systolic function is normal. Left Atrium Left atrium cavity is moderately dilated. Right Atrium Right atrium cavity is mildly dilated. IVC/SVC RA pressures is estimated to be 3 mmHg (IVC diameter <21 mm and decreases >50% during inspiration). Mitral Valve The leaflets are thickened. There is annular calcification. There is mild regurgitation. There is no evidence of mitral valve stenosis. Tricuspid Valve Tricuspid valve structure is normal. There is moderate regurgitation. The right ventricular systolic pressure is elevated at 36 mmHg. Aortic Valve The aortic valve is trileaflet. Thickened aortic valve leaflets. There is no regurgitation or stenosis. Pulmonic Valve Pulmonic valve structure is normal. There is trace pulmonic valve regurgitation. Ascending Aorta The aorta appears normal in size. Transverse aorta not well visualized. Pericardium Pericardium appears normal. There is no pericardial effusion. Study Details Overall the study quality was technically difficult. Definity contrast was given to enhance imaging. us Maximo Valdovinos MD CV ECHO PROCEDURES Final Re sult * XR Chest 1 View (04/21/2024 5:30 AM EDT) Anatomical Region Laterality Modality Body Radiographic Kendra ging 04/21/2024 6:50 AM EDT Impressions 04/21/2024 6:52 AM EDT Postsurgical changes bilaterally. Extensive lung disease. Probably stable extrapleural gas collections -------- FINAL REPORT -------- Dictated By: Kyle King Dictated Date: 04/21/2024 06:50 ET Assigned Physician: Kyle King Reviewed and Electronically Signed By: Kyle King Signed Date: 04/21/2024 06:52 ET Workstation ID: [id number] Transcribed By: Self Edit Transcribed Date: 04/21/2024 06:50 ET Narrative 04/21/2024 6:52 AM EDT EXAMINATION: CHEST CLINICAL INFORMATION: Status post right wedge with completion lobectomy and left upper lobe segmentectomy COMPARISON: 04/20/2024 TECHNIQUE: Frontal upright portable view of the chest FINDINGS: Devices overlie the patient. The trachea is deviated to the right. No definite change in cardiac size. The tobias are not well evaluated. There are metallic sutures bilaterally. Scattered parenchymal opacities similar to previous. There is extrapleural gas. The amount of extrapleural gas on the left is unchanged. I suspect some right apical extrapleural gas although this is not definite. No suspicious interval change. Procedure Note Kyle King MD - 04/21/2024 EXAMINATION: CHEST CLINICAL INFORMATION: Status post right wedge with completion lobectomy and left upper lobesegmentectomy COMPARISON: 04/20/2024 TECHNIQUE: Frontal upright portable view of the chest FINDINGS: Devices overlie the patient. The trachea is deviated to the right. Nodefinite change in cardiac size. The tobias are not well evaluated. Thereare metallic sutures bilaterally. Scattered parenchymal opacities similar to previous. There is extrapleural gas. The amount of extrapleural gas on the left isunchanged. I suspect some right apical extrapleural gas although this isnot definite. No suspicious interval change. IMPRESSION: Postsurgical changes bilaterally. Extensive lung disease. Probably stable extrapleural gas collections -------- FINAL REPORT -------- Dictated By: Kyle King Dictated Date: 04/21/2024 06:50 ET Assigned Physician: Kyle King Reviewed and Electronically Signed By: Kyle King Signed Date: 04/21/2024 06:52 ET Workstation ID: [id number] Transcribed By: Self Edit Transcribed Date: 04/21/2024 06:50 ET Pastora Adams GROUP PRESIDENT IMG XR PROCEDURES Final Res ult * XR Chest 1 View (04/20/2024 12:14 PM EST) Anatomical Region Laterality Modality Body Radiographic Kendra ging 04/20/2024 12:3 0 PM EST Impressions 04/20/2024 12:33 PM EST Interval removal of right chest tube. Postoperative changes. No interval increase in extrapleural gas on the left. No convincing change in the right apex following chest tube removal -------- FINAL REPORT -------- Dictated By: Klye King Dictated Date: 04/20/2024 12:30 ET Assigned Physician: Kyle King Reviewed and Electronically Signed By: Kyle King Signed Date: 04/20/2024 12:33 ET Workstation ID: [id number] Transcribed By: Self Edit Transcribed Date: 04/20/2024 12:30 ET Narrative 04/20/2024 12:33 PM EST EXAMINATION: CHEST CLINICAL INFORMATION: Evaluate pneumothorax. Previous surgery COMPARISON: Earlier same day TECHNIQUE: Sitting frontal portable view of the chest FINDINGS: Devices overlie the patient. The right chest tube has been removed. No definite change in the mediastinum. The tobias are not well evaluated but appear similar. There are metallic sutures present bilaterally. Scattered opacities in the remaining lungs. Overall orientation on the left mass slightly improved. Aeration on the right appear similar. There is an extrapleural gas collection on the left. The pleural reflection is at the level of the posterior left fourth rib. No interval increase on the left. No discrete pleural line in the right apex. There is some opacification which I suspect is related to the parenchyma adjacent to the visceral pleura of the remaining right upper lung. A small right extrapleural gas collection could be present but is not definite. Procedure Note Kyle King MD - 04/20/2024 EXAMINATION: CHEST CLINICAL INFORMATION: Evaluate pneumothorax. Previous surgery COMPARISON: Earlier same day TECHNIQUE: Sitting frontal portable view of the chest FINDINGS: Devices overlie the patient. The right chest tube has been removed. No definite change in the mediastinum. The tobias are not well evaluated butappear similar. There are metallic sutures present bilaterally. Scattered opacities in the remaining lungs. Overall orientation on theleft mass slightly improved. Aeration on the right appear similar. There is an extrapleural gas collection on the left. The pleuralreflection is at the level of the posterior left fourth rib. No intervalincrease on the left. No discrete pleural line in the right apex. There is some opacificationwhich I suspect is related to the parenchyma adjacent to the visceralpleura of the remaining right upper lung. A small right extrapleural gascollection could be present but is not definite. IMPRESSION: Interval removal of right chest tube. Postoperative changes. No intervalincrease in extrapleural gas on the left. No convincing change in the right apex following chest tube removal -------- FINAL REPORT -------- Dictated By: Kyle King Dictated Date: 04/20/2024 12:30 ET Assigned Physician: Kyle King Reviewed and Electronically Signed By: Kyle King Signed Date: 04/20/2024 12:33 ET Workstation ID: [id number] Transcribed By: Self Edit Transcribed Date: 04/20/2024 12:30 ET us Mxaimo Valdovinos MD IMG XR PROCEDURES Final Res ult * XR Chest 1 View (04/20/2024 5:49 AM EST) Anatomical Region Laterality Modality Body Radiographic Kendra ging 04/20/2024 6:42 AM EST Addenda Addendum by Kyle King MD on 04/20/2024 6:55 AM EST This critical result was telephoned to the [facility] at approximately 0655 hours on 04/20/2024. -------- ADDENDUM -------- Dictated By: Kyle King Dictated Date: 04/20/2024 06:55 ET Assigned Physician: Kyle King Reviewed and Electronically Signed By: Kyle King Signed Date: 04/20/2024 06:55 ET Workstation ID: [id number] Transcribed By: Self Edit Transcribed Date: 04/20/2024 06:55 ET Impressions 04/20/2024 6:47 AM EST Interval removal of left chest tube with some extrapleural gas on the left. Follow-up recommended to assure stability or resolution. Right chest tube in place. Extensive parenchymal opacities Bilateral postsurgical changes Secure chat sent [phone] -------- FINAL REPORT -------- Dictated By: Kyle King Dictated Date: 04/20/2024 06:42 ET Assigned Physician: Kyle King Reviewed and Electronically Signed By: Kyle King Signed Date: 04/20/2024 06:47 ET Workstation ID: [id number] Transcribed By: Self Edit Transcribed Date: 04/20/2024 06:42 ET Narrative 04/20/2024 6:47 AM EST EXAMINATION: CHEST CLINICAL INFORMATION: Post right wedge lung resection with completion lobectomy and left upper lobe post apical segmentectomy COMPARISON: Frontal view 04/18/2024 TECHNIQUE: Frontal portable upright view of the chest FINDINGS: Multiple devices overlie the patient. The left chest tube is no longer demonstrated. The right chest tube tip projects in the medial right apex. No definite change in cardiac size. The tobias are obscured. There are diffuse lung opacities. There are metallic sutures. No definite new parenchymal abnormality. There is extrapleural gas in the left apex. This represents interval change. The pleural reflection on the left is between the posterior left third and fourth ribs. I suspect at least a small amount of extrapleural gas on the right. This is likely unchanged. Scoliosis with degenerative change. Chest wall gas on the right. Procedure Note Kyle King MD - 04/20/2024 EXAMINATION: CHEST CLINICAL INFORMATION: Post right wedge lung resection with completion lobectomy and left upperlobe post apical segmentectomy COMPARISON: Frontal view 04/18/2024 TECHNIQUE: Frontal portable upright view of the chest FINDINGS: Multiple devices overlie the patient. The left chest tube is no longerdemonstrated. The right chest tube tip projects in the medial rightapex. No definite change in cardiac size. The tobias are obscured. There arediffuse lung opacities. There are metallic sutures. No definite new parenchymal abnormality. There is extrapleural gas in the left apex. This represents intervalchange. The pleural reflection on the left is between the posterior leftthird and fourth ribs. I suspect at least a small amount of extrapleural gas on the right. Thisis likely unchanged. Scoliosis with degenerative change. Chest wall gas on the right. IMPRESSION: Interval removal of left chest tube with some extrapleural gas on theleft. Follow-up recommended to assure stability or resolution. Right chest tube in place. Extensive parenchymal opacities Bilateral postsurgical changes Secure chat sent [phone] -------- FINAL REPORT -------- Dictated By: Kyle King Dictated Date: 04/20/2024 06:42 ET Assigned Physician: Kyle King Reviewed and Electronically Signed By: Kyle King Signed Date: 04/20/2024 06:47 ET Workstation ID: [id number] Transcribed By: Self Edit Transcribed Date: 04/20/2024 06:42 ET Pastora Adams GROUP PRESIDENT IMG XR PROCEDURES Edited Re sult - Final * Magnesium (04/19/2024 11:24 PM EST) Magnesium 1.9 1.9 - 2.6 mg/dL LAB CHEMISTRY METHOD 04/20/2024 12:13 AM EST [facility] Blood Venous blood specimen / Unknown Venipuncture / Unknown 04/19/2024 11:24 PM EST 04/19/2024 11:38 PM EST Maximo Valdovinos MD LAB BLOOD ORDERABLES Final Result [facility] [address] [place] [address], [place] [phone] * (ABNORMAL) Complete blood count (04/19/2024 11:24 PM EST) [facility] WBC 17.5(H) 4.8 - 10.8 K/mcL LAB HEMETOLOGY METHOD 04/19/2024 11:50 PM [facility] RBC 4.00 3.80 - 4.80 M/mcL LAB HEMETOLOGY METHOD 04/19/2024 11:50 PM [facility] Hemoglobin 12.8 11.5 - 16.0 g/dL LAB HEMETOLOGY METHOD 04/19/2024 11:50 PM [facility] Hematocrit 38.3 35.0 - 47.0 % LAB HEMETOLOGY METHOD 04/19/2024 11:50 PM [facility] MCV 94.8 79.0 - 98.0 FL LAB HEMETOLOGY METHOD 04/19/2024 11:50 PM [facility] MCH 31.7 27.0 - 32.0 pcg LAB HEMETOLOGY METHOD 04/19/2024 11:50 PM [facility] MCHC 33.4 32.0 - 37.0 g/dL LAB HEMETOLOGY METHOD 04/19/2024 11:50 PM [facility] RDW 12.8 11.0 - 15.0 % LAB HEMETOLOGY METHOD 04/19/2024 11:50 PM [facility] Platelets 156 130 - 400 K/mcL LAB HEMETOLOGY METHOD 04/19/2024 11:50 PM [facility] MPV 11.2(H) 7.0 - 11.0 FL LAB HEMETOLOGY METHOD 04/19/2024 11:50 PM [facility] NRBC 0.0 <1.0 % LAB HEMETOLOGY METHOD 04/19/2024 11:50 PM [facility] NRBC Absolute 0.00 <0.10 K/[facility] LAB HEMETOLOGY METHOD 04/19/2024 11:50 PM EST [facility] Blood Venous blood specimen / Unknown Venipuncture / Unknown 04/19/2024 11:24 PM EST 04/19/2024 11:38 PM EST us Maximo Valdovinos MD LAB BLOOD ORDERABLES Final Result Performing Organization Address [facility] Co de Phone Number [facility] [address] [place] [address], [place] [phone] * Troponin I high sensitivity (04/19/2024 11:24 PM EST) [facility] High Sensitivity Troponin I 28 <=54 ng/L LAB CHEMISTRY METHOD 04/20/2024 12:16 AM EST [facility] Blood Venous blood specimen / Unknown Venipuncture / Unknown 04/19/2024 11:24 PM EST 04/19/2024 11:38 PM EST Narrative [facility] - 04/20/2024 12:16 AM EST High levels of biotin in samples may falsely decrease hsTroponin values. ??Use caution when interpreting hsTroponin results in patients taking biotin who exhibit renal impairment (eGFR <60) or in patients taking more than 20 mg/day of biotin. us Maximo Valdovinos MD LAB BLOOD ORDERABLES Final Result Performing Organization Address [facility] de Phone Number [facility] [address] [place] [address], [place] [phone] * (ABNORMAL) Basic metabolic panel (04/19/2024 11:24 PM EST) [facility] Sodium 138 133 - 145 mmol/L LAB CHEMISTRY METHOD 04/20/2024 12:13 AM EST [facility] Potassium 4.0 3.5 - 5.5 mmol/L LAB CHEMISTRY METHOD 04/20/2024 12:13 AM EST [facility] Chloride 102 96 - 110 mmol/L LAB CHEMISTRY METHOD 04/20/2024 12:13 AM [facility] CO2 30 21 - 32 mmol/L LAB CHEMISTRY METHOD 04/20/2024 12:13 AM [facility] Anion Gap 6 3 - 11 LAB CHEMISTRY METHOD 04/20/2024 12:13 AM [facility] Glucose 114(H) 70 - 100 mg/dL LAB CHEMISTRY METHOD 04/20/2024 12:13 AM [facility] BUN 16 5 - 25 mg/dL LAB CHEMISTRY METHOD 04/20/2024 12:13 AM [facility] Creatinine 0.48(L) 0.50 - 1.10 mg/dL LAB CHEMISTRY METHOD 04/20/2024 12:13 AM [facility] eGFR 95 >=60 mL/min/1. 73m2 LAB CHEMISTRY METHOD 04/20/2024 12:13 AM [facility] Comment:Calculation based on the??Chronic Kidney Disease Epidemiology Collaboration (CKD-EPI) equation refit??without adjustment for race. BUN/Creatinine Ratio 33.3 LAB CHEMISTRY METHOD 04/20/2024 12:13 AM [facility] Calcium 9.3 8.5 - 10.5 mg/dL LAB CHEMISTRY METHOD 04/20/2024 12:13 AM [facility] Blood Venous blood specimen / Unknown Venipuncture / Unknown 04/19/2024 11:24 PM EST 04/19/2024 11:38 PM EST us Maximo Valdovinos MD LAB BLOOD ORDERABLES Final Result [facility] [address] [place] [address], * Light blue tube (04/19/2024 11:19 PM EST) Extra Tube Hold for add-ons. 04/20/2024 1:05 AM EST [facility] Comment:Auto resulted. Blood Venous blood specimen / Unknown Venipuncture / Unknown 04/19/2024 11:19 PM EST 04/19/2024 11:38 PM EST Rhona Michel MD LAB BLOOD ORDERABLES Final Resul t Performing Organization Address [facility] Co de Phone Number [facility] ([facility] [address] [place] [address], [place] [phone] * ECG 12 lead (04/19/2024 10:23 PM EST) Ventricular Rate ECG 171 BPM [facility] Atrial Rate 178 BPM [facility] QRS Duration 90 ms GEMUSE Q-T Interval 276 ms GEMUSE QTc 465 ms GEMUSE R Opdyke 47 degrees GEMUSE T Opdyke -79 degrees GEMUSE ECG Interpretation Critical Test Result: High HR Atrial fibrillation with rapid ventricular response with premature ventricular or aberrantly conducted complexes Marked ST abnormality, possible anterolateral subendocardial injury Abnormal ECG When compared with ECG of 13-MAR-2024 11:29, Atrial fibrillation with rapid ventricular response has replaced Normal sinus rhythm ST segment depression is now Present Confirmed by COLT URENA ([id number]) on 04/20/2024 12:40:59 PM G[facility] 04/19/2024 10:2 3 PM EST 04/20/2024 12:40 PM EST Maximo Valdovinos MD ECG ORDERABLES Final Resul t Performing Organization Address [facility]/ZIP Co de Phone Number GEM[facility] * XR Chest 1 View (04/18/2024 6:18 AM EST) Anatomical Region Laterality Modality Body Radiographic Kendra ging 04/18/2024 8:32 AM EST Impressions 04/18/2024 8:33 AM EST Similar appearance to 04/17/2024. -------- FINAL REPORT -------- Dictated By: Derek Khan Dictated Date: 04/18/2024 08:32 ET Assigned Physician: Derek Khan Reviewed and Electronically Signed By: Derek Khan Signed Date: 04/18/2024 08:33 ET Workstation ID: [id number] Transcribed By: Self Edit Transcribed Date: 04/18/2024 08:32 ET Narrative 04/18/2024 8:33 AM EST PROCEDURE: AP chest radiograph. HISTORY: s/p SARAH segmentectomy and RUL wedge with completion lobectomy. COMPARISON: 04/17/2024. FINDINGS: Unchanged biapical chest tubes. ??Staple lines project over the mid right lung and upper left lung. ??Patchy heterogeneous multifocal bilateral pulmonary opacities are unchanged. ??Stable cardiomediastinal contours. ??Persistent small left apical pneumothorax. ??No definite right pneumothorax. ??No visible pleural effusion. ??Moderate S-shaped thoracolumbar scoliosis. Procedure Note Derek Khan MD - 04/18/2024 PROCEDURE: AP chest radiograph. HISTORY: s/p SARAH segmentectomy and RUL wedge with completion lobectomy. COMPARISON: 04/17/2024. FINDINGS: Unchanged biapical chest tubes. Staple lines project over the mid rightlung and upper left lung. Patchy heterogeneous multifocal bilateralpulmonary opacities are unchanged. Stable cardiomediastinal contours.Persistent small left apical pneumothorax. No definite rightpneumothorax. No visible pleural effusion. Moderate S-shapedthoracolumbar scoliosis. IMPRESSION: Similar appearance to 04/17/2024. -------- FINAL REPORT -------- Dictated By: Derek Khan Dictated Date: 04/18/2024 08:32 ET Assigned Physician: Derek Khan Reviewed and Electronically Signed By: Derek Khan Signed Date: 04/18/2024 08:33 ET Workstation ID: [id number] Transcribed By: Self Edit Transcribed Date: 04/18/2024 08:32 ET us Pastora Adams GROUP PRESIDENT IMG XR PROCEDURES Final Res ult * Magnesium (04/18/2024 6:11 AM EST) [facility] Magnesium 1.9 1.9 - 2.6 mg/dL LAB CHEMISTRY METHOD 04/18/2024 7:48 AM EST [facility] Blood Venous blood specimen / Unknown Venipuncture / Unknown 04/18/2024 6:11 AM EST 04/18/2024 6:59 AM EST us Pastora Adams GROUP PRESIDENT LAB BLOOD ORDERABLES Final Result Performing Organization Address [facility]/ZIP Co de Phone Number [facility] [address] [place] [address], [place] [phone] * Phosphorus (04/18/2024 6:11 AM EST) [facility] Phosphorus 2.7 2.5 - 4.5 mg/dL LAB CHEMISTRY METHOD 04/18/2024 7:48 AM EST [facility] Blood Venous blood specimen / Unknown Venipuncture / Unknown 04/18/2024 6:11 AM EST 04/18/2024 6:59 AM EST us Pastora Adams GROUP PRESIDENT LAB BLOOD ORDERABLES Final Result Performing Organization Address [facility] Co de Phone Number [facility] [address] [place] [address], [place] [phone] * (ABNORMAL) Basic metabolic panel (04/18/2024 6:11 AM EST) [facility] Sodium 137 133 - 145 mmol/L LAB CHEMISTRY METHOD 04/18/2024 7:48 AM EST [facility] Potassium 4.3 3.5 - 5.5 mmol/L LAB CHEMISTRY METHOD 04/18/2024 7:48 AM EST [facility] Chloride 101 96 - 110 mmol/L LAB CHEMISTRY METHOD 04/18/2024 7:48 AM EST [facility] CO2 28 21 - 32 mmol/L LAB CHEMISTRY METHOD 04/18/2024 7:48 AM EST [facility] Anion Gap 8 3 - 11 LAB CHEMISTRY METHOD 04/18/2024 7:48 AM EST [facility] Glucose 115(H) 70 - 100 mg/dL LAB CHEMISTRY METHOD 04/18/2024 7:48 AM [facility] BUN 15 5 - 25 mg/dL LAB CHEMISTRY METHOD 04/18/2024 7:48 AM [facility] Creatinine 0.52 0.50 - 1.10 mg/dL LAB CHEMISTRY METHOD 04/18/2024 7:48 AM [facility] eGFR 93 >=60 mL/min/1. 73m2 LAB CHEMISTRY METHOD 04/18/2024 7:48 AM [facility] Comment:Calculation based on the??Chronic Kidney Disease Epidemiology Collaboration (CKD-EPI) equation refit??without adjustment for race. BUN/Creatinine Ratio 28.8 LAB CHEMISTRY METHOD 04/18/2024 7:48 AM EST [facility] Calcium 8.6 8.5 - 10.5 mg/dL LAB CHEMISTRY METHOD 04/18/2024 7:48 AM [facility] Blood Venous blood specimen / Unknown Venipuncture / Unknown 04/18/2024 6:11 AM EST 04/18/2024 6:59 AM EST Pastora Adams NP LAB BLOOD ORDERABLES Final Result [facility] [address] [place] [address], * (ABNORMAL) Complete blood count (04/18/2024 6:11 AM EST) WBC 16.3(H) 4.8 - 10.8 K/mcL LAB HEMETOLOGY METHOD 04/18/2024 7:59 AM EST [facility] RBC 3.50(L) 3.80 - 4.80 M/mcL LAB HEMETOLOGY METHOD 04/18/2024 7:59 AM [facility] Hemoglobin 11.2(L) 11.5 - 16.0 g/dL LAB HEMETOLOGY METHOD 04/18/2024 7:59 AM [facility] Hematocrit 33.3(L) 35.0 - 47.0 % LAB HEMETOLOGY METHOD 04/18/2024 7:59 AM [facility] MCV 95.7 79.0 - 98.0 FL LAB HEMETOLOGY METHOD 04/18/2024 7:59 AM [facility] MCH 32.2(H) 27.0 - 32.0 pcg LAB HEMETOLOGY METHOD 04/18/2024 7:59 AM [facility] MCHC 33.6 32.0 - 37.0 g/dL LAB HEMETOLOGY METHOD 04/18/2024 7:59 AM [facility] RDW 12.7 11.0 - 15.0 % LAB HEMETOLOGY METHOD 04/18/2024 7:59 AM [facility] Platelets 140 130 - 400 K/mcL LAB HEMETOLOGY METHOD 04/18/2024 7:59 AM [facility] Comment:Platelets appear rubin quate but clumped, Occasional plt clumps seen but count appears accurate MPV 11.1(H) 7.0 - 11.0 FL LAB HEMETOLOGY METHOD 04/18/2024 7:59 AM [facility] NRBC 0.0 <1.0 % LAB HEMETOLOGY METHOD 04/18/2024 7:59 AM [facility] NRBC Absolute 0.00 <0.10 K/mcL LAB HEMETOLOGY METHOD 04/18/2024 7:59 AM [facility] Blood Venous blood specimen / Unknown 04/18/2024 6:11 AM EST 04/18/2024 6:59 AM EST us Pastora Adams GROUP PRESIDENT LAB BLOOD ORDERABLES Final Result Performing Organization Address [facility]/ZIP Co de Phone Number [facility] [address] [place] [address], * (ABNORMAL) Magnesium (04/17/2024 3:50 PM EST) Magnesium 1.8(L) 1.9 - 2.6 mg/dL LAB CHEMISTRY METHOD 04/17/2024 4:20 PM EST [facility] Blood Venous blood specimen / Unknown Venipuncture / Unknown 04/17/2024 3:50 PM EST 04/17/2024 3:53 PM EST Pastora Adams GROUP PRESIDENT LAB BLOOD ORDERABLES Final Result Performing Organization Address [facility] Co de Phone Number [facility] [address] [place] [address], * Phosphorus (04/17/2024 3:50 PM EST) Phosphorus 3.5 2.5 - 4.5 mg/dL LAB CHEMISTRY METHOD 04/17/2024 4:20 PM EST [facility] Blood Venous blood specimen / Unknown Venipuncture / Unknown 04/17/2024 3:50 PM EST 04/17/2024 3:53 PM EST us Pastora Adams GROUP PRESIDENT LAB BLOOD ORDERABLES Final Result Performing Organization Address [facility]/ZIP Co de Phone Number [facility] [address] [place] [address], [place] [phone] * (ABNORMAL) Basic metabolic panel (04/17/2024 3:50 PM EST) Sodium 139 133 - 145 mmol/L LAB CHEMISTRY METHOD 04/17/2024 4:20 PM EST [facility] Potassium 3.7 3.5 - 5.5 mmol/L LAB CHEMISTRY METHOD 04/17/2024 4:20 PM [facility] Chloride 108 96 - 110 mmol/L LAB CHEMISTRY METHOD 04/17/2024 4:20 PM [facility] CO2 24 21 - 32 mmol/L LAB CHEMISTRY METHOD 04/17/2024 4:20 PM [facility] Anion Gap 7 3 - 11 LAB CHEMISTRY METHOD 04/17/2024 4:20 PM [facility] Glucose 217(H) 70 - 100 mg/dL LAB CHEMISTRY METHOD 04/17/2024 4:20 PM [facility] BUN 17 5 - 25 mg/dL LAB CHEMISTRY METHOD 04/17/2024 4:20 PM [facility] Creatinine 0.62 0.50 - 1.10 mg/dL LAB CHEMISTRY METHOD 04/17/2024 4:20 PM [facility] eGFR 89 >=60 mL/min/1. 73m2 LAB CHEMISTRY METHOD 04/17/2024 4:20 PM [facility] Comment:Calculation based on the??Chronic Kidney Disease Epidemiology Collaboration (CKD-EPI) equation refit??without adjustment for race. BUN/Creatinine Ratio 27.4 LAB CHEMISTRY METHOD 04/17/2024 4:20 PM [facility] Calcium 8.3(L) 8.5 - 10.5 mg/dL LAB CHEMISTRY METHOD 04/17/2024 4:20 PM [facility] Blood Venous blood specimen / Unknown Venipuncture / Unknown 04/17/2024 3:50 PM EST 04/17/2024 3:53 PM EST us Pastora Adams NP LAB BLOOD ORDERABLES Final Result [facility] [address] [place] [address], * (ABNORMAL) Complete blood count (04/17/2024 3:50 PM EST) [facility] WBC 14.1(H) 4.8 - 10.8 K/mcL LAB HEMETOLOGY METHOD 04/17/2024 3:58 PM [facility] RBC 3.90 3.80 - 4.80 M/mcL LAB HEMETOLOGY METHOD 04/17/2024 3:58 PM [facility] Hemoglobin 12.5 11.5 - 16.0 g/dL LAB HEMETOLOGY METHOD 04/17/2024 3:58 PM [facility] Hematocrit 37.7 35.0 - 47.0 % LAB HEMETOLOGY METHOD 04/17/2024 3:58 PM [facility] MCV 95.9 79.0 - 98.0 FL LAB HEMETOLOGY METHOD 04/17/2024 3:58 PM [facility] MCH 31.8 27.0 - 32.0 pcg LAB HEMETOLOGY METHOD 04/17/2024 3:58 PM [facility] MCHC 33.2 32.0 - 37.0 g/dL LAB HEMETOLOGY METHOD 04/17/2024 3:58 PM [facility] RDW 12.6 11.0 - 15.0 % LAB HEMETOLOGY METHOD 04/17/2024 3:58 PM [facility] Platelets 136 130 - 400 K/mcL LAB HEMETOLOGY METHOD 04/17/2024 3:58 PM [facility] MPV 10.8 7.0 - 11.0 FL LAB HEMETOLOGY METHOD 04/17/2024 3:58 PM [facility] NRBC 0.0 <1.0 % LAB HEMETOLOGY METHOD 04/17/2024 3:58 PM [facility] NRBC Absolute 0.00 <0.10 K/mcL LAB HEMETOLOGY METHOD 04/17/2024 3:58 PM [facility] Blood Venous blood specimen / Unknown Venipuncture / Unknown 04/17/2024 3:50 PM EST 04/17/2024 3:53 PM EST Pastora Adams GROUP PRESIDENT LAB BLOOD ORDERABLES Final Result [facility] ([facility]) [facility] [address] [place] [address], * XR Chest 1 View (04/17/2024 3:47 PM EST) Anatomical Region Laterality Modality Body Radiographic Kenrda ging 04/17/2024 4:20 PM EST Impressions 04/17/2024 4:21 PM EST FINDINGS/IMPRESSION: Postoperative changes of both lungs with bilateral chest tubes in place and trace left greater than right pneumothoraces. ??Borderline heart size with bilateral left greater than right lung opacities throughout. ??Scoliosis and degenerative changes. -------- FINAL REPORT -------- Dictated By: Mary Kay Fernandez Dictated Date: 04/17/2024 16:20 ET Assigned Physician: Mary Kay Fernandez Reviewed and Electronically Signed By: Mary Kay Fernandez Signed Date: 04/17/2024 16:21 ET Workstation ID: [id number] Transcribed By: Self Edit Transcribed Date: 04/17/2024 16:20 ET Narrative 04/17/2024 4:21 PM EST XR CHEST 1 VIEW INDICATION: s/p SARAH segmentectomy and RUL wedge with completion lobectomy TECHNIQUE: XR CHEST 1 VIEW COMPARISON: No priors available. Procedure Note Mary Kay Fernandez MD - 04/17/2024 XR CHEST 1 VIEW INDICATION: s/p SARAH segmentectomy and RUL wedge with completion lobectomy TECHNIQUE: XR CHEST 1 VIEW COMPARISON: No priors available. IMPRESSION: FINDINGS/IMPRESSION: Postoperative changes of both lungs with bilateralchest tubes in place and trace left greater than right pneumothoraces.Borderline heart size with bilateral left greater than right lungopacities throughout. Scoliosis and degenerative changes. -------- FINAL REPORT -------- Dictated By: Mary Kay Fernandez Dictated Date: 04/17/2024 16:20 ET Assigned Physician: Mary Kay Fernandez Reviewed and Electronically Signed By: Mary Kay Fernandez Signed Date: 04/17/2024 16:21 ET Workstation ID: [id number] Transcribed By: Self Edit Transcribed Date: 04/17/2024 16:20 ET us Pastora Adams GROUP PRESIDENT IMG XR PROCEDURES Final Res ult * Prepare RBC: 2 Units (04/17/2024 8:13 AM EST) Product Code [id number] 04/18/2024 6:58 AM [facility] Unit Number [id number] 04/19/19 25 6:58 AM [facility] Crossmatch Compatible 04/17/2024 2:38 PM [facility] Dispense Status Released From Crossmatch 04/18/2024 6:58 AM [facility] Unit ABO Rh APOS 04/18/2024 6:58 AM [facility] Unit Expiration Date Time [id number] 04/18/2024 6:58 AM [facility] Unit Blood Type 6200 04/18/2024 6:58 AM [facility] Product Code [id number] 04/18/2024 6:58 AM [facility] Unit Number [id number] 04/19/19 25 6:58 AM [facility] Crossmatch Compatible 04/17/2024 2:38 PM [facility] Dispense Status Released From Crossmatch 04/18/2024 6:58 AM [facility] Unit ABO Rh APOS 04/18/2024 6:58 AM [facility] Unit Expiration Date Time [id number] 04/18/2024 6:58 AM EST [facility] Unit Blood Type 6200 04/18/2024 6:58 AM EST [facility] Blood Venous blood specimen / Unknown 04/17/2024 8:13 AM EST 04/10/2024 10:47 AM EST us Rhona Michel MD BLOOD BANK PRODUCT ORDERABLES Fi nal Result [facility]) [facility] [address] [place] [address], [place] [phone] documented in this encounter Visit Diagnoses Diagnosis 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)- Primary 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) Paroxysmal atrial fibrillation (CMS/HCC) Atrial fibrillation 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) documented in this encounter Admitting Diagnoses Diagnosis 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) documented in this encounter Administered Medications Inactive Administered Medications - up to 3 most recent administrations Medication Order MAR Action Action Date Dose Rate Site bupivacaine-EPINEPHrine (PF) (MARCAINE w/EPI) 0.25 %-1:200,000 injection As needed, Starting on Mon04/17/24 at 0934, Intraprocedure Given 04/17/2024 12:10 PM EST 60 mL Chest Given 04/17/2024 9:34 AM EST 60 mL Ch est celecoxib (CeleBREX) capsule 100 mg 100 mg, oral, 2 times daily, First dose on Mon04/19/24 at 1100 Given 04/22/2024 9:31 AM EDT 100 mg Given 04/21/2024 8:42 PM EDT 100 mg Given 04/21/2024 9:24 AM EDT 100 mg docusate sodium (COLACE) capsule 100 mg 100 mg, oral, 2 times daily, First dose on Mon04/17/24 at 2100 Given 04/22/2024 9:31 AM EDT 100 mg Given 04/20/2024 8:44 PM EST 100 mg Given 04/20/2024 8:12 AM EST 100 mg ipratropium-albuteroL (DUONEB) 0.5-2.5 mg/3 mL nebulizer solution 3 mL 3 mL, nebulization, 4 times daily, First dose on Mon04/17/24 at 1600, Recovery & On Unit Given 04/22/2024 4:12 PM EDT 3 mL Given 04/22/2024 11:34 AM EDT 3 mL Given 04/22/2024 7:38 AM EDT 3 mL lidocaine 4 % patch 2 patch 2 patch, Topical, Administer over 12 Hours, Daily, First dose on Mon04/19/24 at 1000, Apply to right and left chest where feeling pain. Try not to cover surgical incisions.. Patch Applied 04/22/2024 9:32 AM EDT 2 patches Back Patch Applied 04/21/2024 9:25 AM EDT 2 patches Flank Patch Applied 04/20/2024 8:12 AM EST 2 patches Flank loratadine (CLARITIN) tablet 10 mg 10 mg, oral, Nightly, First dose on Mon04/17/24 at 2100 Given 04/21/2024 8:42 PM EDT 10 mg Given 04/20/2024 8:44 PM EST 10 mg Given 04/19/2024 8:09 PM EST 10 mg methylPREDNISolone acetate (DEPO-Medrol) injection As needed, Starting on Mon04/17/24 at 0934, Intraprocedure Given 04/17/2024 12:11 PM EST 80 mg Chest Given 04/17/2024 9:34 AM EST 80 mg Ch est metoclopramide (REGLAN) injection 10 mg 10 mg, intravenous, Every 6 hours PRN, nausea, vomiting, Starting on Mon04/17/24 at 1938, 2nd Line Option: -ONLY give IV if patient is unable to take orally. -If inadequate response within 30 minutes, proceed to next-line agent or contact provider if no further options ordered. Doses LESS than or equal to 10 mg can be given IV push undiluted over 1 minute metoclopramide (REGLAN) tablet 10 mg 10 mg, oral, Every 6 hours PRN, nausea, vomiting, Starting on Mon04/17/24 at 1938, 2nd Line Option: -Give IV if patient is unable to take orally. -If inadequate response within 30 minutes, proceed to next-line agent or contact provider if no further options ordered. metoprolol tartrate (LOPRESSOR) tablet 25 mg 25 mg, oral, 2 times daily, First dose on Mon04/20/24 at 0900 Given 04/22/2024 9:31 AM EDT 25 mg Given 04/21/2024 8:42 PM EDT 25 mg Given 04/21/2024 9:23 AM EDT 25 mg ondansetron (PF) (ZOFRAN) injection 4 mg 4 mg, intravenous, Every 8 hours PRN, vomiting, nausea, Starting on Mon04/17/24 at 1518, Recovery & On Unit, -ONLY give IV if patient is unable to take orally. -If inadequate response within 30 minutes, proceed to next-line agent or contact provider if no further options ordered. ondansetron ODT (ZOFRAN-ODT) disintegrating tablet 4 mg 4 mg, oral, Every 8 hours PRN, vomiting, nausea, Starting on Mon04/17/24 at 1518, Recovery & On Unit, -Give IV if patient is unable to take orally. -If inadequate response within 30 minutes, proceed to next-line agent or contact provider if no further options ordered. For ODT tablets: -Do not remove from blister pack until just before administering. -Patient should allow tablet to dissolve on tongue. oxyCODONE (ROXICODONE) immediate release tablet 10 mg 10 mg, oral, Every 4 hours PRN, severe pain, Starting on Mon04/17/24 at 1517, Phase II/On Unit Given 04/19/2024 8:46 AM EST 10 mg Given 04/18/2024 8:38 PM EST 10 mg Given 04/18/2024 2:05 PM EST 10 mg oxyCODONE (ROXICODONE) immediate release tablet 5 mg 5 mg, oral, Every 4 hours PRN, moderate pain, Starting on Mon04/17/24 at 1517, Phase II/On Unit Given 04/21/2024 9:24 AM EDT 5 mg Given 04/19/2024 8:12 PM EST 5 mg Given 04/17/2024 4:31 PM EST 5 mg polyethylene glycol (MIRALAX) packet 17 g 17 g, oral, Daily, First dose on Mon04/17/24 at 2000, Bowel Regimen - for prevention of constipation Given 04/20/2024 8:12 AM EST 17 g Given 04/19/2024 8:46 AM EST 17 g Given 04/18/2024 8:20 AM EST 17 g senna (SENOKOT) tablet 17.2 mg 17.2 mg (2 tablet), oral, Nightly, First dose on Mon04/17/24 at 2100, Recovery & On Unit, Bowel Regimen - for prevention of constipation Given 04/20/2024 8:44 PM EST 17.2 mg Given 04/19/2024 8:10 PM EST 17.2 mg Given 04/18/2024 8:39 PM EST 17.2 mg sodium chloride 0.9 % flush 10 mL 10 mL, intravenous, 2 times daily, First dose on Mon04/17/24 at 2100, Recovery & On Unit Given 04/22/2024 9:32 AM EDT 10 mL Given 04/21/2024 8:52 PM EDT 10 mL Given 04/21/2024 9:25 AM EDT 10 mL sodium chloride 0.9 % flush 10 mL 10 mL, intravenous, As needed, line care, Starting on Mon04/17/24 at 1518, Recovery & On Unit sodium chloride 0.9 % infusion 42 mL/hr, intravenous, As needed, pre-, and post- transfusion as needed for line flush purposes, in conjunction with blood product transfusion only, Starting on Mon04/17/24 at 0813, Transfusion Products and Meds, -Use only the amount required from a 250 mL bag of NS to adequately flush -A new NS bag is required with each new unit of blood administered documented in this encounter Active and Recently Administered Medications Due to Daylight Saving Time, this section may contain times in both EST and EDT. Scheduled Medication Order 04/20/2024 04/21/2024 04/22/2024 celecoxib (CeleBREX) capsule 100 mg 100 mg, oral, 2 times daily, First dose on Mon04/19/24 at 1100 0812 (Given - Provider: Nidhi Thompson RN)2043 (Given - Provider: Regina Garcias RN) 923 (Given - Provider: Nidhi Thompson RN)2041 (Given - Provider: Regina Garcias RN) 0931 (Given - Provider: Deb Marroquin, MALCOLM) dilTIAZem (CARDIZEM) immediate release tablet 30 mg (CANCELED) 30 mg, oral, Every 6 hours scheduled, First dose on Mon04/20/24 at 0730 0812 (Given - Provider: Nidhi Thompson, MALCOLM) docusate sodium (COLACE) capsule 100 mg 100 mg, oral, 2 times daily, First dose on Mon04/17/24 at 2100 0812 (Given - Provider: Nidhi Thompson RN)2043 (Given - Provider: Regina Garcias RN) 0923 (Not Given - Provider: Nidhi Thompson RN - Reason: Patient/Resident/Age nt refused - education provided )2043 (Not Given - Provider: Regina Garcias RN - Reason: Patient/Resident/Age nt refused - education provided ) 0931 (Given - Provider: Deb Marroquin, MALCOLM) ipratropium-albuteroL (DUONEB) 0.5-2.5 mg/3 mL nebulizer solution 3 mL 3 mL, nebulization, 4 times daily, First dose on Mon04/17/24 at 1600, Recovery & On Unit 0734 (Given - Provider: Roxi Bailey, SHORTY)1148 (Not Given - Provider: Roxi Bailey RRT - Reason: Patient/Resident/Age nt refused - education provided )1624 (Given - Provider: Debora Tan, SHORTY)1952 (Given - Provider: Moon Al, DEPARTMENT DIRECTOR) 0725 (Given - Provider: Montez Valdez RRT)1123 (Given - Provider: Montez Valdez RRT)1556 (Given - Provider: Alisia Huerta, DEPARTMENT DIRECTOR)2009 (Given - Provider: Alisia Huerta RRT) 0738 (Given - Provider: Griselda Montague RRT)1134 (Given - Provider: Griselda Montague RRT)1612 (Given - Provider: Debora Tan RRT) lidocaine 4 % patch 2 patch 2 patch, Topical, Administer over 12 Hours, Daily, First dose on Mon04/19/24 at 1000, Apply to right and left chest where feeling pain. Try not to cover surgical incisions.. 0812 (Patch Applied - Provider: Nidhi Thompson RN)2036 (Patch Removed - Provider: Regina Garcias RN) 09 (Patch Applied - Provider: Nidhi Thompson RN)2053 (Patch Removed - Provider: Regina Garcias RN) 0932 (Patch Applied - Provider: Deb Marroquin, RN - Comment: L & R back)1749 (Due: Patch Removed - Provider: Automatic Discharge Provider - Comment: Time automatically adjusted from order being discontinued) loratadine (CLARITIN) tablet 10 mg 10 mg, oral, Nightly, First dose on Mon04/17/24 at 2100 2043 (Given - Provider: Regina Garcias RN) 2041 (Given - Provider: Regina Garcias RN) magnesium sulfate 2 gram/50 mL (4 %) IVPB 2 g (COMPLETED) 2 g, intravenous, at 25 mL/hr, Administer over 2 Hours, Once, On 04/20/24 at 0215, For 1 dose 0236 (New Bag - Provider: Regina Garcias RN)0425 (Stopped - Provider: Regina Garcias RN) metoprolol tartrate (LOPRESSOR) tablet 25 mg 25 mg, oral, 2 times daily, First dose on 04/20/24 at 0900 0812 (Given - Provider: Nidhi Thompson RN)2043 (Given - Provider: Regina Garcias RN) 09 (Given - Provider: Nidhi Thompson RN)2041 (Given - Provider: Regina Garcias RN) 0931 (Given - Provider: Deb Marroquin, RN) perflutren lipid microsphere (DEFINITY) 1.3 mL in sodium chloride 0.9% 8.7 mL injection (COMPLETED) 10 mL, intravenous, Administer over 10 Minutes, Once in imaging, Starting on 04/21/24 at 1211, For 1 dose, CV Medication Orders 1211 (Given - Provider: Michelle Hurtado) polyethylene glycol (MIRALAX) packet 17 g 17 g, oral, Daily, First dose on Mon04/17/24 at 2000, Bowel Regimen - for prevention of constipation 0812 (Given - Provider: Nidhi Thompson RN) 0925 (Not Given - Provider: Nidhi Thompson RN - Reason: Patient/Resident/Age nt refused - education provided ) 0932 (Not Given - Provider: Deb Marroquin RN - Reason: Patient/Resident/Agent refused - education provided ) senna (SENOKOT) tablet 17.2 mg 17.2 mg (2 tablet), oral, Nightly, First dose on Mon04/17/24 at 2100, Recovery & On Unit, Bowel Regimen - for prevention of constipation 2043 (Given - Provider: Regina Garcias RN) 2044 (Not Given - Provider: Regina Garcias RN - Reason: Patient/Resident/Age nt refused - education provided ) sodium chloride 0.9 % flush 10 mL(Linked Group 1) 10 mL, intravenous, 2 times daily, First dose on Mon04/17/24 at 2100, Recovery & On Unit 0813 (Given - Provider: Nidhi Thompson RN)2043 (Given - Provider: Regina Garcias RN) 0925 (Given - Provider: Nidhi Thompson RN)2051 (Given - Provider: Regina Garcias RN) 0932 (Given - Provider: Deb Marroquin, MALCOLM) PRN Medication Order 04/20/2024 04/21/2024 04/22/2024 bisacodyL (DULCOLAX) EC tablet 10 mg 10 mg, oral, Daily PRN, constipation, Starting on Mon04/17/24 at 1938, 1st line for treatment of constipation - give scheduled if no bowel movement in past 24 hours. Do not crush, chew, or split. bisacodyL (DULCOLAX) suppository 10 mg 10 mg, rectal, Daily PRN, constipation, Starting on Mon04/17/24 at 1938, 2nd line for treatment of constipation - give scheduled (in addition to 1st line agent) if no bowel movement in past 48 hours meclizine (ANTIVERT) tablet 25 mg 25 mg, oral, 3 times daily PRN, dizziness, Starting on Mon04/17/24 at 1938 metoclopramide (REGLAN) injection 10 mg(Linked Group 2) 10 mg, intravenous, Every 6 hours PRN, nausea, vomiting, Starting on Mon04/17/24 at 1938, 2nd Line Option: -ONLY give IV if patient is unable to take orally. -If inadequate response within 30 minutes, proceed to next-line agent or contact provider if no further options ordered. Doses LESS than or equal to 10 mg can be given IV push undiluted over 1 minute metoclopramide (REGLAN) tablet 10 mg(Linked Group 2) 10 mg, oral, Every 6 hours PRN, nausea, vomiting, Starting on Mon04/17/24 at 1938, 2nd Line Option: -Give IV if patient is unable to take orally. -If inadequate response within 30 minutes, proceed to next-line agent or contact provider if no further options ordered. ondansetron (PF) (ZOFRAN) injection 4 mg(Linked Group 3) 4 mg, intravenous, Every 8 hours PRN, vomiting, nausea, Starting on Mon04/17/24 at 1518, Recovery & On Unit, -ONLY give IV if patient is unable to take orally. -If inadequate response within 30 minutes, proceed to next-line agent or contact provider if no further options ordered. ondansetron ODT (ZOFRAN-ODT) disintegrating tablet 4 mg(Linked Group 3) 4 mg, oral, Every 8 hours PRN, vomiting, nausea, Starting on Mon04/17/24 at 1518, Recovery & On Unit, -Give IV if patient is unable to take orally. -If inadequate response within 30 minutes, proceed to next-line agent or contact provider if no further options ordered. For ODT tablets: -Do not remove from blister pack until just before administering. -Patient should allow tablet to dissolve on tongue. oxyCODONE (ROXICODONE) immediate release tablet 10 mg 10 mg, oral, Every 4 hours PRN, severe pain, Starting on Mon04/17/24 at 1517, Phase II/On Unit oxyCODONE (ROXICODONE) immediate release tablet 5 mg 5 mg, oral, Every 4 hours PRN, moderate pain, Starting on Mon04/17/24 at 1517, Phase II/On Unit 0924 (Given - Provider: Nidhi Thompson RN) sodium chloride 0.9 % flush 10 mL(Linked Group 1) 10 mL, intravenous, As needed, line care, Starting on Mon04/17/24 at 1518, Recovery & On Unit sodium chloride 0.9 % infusion 42 mL/hr, intravenous, As needed, pre-, and post- transfusion as needed for line flush purposes, in conjunction with blood product transfusion only, Starting on Mon04/17/24 at 0813, Transfusion Products and Meds, -Use only the amount required from a 250 mL bag of NS to adequately flush -A new NS bag is required with each new unit of blood administered Linked Groups Order Group 1: Insert peripheral IV (CANCELED) STAT, Once, On Mon04/17/24 at 1519, For 1 occurrence, Recovery & On Unit And Maintain IV access (CANCELED) Until discontinued, Starting on Mon04/17/24 at 1519, Until Specified, Recovery & On Unit And Saline lock IV (CANCELED) Routine, Once, On Mon04/17/24 at 151, For 1 occurrence, When tolerating PO fluids, Recovery & On Unit And sodium chloride 0.9 % flush 10 mLJump to med 10 mL, intravenous, 2 times daily, First dose on Mon04/17/24 at 2100, Recovery & On Unit And sodium chloride 0.9 % flush 10 mLJump to med 10 mL, intravenous, As needed, line care, Starting on Mon04/17/24 at 1518, Recovery & On Unit Group 2: metoclopramide (REGLAN) tablet 10 mgJump to med 10 mg, oral, Every 6 hours PRN, nausea, vomiting, Starting on Mon04/17/24 at 1938, 2nd Line Option: -Give IV if patient is unable to take orally. -If inadequate response within 30 minutes, proceed to next-line agent or contact provider if no further options ordered. Or metoclopramide (REGLAN) injection 10 mgJump to med 10 mg, intravenous, Every 6 hours PRN, nausea, vomiting, Starting on Mon04/17/24 at 1938, 2nd Line Option: -ONLY give IV if patient is unable to take orally. -If inadequate response within 30 minutes, proceed to next-line agent or contact provider if no further options ordered. Doses LESS than or equal to 10 mg can be given IV push undiluted over 1 minute Group 3: ondansetron ODT (ZOFRAN-ODT) disintegrating tablet 4 mgJump to med 4 mg, oral, Every 8 hours PRN, vomiting, nausea, Starting on Mon04/17/24 at 1518, Recovery & On Unit, -Give IV if patient is unable to take orally. -If inadequate response within 30 minutes, proceed to next-line agent or contact provider if no further options ordered. For ODT tablets: -Do not remove from blister pack until just before administering. -Patient should allow tablet to dissolve on tongue. Or ondansetron (PF) (ZOFRAN) injection 4 mgJump to med 4 mg, intravenous, Every 8 hours PRN, vomiting, nausea, Starting on Mon04/17/24 at 1518, Recovery & On Unit, -ONLY give IV if patient is unable to take orally. -If inadequate response within 30 minutes, proceed to next-line agent or contact provider if no further options ordered. documented in this encounter Orders Medications Ordered That Tawanda ht Not Have Been Administered Count Last Ordered Date First Ordered Date perflutren lipid microsphere (DEFINITY) 1.3 mL in sodium chloride 0.9% 8.7 mL injection 1 04/21/2024 dilTIAZem (CARDIZEM) immedia te release tablet 30 mg 1 04/20/2024 magnesium sulfate 2 gram/50 mL (4 %) IVPB 2 g 1 04/20/2024 metoprolol tartrate (LOPRESS OR) tablet 25 mg 1 04/20/2024 celecoxib (CeleBREX) capsule 100 mg 1 04/19 dilTIAZem (CARDIZEM) 125 mg in sodium chloride (non-PVC) 0.9 % 125 mL (1 mg/mL) infusion 1 04/19/2024 dilTIAZem (CARDIZEM) 5 mg/mL injection - ADS Override Pull 2 04/19/2024 dilTIAZem (CARDIZEM) bolus f rom infusion 10 mg 1 04/19/2024 dilTIAZem (CARDIZEM) injection 10 mg 1 08/2024 lidocaine 4 % patch 2 patch 1 04/19/2024 metoprolol tartrate (LOPRESS OR) 5 mg/5 mL injection - ADS Override Pull 1 04/19/2024 metoprolol tartrate (LOPRESS OR) injection 5 mg 1 04/19/2024 sodium chloride (non-PVC) 0. 9 % infusion - ADS Override Pull 1 04/19/2024 acetaminophen (TYLENOL) tablet 1,000 mg 1 0 04/17/2024 bisacodyL (DULCOLAX) EC tablet 10 mg 1 06/2024 bisacodyL (DULCOLAX) suppository 10 mg 1 ceFAZolin (ANCEF) 2 g in wayne rile water 20 mL IV syringe 1 04/17/2024 diphenhydrAMINE (BENADRYL) injection 25 mg 1 04/17/2024 docusate sodium (COLACE) capsule 100 mg 1 0 04/17/2024 fentaNYL (PF) (SUBLIMAZE) injection 50 mcg 1 04/17/2024 haloperidol lactate (HALDOL) injection 1 mg 1 04/17/2024 HYDROmorphone (DILAUDID) injection 0.5 mg 2 04/17/2024 ipratropium-albuteroL (DUONE B) 0.5-2.5 mg/3 mL nebulizer solution 3 mL 1 04/17/2024 lactated Ringer's infusion 1 04/17/2024 loratadine (CLARITIN) tablet 10 mg 1 2024 meclizine (ANTIVERT) tablet 25 mg 1 025 metoclopramide (REGLAN) injection 10 mg 1 0 04/17/2024 metoclopramide (REGLAN) tablet 10 mg 1 06/2024 ondansetron (PF) (ZOFRAN) injection 4 mg 1 04/17/2024 ondansetron ODT (ZOFRAN-ODT) disintegrating tablet 4 mg 1 04/17/2024 oxyCODONE (ROXICODONE) immed iate release tablet 10 mg 1 04/17/2024 oxyCODONE (ROXICODONE) immed iate release tablet 5 mg 2 04/17/2024 polyethylene glycol (MIRALAX) packet 17 g 1 04/17/2024 senna (SENOKOT) tablet 17.2 mg 1 04/17/2024 sodium chloride 0.9 % flush 10 mL 6 025 sodium chloride 0.9 % infusion 1 04/17/2024 Respiratory Care Count Last Ordered Date First Ordered Date HOME O2 EVAL (DESATURATION SCREEN) 2 202404/21/2024 PEP THERAPY 18 04/21/2024 04/18/2024 Admission Count Last Ordered Date First Orde red Date ADMIT TO INPATIENT 1 04/17/2024 Transfer Count Last Ordered Date First Orde red Date TRANSFER PATIENT TO NEW UNIT 1 04/22/2024 Discharge Count Last Ordered Date First Orde red Date DISCHARGE PATIENT 1 04/22/2024 CORE MEASURES Count Last Ordered Date First Ord ered Date MONITORING DOCUMENTATION 33 04/22/202406/2024 documented in this encounter Additional Health Concerns Infection Onset Date Last Indicated Resolved Time Tuberculosis Rule-Out Comment:Routine testing 04/17/2024 04/17/2024 04/18/2024 8:43 AM EST documented as of this encounter Care Teams Auto Rebuilder Relationship Specialty Start Date End Date Rose Mary Collins MD [address] [place] [id number] PCP - General Internal Medicine 02/27/24 documented as of this encounter
--- OUTSIDE RECORDS SUMMARY | 2024-04-24 10:03 | XMS_ITS | Encounter Summary ---
Author Organization [facility] Address [address] [place] [address] Care Team Providers Care Pulp Drier Firer Name Role Phone Rose Mary Collins MD Primary Care Provider Reason for Visit * Auth/Cert (Routine) Specialty Diagnoses / Procedures Referred By Wilbert t Referred To Contact Diagnoses 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) CANCER RIGHT & LEFT LOBE LUNG Procedures AK THORACOSCOPY SURGICAL WITH LOBECTOMY AK THORACOSCOPY W DX WEDGE RESECTION F/B ANATOMIC LUNG RESECTION AK THORACOSCOPY SURGICAL W MEDIASTINAL & REGIONAL LYMPHADENECTOMY AK THORACOSCOPY SURGICAL WITH REMOVAL OF A SINGLE LUNG SEGMENT AK REMOVAL OF LUNG OTHER THAN PNEUMONECTOMY SINGLE LOBE AK THORACOSCOPY WITH THERAPEUTIC WEDGE RESECTION INITIAL UNILATERAL [...] wedge versus segmentectomy Rhona Michel MD [address] [address] Phone: tel: fax: [facility] Main OR [address] [place] [address] Phone: tel: Referral ID Status Reason Start Date Expiration Date Visits Re quested Visits Authorized [id number] 1 1 Encounter Details Date Type Department Care Team (Latest Contact Info) Description 04/17/2024 6:52 AM EST - 04/22/2024 5:49 PM EDT Hospital Encounter [facility] Intermediate Care Unit [address] [place] [phone] Rhona Michel MD [address] [address] Nik Feliciano MD 294 [facility] [address] [place] [address] Gris Mackay MD [address] [place] [address] 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) (Primary Dx); Primary cancer of right upper lobe of lung (CMS/HCC); Paroxysmal atrial fibrillation (CMS/HCC) Discharge Disposition: Shelter Facility Social History Tobacco Use Types Packs/Day Years [...] care for your loved ones. For example, child guidance counselor or elderly care for an older adult? [...] Sign Reading Time Taken Comments Blood Pressure 155/86 04/22/2024 4:01 PM EDT Pulse 83 04/22/2024 4:01 PM EDT Temperature 36.3 ??C (97.3 ??F) 04/22/2024 4 :01 PM EDT Respiratory Rate 26 04/22/2024 4:01 PM EDT Oxygen Saturation 98% 04/22/2024 4:0 1 PM EDT Inhaled Oxygen Concentration - - Weight 71.7 kg (158 lb 1.1 oz) 04/18/2024 2:17 PM EST Height 157.5 cm (5' 2.01 ) 04/18/2024 2 :17 PM EST from previous admission Body Mass Index 28.9 04/18/2024 2:17 PM EST documented in this encounter Discharge Summaries * Pastora Adams NP - 04/22/2024 2:21 PM EDT Images from [...] condition. From PACU she was transferred to [facility] for further care on telemetry. On POD [...] rest and 6L with ambulation. Discharged to [facility] for short term rehab and follow up appointment in two weeks in the office. [place] CERAMIC DESIGNER was checked prior to discharging patient with [...] infiltrates bilaterally. No change since 04/21/2024. Code 40380 -------- FINAL REPORT -------- Dictated By: Kalpesh Brody Dictated Date: 04/22/2024 07:53 ET Assigned Physician: Kalpesh Brody Reviewed and Electronically Signed By: Kalpesh Brody Signed Date: 04/22/2024 07:57 ET Workstation ID: [id number] Transcribed By: Self Edit Transcribed Date: 04/22/2024 [...] Department Center 05/01/2024 11:[address] [facility] [address] [facility] [place] Discharge Instructions Patient should contact a [...] help you quit. You can call the [facility] Smokers' Helpline at 7-882-QUIT NOW ( ). For Azeri, call 7-270-3Any.DO ( ). You can also visit the website at [email or web address] Kitchen. FOLLOW UP APPOINTMENTS: You have an appointment with Jose Carias PA-C at the Thoracic Surgery office on 05/01/24 @ 11:15am for a postop follow up. Please Arrive 30 minutes prior to your appointment to have a chest xray done at [facility] Radiology (1st floor, [facility]). Go to Patient Registration to check in for the xray. [facility] Thoracic Surgery office [address], [address] [facility] [address] Call your PCP to make sure you have a post-hospital follow up visit scheduled in the next 1-2 weeks. A consult request was requested for you to be evaluated by Cardiology. [facility] Thoracic Surgery [address], [address] [facility] [phone] Pastora Adams NP [facility] Thoracic Surgery [address], [address] [facility] [address] * Pastora Adams NP - 04/22/2024 2:20 [...] help you quit. You can call the [facility] Smokers' Helpline at 5-334-QUIT NOW ( ). For Azeri, call 6-610-0-ODILIAPencil You InTOM ( ). You can also visit the website at [email or web address] Kitchen. FOLLOW UP APPOINTMENTS: You have an appointment with Jose Carias PA-C at the Thoracic Surgery office on 05/01/24 @ 11:15am for a postop follow up. Please Arrive 30 minutes prior to your appointment to have a chest xray done at [facility] Radiology (1st floor, [facility]). Go to Patient Registration to check in for the xray. [facility] Thoracic Surgery office [address] [place] [address], [address] [place] [address] Call your PCP to make sure you have a post-hospital follow up visit scheduled in the next 1-2 weeks. A consult request was requested for you to be evaluated by Cardiology. [facility] Thoracic Surgery [address], [address] [place] [phone] documented in this encounter Medications at Time [...] Disposition Code Departure Means Destination Comment s Shelter Facility Ambulance Ski lled Nursing, Intermediate Care, or Assisted Living Facility documented in this encounter Progress Notes * Gris Mackay MD - 04/22/2024 3:42 PM EDT Images from the original note were not included. [facility] PROGRESS NOTE Date: 04/22/2024 Author: Gris Mackay MD Patient ID: Bonny Pinto is a 83 y.o. female : 1940 MR#: [id number] 04/17/2024 SUBJECTIVE Patient seen and examined today. [...] infiltrates bilaterally. No change since 04/21/2024. Code 50701 -------- FINAL REPORT -------- Dictated By: Kalpesh Brody Dictated Date: 04/22/2024 07:53 ET Assigned Physician: Kalpesh Brody Reviewed and Electronically Signed By: Kalpesh Brody Signed Date: 04/22/2024 07:57 ET Workstation ID: [id number] Transcribed By: Self Edit Transcribed Date: 04/22/2024 07:53 ET ASSESSMENT & PLAN 83 year-old female with history of right breast cancer status post partial mastectomy and lymph node dissection, tobacco dependence in remission, left upper lobe squamous cell carcinoma, and right upper lobe adenocarcinoma POD #2 from robot assisted right upper lobectomy + left upper lobe posteriorapical segmentectomy + mediastinal lymphadenectomy admitted to [facility] surgery for right upper lobectomy procedure was complicated as patient developed rapid atrial fibrillation. [place] was consulted. Atrial fibrillation rapid ventricular response [...] dictate portions of this document. Errors in geospatial program management officer may be present. Please call / cortext [...] Discharge Needs Discipline following for SNF placement Net Trainer Informed Choice Informed Choice Given? Yes Transportation Transportation at discharge [facility] Company providing transportation [place] What day is the transport expected? 04/22/24 What time is the transport expected? 1730 Final Discharge Disposition Shelter Facility ([facility] per patient choice) * Pastora Adams NP [...] Nightly Pastora Adams NP 10 mg at 04/21/242041 meclizine (ANTIVERT) tablet 25 mg 25 mg [...] infiltrates bilaterally. No change since 04/21/2024. Code 91035 -------- FINAL REPORT -------- Dictated By: Kalpesh Brody Dictated Date: 04/22/2024 07:53 ET Assigned Physician: Kalpesh Brody Reviewed and Electronically Signed By: Kalpesh Brody Signed Date: 04/22/2024 07:57 ET Workstation ID: [id number] Transcribed By: Self Edit Transcribed Date: 04/22/2024 [...] care discussed with Dr. Brad Adams NP [facility] Thoracic Surgery [address] [place] [address], [address] [place] [phone] * Karolina Wilhelm RN - 04/22/2024 11:42 AM EDT CM Progress Note RASHID: 04/23 Barriers: PT evaluation, O2 Need, accepting facility Plan: SNF-ICC met with patient at bedside, agreeable to wide SNF search, will choose from offering facility's. * Kathleen Dunham, PT - 04/22/2024 11:40 AM EDT [facility] ACUTE CARE PT EVALUATION Bonny Pinto 1940 Ambulation: Walking Assistance: Contact guard Device: Rolling walker Distance Ambulated (ft): (15 + 25+ 25 with rest breaks) PLOF: Level of Kent: Independent with mobility and functional transfers Lives With: Spouse Receives Help From: Family Home Adaptive Equipment: (walking sticks) Home Living Comments: 2 level home, she stays on first floor with walk in shower full bath on firstfloor, 2 steps to enter without rail DME Needs: walker PT Discharge Recommendation: snf facility placement Diagnosis: ICD-10-CM ICD-9-CM 1. Primary [...] rail Prior Function: Prior Function Level of Kent: Independent with mobility and functional transfers Ambulation [...] 2-5 days per week PT Discharge Recommendations: snf facility placement Equipment Recommendations: rolling walker Goals: [...] no resolved problems. PT Evaluation Time Entry Shantelle Guevara PT Evaluation Time Entry PT Evaluation (Moderate) [...] 6 LPM NC SPO2=90% ambulating * Pastora Adams NP - 04/22/2024 8:08 AM EDT 83-year-old woman [...] condition. From PACU she was transferred to [facility] for further care on telemetry. On POD [...] rest and 6L with ambulation. Discharged to [facility] for short term rehab and follow up appointment in two weeks in the office. * Aiyana Cerna - 04/21/2024 2:51 PM EDT SPIRITUAL CARE Date/Time:04/21/24 at 2:51 PM EDT Type of Visit: Initial Visit and High Pressure Operator Rounding Reason for Visit: Spiritual/Emotional Support and [...] Shared elroy related issues. Expressed desire to receiveanointing of the sick. Voiced appreciation for the [...] usually? Transcendence Do you have a particular roman catholic, elroy, or spirituality? Is your roman catholic/spirituality/elroy challenged by what is happening to you [...] Pastora Adams NP 17.2 mg at 04/20/24 2044 sodium chloride 0.9 % flush 10 mL [...] Signed Date: 04/21/2024 06:52 ET Workstation ID: [id number] Transcribed By: Self Edit Transcribed Date: 04/21/2024 [...] care discussed with Dr. Brad Adams NP [facility] Thoracic Surgery [address] [place] [address], [address] [facility] [address] * Nik Feliciano MD - 04/21/2024 9:03 AM EDT Images from the original note were not included. FLORIDALMA PROGRESS NOTE Date: 04/21/2024 Author: Nik Feliciano MD Patient ID: Bonny Pinto is a 83 y.o. female : 1940 MR#: [id number] SUBJECTIVE Patient reports some mild shortness of [...] Signed Date: 04/21/2024 06:52 ET Workstation ID: [id number] Transcribed By: Self Edit Transcribed Date: 04/21/2024 [...] posteriorapical segmentectomy + mediastinal lymphadenectomy admitted to [facility] surgery for right upper lobectomy procedure was complicated as patient developed rapid atrial fibrillation. [place] was consulted. Atrial fibrillation rapid ventricular response [...] last night, as she did go into [facility]. She denies SOB, palpitations, or chest pain. [...] Pastora Adams NP 100 mg at 04/20/24811 docusate sodium (COLACE) capsule 100 mg 100 [...] BID Maximo Valdovinos MD 25 mg at ondansetron ODT (ZOFRAN-ODT) disintegrating tablet 4 mg [...] Signed Date: 04/20/2024 06:55 ET Workstation ID: [id number] Transcribed By: Self Edit Transcribed Date: 04/20/2024 [...] Signed Date: 04/20/2024 06:47 ET Workstation ID: [id number] Transcribed By: Self Edit Transcribed Date: 04/20/2024 [...] care discussed with Dr. Brad Adams NP [facility] Thoracic Surgery [address] [place] [address], [address] [facility] [phone] * Nik Feliciano MD - 04/20/2024 10:01 AM EST Images from the original note were not included. FLORIDALMA PROGRESS NOTE Date: 04/20/2024 Author: Nik Feliciano MD Patient ID: Bonny Pinto is a 83 y.o. female : 1940 MR#: [id number] SUBJECTIVE Overnight converted to normal sinus rhythm [...] Signed Date: 04/20/2024 06:55 ET Workstation ID: [id number] Transcribed By: Self Edit Transcribed Date: 04/20/2024 [...] opacities Bilateral postsurgical changes Secure chat sent [phone] -------- FINAL REPORT -------- Dictated By: Kyle King Dictated Date: 04/20/2024 06:42 ET Assigned Physician: Kyle King Reviewed and Electronically Signed By: Kyle King Signed Date: 04/20/2024 06:47 ET Workstation ID: [id number] Transcribed By: Self Edit Transcribed Date: 04/20/2024 [...] posteriorapical segmentectomy + mediastinal lymphadenectomy admitted to [facility] surgery for right upper lobectomy procedure was complicated as patient developed rapid atrial fibrillation. [place] was consulted. Atrial fibrillation rapid ventricular response-[place] in the setting of surgery. Electrolytes are [...] discontinue the diltiazem infusion while awaiting echocardiography. MD was contacted concerning x-ray findings of a [...] with RVR. Pt denied any symptoms. Nurse senior electrical project manager, thoracic virtualization engineer provider and EDWARD's made aware. Dr Valdovinos [...] Signed Date: 04/18/2024 08:33 ET Workstation ID: [id number] Transcribed By: Self Edit Transcribed Date: 04/18/2024 [...] care discussed with Dr. Rhona Adams NP [facility] Thoracic Surgery [address] [place] [address], [address] [facility] [address] * Sheree Mccloud RN - 04/18/2024 2:49 PM EST 04/18/24 7415 Initial Transition Plan Initial Transition Plan Home [...] onward) Start Ordered 04/17/[address] [facility]; General; Regular Diet effective now Question Answer Comment Location [facility] Diet Type (req) General General Diet Regular [...] 158 pounds) Self-selected diet(s) followed: none Appetite RESEARCH MICROBIOLOGIST: Good Intake RESEARCH MICROBIOLOGIST: Stable Weight History: Wt Readings from Last [...] of procedure: 03/22/2024 Type of procedure performed: [facility] procedure was performed: [facility] HPI Ms. Pinto is a 83 y.o. female who presents to our office to review their pathology results following navigational bronchoscopy/EBUS. 83-year-old woman otherwise relatively healthy former smoker smoked a pack per day starting at age 18 up until age 61 who initially had a CT scan of the chest done at [facility] in November 2023 which showed a [...] did have a core biopsy done at [place] which showed squamous cell carcinoma on the [...] medical record, Coordinating care with other health skin care consultant, and Discussion of surgical intervention and/or biopsy Rhona Michel MD on 04/01/2024 at 1:28 PM EST CC: Lul Cantor MD Asma Kareem, MD documented in this encounter Procedure Notes * Asuncion Noriega RN - 04/17/2024 4:33 PM EST Bia removed as ordered, pressure dressing applied. Chest [...] chest was explored (C findings above).The bedside surveyor's assistant controlled the camera and placed several of the ports during this portion of the operation. CO2 insufflation was established and the camera was directed posteriorly and inferiorly. With the camera directed posteriorly by the bedside surveyor's assistant, an 8 mm incision was made [...] cm incision was made by the bedside surveyor's assistant 10 cm from the camera port [...] were inserted and removed by the bedside surveyor's assistant. All specimens were also removed by the bedside surveyor's assistant. We began the operation by exploring [...] preparing for the next side. A 28 Cook Islander straight chest tube was placed and directed [...] chest was explored (C findings above).The bedside surveyor's assistant controlled the camera and placed several of the ports during this portion of the operation. CO2 insufflation was established and the camera was directed posteriorly and inferiorly. With the camera directed posteriorly by the bedside surveyor's assistant, an 8 mm incision was made [...] cm incision was made by the bedside surveyor's assistant 10 cm from the camera port [...] robotic stapler as well as the hand-held Terminous stapler we were able to wedge out [...] a Silastic around it and fired a va scular load across it without difficulty. We then dissected on the main pulmonary artery releasing the vein from the main pulmonary artery as well as approaching the bronchus intermedius/bronchus to the right upper lobe crotch. With some further dissection we were able to identify the Surgicel previously placed and pulled it through. A Silastic was then placed around the bronchus and a 30 mm green load robotic stapler was fired across the bronchus without difficulty. Further exploration did notreveal a posterior branch of the pulmonary artery so we began with our parenchymal completion. Anterior posterior multiple firings of the green load 45 mL robotic stapler were fired across the anterior and posterior fissures taking care to stay underneath the hilar structures previously taken. Thisseparated the specimen completely. Our new staple line was marked with a Vicryl stitch. Hemostasis was achieved, pro gel/Vistaseal were applied, and the robot was undocked. Finally, the completion lobe was placed in Endo Catch bag and sent to pathology for permanent section. A 28 Cook Islander straight chest tube was placed and directed [...] from the original note were not included. NEVIS CONSULT NOTE Please contact author [Maximo Valdovinos MD] via [employer]. Patient: Bonny Pinto Admission Date/Time: 04/17/2024 6:52 [...] she had a normal test done at [facility] but does not remember undergoing a [...] Signed Date: 04/18/2024 08:33 ET Workstation ID: [id number] Transcribed By: Self Edit Transcribed Date: 04/18/2024 [...] 04/17/2024 16:20 ET Assigned Physician: Mary Kay Frenandez Reviewed and Electronically Signed By: Mary Kay Fernandez Signed Date: 04/17/2024 16:21 ET Workstation ID: [id number] Transcribed By: Self Edit Transcribed Date: 04/17/2024 [...] FULL CODE. The patient's , Baltazar Pinto [phone], is her medical decision-maker in the event she is unable to make decisions for herself. Over 60 minutes were spent in the initial evaluation and coordination of care for this patient. documented in this encounter Plan of Treatment Upcoming Encounters Date Type Department Care Team (Late st Contact Info) Description 05/01/2024 11:15 AM EDT Office Visit Thoracic Surgery - [place] [address] [place] [phone] Maximo Carias PA [address] [place] [address] [place] [phone] Pending Results Name Type Priority Associated Diagnoses [...] 1 VIEW STAT 04/17/2024 3:47 PM EST AK THORACOSCOPY WITH THERAPEUTIC WEDGE RESECTION INITIAL UNILATERAL 04/17/2024 8:18 AM EST 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) Case Notes ON-Q Special Needs ON-Q AK REMOVAL OF LUNG OTHER THAN PNEUMONECTOMY SINGLE LOBE 04/17/2024 8:18 AM EST 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) Case Notes ON-Q Special Needs ON-Q AK THORACOSCOPY SURGICAL WITH REMOVAL OF A SINGLE LUNG SEGMENT 04/17/2024 8:18 AM EST 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) Case Notes ON-Q Special Needs ON-Q AK THORACOSCOPY SURGICAL W MEDIASTINAL & REGIONAL LYMPHADENECTOMY 04/17/2024 8:18 AM EST 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) Case Notes ON-Q Special Needs ON-Q AK THORACOSCOPY W DX WEDGE RESECTION F/B ANATOMIC LUNG RESECTION 04/17/2024 8:18 AM EST 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) Case Notes ON-Q Special Needs ON-Q AK THORACOSCOPY SURGICAL WITH LOBECTOMY 04/17/2024 8:18 AM [...] infiltrates bilaterally. No change since 04/21/2024. Code 49327 -------- FINAL REPORT -------- Dictated By: Kalpesh Brody Dictated Date: 04/22/2024 07:53 ET Assigned Physician: Kalpesh Brody Reviewed and Electronically Signed By: Kalpesh Brody Signed Date: 04/22/2024 07:57 ET Workstation ID: [id number] Transcribed By: Self Edit Transcribed Date: 04/22/2024 [...] and/orinfiltrates bilaterally. No change since 04/21/2024. Code 90743 -------- FINAL REPORT -------- Dictated By: Kalpesh Brody Dictated Date: 04/22/2024 07:53 ET Assigned Physician: Kalpesh Brody Reviewed and Electronically Signed By: Kalpesh Brody Signed Date: 04/22/2024 07:57 ET Workstation ID: [id number] Transcribed By: Self Edit Transcribed Date: 04/22/2024 07:53 ET us Psatora Adams CREATIVE PERFUMER IMG XR PROCEDURES Final Res ult * (ABNORMAL) TRANSTHORACIC ECHOCARDIOGRAM (TTE) COMPLETE W/ CONTRAST (04/21/2024 12:11 PM EDT) Left Atrium Minor [place] 6.2 cm CV PACS Left Atrium Major [place] 6.5 cm CV PACS LA Area Sys [...] Volume 49 mL CV PACS MV Deceleration Rush 6.5 m/s2 CV PACS E Wave Deceleration [...] Signed Date: 04/21/2024 06:52 ET Workstation ID: [id number] Transcribed By: Self Edit Transcribed Date: 04/21/2024 [...] King Reviewed and Electronically Signed By: Kyle iKng Signed Date: 04/21/2024 06:52 ET Workstation ID: [id number] Transcribed By: Self Edit Transcribed Date: 04/21/2024 06:50 ET us Pastora Adams CREATIVE PERFUMER IMG XR PROCEDURES Final Res ult * [...] Signed Date: 04/20/2024 12:33 ET Workstation ID: [id number] Transcribed By: Self Edit Transcribed Date: 04/20/2024 [...] Signed Date: 04/20/2024 12:33 ET Workstation ID: [id number] Transcribed By: Self Edit Transcribed Date: 04/20/2024 12:30 ET us Maximo Valdovinos MD IMG XR PROCEDURES Final Res [...] Signed Date: 04/20/2024 06:55 ET Workstation ID: [id number] Transcribed By: Self Edit Transcribed Date: 04/20/2024 [...] Signed Date: 04/20/2024 06:47 ET Workstation ID: [id number] Transcribed By: Self Edit Transcribed Date: 04/20/2024 [...] Signed Date: 04/20/2024 06:47 ET Workstation ID: [id number] Transcribed By: Self Edit Transcribed Date: 04/20/2024 06:42 ET Pastora Adams CREATIVE PERFUMER IMG XR PROCEDURES Edited Re sult - Final * Magnesium (04/19/2024 11:24 PM EST) Magnesium 1.9 1.9 - 2.6 mg/dL LAB CHEMISTRY METHOD 04/20/2024 12:13 AM EST [facility] Blood Venous blood specimen / Unknown Venipuncture / Unknown 04/19/2024 11:24 PM EST 04/19/2024 11:38 PM EST Maximo Valdovinos MD LAB BLOOD ORDERABLES Final Result [facility] [address] [place] [address], * (ABNORMAL) Complete blood count (04/19/2024 11:24 PM EST) [facility] Signature WBC 17.5(H) 4.8 - 10.8 K/mcL LAB HEMETOLOGY METHOD 04/19/2024 11:50 PM EST [facility] RBC 4.00 3.80 - 4.80 M/mcL LAB HEMETOLOGY METHOD 04/19/2024 11:50 PM EST [facility] Hemoglobin 12.8 11.5 - 16.0 g/dL LAB HEMETOLOGY METHOD 04/19/2024 11:50 PM EST [facility] Hematocrit 38.3 35.0 - 47.0 % LAB HEMETOLOGY METHOD 04/19/2024 11:50 PM EST [facility] MCV 94.8 79.0 - 98.0 FL LAB HEMETOLOGY METHOD 04/19/2024 11:50 PM EST [facility] MCH 31.7 27.0 - 32.0 pcg LAB HEMETOLOGY METHOD 04/19/2024 11:50 PM EST [facility] MCHC 33.4 32.0 - 37.0 g/dL LAB HEMETOLOGY METHOD 04/19/2024 11:50 PM EST [facility] RDW 12.8 11.0 - 15.0 % LAB HEMETOLOGY METHOD 04/19/2024 11:50 PM EST [facility] Platelets 156 130 - 400 K/mcL LAB HEMETOLOGY METHOD 04/19/2024 11:50 PM EST [facility] MPV 11.2(H) 7.0 - 11.0 FL LAB HEMETOLOGY METHOD 04/19/2024 11:50 PM EST [facility] NRBC 0.0 <1.0 % LAB HEMETOLOGY METHOD 04/19/2024 11:50 PM EST [facility] NRBC Absolute 0.00 <0.10 K/mcL LAB HEMETOLOGY METHOD 04/19/2024 11:50 PM EST [facility] Blood Venous blood specimen / Unknown Venipuncture / Unknown 04/19/2024 11:24 PM EST 04/19/2024 11:38 PM EST Maximo Valdovinos MD LAB BLOOD ORDERABLES Final Result Performing Organization Address [facility]/ZIP Co de Phone Number [facility] [address] [place] [address], [place] [phone] * Troponin I high sensitivity (04/19/2024 11:24 PM EST) [facility] High Sensitivity Troponin I 28 <=54 ng/L LAB CHEMISTRY METHOD 04/20/2024 12:16 AM EST [facility] Blood Venous blood specimen / Unknown Venipuncture / Unknown 04/19/2024 11:24 PM EST 04/19/2024 11:38 PM EST Narrative [facility] - 04/20/2024 12:16 AM EST High levels of biotin in samples may falsely decrease hsTroponin values. ??Use caution when interpreting hsTroponin results in patients taking biotin who exhibit renal impairment (eGFR <60) or in patients taking more than 20 mg/day of biotin. Maximo Valdovinos MD LAB BLOOD ORDERABLES Final Result Performing Organization Address [facility]/ZIP Co de Phone Number [facility] [address] [place] [address], * (ABNORMAL) Basic metabolic panel (04/19/2024 11:24 PM EST) [facility] Sodium 138 133 - 145 mmol/L LAB CHEMISTRY METHOD 04/20/2024 12:13 AM EST [facility] Potassium 4.0 3.5 - 5.5 mmol/L LAB CHEMISTRY METHOD 04/20/2024 12:13 AM [facility] Chloride 102 96 - 110 mmol/L LAB CHEMISTRY METHOD 04/20/2024 12:13 AM [facility] CO2 30 21 - 32 mmol/L LAB CHEMISTRY METHOD 04/20/2024 12:13 AM [facility] Anion Gap 6 3 - 11 LAB CHEMISTRY METHOD 04/20/2024 12:13 AM [facility] Glucose 114(H) 70 - 100 mg/dL LAB CHEMISTRY METHOD 04/20/2024 12:13 AM [facility] BUN 16 5 - 25 mg/dL LAB CHEMISTRY METHOD 04/20/2024 12:13 AM [facility] Creatinine 0.48(L) 0.50 - 1.10 mg/dL LAB CHEMISTRY METHOD 04/20/2024 12:13 AM [facility] eGFR 95 >=60 mL/min/1. 73m2 LAB CHEMISTRY METHOD 04/20/2024 12:13 AM [facility] Comment:Calculation based on the??Chronic Kidney Disease Epidemiology Collaboration (CKD-EPI) equation refit??without adjustment for race. BUN/Creatinine Ratio 33.3 LAB CHEMISTRY METHOD 04/20/2024 12:13 AM [facility] Calcium 9.3 8.5 - 10.5 mg/dL LAB CHEMISTRY METHOD 04/20/2024 12:13 AM [facility] Blood Venous blood specimen / Unknown Venipuncture / Unknown 04/19/2024 11:24 PM EST 04/19/2024 11:38 PM EST us Maximo Valdovinos MD LAB BLOOD ORDERABLES Final Result [facility] [address] [place] [address], * Light blue tube (04/19/2024 11:19 PM EST) Extra Tube Hold for add-ons. 04/20/2024 1:05 AM EST [facility] ([facility] Comment:Auto resulted. Blood Venous blood specimen / Unknown Venipuncture / Unknown 04/19/2024 11:19 PM EST 04/19/2024 11:38 PM EST Rhona Michel MD LAB BLOOD ORDERABLES Final Resul t Performing Organization Address City/[facility]/ZIP Co de Phone Number [facility] [address] [place] [address], [place] [phone] * ECG 12 lead (04/19/2024 10:23 PM EST) Ventricular Rate ECG 171 BPM GEMUSE Atrial Rate 178 BPM GEMUSE QRS Duration 90 ms GEMUSE Q-T Interval 276 ms GEMUSE QTc 465 ms GEMUSE R [place] 47 degrees GEMUSE T [place] -79 degrees GEMUSE ECG Interpretation Critical Test [...] Valdovinos MD ECG ORDERABLES Final Resul t GEMUSE * XR Chest 1 View (04/18/2024 6:18 AM EST) Anatomical Region Laterality Modality Body Radiographic Kendra ging 04/18/2024 8:32 AM EST Impressions 04/18/2024 8:33 AM EST Similar appearance to 04/17/2024. -------- FINAL REPORT -------- Dictated By: Derek Khan Dictated Date: 04/18/2024 08:32 ET Assigned Physician: Derek Khan Reviewed and Electronically Signed By: Derek Khan Signed Date: 04/18/2024 08:33 ET Workstation ID: [id number] Transcribed By: Self Edit Transcribed Date: 04/18/2024 [...] Signed Date: 04/18/2024 08:33 ET Workstation ID: [id number] Transcribed By: Self Edit Transcribed Date: 04/18/2024 08:32 ET Pastora Adams CREATIVE PERFUMER IMG XR PROCEDURES Final Res ult * Magnesium (04/18/2024 6:11 AM EST) [facility] Magnesium 1.9 1.9 - 2.6 mg/dL LAB CHEMISTRY METHOD 04/18/2024 7:48 AM EST [facility] Blood Venous blood specimen / Unknown Venipuncture / Unknown 04/18/2024 6:11 AM EST 04/18/2024 6:59 AM EST Pastora Adams CREATIVE PERFUMER LAB BLOOD ORDERABLES Final Result [facility] [address] [place] [address], [place] [phone] * Phosphorus (04/18/2024 6:11 AM EST) [facility] Phosphorus 2.7 2.5 - 4.5 mg/dL LAB CHEMISTRY METHOD 04/18/2024 7:48 AM EST [facility] Blood Venous blood specimen / Unknown Venipuncture / Unknown 04/18/2024 6:11 AM EST 04/18/2024 6:59 AM EST Pastora Adams CREATIVE PERFUMER LAB BLOOD ORDERABLES Final Result [facility] [address] [place] [address], [place] [phone] * (ABNORMAL) Basic metabolic panel (04/18/2024 6:11 AM EST) [facility] Sodium 137 133 - 145 mmol/L LAB CHEMISTRY METHOD 04/18/2024 7:48 AM EST [facility] Potassium 4.3 3.5 - 5.5 mmol/L LAB CHEMISTRY METHOD 04/18/2024 7:48 AM EST [facility] Chloride 101 96 - 110 mmol/L LAB CHEMISTRY METHOD 04/18/2024 7:48 AM EST [facility] CO2 28 21 - 32 mmol/L LAB CHEMISTRY METHOD 04/18/2024 7:48 AM [facility] Anion Gap 8 3 - 11 LAB CHEMISTRY METHOD 04/18/2024 7:48 AM [facility] Glucose 115(H) 70 - 100 mg/dL LAB CHEMISTRY METHOD 04/18/2024 7:48 AM [facility] BUN 15 5 - 25 mg/dL LAB CHEMISTRY METHOD 04/18/2024 7:48 AM [facility] Creatinine 0.52 0.50 - 1.10 mg/dL LAB CHEMISTRY METHOD 04/18/2024 7:48 AM [facility] eGFR 93 >=60 mL/min/1. 73m2 LAB CHEMISTRY METHOD 04/18/2024 7:48 AM [facility] Comment:Calculation based on the??Chronic Kidney Disease Epidemiology Collaboration (CKD-EPI) equation refit??without adjustment for race. BUN/Creatinine Ratio 28.8 LAB CHEMISTRY METHOD 04/18/2024 7:48 AM [facility] Calcium 8.6 8.5 - 10.5 mg/dL LAB CHEMISTRY METHOD 04/18/2024 7:48 AM [facility] Blood Venous blood specimen / Unknown Venipuncture / Unknown 04/18/2024 6:11 AM EST 04/18/2024 6:59 AM EST Pastora Adams NP LAB BLOOD ORDERABLES Final Result [facility] [address] [place] [address], * (ABNORMAL) Complete blood count (04/18/2024 6:11 AM EST) WBC 16.3(H) 4.8 - 10.8 K/mcL LAB HEMETOLOGY METHOD 04/18/2024 7:59 AM [facility] RBC 3.50(L) 3.80 - 4.80 M/mcL LAB HEMETOLOGY METHOD 04/18/2024 7:59 AM [facility] Hemoglobin 11.2(L) 11.5 - 16.0 g/dL LAB HEMETOLOGY METHOD 04/18/2024 7:59 AM [facility] Hematocrit 33.3(L) 35.0 - 47.0 % LAB HEMETOLOGY METHOD 04/18/2024 7:59 AM [facility] MCV 95.7 79.0 - 98.0 FL LAB HEMETOLOGY METHOD 04/18/2024 7:59 AM [facility] MCH 32.2(H) 27.0 - 32.0 pcg LAB HEMETOLOGY METHOD 04/18/2024 7:59 AM [facility] MCHC 33.6 32.0 - 37.0 g/dL LAB HEMETOLOGY METHOD 04/18/2024 7:59 AM [facility] RDW 12.7 11.0 - 15.0 % LAB HEMETOLOGY METHOD 04/18/2024 7:59 AM [facility] Platelets 140 130 - 400 K/mcL LAB HEMETOLOGY METHOD 04/18/2024 7:59 AM [facility] Comment:Platelets appear rubin quate but clumped, Occasional plt clumps seen but count appears accurate MPV 11.1(H) 7.0 - 11.0 FL LAB HEMETOLOGY METHOD 04/18/2024 7:59 AM [facility] NRBC 0.0 <1.0 % LAB HEMETOLOGY METHOD 04/18/2024 7:59 AM [facility] NRBC Absolute 0.00 <0.10 K/mcL LAB HEMETOLOGY METHOD 04/18/2024 7:59 AM [facility] Blood Venous blood specimen / Unknown 04/18/2024 6:11 AM EST 04/18/2024 6:59 AM EST us Pastora Adams CREATIVE PERFUMER LAB BLOOD ORDERABLES Final Result Performing Organization Address [facility] Co de Phone Number [facility] [address] [place] [address], [place] [phone] * (ABNORMAL) Magnesium (04/17/2024 3:50 PM EST) Pathologist [facility] Magnesium 1.8(L) 1.9 - 2.6 mg/dL LAB CHEMISTRY METHOD 04/17/2024 4:20 PM EST [facility] Blood Venous blood specimen / Unknown Venipuncture / Unknown 04/17/2024 3:50 PM EST 04/17/2024 3:53 PM EST us Pastora Adams NP LAB BLOOD ORDERABLES Final Result Performing Organization Address [facility] Co de Phone Number [facility] [address] [place] [address], [place] [phone] * Phosphorus (04/17/2024 3:50 PM EST) [facility] Phosphorus 3.5 2.5 - 4.5 mg/dL LAB CHEMISTRY METHOD 04/17/2024 4:20 PM EST [facility] Blood Venous blood specimen / Unknown Venipuncture / Unknown 04/17/2024 3:50 PM EST 04/17/2024 3:53 PM EST us Pastora Adams CREATIVE PERFUMER LAB BLOOD ORDERABLES Final Result Performing Organization Address City/[facility]/ZIP Co de Phone Number [facility] [address] [place] [address], [place] [phone] * (ABNORMAL) Basic metabolic panel (04/17/2024 3:50 PM EST) Sodium 139 133 - 145 mmol/L LAB CHEMISTRY METHOD 04/17/2024 4:20 PM [facility] Potassium 3.7 3.5 - 5.5 mmol/L LAB CHEMISTRY METHOD 04/17/2024 4:20 PM [facility] Chloride 108 96 - 110 mmol/L LAB CHEMISTRY METHOD 04/17/2024 4:20 PM [facility] CO2 24 21 - 32 mmol/L LAB CHEMISTRY METHOD 04/17/2024 4:20 PM [facility] Anion Gap 7 3 - 11 LAB CHEMISTRY METHOD 04/17/2024 4:20 PM [facility] Glucose 217(H) 70 - 100 mg/dL LAB CHEMISTRY METHOD 04/17/2024 4:20 PM [facility] BUN 17 5 - 25 mg/dL LAB CHEMISTRY METHOD 04/17/2024 4:20 PM [facility] Creatinine 0.62 0.50 - 1.10 mg/dL LAB CHEMISTRY METHOD 04/17/2024 4:20 PM [facility] eGFR 89 >=60 mL/min/1. 73m2 LAB CHEMISTRY METHOD 04/17/2024 4:20 PM [facility] Comment:Calculation based on the??Chronic Kidney Disease Epidemiology Collaboration (CKD-EPI) equation refit??without adjustment for race. BUN/Creatinine Ratio 27.4 LAB CHEMISTRY METHOD 04/17/2024 4:20 PM [facility] Calcium 8.3(L) 8.5 - 10.5 mg/dL LAB CHEMISTRY METHOD 04/17/2024 4:20 PM [facility] Blood Venous blood specimen / Unknown Venipuncture / Unknown 04/17/2024 3:50 PM EST 04/17/2024 3:53 PM EST us Pastora Adams NP LAB BLOOD ORDERABLES Final Result [facility] [address] [place] [address], [place] [phone] * (ABNORMAL) Complete blood count (04/17/2024 3:50 PM EST) [facility] WBC 14.1(H) 4.8 - 10.8 K/mcL LAB HEMETOLOGY METHOD 04/17/2024 3:58 PM [facility] RBC 3.90 3.80 - 4.80 M/mcL LAB HEMETOLOGY METHOD 04/17/2024 3:58 PM [facility] Hemoglobin 12.5 11.5 - 16.0 g/dL LAB HEMETOLOGY METHOD 04/17/2024 3:58 PM [facility] Hematocrit 37.7 35.0 - 47.0 % LAB HEMETOLOGY METHOD 04/17/2024 3:58 PM [facility] MCV 95.9 79.0 - 98.0 FL LAB HEMETOLOGY METHOD 04/17/2024 3:58 PM [facility] MCH 31.8 27.0 - 32.0 pcg LAB HEMETOLOGY METHOD 04/17/2024 3:58 PM [facility] MCHC 33.2 32.0 - 37.0 g/dL LAB HEMETOLOGY METHOD 04/17/2024 3:58 PM [facility] RDW 12.6 11.0 - 15.0 % LAB HEMETOLOGY METHOD 04/17/2024 3:58 PM [facility] Platelets 136 130 - 400 K/mcL LAB HEMETOLOGY METHOD 04/17/2024 3:58 PM [facility] MPV 10.8 7.0 - 11.0 FL LAB HEMETOLOGY METHOD 04/17/2024 3:58 PM [facility] NRBC 0.0 <1.0 % LAB HEMETOLOGY METHOD 04/17/2024 3:58 PM [facility] NRBC Absolute 0.00 <0.10 K/mcL LAB HEMETOLOGY METHOD 04/17/2024 3:58 PM EST [facility] Blood Venous blood specimen / Unknown Venipuncture / Unknown 04/17/2024 3:50 PM EST 04/17/2024 3:53 PM EST us Pastora Adams CREATIVE PERFUMER LAB BLOOD ORDERABLES Final Result [facility] [address] [place] [address], [place] [phone] * XR Chest 1 View (04/17/2024 3:47 PM EST) Anatomical Region Laterality Modality Body Radiographic Kendra ging 04/17/2024 4:20 PM EST Impressions 04/17/2024 [...] Signed Date: 04/17/2024 16:21 ET Workstation ID: [id number] Transcribed By: Self Edit Transcribed Date: 04/17/2024 [...] Signed Date: 04/17/2024 16:21 ET Workstation ID: [id number] Transcribed By: Self Edit Transcribed Date: 04/17/2024 16:20 ET us Pastora Adams CREATIVE PERFUMER IMG XR PROCEDURES Final Res ult * Prepare RBC: 2 Units (04/17/2024 8:13 AM EST) Product Code [id number] 04/18/2024 6:58 AM [facility] Unit Number [id number] 04/19/19 6:58 AM [facility] Crossmatch Compatible 04/17/2024 2:38 PM [facility] Dispense Status Released From Crossmatch 04/18/2024 6:58 AM [facility] Unit ABO Rh APOS 04/18/2024 6:58 AM [facility] Unit Expiration Date Time [id number] 04/18/2024 6:58 AM [facility] Unit Blood Type 6200 04/18/2024 6:58 AM [facility] Product Code [id number] 04/18/2024 6:58 AM [facility] Unit Number [id number] 04/19/19 25 6:58 AM [facility] Crossmatch Compatible 04/17/2024 2:38 PM [facility] Dispense Status Released From Crossmatch 04/18/2024 6:58 AM [facility] Unit ABO Rh APOS 04/18/2024 6:58 AM EST [facility] Unit Expiration Date Time [id number] 04/18/2024 6:58 AM EST [facility] Unit Blood Type 6200 04/18/2024 6:58 AM EST [facility] Blood Venous blood specimen / Unknown 04/17/2024 8:13 AM EST 04/10/2024 10:47 AM EST us Rhona Michel MD BLOOD BANK PRODUCT ORDERABLES Fi nal Result [facility] [address] [place] [address], documented in this encounter Visit Diagnoses Diagnosis [...] MAR Action Action Date Dose Rate Site celecoxib (CeleBREX) capsule 100 mg 100 mg, oral, 2 times daily, First dose on Mon04/19/24 at 1100 Given 04/22/2024 9:31 AM EDT 100 mg Given 04/21/2024 8:42 PM EDT 100 mg Given 04/21/2024 9:24 AM EDT 100 mg dilTIAZem (CARDIZEM) 125 mg in sodium chloride (non-PVC) 0.9 % 125 mL (1 mg/mL) infusion 5-15 mg/hr (5-15 mL/hr), intravenous, Continuous, Starting on Mon04/19/24 at 2330, GOAL EFFECT: Decrease HR to LESS than 110 BPM INITIAL RATE: 5 mg/hr USUAL DOSE RANGE: 5 - 15 mg/hr TITRATION DOSE: 2.5 mg/hr TITRATION FREQUENCY: 30 min CONTACT PRESCRIBER: -HR LESS than 60 BPM -HR GREATER than 120 BPM -SBP LESS than 80 mmHg -SBP GREATER than 180 mmHg -Prolongation of AK interval + QRS complex *Individual cases may deviate from parameters and would REQUIRE an order from the provider documented in the patient record* New Bag 04/19/2024 11:17 PM EST 5 mg/hr 5 mL/hr dilTIAZem (CARDIZEM) 5 mg/mL injection - ADS Override Pull Starting on Mon04/19/24 at 2255, For 1 dose, Created by cabinet override Given 04/19/2024 11:16 PM EST 10 mg dilTIAZem (CARDIZEM) bolus from infusion 10 mg 10 mg, intravenous, Administer over 2 Minutes, Once, On Mon04/19/24 at 2330, For 1 dose, Bolus from infusion. Bolus from Bag 04/19/2024 11:43 PM EST 10 mg dilTIAZem (CARDIZEM) immediate release tablet 30 mg 30 mg, oral, Every 6 hours scheduled, First dose on Mon04/20/24 at 0730 Given 04/20/2024 8:12 AM EST 30 mg dilTIAZem (CARDIZEM) injection 10 mg 10 mg, intravenous, Once, On Mon04/19/24 at 2330, For 1 dose, For IV Push - administer over 2 minutes with continuous ECG and blood pressure monitoring Given 04/19/2024 11:12 PM EST 10 mg docusate sodium (COLACE) capsule 100 mg 100 mg, oral, 2 times daily, First dose on Mon04/17/24 at 2100 Given 04/22/2024 9:31 AM EDT 100 mg Given 04/20/2024 8:44 PM EST 100 mg Given 04/20/2024 8:12 AM EST 100 mg fentaNYL (PF) (SUBLIMAZE) injection 50 mcg 50 mcg, intravenous, Every 5 min PRN, moderate pain, Starting on Mon04/17/24 at 1450, For 4 doses, Recovery (only) Given 04/17/2024 3:26 PM EST 50 mcg haloperidol lactate (HALDOL) injection 1 mg 1 mg, intravenous, Once as needed, nausea and vomitting, Starting on Mon04/17/24 at 1450, For 1 dose, Recovery (only), Give as first line antiemetic agent. May be ordered via either intramuscular or intravenous route. If ordered IV, maximum of 5 mg/minute. Given 04/17/2024 3:14 PM EST 1 mg HYDROmorphone (DILAUDID) injection 0.5 mg 0.5 mg, intravenous, Every 5 min PRN, severe pain, Pain, Starting on Mon04/17/24 at 1450, For 4 doses, Recovery (only) Given 04/17/2024 3:21 PM EST 0.5 mg Given 04/17/2024 3:13 PM EST 0.5 mg HYDROmorphone (DILAUDID) injection 0.5 mg 0.5 mg, intravenous, Every 3 hours PRN, severe breakthrough pain, Starting on Mon04/17/24 at 1518, For 2 days, Recovery [facility] On Unit Given 04/19/2024 3:14 AM EST 0.5 mg Given 04/18/2024 12:59 AM EST 0.5 mg ipratropium-albuteroL (DUONEB) 0.5-2.5 mg/3 mL nebulizer solution 3 mL 3 mL, nebulization, 4 times daily, First dose on Mon04/17/24 at 1600, Recovery [facility] On Unit Given 04/22/2024 4:12 PM EDT 3 mL Given 04/22/2024 11:34 AM EDT 3 mL Given 04/22/2024 7:38 AM EDT 3 mL lactated Ringer's infusion 75 mL/hr, intravenous, Continuous, Starting on Mon04/17/24 at 0830, Preprocedure New Bag 04/18/2024 1:07 AM EST 75 mL/hr 75 mL/hr New Bag 04/17/2024 1:08 PM EST New Bag 04/17/2024 8:20 AM EST lidocaine 4 % patch 2 patch 2 [...] Given 04/19/2024 8:09 PM EST 10 mg magnesium sulfate 2 gram/50 mL (4 %) IVPB 2 g 2 g, intravenous, at 25 mL/hr, Administer over 2 Hours, Once, On 04/20/24 at 0215, For 1 dose New Bag 04/20/2024 2:36 AM EST 2 g 25 m L/hr metoclopramide (REGLAN) injection 10 mg 10 mg, [...] no further options ordered. metoprolol tartrate (LOPRESSOR) 5 mg/5 mL injection - ADS Override Pull Starting on Mon04/19/24 at 2241, For 1 dose, Created by cabinet override metoprolol tartrate (LOPRESSOR) 5 mg/5 mL injection - ADS Override Pull Starting on Mon04/19/24 at 2248, For 1 dose, Created by cabinet override Given 04/19/2024 11:09 PM EST 5 mg metoprolol tartrate (LOPRESSOR) injection 5 mg 5 mg, intravenous, Every 5 min PRN, other, For sustained HR >110 bpm, hold for SPB <100 mmHg, Starting on Mon04/19/24 at 2239, For 3 doses, For IV Push - Administer undiluted over 2 minutes Given 04/19/2024 11:08 PM EST 5 mg Given 04/19/2024 10:46 PM EST 5 mg Given 04/19/2024 10:42 PM EST 5 mg metoprolol tartrate (LOPRESSOR) tablet 25 mg 25 mg, oral, 2 times daily, First dose on 04/20/24 at 0900 Given 04/22/2024 9:31 AM EDT [...] Given 04/17/2024 4:31 PM EST 5 mg perflutren lipid microsphere (DEFINITY) 1.3 mL in sodium chloride 0.9% 8.7 mL injection 10 mL, intravenous, Administer over 10 Minutes, Once in imaging, Starting on Mon04/21/24 at 1211, For 1 dose, CV Medication Orders Given 04/21/2024 12:11 PM EDT 10 mL polyethylene glycol (MIRALAX) packet 17 g 17 [...] Nidhi Thompson RN)2041 (Given - Provider: Regina Garcias, MALCOLM) 0931 (Given - Provider: Deb Marroquin, MALCOLM) dilTIAZem (CARDIZEM) immediate release tablet 30 mg (CANCELED) 30 mg, oral, Every 6 hours scheduled, First dose on Mon04/20/24 at 0730 0812 (Given - Provider: Nidhi Thompson RN) docusate sodium (COLACE) capsule 100 mg 100 mg, oral, 2 times daily, First dose on Mon04/17/24 at 2100 0812 (Given - Provider: Nidhi Thompson RN)2043 (Given - Provider: Regina Garcias RN) 922 (Not Given - Provider: Nidhi Thompson RN - Reason: Patient/Resident/Age nt refused - education provided )2043 (Not Given - Provider: Regina Garcias RN - Reason: Patient/Resident/Age nt refused - education provided ) 0931 (Given - Provider: Deb Marroquin RN) ipratropium-albuteroL (DUONEB) 0.5-2.5 mg/3 mL nebulizer solution 3 mL 3 mL, nebulization, 4 times daily, First dose on Mon04/17/24 at 1600, Recovery [facility] On Unit 0734 (Given - Provider: Roxi Bailey, SHORTY)1148 (Not Given - Provider: Roxi Bailey RRT - Reason: Patient/Resident/Age nt refused - education provided )1624 (Given - Provider: Debora Tan RRT)195 (Given - Provider: Moon Al DOCUMENT SCANNER) 0725 (Given - Provider: Montez Valdez, DOCUMENT SCANNER)1123 (Given - Provider: Montez Valdez DOCUMENT SCANNER)1556 (Given - Provider: Alisia Huerta, SHORTY)2008 (Given - Provider: Alisia Huerta RRT) 0738 (Given - Provider: Griselda Montague, SHORTY)1134 (Given - Provider: Griselda Montague, SHORTY)1612 (Given - Provider: Debora Tan RRT) lidocaine [...] Garcias RN) 09 (Patch Applied - Provider: Deb Marroquin, MALCOLM - Comment: L & R back)1749 (Due: [...] 0931 (Given - Provider: Deb Marroquin, MALCOLM) perflutren lipid microsphere (DEFINITY) 1.3 mL in sodium chloride 0.9% 8.7 mL injection (COMPLETED) 10 mL, intravenous, Administer over 10 Minutes, Once in imaging, Starting on Mon04/21/24 at 1211, For 1 dose, CV Medication [...] ) 0932 (Not Given - Provider: Deb Marroquin, MALCOLM - Reason: Patient/Resident/Agent refused - education provided ) senna (SENOKOT) tablet 17.2 mg 17.2 mg (2 tablet), oral, Nightly, First dose on Mon04/17/24 at 2100, Recovery & On Unit, Bowel Regimen - for prevention of constipation 2043 (Given - Provider: Regina Garcias, MALCOLM) 2044 (Not Given - Provider: Regina Garcias RN - Reason: Patient/Resident/Age nt refused - education provided ) sodium chloride 0.9 % flush 10 mL(Linked Group 1) 10 mL, intravenous, 2 times daily, First dose on Mon04/17/24 at 2100, Recovery [facility] On Unit 0813 (Given - Provider: Nidhi Thompson RN)2043 (Given - Provider: Regina Garcias, MALCOLM) 09 (Given - Provider: Nidhi Thompson RN)2051 (Given - Provider: Regina Garcias, MALCOLM) 0932 (Given - Provider: Deb Marroquin, RN) PRN Medication Order 04/20/2024 04/21/2024 04/22/2024 bisacodyL (DULCOLAX) EC tablet 10 mg 10 mg, oral, Daily PRN, constipation, Starting on Mon04/17/24 at 193, 1st line for treatment of constipation - give scheduled if no bowel movement in past 24 hours. Do not crush, chew, or split. bisacodyL (DULCOLAX) suppository 10 mg 10 mg, rectal, Daily PRN, constipation, Starting on Mon04/17/24 at 193, 2nd line for treatment of constipation - give scheduled (in addition to 1st line agent) if no bowel movement in past 48 hours meclizine (ANTIVERT) tablet 25 mg 25 mg, oral, 3 times daily PRN, dizziness, Starting on Mon04/17/24 at 193 metoclopramide (REGLAN) injection 10 mg(Linked Group 2) [...] Count Last Ordered Date First Ordered Date dilTIAZem (CARDIZEM) 5 mg/mL injection - ADS Override Pull 1 04/19/2024 sodium chloride (non-PVC) 0. 9 % infusion - ADS Override Pull 1 04/19/2024 acetaminophen (TYLENOL) tablet 1,000 mg 1 0 04/17/2024 bisacodyL (DULCOLAX) EC tablet 10 mg 1 06/2024 bisacodyL (DULCOLAX) suppository 10 mg 1 bupivacaine-EPINEPHrine (PF) (MARCAINE w/EPI) 0.25 %-1:200,000 injection 1 04/17/2024 ceFAZolin (ANCEF) 2 g in [place] water 20 mL IV syringe 1 04/17/2024 diphenhydrAMINE (BENADRYL) injection 25 mg 1 04/17/2024 meclizine (ANTIVERT) tablet 25 mg 1 025 methylPREDNISolone acetate ( DEPO-Medrol) injection 1 04/17/2024 metoclopramide (REGLAN) injection 10 mg 1 0 04/17/2024 metoclopramide (REGLAN) tablet 10 mg 1 06/2024 ondansetron (PF) (ZOFRAN) injection 4 mg 1 04/17/2024 ondansetron ODT (ZOFRAN-ODT) disintegrating tablet 4 mg 1 04/17/2024 oxyCODONE (ROXICODONE) immed iate release tablet 5 mg 1 04/17/2024 sodium chloride 0.9 % flush 10 mL 5 025 sodium chloride 0.9 % infusion 1 [...] documented as of this encounter Care Teams Pulp Drier Firer Relationship Specialty Start Date End Date Rose Mary Collins MD [address] [place] [id number] PCP - General Internal Medicine 02/27/24 documented as of this encounter
--- OUTSIDE RECORDS SUMMARY | 2024-04-24 10:04 | XMS_ITS | Encounter Summary ---
Author Organization [facility] Address [address] [place] [address] Care Team Providers Care Campground Cleaning Attendant Name Role Phone Rose Mary Collins MD Primary Care Provider [phone] Reason for Visit * Reason Onset Date Comments Procedure 03/11/2024 Pat, ct-scan Encounter Details Date Type Department Care Team (Late st Contact Info) Description 03/11/2024 Telephone Thoracic Surgery - [address] [place] [id number] Gemma Barba MA Procedure (Pat, ct-scan) Social History Tobacco Use Types Packs/Day Years [...] as of this encounter Progress Notes * Gila Dinero - 03/18/2024 11:48 AM EST I spoke with patient spouse and inform him that the patient is schedule for 03/22/24 at 1:30 pm arrival time 11:30 am All questions where answer. * Gila Dinero - 03/13/2024 8:36 AM EST No auth require medicare primary. * Gila Dinero - 03/12/2024 10:38 AM EST Patient is booked for 03/22/24 at 7:30 am arrival time 6:00 am PAT 03/13/24 at 12:00 pm Post op - 04/01/24 at 11:30 am w/ Ct-scan 03/13/24 AT 1:00 PM BOOKED w/ [facility] Prior auth pending 03/12 Patient is aware of surgery date * Gila Dinero - 03/12/2024 10:05 AM EST Patient wanted to book the surgery to this week however per request for next week. * Gemma Barba MA - 03/11/2024 1:30 PM EST Patient called asking if her surgery has been booked yet, I told her Gila would call her back onTuesday 03/12/24 as Gila is out of the office today, please return patients call documented in this encounter Plan of Treatment Upcoming Encounters Date Type Department Care Team (Late st Contact Info) Description 05/01/2024 11:15 AM EDT Office Visit Thoracic Surgery - [place] [address] [phone] Maximo Carias PA [address] [facility] [address] [place] [address] documented as of this encounter Visit Diagnoses Not on filedocumented in this encounter Additional Health Concerns Infection Onset Date Last Indicated Resolved Time Tuberculosis Rule-Out 03/22/2024 03/22/20242024 7:04 PM EST documented as of this encounter Care Teams Campground Cleaning Attendant Relationship Specialty Start Date End Date Rose Mary Collins MD [address] [place] [phone] PCP - General Internal Medicine 02/27/24 documented as of this encounter
--- OUTSIDE RECORDS SUMMARY | 2024-04-24 10:04 | XMS_ITS | Clinical Summary ---
Author Organization [facility] Address [address] [place] [phone] Phone Care Team Providers Care Patient Care Name Role Phone Rose Mary Collins MD Primary Care Provider [phone] Allergies Active Allergy Reactions Criticality Noted Date Comments Azithromycin 01/19/2019 Jaundice Acetaminophen 04/17/2024 PT WAS TOLD NOT TO TAKE TYLENOL WITH CIRRHOSIS Medications Dupixent Pen 300 mg/2 mL pen 2 mL (300 mg total) every 14 (fourteen) days. 12/18/19 24 Active meclizine (ANTIVERT) 25 mg tablet Take 1 tablet (25 mg total) by mouth 3 times daily as needed. Active loratadine (CLARITIN) 10 mg tablet Take 1 tablet (10 mg total) by mouth at bedtime. Active mv-min/FA/vit K/lutein/zeaxant (PRESERVISION AREDS 2 PLUS MV ORAL) Take 2 tablets by mouth 1 (one) time each day. Active MILK THISTLE ORAL Take by mouth. Active bisacodyL (DULCOLAX) 5 mg EC tablet Take 2 tablets (10 mg total) by mouth 1 (one) time each day if needed for constipation. Do not crush, chew, or split. 04/23/19 25 025 Active docusate sodium (COLACE) 100 mg capsule Take 1 capsule (100 mg total) by mouth 2 (two) times a day for 10 days. 04/23/19 025 Active ipratropium-albute roL (DUONEB) 0.5-2.5 mg/3 mL nebulizer solutionIndication s: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) Take 3 mL by nebulization 4 (four) times a day. 04/23/19 026 Active lidocaine 4 % patch Apply 2 patches topically 1 (one) time each day. 04/24/19 Active metoclopramide (REGLAN) 10 mg tablet Take 1 tablet (10 mg total) by mouth every 6 (six) hours if needed (nausea/vomiting ) for up to 10 days. 04/23/19 Active metoprolol tartrate (LOPRESSOR) 25 mg tablet Take 1 tablet (25 mg total) by mouth 2 (two) times a day. 04/23/19 026 Active ondansetron ODT (ZOFRAN-ODT) 4 mg disintegrating tabletIndications: 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) Take 1 tablet (4 mg total) by mouth every 8 (eight) hours if needed for vomiting or nausea for up to 7 days. 04/23/19 Active oxyCODONE (ROXICODONE) 5 mg immediate release tabletIndications: 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) Take 1 tablet (5 mg total) by mouth every 4 (four) hours if needed for moderate pain. Max Daily Amount: 30 mg 04/23/19 Active celecoxib (CeleBREX) 100 mg capsule Take 1 capsule (100 mg total) by mouth 2 (two) times a day. 04/23/19 025 Active Active Problems Problem Noted Date Diagnosed Date Palpitation 04/04/2024 Primary cancer of right upper lobe of lung 04/01 Primary cancer of left upper lobe of lung 2024 Assessment & Plan (04/01/2024 1:20 PM EST): 83-year-old woman former smoker now diagnosed with 2 separate lung cancers. 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 At any rate, I discussed multiple options including radiation for both, surgery for above, and a combination of radiation and surgery. I will plan on getting her on the schedule for da Gabe left upper lobectomy right upper lobe segmentectomy or wedge resection same sitting by her preference. Will need her to see cardiology prior to the operation. This should be booked as the only operation on that day if she we indeed do move forward with this plan. Assessment & Plan (03/08/2024 2:10 PM EST): 83-year-old woman former smoker with a now known biopsy-proven left upper lobe lung cancer and a separate PET avid area in the right upper lobe. I had a long discussion with her and her about the findings on all of her imaging including CAT scan and PET scan as well as the pathology from her biopsy done at [facility]. I also went over pulmonary nodules in general and how the size, shape, and tire changer time affect her level of suspicion for malignancy. The area of PET avidity on the right does not have a distinct nodular shape to it. I also went over the diagnosis, staging, and treatment of lung cancer in detail which they both seem to understand. I think the most reasonable course of action is to do a navigational bronchoscopy/EBUS with biopsy for the right sided nodule and staging of the mediastinum at the same time. She does have an appointment to see radiation oncology but will wait for this until we have some biopsy information from the right side and have completed the full staging workup. All questions were answered. Pulmonary nodule 03/08/2024 History of breast cancer 03/01/2024 Anxiety 03/01/2024 Chronic pruritic rash in adult 03/01/2024 Cirrhosis of liver 03/01/2024 History of colon cancer 03/01/2024 Diverticulitis 03/01/2024 Low vitamin D level 03/01/2024 Osteopenia 03/01/2024 Pulmonary fibrosis 03/01/2024 Tubular adenoma of colon 03/01/2024 Arthritis 11/17/2006 Overview (03/01/2024): H/O Arthritis Resolved Problems Problem Noted Date Diagnosed Date Resolved Date Cancer 11/17/2006 03/01/2024 Overview (03/01/2024): Cancer; *See attached note in LMR Encounters Date Type Department Care Team Description 04/17/2024 8:30 AM EST - 04/17/2024 3:30 PM EST Surgery [facility] OR [address] [place] [phone] Rhona Michel MD Da Gabe left upper posterior apical segmentectomy & right upper lobe anterior segmentectomy with completion right upper lobectomy [39407 (CPT??) +5 more] 04/17/2024 8:18 AM EST Anesthesia Event [facility] OR [address] [place] [phone] Asael Peters DO Benton, John, SRNA 04/17/2024 6:52 AM EST - 04/22/2024 5:49 PM EDT Hospital Encounter [facility] [address] [place] [phone] Rhona Michel MD Alam, Aroosa, MD Mohani, Priya, MD 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) (Primary Dx); Primary cancer of right upper lobe of lung (CMS/HCC); Paroxysmal atrial fibrillation (CMS/HCC) Discharge Disposition: Alf Facility 04/05/2024 2:30 PM EST Office Visit [facility] [address] [place] [phone] Ignacio Florian MD 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); Primary cancer of right upper lobe of lung (CMS/HCC); Pulmonary fibrosis (CMS/HCC) 04/02/2024 Telephone Thoracic Surgery - [place] [address] [facility] [address] [place] [phone] Rhona Michel MD Procedure (PVCA , PAT , ) 04/01/2024 11:30 AM EST Office Visit Thoracic Surgery - [place] [address] [facility] [address] [place] [phone] Rhona Michel MD 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) (Primary Dx); Primary cancer of right upper lobe of lung (CMS/HCC); Pulmonary fibrosis (CMS/HCC); Neoplasm 03/22/2024 1:39 PM EST - 03/22/2024 11:59 PM EST Hospital Encounter [facility] Xray [address] [place] [phone] Discharge Disposition: Home or Self Care 03/22/2024 1:31 PM EST Anesthesia Event [facility] Main OR [address] [place] [phone] Feliciano Florez MD Dickman, Christy L, POWDER MONKEY 03/22/2024 1:30 PM EST - 03/22/2024 3:30 PM EST Surgery [facility] Main OR [address] [place] [phone] Rhona Michel MD Navigational bronchoscopy/EBUS with biopsies [26279 (CPT??) +2 more] 03/22/2024 12:00 PM EST - 03/22/2024 5:00 PM EST Hospital Encounter [facility] Main OR [address] [place] [phone] Rhona Michel MD 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); Pulmonary nodule Discharge Disposition: Home or Self Care 03/13/2024 11:30 AM EST - 03/13/2024 11:59 PM EST Hospital Encounter [facility] CT Scan [address] [place] [phone] Lung nodule Discharge Disposition: Home or Self Care 03/11/2024 Telephone Thoracic Surgery - [place] [address] [facility] [address] [place] [phone] Gemma Barba MA Procedure (Pat, ct-scan) 03/08/2024 12:00 PM EST Consult Thoracic Surgery - [place] [address] [facility] [address] [place] [phone] Rhona Michel MD 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) (Primary Dx); Pulmonary nodule; Pulmonary fibrosis (CMS/HCC); Neoplasm 03/08/2024 Telephone [facility] Radiation Oncology [address] [phone] Lita Alvarado MA 03/01/2024 Telephone [facility] [address] [phone] Lindsey Allen MA 02/27/2024 Telephone [facility] [address] [phone] Lita Alvarado MA from Last 3 Months Immunizations Name Administration Dates Next Due COVID-19 (Pfizer/Comirnaty) 12yo and older 11/07/2022 Influenza Quadravalent, 0.5m l (Fluad) 65yo and older 10/08/2021,12/11/2020 Influenza Quadravalent, 0.5m l (Fluzone High-dose) 65yo and older 11/07/2022 Influenza trivalent, 0.5mL ( Fluad) 65yo and older 11/19/2018,01/18/2017 Influenza trivalent, 0.5mL ( Fluzone High-dose) 65yo and older 12/06/2023,11/30/2017,03/16/2016,12/03 Pneumococcal conjugate 13 va lent (Prevnar 13, PCV13) 2mo and older 02/24/2017 Pneumococcal polysaccharide 23 valent (Pneumovax 23) 2yo and older 01/04/2019,12/03/2014 RSV, bivalent, protein subun it RSVpreF, 0.5mL, Preservative Free (ABRYSVO) 60yo and older or 32 through 36 wks of 11/07/2022 Zoster recombinant (Shingrix ) 19yo and older 01/15/2020 Surgical History Surgery Date Site/Laterality Comments BREAST LUMPECTOMY 10/14/1992 NO BP OR IV R ARM COLON SURGERY BREAST REDUCTION Left ECTOPIC SURGERY Medical History Medical History Date Comments Breast cancer (CMS/HCC) right br east Colon cancer (CMS/HCC) Blindness mac degeneration , b History of transfusion WITH COLO N SURGERY Anxiety situational Arthritis Joint pain Cirrhosis (CMS/HCC) Macular degeneration Family History Medical History Relation Name Comments Hypertension Father non-hodgkin lymphoma Father d Breast cancer Mother Pancreatic cancer Mother Relation Name Status Comments Father Mother Social History Tobacco Use Types Packs/Day Years Used Date Smoking Tobacco: Former Cigarettes S tarted: 1999 Smokeless Tobacco: Never Tobacco Cessation:Counseling Given: Not Answered Comments:Patient used to smoke 1 ppd Alcohol Use Standard Drinks/Week Comments [...] for your loved ones. For example, children counselor or elderly care for an older [...] file Not on file Not on file Obstetrics History Para Term AB IAB SAB Ectopic Multiple Livin g Live Births 4 3 Date Outcome GA Total Labor Labor/2nd/3rd Weight Sex Type Anes PTL Nory A1 A5 Name Clin Para Para Para Last Filed Vital Signs Vital Sign Reading [...] Mass Index 28.9 04/18/2024 2:17 PM EST Plan of Treatment Upcoming Encounters Date Type Department Care Team (Late st Contact Info) Description 05/01/2024 11:15 AM EDT Office Visit Thoracic Surgery - [address] [place] [phone] Maximo Carias, ZACK [address] [facility] [address] [place] [address] Health Maintenance Due Date Last Done Comments DTaP,Tdap,and Td Vaccines (1 - Tdap) 1959 Zoster Vaccines (2 of 2) 03/11/2020 01/15/2020 Depression Screening 01/03/2024 Medicare Annual Wellness Visit 01/03/2024 Osteoporosis Screening (Bone Density Screening) 01/03/2024 Social Influencers of Health Screening 04/17/2025 04/17/2024 Falls Risk Assessment 04/22/2025 04/22/2024 Pneumococcal Vaccine: 50+ Years Completed 01/04/2019, 02/24/2017, 12/03/2014 RSV Immunization Patients 60+ Years Old Completed 11/07/2022 COVID-19 Vaccine Completed 12/06/2023, , 01/18/2022, Additional history exists Influenza Vaccine Completed 12/06/2023, , 10/08/2021, Additional history exists HIB Vaccines Aged Out No longer eligi ble based on patient's age to complete this topic HPV Vaccines Aged Out No longer eligi ble based on patient's age to complete this topic Hepatitis A Vaccines Aged Out No long er eligible based on patient's age to complete this topic Hepatitis B Vaccines Aged Out No long er eligible based on patient's age to complete this topic IPV Vaccines Aged Out No longer eligi ble based on patient's age to complete this topic MMR Vaccines Aged Out No longer eligi ble based on patient's age to complete this topic Meningococcal ACWY Vaccine Aged Out N o longer eligible based on patient's age to complete this topic Meningococcal B Vacine Aged Out No lo nger eligible based on patient's age to complete this topic RSV Immunization Patients Under 20 months Aged Out No longer eligible based on patient's age to complete this topic Varicella Vaccines Aged Out No longer eligible based on patient's age to complete this topic Medical Devices Implanted Type Area Procedure Writer Device Identifier Shelf Expiration Date Model / Serial / Lot Sealant Fibrin Vistaseal 10ml - [id number] - [id number] Implanted:Qty: 1 on 04/17/2024 by Rhona Michel MD at [facility] Hemostasis Left: Chest [employer] 11/19/2025 VST10 / [id number] / [id number] Sealant Fibrin Vistaseal 10ml - [id number] - [id number] Implanted:Qty: 1 on 04/17/2024 by Rhona Michel MD at [facility] Hemostasis Right: Chest [facility] [employer] 11/19/2025 VST1 / [id number] / [id number] 81 Sealant Progel Air Pleural 4ml - Sna - [id number] Implanted:Qty: 1 on 04/17/2024 by Rhona Michel MD at [facility] [employer] N/A: Chest CR [employer]ARD [employer] 11/13/2025 [id number] / [id number] / [id number] Procedures Procedure Name Priority Date/Time Associated Diagnosis [...] 1 VIEW Routine 04/20/2024 5:49 AM EST MAGNESIUM STAT 04/19/2024 11:24 PM EST COMPLETE BLOOD COUNT Routine 04/19/2024 11:24 PM EST TROPONIN I HIGH SENSITIVITY STAT 04/19/2024 11:24 PM EST BASIC METABOLIC PANEL STAT 04/19/2024 11:24 PM EST LT BLUE - NA CITRATE Routine 04/19/2024 11:19 PM EST EXTRA TUBES Routine 04/19/2024 11:19 PM EST ECG 12-LEAD [...] 1 VIEW STAT 04/18/2024 6:18 AM EST MAGNESIUM Routine 04/18/2024 6:11 AM EST PHOSPHORUS Routine 04/18/2024 6:11 AM EST BASIC METABOLIC PANEL Routine 04/18/2024 6:11 AM EST COMPLETE BLOOD COUNT Routine 04/18/2024 6:11 AM EST BASIC METABOLIC PANEL STAT 04/17/2024 3:50 PM EST COMPLETE BLOOD COUNT STAT 04/17/2024 3:50 PM EST MAGNESIUM STAT 04/17/2024 3:50 PM EST PHOSPHORUS STAT 04/17/2024 3:50 PM EST XR CHEST 1 VIEW STAT 04/17/2024 3:47 PM EST TH AN ARTERIAL LINE (CHARGE) Routine 04/17/2024 10:06 AM EST TH AN ENDOTRACHEAL(NO CHARGE) Routine 04/17/2024 9:40 AM EST SC THORACOSCOPY WITH THERAPEUTIC WEDGE RESECTION INITIAL UNILATERAL 04/17/2024 8:18 AM EST 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) Case Notes ON-Q Special Needs ON-Q SC REMOVAL OF LUNG OTHER THAN PNEUMONECTOMY SINGLE LOBE 04/17/2024 8:18 AM EST 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) Case Notes ON-Q Special Needs ON-Q SC THORACOSCOPY SURGICAL WITH REMOVAL OF A SINGLE LUNG SEGMENT 04/17/2024 8:18 AM EST 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) Case Notes ON-Q Special Needs ON-Q SC THORACOSCOPY SURGICAL W MEDIASTINAL & REGIONAL LYMPHADENECTOMY 04/17/2024 8:18 AM EST 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) Case Notes ON-Q Special Needs ON-Q SC THORACOSCOPY W DX WEDGE RESECTION F/B ANATOMIC LUNG RESECTION 04/17/2024 8:18 AM EST 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) Case Notes ON-Q Special Needs ON-Q SC THORACOSCOPY SURGICAL WITH LOBECTOMY 04/17/2024 8:18 AM EST 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) Case Notes ON-Q Special Needs ON-Q PREPARE RBC Routine 04/17/2024 8:13 AM EST CBC WITH AUTO DIFFERENTIAL Routine 04/10/2024 10:29 AM EST 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) BASIC METABOLIC PANEL Routine 04/10/2024 10:29 AM EST 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) CBC AND DIFFERENTIAL Routine 04/10/2024 10:29 AM EST 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) PROTHROMBIN TIME WITH INR Routine 04/10/2024 10:29 AM EST 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) Neoplasm ACTIVATED PARTIAL THROMBOPLASTIN TIME Routine 04/10/2024 10:29 AM EST 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) Neoplasm TYPE AND SCREEN Routine 04/10/2024 10:29 AM EST 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) XR CHEST 1 VIEW STAT 03/22/2024 4:00 PM EST XR CHEST 1 VIEW Routine 03/22/2024 2:55 PM EST Pain ..CONCENTRATION Routine 03/22/2024 2:31 PM EST 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) Pulmonary nodule ACID FAST BACILLI STAIN Routine 03/22/2024 2:31 PM EST 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) Pulmonary nodule CULTURE BRONCHIAL WITH GRAM STAIN Routine 03/22/2024 2:31 PM EST 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) Pulmonary nodule CULTURE, AFB AND SMEAR WITH REFLEX TO IDENTIFICATION AND SUSCEPTIBILITY Routine 03/22/2024 2:31 PM EST 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) Pulmonary nodule CULTURE FUNGAL, OTHER Routine 03/22/2024 2:31 PM EST 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) Pulmonary nodule PD-L1, CLONE 22C3, IHC Routine 03/22/2024 2:28 PM EST 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) Pulmonary nodule TISSUE EXAM Routine 03/22/2024 2:28 PM EST 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) Pulmonary nodule NON-GYNECOLOGIC CYTOLOGY Routine 03/22/2024 2:18 PM EST 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) Pulmonary nodule TH AN ENDOTRACHEAL(NO CHARGE) Routine 03/22/2024 1:54 PM EST SC BRONCHOSCOPY RIGID/FLEXIBLE W/EBUS >=3 MEDIASTINAL/HILAR LYMPH NODES 03/22/2024 1:31 PM EST 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) Pulmonary nodule Special Needs TIME CHANGE VIA PHONE Eric/MD MILLA HAS AM APPOINTMENT LINDA 03/18 SC BRONCHOSCOPY INCL FLUROSCOPIC GUIDANCE W PLCMNT FIDUCIAL MARKER SGL/MULT 03/22/2024 1:31 PM EST 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) Pulmonary nodule Special Needs TIME CHANGE VIA PHONE MD ARANZA HAS AM APPOINTMENT LINDA 03/18 SC BRONCHOSCOPY INCL FLUOROSCOPIC GUID W EBUS DURING PERIPHERAL LESION 03/22/2024 1:31 PM EST 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) Pulmonary nodule Special Needs TIME CHANGE VIA PHONE Eric/MD MILLA HAS AM APPOINTMENT CB 03/18 CT CHEST WO CONTRAST Routine 03/13/2024 12:11 PM EST Lung nodule CBC WITH AUTO DIFFERENTIAL Routine 03/13/2024 11:46 AM EST 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) Pulmonary nodule BASIC METABOLIC PANEL Routine 03/13/2024 11:46 AM EST 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) Pulmonary nodule CBC AND DIFFERENTIAL Routine 03/13/2024 11:46 AM EST 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) Pulmonary nodule PROTHROMBIN TIME WITH INR Routine 03/13/2024 11:46 AM EST 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) Pulmonary nodule Neoplasm ACTIVATED PARTIAL THROMBOPLASTIN TIME Routine 03/13/2024 11:46 AM EST 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) Pulmonary nodule Neoplasm TYPE AND SCREEN Routine 03/13/2024 11:46 AM EST 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) Pulmonary nodule PROCEDURAL ECG Routine 03/13/2024 11:29 AM EST 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) Pulmonary nodule from Last 3 Months Results * XR Chest 1 View (04/22/2024 5:38 AM EDT) Only the most recent of8 resultswithin the time period is included. Anatomical Region Laterality Modality Body Radiographic Kendra ging 04/22/2024 7:53 AM EDT Impressions 04/22/2024 7:57 AM EDT Postsurgical changes as above. Scattered areas of atelectasis and/or infiltrates bilaterally. No change since 04/21/2024. Code 48863 -------- FINAL REPORT -------- Dictated By: Kalpesh Brody Dictated Date: 04/22/2024 07:53 ET Assigned Physician: Kalpesh Brody Reviewed and Electronically Signed By: Kalpesh Brody Signed Date: 04/22/2024 07:57 ET Workstation ID: [id number] Transcribed By: Self Edit Transcribed Date: 04/22/2024 [...] and/orinfiltrates bilaterally. No change since 04/21/2024. Code 01572 -------- FINAL REPORT -------- Dictated By: Kalpesh Brody Dictated Date: 04/22/2024 07:53 ET Assigned Physician: Kalpesh Brody Reviewed and Electronically Signed By: Kalpesh Brody Signed Date: 04/22/2024 07:57 ET Workstation ID: [id number] Transcribed By: Self Edit Transcribed Date: 04/22/2024 07:53 ET us Pastora Adams CLINICAL STAFF ANESTHESIOLOGIST IMG XR PROCEDURES Final Res ult * (ABNORMAL) TRANSTHORACIC ECHOCARDIOGRAM (TTE) COMPLETE W/ CONTRAST (04/21/2024 12:11 PM EDT) Left Atrium Minor Shelby 6.2 cm CV PACS Left Atrium Major Shelby 6.5 cm CV PACS LA Area Sys [...] Volume 49 mL CV PACS MV Deceleration [place] 6.5 m/s2 CV PACS E Wave Deceleration [...] CV ECHO PROCEDURES Final Re sult * Troponin I high sensitivity (04/19/2024 11:24 PM EST) High Sensitivity Troponin I 28 <=54 ng/L LAB CHEMISTRY METHOD 04/20/2024 12:16 AM EST [facility] Blood Venous blood specimen / Unknown Venipuncture / Unknown 04/19/2024 11:24 PM EST 04/19/2024 11:38 PM EST Narrative [facility] - 04/20/2024 12:16 AM EST High levels of biotin in samples may falsely decrease hsTroponin values. ??Use caution when interpreting hsTroponin results in patients taking biotin who exhibit renal impairment (eGFR <60) or in patients taking more than 20 mg/day of biotin. us Maximo Valdovinos MD LAB BLOOD ORDERABLES Final Result [facility] [address] [place] [address], * (ABNORMAL) Complete blood count (04/19/2024 11:24 PM EST) Only the most recent of3 resultswithin the time period is included. WBC 17.5(H) 4.8 - 10.8 K/[facility] LAB HEMETOLOGY METHOD 04/19/2024 11:50 PM [facility] RBC 4.00 3.80 - 4.80 M/[facility] LAB HEMETOLOGY METHOD 04/19/2024 11:50 PM [facility] Hemoglobin 12.8 11.5 - 16.0 g/dL LAB HEMETOLOGY METHOD 04/19/2024 11:50 PM [facility] Hematocrit 38.3 35.0 - 47.0 % LAB HEMETOLOGY METHOD 04/19/2024 11:50 PM [facility] MCV 94.8 79.0 - 98.0 FL LAB HEMETOLOGY METHOD 04/19/2024 11:50 PM [facility] MCH 31.7 27.0 - 32.0 pcg LAB HEMETOLOGY METHOD 04/19/2024 11:50 PM [facility] MCHC 33.4 32.0 - 37.0 g/dL LAB HEMETOLOGY METHOD 04/19/2024 11:50 PM [facility] RDW 12.8 11.0 - 15.0 % LAB HEMETOLOGY METHOD 04/19/2024 11:50 PM [facility] Platelets 156 130 - 400 K/[facility] LAB HEMETOLOGY METHOD 04/19/2024 11:50 PM [facility] MPV 11.2(H) 7.0 - 11.0 FL LAB HEMETOLOGY METHOD 04/19/2024 11:50 PM [facility] NRBC 0.0 <1.0 % LAB HEMETOLOGY METHOD 04/19/2024 11:50 PM [facility] NRBC Absolute 0.00 <0.10 K/[facility] LAB HEMETOLOGY METHOD 04/19/2024 11:50 PM [facility] Blood Venous blood specimen / Unknown Venipuncture / Unknown 04/19/2024 11:24 PM EST 04/19/2024 11:38 PM EST us Maximo Valdovinos MD LAB BLOOD ORDERABLES Final Result Performing Organization Address [facility] Co de Phone Number [facility] [address] [place] [address], [place] [phone] * Magnesium (04/19/2024 11:24 PM EST) Only the most recent of3 resultswithin the time period is included. [facility] Magnesium 1.9 1.9 - 2.6 mg/dL LAB CHEMISTRY METHOD 04/20/2024 12:13 AM [facility] Blood Venous blood specimen / Unknown Venipuncture / Unknown 04/19/2024 11:24 PM EST 04/19/2024 11:38 PM EST us Maximo Valdovinos MD LAB BLOOD ORDERABLES Final Result Performing Organization Address [facility] de Phone Number [facility] [address] [place] [address], [place] [phone] * (ABNORMAL) Basic metabolic panel (04/19/2024 11:24 PM EST) Only the most recent of5 resultswithin the time period is included. [facility] Sodium 138 133 - 145 mmol/L LAB CHEMISTRY METHOD 04/20/2024 12:13 AM [facility] Potassium 4.0 3.5 - 5.5 mmol/L LAB CHEMISTRY METHOD 04/20/2024 12:13 AM [facility] Chloride 102 96 - 110 mmol/L LAB CHEMISTRY METHOD 04/20/2024 12:13 AM [facility] CO2 30 21 - 32 mmol/L LAB CHEMISTRY METHOD 04/20/2024 12:13 AM [facility] Anion Gap 6 3 - 11 LAB CHEMISTRY METHOD 04/20/2024 12:13 AM [facility] Glucose 114(H) 70 - 100 mg/dL LAB CHEMISTRY METHOD 04/20/2024 12:13 AM [facility] BUN 16 5 - 25 mg/dL LAB CHEMISTRY METHOD 04/20/2024 12:13 AM [facility] Creatinine 0.48(L) 0.50 - 1.10 mg/dL LAB CHEMISTRY METHOD 04/20/2024 12:13 AM [facility] eGFR 95 >=60 mL/min/1. 73m2 LAB CHEMISTRY METHOD 04/20/2024 12:13 AM [facility] Comment:Calculation based on the??Chronic Kidney Disease Epidemiology Collaboration (CKD-EPI) equation refit??without adjustment for race. BUN/Creatinine Ratio 33.3 LAB CHEMISTRY METHOD 04/20/2024 12:13 AM [facility] Calcium 9.3 8.5 - 10.5 mg/dL LAB CHEMISTRY METHOD 04/20/2024 12:13 AM [facility] Blood Venous blood specimen / Unknown Venipuncture / Unknown 04/19/2024 11:24 PM EST 04/19/2024 11:38 PM EST Maximo Valdovinos MD LAB BLOOD ORDERABLES Final Result Performing Organization Address City/[facility]/ZIP Co de Phone Number [facility] [address] [place] [address], * Light blue tube (04/19/2024 11:19 PM EST) Extra Tube Hold for add-ons. 04/20/2024 1:05 AM [facility] Comment:Auto resulted. Blood Venous blood specimen / Unknown Venipuncture / Unknown 04/19/2024 11:19 PM EST 04/19/2024 11:38 PM EST Rhona Michel MD LAB BLOOD ORDERABLES Final Resul t [facility] [address] [place] [address], [place] [phone] * ECG 12 lead (04/19/2024 10:23 PM EST) [facility] Ventricular Rate ECG 171 BPM GEMUSE Atrial Rate 178 BPM GEMUSE QRS Duration 90 ms GEMUSE Q-T Interval 276 ms GEMUSE QTc 465 ms GEMUSE R Shelby 47 degrees GEMUSE T Shelby -79 degrees GEMUSE ECG Interpretation Critical Test [...] 3 PM EST 04/20/2024 12:40 PM EST us Maximo Valdovinos MD ECG ORDERABLES Final Resul t Performing Organization Address City/[facility]/ZIP Co de Phone Number GEMUSE * Phosphorus (04/18/2024 6:11 AM EST) Only the most recent of2 resultswithin the time period is included. [facility] Phosphorus 2.7 2.5 - 4.5 mg/dL LAB CHEMISTRY METHOD 04/18/2024 7:48 AM EST [facility] Blood Venous blood specimen / Unknown Venipuncture / Unknown 04/18/2024 6:11 AM EST 04/18/2024 6:59 AM EST Pastora Adams NP LAB BLOOD ORDERABLES Final Result Performing Organization Address [facility]/ZIP Co de Phone Number [facility] [address] [place] [address], [place] [phone] * TH AN ARTERIAL LINE (CHARGE) (04/17/2024 10:06 AM EST) Colt Beltran SRNA - 04/17/2024 10:06 AM EST NOEL [...] to verify the correct patient, procedure, equipment, it technical support specialist and site/side marked as required. Preparation: Patient was prepped and draped in the usual sterile fashion. Indications: hemodynamic monitoring Location: right radial Sedation: Patient sedated: yes Sedatives: see MAR for details Analgesia: see MAR for details Eriberto's test normal: yes Needle gauge: 20 Number of attempts: 4 Post-procedure: dressing applied Post-procedure CMS: normal Staffing Anesthesiologist: Feliciano Florez MD us Feliciano Florez MD ANESTHESIA ORDERABLES Final Re sult * TH AN ENDOTRACHEAL(NO CHARGE) (04/17/2024 9:40 AM EST) Colt Beltran SRNA - 04/17/2024 9:40 AM EST NOEL Benson ? 04/17/2024 10:05 AM General Information and Staff Patient location during procedure: OR Resident/POWDER MONKEY: NOEL Benson Performed by: NOEL Benson Authorized [...] ANESTHESIA ORDERABLES Edited R esult - Final * Prepare RBC: 2 Units (04/17/2024 8:13 AM EST) Product Code [id number] 04/18/2024 6:58 AM [facility] Unit Number [id number] 04/19/19 6:58 AM [facility] Crossmatch Compatible 04/17/2024 2:38 PM [facility] Dispense Status Released From Crossmatch 04/18/2024 6:58 AM [facility] Unit ABO Rh APOS 04/18/2024 6:58 AM [facility] Unit Expiration Date Time [id number] 04/18/2024 6:58 AM [facility] Unit Blood Type 6200 04/18/2024 6:58 AM [facility] Product Code [id number] 04/18/2024 6:58 AM [facility] Unit Number [id number] 04/19/19 6:58 AM [facility] Crossmatch Compatible 04/17/2024 2:38 PM [facility] Dispense Status Released From Crossmatch 04/18/2024 6:58 AM [facility] Unit ABO Rh APOS 04/18/2024 6:58 AM [facility] Unit Expiration Date Time [id number] 04/18/2024 6:58 AM [facility] Unit Blood Type 6200 04/18/2024 6:58 AM [facility] Blood Venous blood specimen / Unknown 04/17/2024 8:13 AM EST 04/10/2024 10:47 AM EST us Rhona Michel MD BLOOD BANK PRODUCT ORDERABLES Fi nal Result [facility] [address] [place] [address], [place] [phone] * (ABNORMAL) CBC auto differential (04/10/2024 10:29 AM EST) Only the most recent of2 resultswithin the time period is included. WBC 6.6 4.8 - 10.8 K/mcL LAB HEMETOLOGY METHOD 04/10/2024 12:45 PM [facility] RBC 4.60 3.80 - 4.80 M/mcL LAB HEMETOLOGY METHOD 04/10/2024 12:45 PM [facility] Hemoglobin 14.4 11.5 - 16.0 g/dL LAB HEMETOLOGY METHOD 04/10/2024 12:45 PM [facility] Hematocrit 43.9 35.0 - 47.0 % LAB HEMETOLOGY METHOD 04/10/2024 12:45 PM [facility] MCV 95.0 79.0 - 98.0 FL LAB HEMETOLOGY METHOD 04/10/2024 12:45 PM [facility] MCH 31.2 27.0 - 32.0 pcg LAB HEMETOLOGY METHOD 04/10/2024 12:45 PM [facility] MCHC 32.8 32.0 - 37.0 g/dL LAB HEMETOLOGY METHOD 04/10/2024 12:45 PM [facility] RDW 12.4 11.0 - 15.0 % LAB HEMETOLOGY METHOD 04/10/2024 12:45 PM [facility] Platelets 04/10/2024 12:45 PM [facility] Comment:Not measured. PLATEL ETS CLUMPED. MPV 11.5(H) 7.0 - 11.0 FL LAB HEMETOLOGY METHOD 04/10/2024 12:45 PM [facility] NRBC 0.0 <1.0 % LAB HEMETOLOGY METHOD 04/10/2024 12:45 PM [facility] NRBC Absolute 0.00 <0.10 K/mcL LAB HEMETOLOGY METHOD 04/10/2024 12:45 PM [facility] Neutrophils Relative 67.8 % LAB HEMETOLOGY METHOD 04/10/2024 12:45 PM [facility] Lymphocytes Relative 21.8 % LAB HEMETOLOGY METHOD 04/10/2024 12:45 PM [facility] Monocytes Relative 7.8 % LAB HEMETOLOGY METHOD 04/10/2024 12:45 PM [facility] Eosinophils Relative 1.8 % LAB HEMETOLOGY METHOD 04/10/2024 12:45 PM [facility] Basophils Relative 0.5 % LAB HEMETOLOGY METHOD 04/10/2024 12:45 PM [facility] Immature Granulocytes Relative 0.3 % LAB HEMETOLOGY METHOD 04/10/2024 12:45 PM [facility] Neutrophils Absolute 4.50 1.50 - 7.00 K/mcL LAB HEMETOLOGY METHOD 04/10/2024 12:45 PM [facility] Lymphocytes Absolute 1.45 1.00 - 5.00 K/mcL LAB HEMETOLOGY METHOD 04/10/2024 12:45 PM [facility] Monocytes Absolute 0.52 0.20 - 1.00 K/mcL LAB HEMETOLOGY METHOD 04/10/2024 12:45 PM EST [facility] Eosinophils Absolute 0.12 0.00 - 0.50 K/mcL LAB HEMETOLOGY METHOD 04/10/2024 12:45 PM EST [facility] Basophils Absolute 0.03 0.00 - 0.20 K/[facility] HEMETOLOGY METHOD 04/10/2024 12:45 PM EST [facility] Immature Granulocytes Absolute 0.02 0.00 - 0.03 K/[facility] LAB HEMETOLOGY METHOD 04/10/2024 12:45 PM EST [facility] Blood Venous blood specimen / Unknown Venipuncture / Unknown 04/10/2024 10:29 AM EST 04/10/2024 10:47 AM EST us Rhona Michel MD LAB BLOOD ORDERABLES Edited Resu lt - Final Performing Organization Address City/[facility]/ZIP Co de Phone Number [facility] [address] [place] [address], [place] [phone] * Activated partial thromboplastin time (04/10/2024 10:29 AM EST) Only the most recent of2 resultswithin the time period is included. Pathologist [facility] aPTT 30.8 24.1 - 39.3 sec LAB COAGULATION METHOD 04/10/2024 10:59 AM EST [facility] Blood Venous blood specimen / Unknown Venipuncture / Unknown 04/10/2024 10:29 AM EST 04/10/2024 10:48 AM EST us Rhona Michel MD LAB BLOOD ORDERABLES Final Resul t Performing Organization Address City/[facility]/ZIP Co de Phone Number [facility] [address] [place] [address], [place] [phone] * Prothrombin time with INR (04/10/2024 10:29 AM EST) Only the most recent of2 resultswithin the time period is included. [facility] Protime 12.3 10.6 - 13.9 sec LAB COAGULATION METHOD 04/10/2024 10:59 AM EST [facility] INR 1.0 LAB COAGULATION METHOD 04/10/2024 10:59 AM EST [facility] Blood Venous blood specimen / Unknown Venipuncture / Unknown 04/10/2024 10:29 AM EST 04/10/2024 10:48 AM EST us Rhona Michel MD LAB BLOOD ORDERABLES Final Resul t Performing Organization Address [facility]/ZIP Co de Phone Number [facility] [address] [place] [address], [place] [phone] * Type and screen (04/10/2024 10:29 AM EST) Only the most recent of2 resultswithin the time period is included. [facility] ABO Group A 04/10/2024 12:00 PM EST [facility] Rh Type Positive 04/10/2024 12:00 PM EST [facility] Antibody Screen Negative 04/10/2024 12:00 PM EST [facility] Blood Venous blood specimen / Unknown Venipuncture / Unknown 04/10/2024 10:29 AM EST 04/10/2024 10:47 AM EST us Rhona Michel MD LAB BLOOD BANK TEST ORDERABLES F inal Result [facility] [address] [place] [address], [place] [phone] * Culture bronchial with gram stain (03/22/2024 2:31 PM EST) [facility] Bronchial Culture No growth at 3 days 03/25/2024 9:43 AM EST [facility] Gram Stain Result Rare Polymorphonuclear leukocytes 03/25/2024 9:43 AM EST [facility] Gram Stain Result No epithelial cells seen 03/25/2024 9:43 AM EST [facility] Gram Stain Result No organisms seen 03/25/2024 9:43 AM EST [facility] Wash Structure of upper lobe of right lung / Unknown 03/22/2024 2:31 PM EST 03/22/2024 3:41 PM EST Rhona Michel MD LAB MICROBIOLOGY - GENERAL ORDER JUANCARLOS Final Result Performing Organization Address City/[facility]/ZIP Co de Phone Number [facility] [address] [place] [address], [place] [phone] * Concentration (03/22/2024 2:31 PM EST) AFB Concentration Performed 3:05 PM EST [facility] Wash Structure of upper lobe of right lung / Unknown 03/22/2024 2:31 PM EST 03/22/2024 3:33 PM EST Narrative [facility] - 03/23/2024 3:05 PM EST Performed at: ??01 - [facility] [address] ??[id number] Informatics Scientist: Gabi Dumont MD, Phone: ??[phone] Rhona Michel MD LAB BLOOD ORDERABLES Final Resul t [facility] * Acid fast bacilli stain (03/22/2024 2:31 PM EST) AFB Stain Result No Acid fast bacilli seen on direct smear (Fuchsin method, 1000x) No Acid Fast Bacilli seen on direct smear 03/22/2024 8:53 PM EST [facility] Wash Structure of upper lobe of right lung / Unknown 03/22/2024 2:31 PM EST 03/22/2024 3:33 PM EST Rhona Michel MD LAB MICROBIOLOGY - GENERAL ORDER JUANCARLOS Final Result Performing Organization Address [facility]/ZIP Co de Phone Number [facility] [address] [place] [address], [place] [phone] * Culture fungal, other (03/22/2024 2:31 PM EST) Culture, Fungus Negative for Fungus after 4 Weeks 04/22/2024 8:10 AM EDT [facility] Wash Structure of upper lobe of right lung / Unknown 03/22/2024 2:31 PM EST 03/22/2024 3:41 PM EST Rhona Michel MD LAB MICROBIOLOGY - GENERAL ORDER JUANCARLOS Final Result Performing Organization Address [facility] de Phone Number [facility] [address] [place] [address], [place] [phone] * PD-L1, clone 22C3, IHC (03/22/2024 2:28 PM EST) Scan Result See Scanned Result 04/15/2024 9:06 AM EST EXTERNAL LAB (NON-INTERFAC ED) Tissue Structure of upper lobe of right lung / Unknown 03/22/2024 2:28 PM EST 04/09/2024 7:12 AM EST Rhona Michel MD LAB PATHOLOGY ORDERABLES Final R esult Performing Organization Address City/[facility]/ZIP Co de Phone Number EXTERNAL LAB (NON-INTERFACED) * Tissue exam (03/22/2024 2:28 PM EST) Addendum 2 This case was sent t o [facility], [address], [place], [place], (CLIA #[id number]) for PD-L1 22C3 FDA for NSCLC studies. Their diagnosis is as follows: Histology Analysis PD-L1 22C3 FDA for NSCLC Results: PD-L1 22C3 FDA for NSCLC: HIGH PD-L1 EXPRESSION Tumor Proportion Score: 80% Intensity: 2+ Electronic Signature Claudio Dolan M.D. Report Date: 04/13/2024 01:57:48 PM ET (Full report on file) 10:23 AM [facility] Addendum electronically signed by Dre Rome MD on 04/15/2024 at 10:23 AM Addendum Immunohistology supports PULMONARY ADENOCARCINOMA. Neoplastic cells express TTF-1 and Napsin-A. NOTE: The immunohistochemical tests were developed and their performance characteristics were determined by [facility]. They have not been cleared or approved by the U.S. Food and Drug Administration. The FDA has determined that such clearance or approval is not necessary. These tests are used for clinical purposes. They should not be regarded as investigational or for research. This laboratory is certified under the Clinical Laboratory Improvement Amendments of 1988 (CLIA) as qualified to perform high complexity clinical laboratory testing. (controls appropriate) 10:23 AM [facility] Addendum electronically signed by Dre Rome MD on 03/26/2024 at 8:28 AM Final Diagnosis Lung, Right Upper Lobe-cryobiopsy: -ADENOCARCINOMA -See addendum report for immunohistology 10:23 AM [facility] Gross Description A. Lung, Right Upper Lobe, Right upper lobe nodule: Labeled lung RUL . Received in formalin are three irregular franz-pink focally anthracotic soft tissue fragments, each measuring approximately 0.2 cm in greatest dimension, which are wrapped in paper and submitted in toto in two cassettes, two pieces and one piece, respectively, x 2 with six unstained slides between levels. SARAI 10:23 AM [facility] Disclaimer NOTE: The immunohistochemical tests and in situ hybridization tests were developed and their performance characteristics were determined by [facility]. They have not been cleared or approved by the U.S. Food and Drug Administration. The FDA has determined that such clearance or approval is not necessary. These tests are used for clinical purposes. They should not be regarded as investigational or for research. This laboratory is certified under the Clinical Laboratory Improvement Amendments of 1988 (CLIA) as qualified to perform high complexity clinical laboratory testing. (controls appropriate) Unless otherwise specified, all tissue is 10% NB formalin fixed and paraffin embedded. 10:23 AM EST [facility] Tissue Structure of upper lobe of right lung / Unknown 03/22/2024 2:28 PM EST 03/22/2024 3:42 PM EST us Rhona Michel MD LAB PATHOLOGY ORDERABLES Edited Result - Final [facility] [address] [place] [address], * Non-gynecologic cytology (03/22/2024 2:18 PM EST) Final Diagnosis A. Lung, Right Upper Lobe-fine needle aspirate (thin prep and cell block): -Single degenerated atypical cell-nondiagnosti c B. Lung, Right Upper Lobe-brushing (thin prep and cell block): -ADENOCARCINOMA C. Lung, Right Upper Lobe-washing (thin prep and cell block): -Negative for malignant cells. D. Lymph node, (EBUS) Right paratracheal (thin prep and cell block): : -Negative for malignant cells. -Adequate lymph node sampling E. Lymph node, (EBUS) Left paratracheal (thin prep and cell block): : -Negative for malignant cells. -Adequate lymph node sampling F. Lymph node, (EBUS) Subcarinal (thin prep and cell block): -Negative for malignant cells. -Adequate lymph node sampling 03/26/2024 8:49 AM EST [facility] Comment See concurrent right upper lobe lung cryobiopsy: [id number] for diagnosis of pulmonary adenocarcinoma. 03/26/2024 8:49 AM [facility] Specimen A Adequacy Unsatisfactory for evaluation 03/26/2024 8:49 AM [facility] Specimen B Adequacy Satisfactory for evaluation 03/26/2024 8:49 AM [facility] Specimen C Adequacy Satisfactory for evaluation 03/26/2024 8:49 AM [facility] Specimen D Adequacy Satisfactory for evaluation 03/26/2024 8:49 AM [facility] Specimen E Adequacy Satisfactory for evaluation 03/26/2024 8:49 AM [facility] Specimen F Adequacy Satisfactory for evaluation 03/26/2024 8:49 AM [facility] Gross Description A. Lung, Right Upper Lobe, (Alon bronch) Right upper lobe nodule: Received in Cytolyt 30 ml of clear fluid; 1 ThinPrep,1 cell block Cell block in formalin @8:00-total formalin fixation time 13 hours. B. Lung, Right Upper Lobe, right upper lobe brushing: Received one brush in Cytolyt 30 ml of light pink fluid; 1 ThinPrep, 1 cell block Cell block in formalin @8:00-total formalin fixation time 13 hours. C. Lung, Right Upper Lobe, right upper lobe washing: Received 40 ml of light red fluid; 1 ThinPrep, 1 Cell block Cell block in formalin @8;00-total formalin fixation time 13 hours. D. Mediastinum, (EBUS) Right paratracheal lymph node: Received in Cytolyt 30 ml of clear fluid; 1 ThinPrep, 1 cell block Cell block in formalin @8:00-total formalin fixation time 13 hours. E. Mediastinum, (EBUS) Left paratracheal lymph node: Received 30 ml of light pink fluid; 1 ThinPrep, 1 Cell block Cell block in formalin @8;00-total formalin fixation time 13 hours. F. Mediastinum, (EBUS) Subcarinal lymph node: Received in Cytolyt 30 ml of pink fluid; 1 ThinPrep,1 cell block Cell block in formalin @8:00-total formalin fixation time 13 hours. 03/26/2024 8:49 AM EST [facility] Disclaimer Unless otherwise specified, all tissue is 10% NB formalin fixed and paraffin embedded. Technical cytopathology services provided by [facility], at [address] [place] [id number] ([facility] # [id number]/Willian Rome MD, Precision Devices Inspector/Tester.) 03/26/2024 8:49 AM EST [facility] Fine Needle Aspirate Structure of upper lobe of right lung / Unknown 03/22/2024 2:18 PM EST 03/22/2024 3:53 PM EST Brushing, function (observable entity) Structure of upper lobe of right lung / Unknown 03/22/2024 2:30 PM EST 03/22/2024 3:56 PM EST Specimen obtained by lavage (specimen) Structure of upper lobe of right lung / Unknown 03/22/2024 2:31 PM EST 03/22/2024 3:57 PM EST Specimen obtained by fine needle aspiration procedure (specimen) Mediastinal structure / Unknown 03/22/2024 2:36 PM EST 03/22/2024 3:58 PM EST Specimen obtained by fine needle aspiration procedure (specimen) Mediastinal structure / Unknown 03/22/2024 2:47 PM EST 03/22/2024 4:00 PM EST Specimen obtained by fine needle aspiration procedure (specimen) Mediastinal structure / Unknown 03/22/2024 2:53 PM EST 03/22/2024 4:01 PM EST us Rhona Michel MD LAB CYTOLOGY ORDERABLES Final Re sult [facility]) [facility] [address] [place] [address], * TH AN ENDOTRACHEAL(NO CHARGE) (03/22/2024 1:54 PM EST) Narrative Elizabeth Salas CRNA - 03/22/2024 1:54 PM EST Elizabeth Salas CRNA ? 03/22/2024 ??3:18 PM General Information and Staff Patient location during procedure: OR Anesthesiologist: Feliciano Florez MD Resident/POWDER MONKEY: Nahun Linares CRNA Performed: resident/POWDER MONKEY/CAA Performed by: Nahun Linares CRNA Authorized by: Feliciano Florez MD ?? Intubation Airway not difficult Urgency: elective Final Airway Details Successful airway: ETT Cuffed: yes Successful intubation technique: direct laryngoscopy Facilitating devices/methods: intubating stylet Endotracheal tube insertion site: oral Blade: Shant Blade size: #3 ETT size (mm): 9.0 Placement verified by: chest auscultation and capnometry Measured from: teeth ETT to teeth (cm): 21 Number of attempts at approach: 1Final airway type: endotracheal airway Indications and Patient Condition Indications for airway management: anesthesia Spontaneous ventilation: present Sedation level: Yes Preoxygenated: yes Soft Tissue Damage: No Dentition Unchanged: Yes Patient position: sniffing Mask difficulty assessment: 1 - vent by mask Start Time: 03/22/2024 1:42 PM us Feliciano Florez MD ANESTHESIA ORDERABLES Edited R esult - Final * CT Chest wo Contrast (03/13/2024 12:11 PM EST) Anatomical Region Laterality Modality Body Computed Tomogra phy 03/15/2024 1:07 PM EST Impressions 03/15/2024 1:45 PM EST 1. ??Enlarging pulmonary nodules/masses at both lung apices. ??These are shown to be tracer avid on a PET scan dated 01/03/2024 and remain concerning for neoplastic disease. 2. ??Multinodular liver suggestive of cirrhosis. -------- FINAL REPORT -------- Dictated By: Derek Khan Dictated Date: 03/15/2024 13:07 ET Assigned Physician: Derek Khan Reviewed and Electronically Signed By: Derek Khan Signed Date: 03/15/2024 13:45 ET Workstation ID: [id number] Transcribed By: Self Edit Transcribed Date: 03/15/2024 13:21 ET Narrative 03/15/2024 1:45 PM EST Procedure: Noncontrast CT of the chest. HISTORY: lung nodule. TECHNIQUE: CT of the chest without intravenous contrast. ??Coronal and sagittal reformats and MIP reconstructions were created. COMPARISON: PET CT dated 01/03/2024. ??Outside CT dated 11/28/2023. Dose length product: ??386 mGy-cm. FINDINGS: Lungs/pleura: Central airways are clear. ??There is stable multifocal scarring and mild traction bronchiectasis. ??Interval enlargement of an FDG avid spiculated mass at the left apex (series 4, image 65), measuring 19 mm in diameter on today's exam and 1.5 cm in diameter on the 11/28/2023 exam. ??A 2nd elongated FDG avid nodule in the right upper lobe (image 74) is also larger, measuring 14 mm in thickness, previously 11 mm. ??No pleural effusion or pneumothorax. Mediastinum/tobias: Stable small mediastinal nodes. ??Evaluation of the tobias is limited without intravenous contrast, but there is no apparent interval change. Vasculature: Mild atherosclerotic calcifications of the great vessels. ??Upper normal caliber pulmonary arteries. Cardiac: Marked mitral annular calcification. ??Mild aortic annular calcification. ??Mild coronary artery calcification. ??Normal heart size. Chest wall: No axillary or supraclavicular lymphadenopathy. Limited abdomen: Multinodular appearance of the liver, similar to the previous study and suggestive of cirrhosis. Bones: There is a partially visible prominent rotatory dextroscoliosis at the thoracolumbar junction. ??Multilevel degenerative changes of the spine. ??No suspicious bony lesion. Procedure Note Derek Khan MD - 03/15/2024 Procedure: Noncontrast CT of the chest. HISTORY: lung nodule. TECHNIQUE: CT of the chest without intravenous contrast. Coronal andsagittal reformats and MIP reconstructions were created. COMPARISON: PET CT dated 01/03/2024. Outside CT dated 11/28/2023. Dose length product: 386 mGy-cm. FINDINGS: Lungs/pleura: Central airways are clear. There is stable multifocalscarring and mild traction bronchiectasis. Interval enlargement of an FDGavid spiculated mass at the left apex (series 4, image 65), measuring 19mm in diameter on today's exam and 1.5 cm in diameter on the 11/28/2023exam. A 2nd elongated FDG avid nodule in the right upper lobe (image 74)is also larger, measuring 14 mm in thickness, previously 11 mm. Nopleural effusion or pneumothorax. Mediastinum/tobias: Stable small mediastinal nodes. Evaluation of the hilais limited without intravenous contrast, but there is no apparent intervalchange. Vasculature: Mild atherosclerotic calcifications of the great vessels.Upper normal caliber pulmonary arteries. Cardiac: Marked mitral annular calcification. Mild aortic annularcalcification. Mild coronary artery calcification. Normal heart size. Chest wall: No axillary or supraclavicular lymphadenopathy. Limited abdomen: Multinodular appearance of the liver, similar to theprevious study and suggestive of cirrhosis. Bones: There is a partially visible prominent rotatory dextroscoliosis atthe thoracolumbar junction. Multilevel degenerative changes of the spine.No suspicious bony lesion. IMPRESSION: 1. Enlarging pulmonary nodules/masses at both lung apices. These areshown to be tracer avid on a PET scan dated 01/03/2024 and remainconcerning for neoplastic disease. 2. Multinodular liver suggestive of cirrhosis. -------- FINAL REPORT -------- Dictated By: Derek Khan Dictated Date: 03/15/2024 13:07 ET Assigned Physician: Derek Khan Reviewed and Electronically Signed By: Derek Khan Signed Date: 03/15/2024 13:45 ET Workstation ID: [id number] Transcribed By: Self Edit Transcribed Date: 03/15/2024 13:21 ET Pastora Adams NP IMG CT PROCEDURES Final Res ult * ECG 12 lead - Procedural (No Charge) (03/13/2024 11:29 AM EST) Ventricular Rate ECG 72 BPM GEMUSE Atrial Rate 72 BPM GEMUSE P-R Interval 154 ms GEMUSE QRS Duration 92 ms GEMUSE Q-T Interval 382 ms GEMUSE QTc 418 ms GEMUSE P Wave [place] 64 degrees GEMUSE R [place] 45 degrees GEMUSE T [place] 51 degrees GEMUSE ECG Interpretation Normal sinus rhythm Incomplete right bundle branch block Borderline ECG No previous ECGs available Confirmed by ALISHA LARA ([id number]) on 03/13/2024 11:06:10 PM GEMUSE 03/13/2024 11:2 9 AM EST 03/13/2024 11:06 PM EST us Rhona Michel MD ECG ORDERABLES Final Result GEMUSE from Last 3 Months Insurance MEDICARE [facility] Advance Directives Documents on File Type Date Recorded Patient Reference Archivist Expl anation Power of Perinatal Coordinator 03/22/2024 12:00 PM [facility] PROXY * Full Code - Default (Latest Code Status on File) Date Activated Date Inactivated Comments 04/17/2024 3:18 PM 04/22/2024 7:59 PM This is order is used when code status has not been discussed with the patient, or code status is otherwise unknown/unconfirmed To update the patient's code status, place a code status order. Do not modify or discontinue any currently active code status orders. * Full Code - Default Date Activated Date Inactivated Comments 04/17/2024 6:55 AM 04/17/2024 3:18 PM This is order is used when code status has not been discussed with the patient, or code status is otherwise unknown/unconfirmed To update the patient's code status, place a code status order. Do not modify or discontinue any currently active code status orders. * Full Code - Default Date Activated Date Inactivated Comments 03/22/2024 12:14 PM 03/22/2024 7:06 PM This is order is used when code status has not been discussed with the patient, or code status is otherwise unknown/unconfirmed To update the patient's code status, place a code status order. Do not modify or discontinue any currently active code status orders. Healthcare Agents on File Name Relationship Healthcare Agent Relationship Communication Baltazar Pinto Spouse Health Care Agent Care Teams Patient Care Relationship Specialty Start Date End Date Rose Mary Collins MD [address] [place] [id number] PCP - General Internal Medicine 02/27/24
[2024-04-24 10:05] LABS: Influenza A PCR NEGATIVE (Negative); Influenza B PCR NEGATIVE (Negative); Resp Syncy Virus RNA Qual PCR NEGATIVE (Negative); SARS COV2 PCR INHOUSE NEGATIVE (Negative)
[2024-04-24 10:46] LABS: Appearance Urine Clear; Color Urine Dark Yellow; Glucose Urine UA Negative (Negative); Leukocyte Esterase Urine Trace (Negative); Nitrite Urine Negative (Negative); Specific Gravity - Urine >= 1.030 (1.005-1.025); UMIC TRIGGER UACC YES; Urine Blood Negative (Negative); Urine Ketones Trace mg/dL (Negative); Urine Protein 30 (1+) mg/dL (Neg-Trace)
[2024-04-24 10:49] LABS: Lactic Acid 2.9 mmol/L (0.5-2.0)
[2024-04-24 10:49] LABS: Bacteria Urine None Seen (None Seen); Hyaline Casts Urine 0-2 /LPF (0-2); RBC Urine 0-2 /HPF (0-2); WBC Urine 0-5 /HPF (0-5)
[2024-04-24] MEDS: vancomycin/NS 2,000 MG/500 ML PLAST..BAG 250 MG IV (10:50)
[2024-04-24] MEDS: 0.9 % Sodium Chloride 500 ML 999 ML IV ×3 (10:55→12:29)
[2024-04-24 11:09] LABS: ABG HCO3 27 mmol/L (22-26); ABG pCO2 35 mmHg (32-45); ABG pH 7.48 (7.35-7.45); ABG pO2 71 mmHg (83-108)
[2024-04-24] MEDS: 0.9 % Sodium Chloride 1,000 ML 999 ML IV (11:59)
--- NOTE | 2024-04-24 12:08 | PC.NURSE ---
Fluids continuing to infuse. pt is awake and alert, c/o mild pain to site of R sided lobectomy. on high flow. purewick placed for comfort.
[2024-04-24 12:25] LABS: Reflex Lactate? Lactic Acid Added
[2024-04-24 14:33] LABS: ~Lactic Acid-LAB USE ONLY 2.3 mmol/L (0.5-2.0)
[2024-04-24 16:10] LABS: Reflex Lactate? 2 Y
--- NOTE | 2024-04-24 16:49 | PC.NURSE ---
Bladder scan performed as pt has not urinated since arrival. scan showing 272. rectal temp rechecked.
--- NOTE | 2024-04-24 16:50 | PC.NURSE ---
Per doctor conroy no further lactic acid levels are required
--- NOTE | 2024-04-24 19:54 | PC.NURSE ---
Report called to Lisa Lombardo at this time. all questions answered
[2024-04-25 00:29] LABS: ABG Refer to POC result
== END 2024-04-24 21:51 | disposition short-term general hospital (02) ==
PROVIDERS: Emergency Provider Emergency Medicine Emergency Medical Services; PCP Internal Medicine
DX: J96.91 Respiratory failure, unspecified with hypoxia (principal); R06.02 Shortness of breath; R50.9 Fever, unspecified; Z85.038 Personal history of other malignant neoplasm of large intestine; Z85.3 Personal history of malignant neoplasm of breast; Z85.118 Personal history of other malignant neoplasm of bronchus and lung; Z87.891 Personal history of nicotine dependence; Z03.818 Encounter for observation for suspected exposure to other biological agents ruled out
CPT/HCPCS: 0241U; 36415; 51701; 51798; 71045; 71275; 80048; 80076; 81001; 82803; 83605; 83880; 84484; 85025; 85610; 87040; 93005; 96365; 96366; 96367; 99285; J0692; J3370; Q9967

== ENCOUNTER → 2024-04-24 08:57 | Outpatient (BNV) | payer OTHER, MEDICARE, SELFPAY | PROVIDERS: Emergency Provider Emergency Medicine Emergency Medical Services; PCP Internal Medicine; Visit Provider Radiology Diagnostic Radiology | DX: R06.02 Shortness of breath (principal); J84.10 Pulmonary fibrosis, unspecified | CPT/HCPCS: 71045; 71275 ==

== ENCOUNTER → 2024-04-24 08:58 | Outpatient (BNV) | payer OTHER, MEDICARE, SELFPAY | PROVIDERS: Emergency Provider Emergency Medicine Emergency Medical Services; PCP Internal Medicine; Visit Provider Internal Medicine | DX: I49.1 Atrial premature depolarization (principal); I45.10 Unspecified right bundle-branch block; R00.0 Tachycardia, unspecified | CPT/HCPCS: 93010 ==